=== PATIENT | male | born 1975 | race American Indian/Alaskan Native ===

== ENCOUNTER 2020-01-28 15:39 | Emergency (ER) | payer SELFPAY ==
[2020-01-28] MEDS ORDERED: ASPIRIN 325 MG TAB PO ONE (15:46)
--- NOTE | 2020-01-28 16:11 | XRay Report ---
CHEST 1 VIEW INDICATION / CLINICAL INFORMATION: MAIN: Chest Pain X1DAY. COMPARISON: None available. FINDINGS: SUPPORT DEVICES: None. HEART / MEDIASTINUM: No significant abnormality. LUNGS / PLEURA: No significant pulmonary or pleural abnormality. No pneumothorax. ADDITIONAL FINDINGS: No significant additional findings. IMPRESSION: 1No acute findings Signer Name: Zac Abrams MD Signed: 01/28/2020 4:06 PM Workstation Name: [id number]
[2020-01-28 16:14] LABS: Basophils % (Auto) 0.2 % (0.0-1.8); Eosinophils # (Auto) 0.1 K/mm3 (0.0-0.4); Eosinophils % (Auto) 2.2 % (0.0-4.3); Hematocrit 45.2 % (35.5-45.6); Hemoglobin 15.2 gm/dl (11.8-15.2); Lymphocytes # (Auto) 2.4 K/mm3 (1.2-5.4); Lymphocytes % (Auto) 37.1 % (13.4-35.0); Mean Corpuscular HGB Conc 34 % (32-34); Mean Corpuscular Volume 97 fl (84-94); Monocytes # (Auto) 0.6 K/mm3 (0.0-0.8); Monocytes % (Auto) 9.1 % (0.0-7.3); Platelet Count 200 K/mm3 (140-440); Red Blood Count 4.67 M/mm3 (3.65-5.03); Red Cell Distribution Width 13.4 % (13.2-15.2)
[2020-01-28 16:24] LABS: BUN/Creatinine Ratio 10; Blood Urea Nitrogen 11 mg/dL (9-20); Calcium 9.2 mg/dL (8.4-10.2); Hemolysis Index 13
--- NOTE | 2020-01-28 16:57 | Emergency Department Report ---
ED Chest Pain HPI - General Chief Complaint: Chest Pain Stated Complaint: CHEST PAIN , RIGHT EAR PAIN Time Seen by Provider: 01/28/20 16:52 Source: patient Mode of arrival: Ambulatory Limitations: No Limitations - History of Present Illness Initial Comments: 44-year-old male with a pericolonic at least 20 years older comes in for right ear pain and abrupt onset of midsternal chest pain today while he was running to the bus. Patient reported shortness of breath at that time. Patient complains of mild chest pain that is dull and throbbing now. Patient states that he has a history of chest pain and it feels like the same. Patient reports that he does drink alcohol last drink was 3 days ago and smokes cigarettes and cigars. Patient denies any past medical history currently takes no medications on a daily basis and reports a allergy to Cipro and sulfa drugs. MD Complaint: chest pain - Related Data Previous Rx's Medication Instructions Recorded Last Taken Type Amoxicillin [Amoxicillin TAB] 875 mg PO BID 7 Days #14 tablet 01/28/20 Unknown Rx Neomy/Polymyx B/Hc Otic Susp 4 drops AD TID 10 Days #1 bottle 01/28/20 Unknown Rx [Cortisporin (Otic) Susp] Allergies Allergy/AdvReac Type Severity Reaction Status Date / Time No Known Allergies Allergy Unverified 01/28/20 15:46 Heart Score - HEART Score History: Slightly suspicious Age: 45-65 Risk factors: No known risk factors Troponin: < normal limit ED Review of Systems ROS: Stated complaint: CHEST PAIN , RIGHT EAR PAIN Other details as noted in HPI Comment: All other systems reviewed and negative ED Past Medical Hx - Past Medical History Previous Medical History?: No - Surgical History Past Surgical History?: No - Social History Smoking Status: Current Every Day Smoker Substance Use Type: Alcohol, Marijuana - Medications Home Medications: Home Medications Medication Instructions Recorded Confirmed Last Taken Type Amoxicillin [Amoxicillin TAB] 875 mg PO BID 7 Days #14 tablet 01/28/20 Unknown Rx Neomy/Polymyx B/Hc Otic Susp 4 drops AD TID 10 Days #1 bottle 01/28/20 Unknown Rx [Cortisporin (Otic) Susp] ED Physical Exam - General Limitations: No Limitations General appearance: alert, in no apparent distress - Head Head exam: Present: atraumatic, normocephalic - ENT ENT exam: Present: mucous membranes moist - Expanded ENT Exam Expanded TM/Canal exam: Erythema: Right TM, Loss of Landmarks: Right TM - Respiratory Respiratory exam: Present: normal lung sounds bilaterally. Absent: respiratory distress - Cardiovascular Cardiovascular Exam: Present: regular rate, normal rhythm. Absent: systolic murmur, diastolic murmur, rubs, gallop - GI/Abdominal GI/Abdominal exam: Present: soft, normal bowel sounds - Neurological Exam Neurological exam: Present: alert, oriented X3 - Psychiatric Psychiatric exam: Present: normal affect, normal mood - Skin Skin exam: Present: warm, dry, intact, normal color. Absent: rash ED Course Vital Signs 01/28/20 15:41 Temperature 98.4 F Pulse Rate 117 H Respiratory 18 Rate Blood Pressure 189/97 O2 Sat by Pulse 97 Oximetry ABDIFATAH score - Abdifatah Score Age > 65: (0) No Aspirin use within the Past 7 Days: (0) No 3 or more CAD Risk Factors: (0) No 2 or more Angina events in past 24 hrs: (0) No Known CAD with more than 50% Stenosis: (0) No Elevated Cardiac Markers: (0) No ST Deviation Greater than 0.5mm: (0) No ABDIFATAH Score: 0 ED Medical Decision Making - Lab Data Result diagrams: 01/28/20 15:50 01/28/20 15:50 Laboratory Last Values WBC 6.6 K/mm3 (4.5-11.0) 01/28/20 15:50 RBC 4.67 M/mm3 (3.65-5.03) 01/28/20 15:50 Hgb 15.2 gm/dl (11.8-15.2) 01/28/20 15:50 Hct 45.2 % (35.5-45.6) 01/28/20 15:50 MCV 97 fl (84-94) H 01/28/20 15:50 MCH 33 pg (28-32) H 01/28/20 15:50 MCHC 34 % (32-34) 01/28/20 15:50 RDW 13.4 % (13.2-15.2) 01/28/20 15:50 Plt Count 200 K/mm3 (140-440) 01/28/20 15:50 Lymph % (Auto) 37.1 % (13.4-35.0) H 01/28/20 15:50 Bosque % (Auto) 9.1 % (0.0-7.3) H 01/28/20 15:50 Eos % (Auto) 2.2 % (0.0-4.3) 01/28/20 15:50 Baso % (Auto) 0.2 % (0.0-1.8) 01/28/20 15:50 Lymph # 2.4 K/mm3 (1.2-5.4) 01/28/20 15:50 Bosque # 0.6 K/mm3 (0.0-0.8) 01/28/20 15:50 Eos # 0.1 K/mm3 (0.0-0.4) 01/28/20 15:50 Baso # 0.0 K/mm3 (0.0-0.1) 01/28/20 15:50 Seg Neutrophils % 51.4 % (40.0-70.0) 01/28/20 15:50 Seg Neutrophils # 3.4 K/mm3 (1.8-7.7) 01/28/20 15:50 Sodium 139 mmol/L (137-145) 01/28/20 15:50 Potassium 4.2 mmol/L (3.6-5.0) 01/28/20 15:50 Chloride 101.6 mmol/L (98-107) 01/28/20 15:50 Carbon Dioxide 27 mmol/L (22-30) 01/28/20 15:50 Anion Gap 15 mmol/L 01/28/20 15:50 BUN 11 mg/dL (9-20) 01/28/20 15:50 Creatinine 1.1 mg/dL (0.8-1.5) 01/28/20 15:50 Estimated GFR > 60 ml/min 01/28/20 15:50 BUN/Creatinine Ratio 10 % 01/28/20 15:50 Glucose 237 mg/dL (75-100) H 01/28/20 15:50 Calcium 9.2 mg/dL (8.4-10.2) 01/28/20 15:50 Troponin T < 0.010 ng/mL (0.00-0.029) 01/28/20 15:50 - Radiology Data Radiology results: report reviewed Referring Physician:ED DOCPatient Name:JUNO CISNEROSatient ID:[id number] of :[id number]:MaleAccession:[id number] Date:[id number] Status:F inalized Findings [facility] [address] [place] [address] XRay Report Signed Patient: JUNO NICHOLSON MR#: [id number] : 1975 Acct:[id number] Age/Sex: 44 / M ADM Date: 01/28/20 Loc: ED Attending Dr: Ordering Physician: FREDA STRINGER MD Date of Service: 01/28/20 Procedure(s): XR chest 1V ap Accession Number(s): [id number] cc: ED MD MYKE Fluoro Time In Minutes: CHEST 1 VIEW INDICATION / CLINICAL INFORMATION: MAIN: Chest Pain X1DAY. COMPARISON: None available. FINDINGS: SUPPORT DEVICES: None. HEART / MEDIASTINUM: No significant abnormality. LUNGS / PLEURA: No significant pulmonary or pleural abnormality. No pn eumothorax. ADDITIONAL FINDINGS: No significant additional findings. IMPRESSION: 1No acute findings Signer Name: Zac Abrams MD Signed: 01/28/2020 4:06 PM Workstation Name: [id number] Transcribed By: JM Dictated By: Zac Abrams MD Electronically Authenticated By: Zac Abrams MD Signed Date/Time: 01/28/201605 DD/ 05 TD/TT: - Medical Decision Making 4-year-old male with a pericolonic at least 20 years older comes in for right ear pain and abrupt onset of midsternal chest pain today while he was running to the bus. Patient reported shortness of breath at that time. Patient complains of mild chest pain that is dull and throbbing now. Patient states that he has a history of chest pain and it feels like the same. Patient reports that he does drink alcohol last drink was 3 days ago and smokes cigarettes and cigars. Patient denies any past medical history currently takes no medications on a daily basis and reports a allergy to Cipro and sulfa drugs. Cardiac work-up shows no acute UT. Right ear shows infection will place patient on amoxicillin and Critical care attestation.: If time is entered above; I have spent that time in minutes in the direct care of this critically ill patient, excluding procedure time. ED Disposition Clinical Impression: Atypical chest pain, Otitis externa Disposition: DC- TO HOME OR SELFCARE Is pt being admited?: No Does the pt Need Aspirin: No Condition: Stable Instructions: Chest Pain (ED) Additional Instructions: Cardiac work-ups within normal limits. We will treat you for ear infection. Follow-up with her database dba I have listed 1 below for you. Prescriptions: Amoxicillin [Amoxicillin TAB] 875 mg PO BID 7 Days #14 tablet Neomy/Polymyx B/Hc Otic Susp [Cortisporin (Otic) Susp] 4 drops AD TID 10 Days #1 bottle Referrals: PRIMARY CARE, [Primary Care Provider] - 3-5 Days HORACE HYMAN MD [Staff Physician] - 3-5 Days
[2020-01-28 22:10] VITALS: BP 111/70
== END 2020-01-28 22:34 | disposition home or self-care (01) ==
LOC: ED 15:39
DX: R07.89 Other chest pain (principal); H60.91 Unspecified otitis externa, right ear; F17.200 Nicotine dependence, unspecified, uncomplicated; F12.10 Cannabis abuse, uncomplicated; Z79.899 Other long term (current) drug therapy
CPT/HCPCS: 36415; 71045; 80048; 84484; 85025; 93005; 93010

== ENCOUNTER 2020-09-12 07:44 | Emergency (ER) | payer SELFPAY ==
[2020-09-12 07:59] VITALS: BP 135/91
--- NOTE | 2020-09-12 08:17 | Emergency Department Report ---
ED ENT HPI - General Chief complaint: Earache Stated complaint: RT EAR PAIN Time Seen by Provider: 09/12/20 08:05 Source: patient Mode of arrival: Ambulatory Limitations: No Limitations - History of Present Illness Initial comments: Patient is a 45-year-old male presents emergency room with complaints of right ear pain that began 3 days ago. He states he has noticed some drainage from the ear. He denies any nausea, vomiting, diarrhea, chills, fever, hearing changes. He denies any sick contacts or recent travel. He had similar symptoms in January and was given antibiotics which he reports he completed. He states he has seen a ENT for hearing test but has not seen one due to ear infections. he denies other Medical history. He has an allergy to Cipro and Bactrim. - Related Data Previous Rx's Medication Instructions Recorded Last Taken Type Amoxicillin [Amoxicillin TAB] 875 mg PO BID 7 Days #14 tablet 01/28/20 Unknown Rx Neomy/Polymyx B/Hc Otic Susp 4 drops AD TID 10 Days #1 bottle 01/28/20 Unknown Rx [Cortisporin (Otic) Susp] Amoxicillin/Potassium Clav 1 each PO BID 10 Days #20 tablet 09/12/20 Unknown Rx [Augmentin 875-125 Tablet] Neomycin/Polymyxin B/Hydrocort 4 drops AD QID 10 Days #1 solution 09/12/20 Unknown Rx [Ttklnyoa-Hblqxvvhi-Js Ear Soln] Allergies Allergy/AdvReac Type Severity Reaction Status Date / Time ciprofloxacin Allergy Unknown Verified 09/12/20 07:56 Sulfa (Sulfonamide Allergy Unknown Verified 09/12/20 07:56 Antibiotics) ED Dental HPI - General Chief complaint: Earache Stated complaint: RT EAR PAIN Time Seen by Provider: 09/12/20 08:05 Source: patient Mode of arrival: Ambulatory Limitations: No Limitations - Related Data Previous Rx's Medication Instructions Recorded Last Taken Type Amoxicillin [Amoxicillin TAB] 875 mg PO BID 7 Days #14 tablet 01/28/20 Unknown Rx Neomy/Polymyx B/Hc Otic Susp 4 drops AD TID 10 Days #1 bottle 01/28/20 Unknown Rx [Cortisporin (Otic) Susp] Amoxicillin/Potassium Clav 1 each PO BID 10 Days #20 tablet 09/12/20 Unknown Rx [Augmentin 875-125 Tablet] Neomycin/Polymyxin B/Hydrocort 4 drops AD QID 10 Days #1 solution 09/12/20 Unknown Rx [Extxbsdz-Dpmtjldil-At Ear Soln] Allergies Allergy/AdvReac Type Severity Reaction Status Date / Time ciprofloxacin Allergy Unknown Verified 09/12/20 07:56 Sulfa (Sulfonamide Allergy Unknown Verified 09/12/20 07:56 Antibiotics) ED Review of Systems ROS: Stated complaint: RT EAR PAIN Other details as noted in HPI Comment: All other systems reviewed and negative ED Past Medical Hx - Past Medical History Previous Medical History?: No Additional medical history: "heart problems" - Surgical History Past Surgical History?: No Additional Surgical History: R ear sx, 1982 - Social History Smoking Status: Former Smoker Substance Use Type: None - Medications Home Medications: Home Medications Medication Instructions Recorded Confirmed Last Taken Type Amoxicillin [Amoxicillin TAB] 875 mg PO BID 7 Days #14 tablet 01/28/20 Unknown Rx Neomy/Polymyx B/Hc Otic Susp 4 drops AD TID 10 Days #1 bottle 01/28/20 Unknown Rx [Cortisporin (Otic) Susp] Amoxicillin/Potassium Clav 1 each PO BID 10 Days #20 tablet 09/12/20 Unknown Rx [Augmentin 875-125 Tablet] Neomycin/Polymyxin B/Hydrocort 4 drops AD QID 10 Days #1 solution 09/12/20 Unknown Rx [Dhxzteif-Jpfnaoaro-Zr Ear Soln] ED Physical Exam - General Limitations: No Limitations General appearance: alert, in no apparent distress - Head Head exam: Present: atraumatic, normocephalic - Eye Eye exam: Present: normal appearance - ENT ENT exam: Present: normal orophraynx, mucous membranes moist, other (+ tug test on the right, the right ear canal is erythematous with scaling, right TM is erythematous with purulence behind the TM, no obvious TM perforation, left TM and canal are normal) - Respiratory Respiratory exam: Absent: respiratory distress, accessory muscle use - Neurological Exam Neurological exam: Present: alert, oriented X3 - Psychiatric Psychiatric exam: Present: normal affect, normal mood - Skin Skin exam: Present: warm, dry, intact ED Course Vital Signs 09/12/20 09/12/20 07:57 08:26 Temperature 98.5 F Pulse Rate 109 H 99 H Respiratory 20 Rate Blood Pressure 135/91 O2 Sat by Pulse 96 97 Oximetry ED Medical Decision Making - Lab Data Vital Signs 09/12/20 09/12/20 07:57 08:26 Temperature 98.5 F Pulse Rate 109 H 99 H Respiratory 20 Rate Blood Pressure 135/91 O2 Sat by Pulse 96 97 Oximetry - Medical Decision Making Patient is a 45-year-old male presents emergency room with complaints of right ear pain that began 3 days ago. He states he has noticed some drainage from the ear. He denies any nausea, vomiting, diarrhea, chills, fever, hearing changes. He denies any sick contacts or recent travel. He had similar symptoms in January and was given antibiotics which he reports he completed. He states he has seen a ENT for hearing test but has not seen one due to ear infections. he denies other Medical history. He has an allergy to Cipro and Bactrim. initial vitals with mild tachycardia which improved to normal upon repeat without intervention. on exam: + tug test on the right, the right ear canal is erythematous with scaling, right TM is erythematous with purulence behind the TM, no obvious TM perforation, left TM and canal are normal. Examination appears consistent with otitis media and otitis externa. Patient given prescription for Augmentin and antibiotic eardrops. Patient will be referred to ENT doctor. Advised patient that he need to have the area reexamined within the next 3 to 5 days. advised pt Please use medication as prescribed. May take Tylenol or ibuprofen as needed for discomfort. Follow-up with the ear nose and throat doctor. Follow-up with your primary care doctor. Please have your ear rechecked in the next 3 to 5 days. Return to emergency room for any new or worsening symptoms. Critical care attestation.: If time is entered above; I have spent that time in minutes in the direct care of this critically ill patient, excluding procedure time. ED Disposition Clinical Impression: Otitis media Qualifiers: Otitis media type: suppurative Chronicity: acute Laterality: right Recurrence: recurrent Spontaneous tympanic membrane rupture: without spontaneous rupture Qualified Code(s): H66.004 - Acute suppurative otitis media without spontaneous rupture of ear drum, recurrent, right ear Otitis externa Qualifiers: Otitis externa type: unspecified type Chronicity: acute Laterality: right Qualified Code(s): H60.501 - Unspecified acute noninfective otitis externa, right ear Disposition: - TO HOME OR SELFCARE Is pt being admited?: No Does the pt Need Aspirin: No Condition: Stable Instructions: Otitis Externa, Nfrb-cm-Gfnz, Otitis Media, Adult, Rfns-lx-Peml Additional Instructions: Please use medication as prescribed. May take Tylenol or ibuprofen as needed for discomfort. Follow-up with the ear nose and throat doctor. Follow-up with your primary care doctor. Please have your ear rechecked in the next 3 to 5 days. Return to emergency room for any new or worsening symptoms. Prescriptions: Amoxicillin/Potassium Clav [Augmentin 875-125 Tablet] 1 each PO BID 10 Days #20 tablet Neomycin/Polymyxin B/Hydrocort [Jeulhqwx-Muxtazdak-Nv Ear Soln] 4 drops AD QID 10 Days #1 solution Referrals: PACHECO CRUZ MD [Staff Physician] - 3-5 Days [facility]NT [facility] [Provider Group] - 3-[address] [facility] [Provider Group] - 3-5 Days Time of Disposition: 08:19 Print Language: ROMANIAN
== END 2020-09-12 08:29 | disposition home or self-care (01) ==
LOC: ED 07:44
DX: H66.91 Otitis media, unspecified, right ear (principal); H60.91 Unspecified otitis externa, right ear; Z79.2 Long term (current) use of antibiotics; Z79.899 Other long term (current) drug therapy; Z88.2 Allergy status to sulfonamides; Z88.8 Allergy status to other drugs, medicaments and biological substances
CPT/HCPCS: 99282

== ENCOUNTER 2020-09-18 02:51 | Emergency (ER) | payer SELFPAY ==
[2020-09-18 03:12] VITALS: BP 150/85
[2020-09-18 04:01] LABS: Hematocrit 44.1 % (35.5-45.6); Hemoglobin 15.1 gm/dl (11.8-15.2); Mean Corpuscular HGB Conc 34 % (32-34); Mean Corpuscular Volume 98 fl (84-94); Platelet Count 173 K/mm3 (140-440); Red Blood Count 4.49 M/mm3 (3.65-5.03); Red Cell Distribution Width 13.1 % (13.2-15.2)
[2020-09-18 04:11] LABS: Basophils % (Auto) 0.2 % (0.0-1.8); Eosinophils # (Auto) 0.1 K/mm3 (0.0-0.4); Eosinophils % (Auto) 0.7 % (0.0-4.3); Lymphocytes # (Auto) 0.8 K/mm3 (1.2-5.4); Monocytes # (Auto) 0.4 K/mm3 (0.0-0.8); Monocytes % (Auto) 2.6 % (0.0-7.3)
--- NOTE | 2020-09-18 04:25 | XRay Report ---
CHEST 1 VIEW INDICATION: Chest Pain. COMPARISON: 05/24/2020 FINDINGS: SUPPORT DEVICES: None. HEART: Within normal limits. LUNGS/PLEURA: No acute air space or interstitial disease. ADDITIONAL FINDINGS: None. IMPRESSION: 1. No acute findings. Signer Name: Capo Manning MD Signed: 09/18/2020 4:20 AM Workstation Name: [id number]
[2020-09-18 04:54] LABS: BUN/Creatinine Ratio 16; Blood Urea Nitrogen 13 mg/dL (9-20); Calcium 9.3 mg/dL (8.4-10.2); Hemolysis Index 98
--- NOTE | 2020-09-18 05:31 | Emergency Department Report ---
ED Chest Pain HPI - General Chief Complaint: Chest Pain Stated Complaint: CHEST PAIN,COUGH Time Seen by Provider: 09/18/20 05:01 Source: patient, EMS Mode of arrival: Stretcher Limitations: No Limitations - History of Present Illness Initial Comments: 45-year-old Serbian male with history of reported "heart problems" department complaining 3-day history of waxing and waning chest discomfort that radiates across the chest to back area associated with nausea which appears to be worse with movement and deep breath. States [place] was on the train and began to feel as to his symptoms he reports normal size no hematemesis no hematochezia, no fevers, chills, sweats Complaint: chest pain -: Gradual Pain Location: left chest Pain Radiation: none Severity: mild Severity scale (0 -10): 10 Quality: aching Consistency: constant Improves With: nothing Worsens With: inspiration, palpation Treatments Prior to Arrival: none - Related Data Previous Rx's Medication Instructions Recorded Last Taken Type Amoxicillin [Amoxicillin TAB] 875 mg PO BID 7 Days #14 tablet 01/28/20 Unknown Rx Neomy/Polymyx B/Hc Otic Susp 4 drops AD TID 10 Days #1 bottle 01/28/20 Unknown Rx [Cortisporin (Otic) Susp] Amoxicillin/Potassium Clav 1 each PO BID 10 Days #20 tablet 09/12/20 Unknown Rx [Augmentin 875-125 Tablet] Neomycin/Polymyxin B/Hydrocort 4 drops AD QID 10 Days #1 solution 09/12/20 Unknown Rx [Jupvvmhq-Hgypawmfy-Js Ear Soln] Allergies Allergy/AdvReac Type Severity Reaction Status Date / Time ciprofloxacin Allergy Unknown Verified 09/12/20 07:56 Sulfa (Sulfonamide Allergy Unknown Verified 09/12/20 07:56 Antibiotics) Heart Score - HEART Score History: Slightly suspicious EKG: Non-specific Age: 45-65 Risk factors: No known risk factors Troponin: < normal limit HEART Score: 2 ED Review of Systems ROS: Stated complaint: CHEST PAIN,COUGH Other details as noted in HPI Comment: All other systems reviewed and negative ED Past Medical Hx - Past Medical History Previous Medical History?: Yes Additional medical history: "heart problems" - Surgical History Past Surgical History?: Yes Additional Surgical History: R ear sx, 1982 - Social History Smoking Status: Current Every Day Smoker Substance Use Type: None - Medications Home Medications: Home Medications Medication Instructions Recorded Confirmed Last Taken Type Amoxicillin [Amoxicillin TAB] 875 mg PO BID 7 Days #14 tablet 01/28/20 Unknown Rx Neomy/Polymyx B/Hc Otic Susp 4 drops AD TID 10 Days #1 bottle 01/28/20 Unknown Rx [Cortisporin (Otic) Susp] Amoxicillin/Potassium Clav 1 each PO BID 10 Days #20 tablet 09/12/20 Unknown Rx [Augmentin 875-125 Tablet] Neomycin/Polymyxin B/Hydrocort 4 drops AD QID 10 Days #1 solution 09/12/20 Unknown Rx [Fptbaliv-Gupauzjlb-Jm Ear Soln] ED Physical Exam - General Limitations: No Limitations General appearance: alert, in no apparent distress - Head Head exam: Present: atraumatic, normocephalic - Eye Eye exam: Present: normal appearance, PERRL, EOMI Pupils: Present: normal accommodation - ENT ENT exam: Present: normal exam, normal orophraynx, mucous membranes moist, TM's normal bilaterally - Neck Neck exam: Present: normal inspection, full ROM - Respiratory Respiratory exam: Present: normal lung sounds bilaterally, chest wall tenderness. Absent: respiratory distress, wheezes, rales - Cardiovascular Cardiovascular Exam: Present: regular rate, normal rhythm. Absent: systolic murmur, diastolic murmur, rubs, gallop - GI/Abdominal GI/Abdominal exam: Present: soft, normal bowel sounds. Absent: distended, tenderness - Rectal Rectal exam: Present: deferred - Extremities Exam Extremities exam: Present: normal inspection - Back Exam Back exam: Present: normal inspection - Neurological Exam Neurological exam: Present: alert, oriented X3 - Psychiatric Psychiatric exam: Present: normal affect, normal mood - Skin Skin exam: Present: warm, dry, intact, normal color. Absent: rash ED Course Vital Signs 09/18/20 09/18/20 03:04 03:11 Temperature 98.1 F Pulse Rate 95 H Respiratory 16 Rate Blood Pressure 150/85 [Right] O2 Sat by Pulse 99 Oximetry ABDIFATAH score - Abdifatah Score Age > 65: (0) No Aspirin use within the Past 7 Days: (0) No 3 or more CAD Risk Factors: (0) No 2 or more Angina events in past 24 hrs: (0) No Known CAD with more than 50% Stenosis: (0) No Elevated Cardiac Markers: (0) No ST Deviation Greater than 0.5mm: (0) No ABDIFATAH Score: 0 ED Medical Decision Making - Lab Data Result diagrams: 09/18/20 03:35 09/18/20 03:35 Lab Results 09/18/20 09/18/20 Range/Units 03:35 03:35 WBC 14.0 H (4.5-11.0) K/mm3 RBC 4.49 (3.65-5.03) M/mm3 Hgb 15.1 (11.8-15.2) gm/dl Hct 44.1 (35.5-45.6) % MCV 98 H (84-94) fl MCH 34 H (28-32) pg MCHC 34 (32-34) % RDW 13.1 L (13.2-15.2) % Plt Count 173 (140-440) K/mm3 Lymph % (Auto) 6.0 L (13.4-35.0) % [place] % (Auto) 2.6 (0.0-7.3) % Eos % (Auto) 0.7 (0.0-4.3) % Baso % (Auto) 0.2 (0.0-1.8) % Lymph # (Auto) 0.8 L (1.2-5.4) K/mm3 [place] # (Auto) 0.4 (0.0-0.8) K/mm3 Eos # (Auto) 0.1 (0.0-0.4) K/mm3 Baso # (Auto) 0.0 (0.0-0.1) K/mm3 Seg Neutrophils % Blower Installer Seg Neutrophils # 12.7 H (1.8-7.7) K/mm3 Sodium 140 (137-145) mmol/L Potassium 4.4 (3.6-5.0) mmol/L Chloride 102.6 (98-107) mmol/L Carbon Dioxide 24 (22-30) mmol/L Anion Gap 18 mmol/L BUN 13 (9-20) mg/dL Creatinine 0.8 (0.8-1.3) mg/dL Estimated GFR > 60 ml/min BUN/Creatinine Ratio 16 % Glucose 147 H (75-100) mg/dL Calcium 9.3 (8.4-10.2) mg/dL Troponin T < 0.010 (0.00-0.029) ng/mL - EKG Data EKG shows normal: sinus rhythm Rate: normal - EKG Data Interpretation: normal EKG - Radiology Data Radiology results: report reviewed [facility] [address] [place] [address] XRay Report Signed Patient: JUNO NICHOLSON MR#: [id number] : 1975 Acct:[id number] Age/Sex: 45 / M ADM Date: 09/18/20 Loc: ED Attending Dr: Ordering Physician: FREDA STRINGER MD Date of Service: 09/18/20 Procedure(s): XR chest 1V ap Accession Number(s): [id number] cc: FREDA STRINGER MD Fluoro Time In Minutes: CHEST 1 VIEW INDICATION: Chest Pain. COMPARISON: 05/24/2020 FINDINGS: SUPPORT DEVICES: None. HEART: Within normal limits. LUNGS/PLEURA: No acute air space or interstitial disease. ADDITIONAL FINDINGS: None. IMPRESSION: 1. No acute findings. Signer Name: Capo Manning MD Signed: 09/18/2020 4:20 AM Workstation Name: [id number] Transcribed By: MICHELINE Dictated By: Capo Manning MD Electronically Authenticated By: Capo Manning MD Signed Date/Time: 09/18/20419 DD/ 9 TD/TT: - Medical Decision Making This patient presents with chest pain that is very unlikely angina or acute coronary syndrome. The emergency department evaluation has not identified any cause for suspicion that this chest pain has a cardiac etiology. Based on their history, EKG (which showed no evidence of ischemia or infarction) and imaging, in addition to the patient's physical exam, I see no evidence at this time for a malignant etiology for the patient's chest pain. There is no acute evidence for pulmonary embolus, acute myocardial infarction, pneumothorax, Boerhaeve syndrome, cardiac tamponade, thoracic artery dissection, or any other emergent cardiac, pulmonary or aortic pathology. Given the low pre-test probability for cardiac etiology of chest pain and the absence of any sign of ischemia or infarction, discharge for outpatient follow-up and further evaluation is reasonable. I have explained to the patient that even though a cardiac problem is very unlikely, follow-up and further testing is required to reduce further the already small uncertainty that exists. Other life-threatening diagnoses have been considered. The patient understands the need to return immediately if their symptoms worsen or they develop any new symptoms, and not to engage in any significant exertional activity until follow-up is obtained. Critical care attestation.: If time is entered above; I have spent that time in minutes in the direct care of this critically ill patient, excluding procedure time. ED Disposition Clinical Impression: Chest pain Disposition: DC-01 TO HOME OR SELFCARE Is pt being admited?: No Does the pt Need Aspirin: No Condition: Stable Instructions: Chest Pain (ED), Nonspecific Chest Pain, Adult Additional Instructions: You will be of referred via chest pain with referral pathway with [facility] please be sure that your contacts were evaluated so that they can reach you to schedule your appointment Referrals: ADOLFO WILL MD [Primary Care Provider] - 3-5 Days [facility] [Provider Group] - 3-5 Days
== END 2020-09-18 07:50 | disposition home or self-care (01) ==
LOC: ED 02:51
DX: R07.89 Other chest pain (principal); R11.0 Nausea; F17.200 Nicotine dependence, unspecified, uncomplicated; Z79.2 Long term (current) use of antibiotics; Z79.899 Other long term (current) drug therapy; Z88.2 Allergy status to sulfonamides; Z88.8 Allergy status to other drugs, medicaments and biological substances
CPT/HCPCS: 36415; 71045; 80048; 84484; 85025; 93005

== ENCOUNTER 2020-11-23 07:33 | Emergency (ER) | payer SELFPAY ==
[2020-11-23 07:44] VITALS: BP 142/88
[2020-11-23] MEDS ORDERED: IBUPROFEN 800 MG TAB PO ONE (07:45)
--- NOTE | 2020-11-23 07:54 | Emergency Department Report ---
Chief Complaint: Medical Clearance Stated Complaint: RT EAR LT FOOT PAINS Time Seen by Provider: 11/23/20 07:48 - HPI History of Present Illness: 45-year-old -Afghan male presents to the emergency room for chronic right ear pain and left foot pain. Patient denies any injury to his left foot states that he walks a lot. Patient has been seen here 3 times for his right ear and was referred to monotype keyboard operator. Patient was seen 2 days ago at [place] for the same complaints. Patient has stable vital signs. - Exam Vital Signs: Vital Signs 11/23/20 07:41 Temperature 97.9 F Pulse Rate 96 H Respiratory 20 Rate Blood Pressure 142/88 O2 Sat by Pulse 98 Oximetry Physical Exam: Alert and oriented x3 no acute distress nontoxic in appearance Right ear mild erythematous no drainage appreciated no swelling appreciated tympanic membrane intact Mouth moist. Left foot full range of motion nonerythematous tenderness under the first metacarpal. Ambulating without difficulties. MSE screening note: Focused history and physical exam performed. Due to findings the following was ordered: 45-year-old -Afghan male presents to the emergency room for chronic right ear pain and left foot pain. Patient denies any injury to his left foot states that he walks a lot. Patient has been seen here 3 times for his right ear and was referred to monotype keyboard operator. Patient was seen 2 days ago at [place] for the same complaints. Patient has stable vital signs. Patient will be referred to ear nose and throat provider. As well as a primary care provider for follow-up on his chronic conditions. ED Disposition for [facility] [place] Clinical Impression: Chronic otitis externa of right ear, Left foot pain Disposition: MED SCREENING EXAM-LEFT Is pt being admited?: No Does the pt Need Aspirin: No Condition: Stable Additional Instructions: Follow-up with the service learning coordinator you can take Tylenol or ibuprofen for pain management. Recommended you also follow-up with a primary health care coach. I have listed their information below for your convenience. Referrals: PACHECO CRUZ MD [Staff Physician] - 3-5 Days [facility] [Provider Group] - 3-5 Days
== END 2020-11-23 08:18 | disposition left against medical advice (07) ==
LOC: ED 07:33
DX: H92.02 Otalgia, left ear (principal); Z53.21 Procedure and treatment not carried out due to patient leaving prior to being seen by health care provider

== ENCOUNTER 2021-07-02 19:29 | Emergency (ER) | payer SELFPAY ==
[2021-07-02] MEDS ORDERED: IPRATROPIUM/ALBUTEROL SULFATE 3 ML AMPUL.NEB IH ONE (20:27)
--- NOTE | 2021-07-02 20:28 | Emergency Department Report ---
ED General Adult HPI - General Chief complaint: Chest Pain Stated complaint: CHEST PAIN AND HEADACHE Time Seen by Provider: 07/02/21 19:45 Source: patient Mode of arrival: Ambulatory Limitations: No Limitations - History of Present Illness Initial comments: The patient presents to the emergency department the chief complaint of substernal chest pain has been present for the last 3 days. Patient describes the pain is sharp in nature and states that has been continuous. Patient denies any shortness of breath. Patient has a history of hypertension or diabetes. Patient states that he has noticed some wheezing over the last couple of days states he had a history asthma as a kid but otherwise has no active issues with his lungs. -: Sudden, days(s) (3) Location: chest Radiation: non-radiation Severity scale (0 -10): 3 Quality: aching Consistency: constant Improves with: none Worsens with: none Associated Symptoms: denies other symptoms Treatments Prior to Arrival: none - Related Data Previous Rx's Medication Instructions Recorded Last Taken Type Amoxicillin [Amoxicillin TAB] 875 mg PO BID 7 Days #14 tablet 01/28/20 Unknown Rx Neomy/Polymyx B/Hc Otic Susp 4 drops AD TID 10 Days #1 bottle 01/28/20 Unknown Rx [Cortisporin (Otic) Susp] Amoxicillin/Potassium Clav 1 each PO BID 10 Days #20 tablet 09/12/20 Unknown Rx [Augmentin 875-125 Tablet] Neomycin/Polymyxin B/Hydrocort 4 drops AD QID 10 Days #1 solution 09/12/20 Unknown Rx [Uaswwrsx-Svgmbjaxz-Io Ear Soln] Albuterol Mdi (or & Nicu Only) 2 puff IH Q4HR PRN #1 inhalation 07/03/21 Unknown Rx [ProAir HFA Inhaler] Amoxicillin [Amoxicillin TAB] 875 mg PO BID #14 tablet 07/03/21 Unknown Rx Ibuprofen [Motrin] 800 mg PO Q8HR PRN #30 tablet 07/03/21 Unknown Rx predniSONE [Deltasone] 20 mg PO DAILY #15 tablet 07/03/21 Unknown Rx Allergies Allergy/AdvReac Type Severity Reaction Status Date / Time ciprofloxacin Allergy Unknown Verified 11/23/20 07:44 Sulfa (Sulfonamide Allergy Unknown Verified 11/23/20 07:44 Antibiotics) ED Review of Systems ROS: Stated complaint: CHEST PAIN AND HEADACHE Other details as noted in HPI Constitutional: denies: chills, fever Eyes: denies: eye pain, eye discharge, vision change ENT: denies: ear pain, throat pain Respiratory: denies: cough, shortness of breath, wheezing Cardiovascular: chest pain. denies: palpitations Endocrine: no symptoms reported Gastrointestinal: denies: abdominal pain, nausea, diarrhea Genitourinary: denies: urgency, dysuria Musculoskeletal: denies: back pain, joint swelling, arthralgia Skin: denies: rash, lesions Neurological: denies: headache, weakness, paresthesias Psychiatric: denies: anxiety, depression Hematological/Lymphatic: denies: easy bleeding, easy bruising ED Past Medical Hx - Past Medical History Previous Medical History?: Yes Additional medical history: "heart problems" - Surgical History Past Surgical History?: Yes Additional Surgical History: R ear sx, 1982 - Social History Smoking Status: Current Some Day Smoker Substance Use Type: None - Medications Home Medications: Home Medications Medication Instructions Recorded Confirmed Last Taken Type Amoxicillin [Amoxicillin TAB] 875 mg PO BID 7 Days #14 tablet 01/28/20 Unknown Rx Neomy/Polymyx B/Hc Otic Susp 4 drops AD TID 10 Days #1 bottle 01/28/20 Unknown Rx [Cortisporin (Otic) Susp] Amoxicillin/Potassium Clav 1 each PO BID 10 Days #20 tablet 09/12/20 Unknown Rx [Augmentin 875-125 Tablet] Neomycin/Polymyxin B/Hydrocort 4 drops AD QID 10 Days #1 solution 09/12/20 Unknown Rx [Awrrfjvt-Jrorhzlec-Hx Ear Soln] Albuterol Mdi (or & Nicu Only) 2 puff IH Q4HR PRN #1 inhalation 07/03/21 Unknown Rx [ProAir HFA Inhaler] Amoxicillin [Amoxicillin TAB] 875 mg PO BID #14 tablet 07/03/21 Unknown Rx Ibuprofen [Motrin] 800 mg PO Q8HR PRN #30 tablet 07/03/21 Unknown Rx predniSONE [Deltasone] 20 mg PO DAILY #15 tablet 07/03/21 Unknown Rx ED Physical Exam - General Limitations: No Limitations General appearance: alert, in no apparent distress - Head Head exam: Present: atraumatic, normocephalic - Eye Eye exam: Present: normal appearance, PERRL, EOMI - ENT ENT exam: Present: mucous membranes moist - Neck Neck exam: Present: normal inspection - Respiratory Respiratory exam: Present: wheezes. Absent: respiratory distress - Cardiovascular Cardiovascular Exam: Present: regular rate, normal rhythm. Absent: systolic murmur, diastolic murmur, rubs, gallop - GI/Abdominal GI/Abdominal exam: Present: soft, normal bowel sounds. Absent: distended, tenderness - Rectal Rectal exam: Present: deferred - Extremities Exam Extremities exam: Present: normal inspection - Back Exam Back exam: Present: normal inspection - Neurological Exam Neurological exam: Present: alert, oriented X3, CN II-XII intact. Absent: motor sensory deficit - Psychiatric Psychiatric exam: Present: normal affect, normal mood - Skin Skin exam: Present: warm, dry, intact, normal color. Absent: rash ED Course Vital Signs 07/02/21 19:46 Temperature 98.8 F Pulse Rate 98 H Respiratory 18 Rate Blood Pressure 130/88 O2 Sat by Pulse 97 Oximetry ED Medical Decision Making - Lab Data Result diagrams: 07/02/21 21:25 07/02/21 21:25 Lab Results 07/02/21 07/02/21 07/02/21 Range/Units 21:25 21:25 21:25 WBC 7.8 (4.5-11.0) K/mm3 RBC 4.34 (3.65-5.03) M/mm3 Hgb 14.8 (11.8-15.2) gm/dl Hct 42.9 (35.5-45.6) % MCV 99 H (84-94) fl MCH 34 H (28-32) pg MCHC 34 (32-34) % RDW 13.0 L (13.2-15.2) % Plt Count 171 (140-440) K/mm3 Lymph % (Auto) 38.9 H (13.4-35.0) % [place] % (Auto) 9.5 H (0.0-7.3) % Eos % (Auto) 2.9 (0.0-4.3) % Baso % (Auto) 1.3 (0.0-1.8) % Lymph # (Auto) 3.0 (1.2-5.4) K/mm3 [place] # (Auto) 0.7 (0.0-0.8) K/mm3 Eos # (Auto) 0.2 (0.0-0.4) K/mm3 Baso # (Auto) 0.1 (0.0-0.1) K/mm3 Seg Neutrophils % 47.4 (40.0-70.0) % Seg Neutrophils # 3.7 (1.8-7.7) K/mm3 PT 13.4 (12.2-14.9) Sec. INR 0.97 (0.87-1.13) APTT 29.0 (24.2-36.6) Sec. Sodium 136 L (137-145) mmol/L Potassium 4.0 (3.6-5.0) mmol/L Chloride 97.3 L (98-107) mmol/L Carbon Dioxide 28 (22-30) mmol/L Anion Gap 15 mmol/L BUN 17 (9-20) mg/dL Creatinine 1.1 (0.8-1.3) mg/dL Estimated GFR > 60 ml/min BUN/Creatinine Ratio 15 % Glucose 360 H (75-100) mg/dL Calcium 9.1 (8.4-10.2) mg/dL Total Bilirubin 0.50 (0.1-1.2) mg/dL AST 18 (5-40) units/L ALT 26 (7-56) units/L Alkaline Phosphatase 79 (35-129) units/L Troponin T < 0.010 (0.00-0.029) ng/mL NT-Pro-B Natriuret Pep 114.3 (0-450) pg/mL Total Protein 7.2 (6.3-8.2) g/dL Albumin 3.9 (3.9-5) g/dL Albumin/Globulin Ratio 1.2 % Lipase 59 (13-60) units/L Urine Color (Yellow) Urine Turbidity (Clear) Urine pH (5.0-7.0) Ur Specific [place] (1.003-1.030) Urine Protein (Negative) mg/dL Urine Glucose (UA) (Negative) mg/dL Urine Ketones (Negative) mg/dL Urine Blood (Negative) Urine Nitrite (Negative) Urine Bilirubin (Negative) Urine Urobilinogen (<2.0) mg/dL Ur Leukocyte Esterase (Negative) Urine WBC (Auto) (0.0-6.0) /HPF Urine RBC (Auto) (0.0-6.0) /HPF U Epithel Cells (Auto) (0-13.0) /HPF Ur Amphetamines Screen Urine Cocaine Screen Drugs of Abuse Note 07/02/21 07/02/21 Range/Units 23:43 23:43 WBC (4.5-11.0) K/mm3 RBC (3.65-5.03) M/mm3 Hgb (11.8-15.2) gm/dl Hct (35.5-45.6) % MCV (84-94) fl MCH (28-32) pg MCHC (32-34) % RDW (13.2-15.2) % Plt Count (140-440) K/mm3 Lymph % (Auto) (13.4-35.0) % [place] % (Auto) (0.0-7.3) % Eos % (Auto) (0.0-4.3) % Baso % (Auto) (0.0-1.8) % Lymph # (Auto) (1.2-5.4) K/mm3 [place] # (Auto) (0.0-0.8) K/mm3 Eos # (Auto) (0.0-0.4) K/mm3 Baso # (Auto) (0.0-0.1) K/mm3 Seg Neutrophils % (40.0-70.0) % Seg Neutrophils # (1.8-7.7) K/mm3 PT (12.2-14.9) Sec. INR (0.87-1.13) APTT (24.2-36.6) Sec. Sodium (137-145) mmol/L Potassium (3.6-5.0) mmol/L Chloride (98-107) mmol/L Carbon Dioxide (22-30) mmol/L Anion Gap mmol/L BUN (9-20) mg/dL Creatinine (0.8-1.3) mg/dL Estimated GFR ml/min BUN/Creatinine Ratio % Glucose (75-100) mg/dL Calcium (8.4-10.2) mg/dL Total Bilirubin (0.1-1.2) mg/dL AST (5-40) units/L ALT (7-56) units/L Alkaline Phosphatase (35-129) units/L Troponin T (0.00-0.029) ng/mL NT-Pro-B Natriuret Pep (0-450) pg/mL Total Protein (6.3-8.2) g/dL Albumin (3.9-5) g/dL Albumin/Globulin Ratio % Lipase (13-60) units/L Urine Color Yellow (Yellow) Urine Turbidity Clear (Clear) Urine pH 6.0 (5.0-7.0) Ur Specific [place] 1.032 H (1.003-1.030) Urine Protein <15 mg/dl (Negative) mg/dL Urine Glucose (UA) >=500 (Negative) mg/dL Urine Ketones Neg (Negative) mg/dL Urine Blood Neg (Negative) Urine Nitrite Neg (Negative) Urine Bilirubin Neg (Negative) Urine Urobilinogen 4.0 (<2.0) mg/dL Ur Leukocyte Esterase Sm (Negative) Urine WBC (Auto) 21.0 H (0.0-6.0) /HPF Urine RBC (Auto) 2.0 (0.0-6.0) /HPF U Epithel Cells (Auto) 2.0 (0-13.0) /HPF Ur Amphetamines Screen Presumptive positive Urine Cocaine Screen Presumptive positive Drugs of Abuse Note Disclamer - EKG Data -: EKG Interpreted by Ct EKG shows normal: sinus rhythm Rate: normal - Radiology Data Radiology results: report reviewed - Medical Decision Making Discussed findings and laboratory values to patient Patient received breathing treatment in ED Critical care attestation.: If time is entered above; I have spent that time in minutes in the direct care of this critically ill patient, excluding procedure time. ED Disposition Clinical Impression: Nonspecific chest pain, Constriction of bronchial airway, UTI (urinary tract infection) Disposition: 01 HOME / SELF CARE / HOMELESS Is pt being admited?: No Does the pt Need Aspirin: No Condition: Stable Instructions: Nonspecific Chest Pain, Adult, Urinary Tract Infection, Adult, Acute Bronchitis, Adult, [id number] Additional Instructions: Return if worse Prescriptions: Amoxicillin [Amoxicillin TAB] 875 mg PO BID #14 tablet predniSONE [Deltasone] 20 mg PO DAILY #15 tablet Ibuprofen [Motrin] 800 mg PO Q8HR PRN #30 tablet PRN Reason: Pain Albuterol Mdi (or & Nicu Only) [ProAir HFA Inhaler] 2 puff IH Q4HR PRN #1 inhalation PRN Reason: Shortness Of Breath Referrals: PRIMARY MD FRANKIE [Primary Care Provider] - 3-5 Days HORACE HYMAN MD [Staff Physician] - 3-5 Days Time of Disposition: 00:36
--- NOTE | 2021-07-02 21:01 | XRay Report ---
CHEST 1 VIEW 07/02/2021 7:54 PM INDICATION / CLINICAL INFORMATION: Chest Pain. COMPARISON: 09/18/2020 FINDINGS: SUPPORT DEVICES: None. HEART / MEDIASTINUM: No significant abnormality. LUNGS / PLEURA: No significant pulmonary or pleural abnormality. No pneumothorax. ADDITIONAL FINDINGS: No significant additional findings. IMPRESSION: 1. No acute findings. Signer Name: Brice España MD Signed: 07/02/2021 8:56 PM Workstation Name: [id number]
[2021-07-02 21:02] VITALS: BP 130/88
[2021-07-02 21:50] LABS: Basophils # (Auto) 0.1 K/mm3 (0.0-0.1); Basophils % (Auto) 1.3 % (0.0-1.8); Eosinophils # (Auto) 0.2 K/mm3 (0.0-0.4); Eosinophils % (Auto) 2.9 % (0.0-4.3); Hematocrit 42.9 % (35.5-45.6); Hemoglobin 14.8 gm/dl (11.8-15.2); Lymphocytes % (Auto) 38.9 % (13.4-35.0); Mean Corpuscular HGB Conc 34 % (32-34); Mean Corpuscular Volume 99 fl (84-94); Monocytes # (Auto) 0.7 K/mm3 (0.0-0.8); Monocytes % (Auto) 9.5 % (0.0-7.3); Platelet Count 171 K/mm3 (140-440); Red Blood Count 4.34 M/mm3 (3.65-5.03)
[2021-07-02 22:06] LABS: INR 0.97 (0.87-1.13)
[2021-07-02 22:10] LABS: Alanine Aminotransferase 26 units/L (7-56); Albumin 3.9 g/dL (3.9-5); BUN/Creatinine Ratio 15; Blood Urea Nitrogen 17 mg/dL (9-20); Calcium 9.1 mg/dL (8.4-10.2); Hemolysis Index 17
[2021-07-03 00:04] LABS: Bilirubin,Urine NEG (Negative); Blood,Urine NEG (Negative); Color,Urine Yellow (Yellow); Protein,Urine <15 mg/dL mg/dL (Negative)
[2021-07-03 00:12] LABS: Benzodiazepines Screen,Urine PRESUMPTIVE NEGATIVE; Cannabinoid Screen,Urine PRESUMPTIVE NEGATIVE; Cocaine Screen,Urine PRESUMPTIVE POSITIVE; Methadone Screen,Urine PRESUMPTIVE NEGATIVE; Opiate Screen,Urine PRESUMPTIVE NEGATIVE
[2021-07-03 00:40] LABS: Amphetamine Screen,Urine PRESUMPTIVE NEGATIVE
--- NOTE | 2021-07-04 13:24 | Electrocardiograph Report ---
[facility] Test Date: 2021-07-02 Test Time: 19:41:02 Pat Name: JUNO NICHOLSON Department: Room: Gender: M Technology Assistant: [id number] : 1975 Requested By: JAMES MARSHALL Order Number: [id number] Reading MD: Eliezer Griffith Measurements Intervals [place] Rate: 103 P: 75 VT: 128 QRS: 20 QRSD: 73 T: 0 QT: 373 QTc: 490 Interpretive Statements Sinus tachycardia Probable left atrial enlargement Left ventricular hypertrophy Nonspecific T abnormalities, diffuse leads No previous ECG available for comparison Electronically Signed On 07-04-2021 13:24:41 EDT by Eliezer Griffith
--- NOTE | 2021-07-04 13:25 | Electrocardiograph Report ---
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
== END 2021-07-03 01:09 | disposition home or self-care (01) ==
LOC: ED 19:29
DX: R07.9 Chest pain, unspecified (principal); J98.09 Other diseases of bronchus, not elsewhere classified; N39.0 Urinary tract infection, site not specified; I10 Essential (primary) hypertension; E11.8 Type 2 diabetes mellitus with unspecified complications; J45.909 Unspecified asthma, uncomplicated; Z88.1 Allergy status to other antibiotic agents; Z88.2 Allergy status to sulfonamides; F17.200 Nicotine dependence, unspecified, uncomplicated
CPT/HCPCS: 36415; 71045; 80053; 80307; 81001; 83690; 83880; 84484; 85025; 85610; 85730; 87086; 93005; 94640; 99284

== ENCOUNTER 2021-07-15 11:19 | Emergency (ER) | payer SELFPAY ==
--- NOTE | 2021-07-15 11:33 | Event Note ---
ED Screening Note ED Screening Note: SUBSTERNAL CP AND SOB; NON WELL APPEARING; YAWNING OVER AND OVER DURING EXAM OCC CIG/ETOH DENIES DRUGS/THC PMH DENIES PSH EAR RX NONE NKDA NO COVID IMMUNIZATIONS DOES NOT WORK. MOM AND DAD DEC. HE DOES NOT KNOW CAUSE OF PCP NONE This initial assessment/diagnostic orders/clinical plan/treatment(s) is/are subject to change based on patients health status, clinical progression and re- assessment by fellow clinical providers in the ED. Further treatment and workup at subsequent clinical providers discretion. Patient/guardian urged not to elope from the ED as their condition may be serious if not clinically assessed and managed. Initial orders include: RO ACS
[2021-07-15] MEDS ORDERED: HYDROcodone/ACETAMINOPHEN 5-325 MG TAB PO ONE (12:05)
--- NOTE | 2021-07-15 12:07 | Emergency Department Report ---
ED Chest Pain HPI - General Chief Complaint: Chest Pain Stated Complaint: CHESS PAIN Time Seen by Provider: 07/15/21 11:30 - History of Present Illness Initial Comments: 46-year-old -Gu[place] male presents to the emergency department with complaint of midsternal chest pain and right-sided headache that been going on for the past 1.5 days. Currently he says that the chest pain is 9 out of 10 in intensity. He denies any shortness of breath, lower extremity swelling, back pain, nausea, vomiting or diaphoresis. The headache is the same level of intensity. He denies any vision change, slurred speech, numbness or pare sthesias, weakness, or any other acute process. Patient denies any past medical history. He is a tobacco smoker. He has not taken anything for symptoms prior to presentation today. No recent travel or sick contacts at home. - Related Data Previous Rx's Medication Instructions Recorded Last Taken Type Amoxicillin [Amoxicillin TAB] 875 mg PO BID 7 Days #14 tablet 01/28/20 Unknown Rx Neomy/Polymyx B/Hc Otic Susp 4 drops AD TID 10 Days #1 bottle 01/28/20 Unknown Rx [Cortisporin (Otic) Susp] Amoxicillin/Potassium Clav 1 each PO BID 10 Days #20 tablet 09/12/20 Unknown Rx [Augmentin 875-125 Tablet] Neomycin/Polymyxin B/Hydrocort 4 drops AD QID 10 Days #1 solution 09/12/20 Unknown Rx [Lelhqhpl-Ftpftxmbp-Oe Ear Soln] Albuterol Mdi (or & Nicu Only) 2 puff IH Q4HR PRN #1 inhalation 07/03/21 Unknown Rx [ProAir HFA Inhaler] Amoxicillin [Amoxicillin TAB] 875 mg PO BID #14 tablet 07/03/21 Unknown Rx predniSONE [Deltasone] 20 mg PO DAILY #15 tablet 07/03/21 Unknown Rx Ibuprofen [Motrin 800 MG tab] 800 mg PO Q8HR PRN #20 tablet 07/15/21 Unknown Rx Allergies Allergy/AdvReac Type Severity Reaction Status Date / Time ciprofloxacin Allergy Unknown Verified 11/23/20 07:44 Sulfa (Sulfonamide Allergy Unknown Verified 11/23/20 07:44 Antibiotics) Heart Score - HEART Score History: Slightly suspicious EKG: Normal Age: 45-65 Risk factors: 1-2 risk factors Troponin: < normal limit HEART Score: 2 - EKG Read Time Time EKG Completed: 11:32 EKG Read Time: 11:38 - Critical Actions Critical Actions: 0-3 pts:0.9-1.7%risk of adverse cardiac event.Candidate for discharge ED Review of Systems ROS: Stated complaint: CHESS PAIN Other details as noted in HPI Comment: All other systems reviewed and negative Constitutional: denies: chills, fever Eyes: denies: eye pain, vision change ENT: denies: ear pain, throat pain Respiratory: denies: cough, shortness of breath Cardiovascular: chest pain. denies: palpitations Gastrointestinal: denies: abdominal pain, vomiting Genitourinary: denies: dysuria, discharge Musculoskeletal: denies: back pain, arthralgia Skin: denies: rash, lesions Neurological: headache. denies: weakness, numbness ED Past Medical Hx - Past Medical History Additional medical history: "heart problems" - Surgical History Additional Surgical History: R ear s1982 - Social History Smoking Status: Current Some Day Smoker Substance Use Type: None - Medications Home Medications: Home Medications Medication Instructions Recorded Confirmed Last Taken Type Amoxicillin [Amoxicillin TAB] 875 mg PO BID 7 Days #14 tablet 01/28/20 Unknown Rx Neomy/Polymyx B/Hc Otic Susp 4 drops AD TID 10 Days #1 bottle 01/28/20 Unknown Rx [Cortisporin (Otic) Susp] Amoxicillin/Potassium Clav 1 each PO BID 10 Days #20 tablet 09/12/20 Unknown Rx [Augmentin 875-125 Tablet] Neomycin/Polymyxin B/Hydrocort 4 drops AD QID 10 Days #1 solution 09/12/20 Unknown Rx [Ncfknezf-Slayjuzza-Ct Ear Soln] Albuterol Mdi (or & Nicu Only) 2 puff IH Q4HR PRN #1 inhalation 07/03/21 Unknown Rx [ProAir HFA Inhaler] Amoxicillin [Amoxicillin TAB] 875 mg PO BID #14 tablet 07/03/21 Unknown Rx predniSONE [Deltasone] 20 mg PO DAILY #15 tablet 07/03/21 Unknown Rx Ibuprofen [Motrin 800 MG tab] 800 mg PO Q8HR PRN #20 tablet 07/15/21 Unknown Rx ED Physical Exam - Other Other exam information: GENERAL: The patient is well-developed well-nourished. HENT: Normocephalic. Atraumatic. Patient has moist mucous membranes. EYES: Extraocular motions are intact. NECK: Supple. Trachea is midline. CHEST/LUNGS: Clear to auscultation. There is no respiratory distress noted. There is some reproducible midsternal chest wall tenderness to palpation. No crepitus or deformity. HEART/CARDIOVASCULAR: Regular. There is no tachycardia. There is no murmur. ABDOMEN: Abdomen is soft, nontender. Patient has normal bowel sounds. There is no abdominal distention. SKIN: Skin is warm and dry. NEURO: The patient is awake, alert, and oriented. The patient is cooperative. The patient has no focal neurologic deficits. Normal speech. Cranial nerves II through XII grossly intact. No facial asymmetry. No pronator drift or dysmetria. MUSCULOSKELETAL: There is no tenderness or deformity. There is no limitation range of motion. ED Course Vital Signs 07/15/21 11:29 Temperature 98.2 F Pulse Rate 102 H Respiratory 16 Rate Blood Pressure 132/89 O2 Sat by Pulse 98 Oximetry MASOUD score - Masoud Score Age > 65: (0) No Aspirin use within the Past 7 Days: (0) No 3 or more CAD Risk Factors: (0) No 2 or more Angina events in past 24 hrs: (1) Yes Known CAD with more than 50% Stenosis: (0) No Elevated Cardiac Markers: (0) No ST Deviation Greater than 0.5mm: (0) No MASOUD Score: 1 ED Medical Decision Making - Lab Data Result diagrams: 07/15/21 11:40 07/15/21 11:40 - EKG Data -: EKG Interpreted by Id EKG shows normal: sinus rhythm, axis (Left axis deviation), intervals, QRS complexes (LVH), ST-T waves Rate: normal - EKG Data When compared to previous EKG there are: no significant change Interpretation: unchanged when compared t (07/02/21) - Medical Decision Making This patient presents to the emergency department with a complaint of midsternal chest pain and a headache. Heart and lung sounds are normal to auscultation. The patient does not appear in any respiratory or acute distress. There is no focal, motor or sensory deficits and the patient's cranial nerves are intact. CT scan of the head without contrast did not show any hemorrhage, large vessel occlusion, or any other acute process. Chest x-ray does not show any pneumonia, pneumothorax, pleural effusions, widened mediastinum, or any other acute process. Patient's labs have been unremarkable including CBC, metabolic panel, negative troponins x2, negative D-dimer. The only abnormality was a blood sugar of about 300. No elevated anion gap and the patient does not appear to be in diabetic ketoacidosis. He has never been diagnosed with diabetes. We discussed the serum blood sugar results and the fact that he will need to follow-up with a PCP for a hemoglobin A1c and further evaluation of this hyperglycemia. We discussed staying away from foods that are high in sugar, carbohydrates and starches, and keeping a blood sugar log if possible. The patient is low on the heart and MASOUD score. Patient's contact information has been sent over to the [facility], and someone from their office should be contacting him shortly for close outpatient follow-up as part of our [facility] low risk chest pain protocol. Critical Care Time: No Critical care attestation.: If time is entered above; I have spent that time in minutes in the direct care of this critically ill patient, excluding procedure time. ED Disposition Clinical Impression: Nonspecific chest pain, Hyperglycemia Headache Qualifiers: Headache type: unspecified Headache chronicity pattern: unspecified pattern Intractability: not intractable Qualified Code(s): R51.9 - Headache, unspecified Disposition: 01 HOME / SELF CARE / HOMELESS Is pt being admited?: No Condition: Stable Instructions: General Headache Without Cause, Nonspecific Chest Pain, Adult, Hyperglycemia Additional Instructions: Please follow-up with a primary care physician in the next few days. I have given you a referral for a local primary care physician, Dr. Camacho, and a primary care clinic, [facility]. Try to stay away from foods that are high in sugar, carbohydrates and starches. I have sent your contact information over to the [facility], and someone from their office should be contacting you shortly for close outpatient follow-up. Just in case, I am giving you a referral for one of their human resources office manager, Dr. Garrett. Return to the emergency department with any worsening of your symptoms, new or concerning symptoms not addressed during this current emergency department visit, or with any acute distress. Prescriptions: Ibuprofen [Motrin 800 MG tab] 800 mg PO Q8HR PRN #20 tablet PRN Reason: Pain Referrals: PRIMARY CAREMD [Primary Care Provider] - 2-3 Days HORACE CAMACHO MD [Staff Physician] - 2-3 Days MYRA GARRETT MD [Staff Physician] - 2-3 Days [facility] [Provider Group] - 2-3 Days Time of Disposition: 16:17
[2021-07-15 12:08] VITALS: BP 132/89
[2021-07-15 12:13] LABS: Alanine Aminotransferase 19 units/L (7-56); Albumin 3.9 g/dL (3.9-5); BUN/Creatinine Ratio 11; Blood Urea Nitrogen 11 mg/dL (9-20); Calcium 8.7 mg/dL (8.4-10.2); Hemolysis Index 17
[2021-07-15 12:19] LABS: Basophils % (Auto) 0.6 % (0.0-1.8); Eosinophils # (Auto) 0.2 K/mm3 (0.0-0.4); Eosinophils % (Auto) 2.3 % (0.0-4.3); Hemoglobin 14.3 gm/dl (11.8-15.2); Lymphocytes # (Auto) 2.6 K/mm3 (1.2-5.4); Lymphocytes % (Auto) 37.8 % (13.4-35.0); Mean Corpuscular HGB Conc 34 % (32-34); Mean Corpuscular Volume 99 fl (84-94); Monocytes # (Auto) 0.6 K/mm3 (0.0-0.8); Monocytes % (Auto) 8.8 % (0.0-7.3); Platelet Count 187 K/mm3 (140-440); Red Blood Count 4.24 M/mm3 (3.65-5.03); Red Cell Distribution Width 13.6 % (13.2-15.2)
--- NOTE | 2021-07-15 12:32 | XRay Report ---
CHEST 2 VIEWS INDICATION / CLINICAL INFORMATION: Chest pain, shortness of breath.. COMPARISON: 07/02/2021, 09/18/2020. FINDINGS: SUPPORT DEVICES: None. HEART / MEDIASTINUM: No significant abnormality. LUNGS / PLEURA: Suspected 6 mm right upper lobe pulmonary nodule. No acute focal pulmonary consolidat ion or edema. No pneumothorax. ADDITIONAL FINDINGS: No significant additional findings. IMPRESSION: No evidence of acute cardiopulmonary disease. There is a suspected 6 mm right upper lobe pulmonary nodule. Recommend nonemergent CT of the chest fo r further evaluation. Signer Name: Dickson Faulkner MD Signed: 07/15/2021 12:27 PM Workstation Name: [id number]
[2021-07-15] MEDS ORDERED: ASPIRIN 81 MG TAB CHEW PO ONE (13:12)
--- NOTE | 2021-07-15 15:11 | Cat Scan Report ---
CT BRAIN: 07/07/2021 INDICATION / CLINICAL INFORMATION: Headache. COMPARISON: None available. FINDINGS: BRAIN/INTRACRANIAL STRUCTURES: Unenhanced CT images of the brain demonstrate no evidence of acute int racranial abnormality. Ventricles and sulci are normal in size and shape. There is no evidence of hemorrhage or mass. There are no abnormal extra-axial fluid collections. EXTRACRANIAL STRUCTURES: Unremarkable. IMPRESSION: Negative unenhanced CT of the brain. All CT scans at this location are performed using dose reduction to ALARA by means of automated expos ure control. Signer Name: Stan Da Silva MD Signed: 07/15/2021 3:06 PM Workstation Name: [id number]
--- NOTE | 2021-07-21 14:12 | Electrocardiograph Report ---
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
== END 2021-07-15 16:23 | disposition home or self-care (01) ==
LOC: ED 11:19
DX: R07.81 Pleurodynia (principal); R51.9 Headache, unspecified; R73.9 Hyperglycemia, unspecified; F17.200 Nicotine dependence, unspecified, uncomplicated
CPT/HCPCS: 36415; 70450; 71046; 80053; 84484; 85025; 85379; 93005; 99284

== ENCOUNTER 2021-07-25 19:40 | Emergency (ER) | payer OTHER ==
[2021-07-25 20:09] VITALS: BP 131/88
--- NOTE | 2021-07-25 20:24 | Event Note ---
ED Screening Note ED Screening Note: pt presents with substernal CP that began again at 2PM today he describes it as occasional sharp pain he has an occasional cough he denies any radiation of the pain he denies any n/v/d, SOB, pleuritic pain, leg swelling PMHx none allergy ciprofloxacin, sulfa +smoker denies family cardiac hx This initial assessment/diagnostic orders/clinical plan/treatment(s) is/are subject to change based on patients health status, clinical progression and re- assessment by fellow clinical providers in the ED. Further treatment and workup at subsequent clinical providers discretion. Patient/guardian urged not to elope from the ED as their condition may be serious if not clinically assessed and managed. Initial orders include: labs, xr, ekg
[2021-07-25 20:51] LABS: Basophils # (Auto) 0.1 K/mm3 (0.0-0.1); Eosinophils # (Auto) 0.2 K/mm3 (0.0-0.4); Eosinophils % (Auto) 2.7 % (0.0-4.3); Hematocrit 44.7 % (35.5-45.6); Hemoglobin 15.1 gm/dl (11.8-15.2); Lymphocytes # (Auto) 2.7 K/mm3 (1.2-5.4); Mean Corpuscular HGB Conc 34 % (32-34); Mean Corpuscular Volume 101 fl (84-94); Monocytes # (Auto) 0.6 K/mm3 (0.0-0.8); Monocytes % (Auto) 8.9 % (0.0-7.3); Platelet Count 189 K/mm3 (140-440); Red Blood Count 4.43 M/mm3 (3.65-5.03)
[2021-07-25 21:07] LABS: Alanine Aminotransferase 21 units/L (7-56); Albumin 4.2 g/dL (3.9-5); BUN/Creatinine Ratio 11; Blood Urea Nitrogen 12 mg/dL (9-20); Calcium 9.3 mg/dL (8.4-10.2); Hemolysis Index 53
--- NOTE | 2021-07-25 21:35 | XRay Report ---
CHEST 2 VIEWS INDICATION / CLINICAL INFORMATION: CP. COMPARISON: 07/15/2021 FINDINGS: SUPPORT DEVICES: None. HEART / MEDIASTINUM: No significant abnormality. LUNGS / PLEURA: No significant pulmonary or pleural abnormality. No pneumothorax. ADDITIONAL FINDINGS: No significant additional findings. IMPRESSION: 1. No acute findings. No interval change. Signer Name: Shaneka Barnes MD Signed: 07/25/2021 9:31 PM Workstation Name: [id number]
--- NOTE | 2021-07-25 21:42 | Emergency Department Report ---
ED Chest Pain HPI - General Chief Complaint: Chest Pain Stated Complaint: CHEST PAIN HEADACHES PUI?: No Time Seen by Provider: 07/25/21 21:10 Source: patient Mode of arrival: Ambulatory Limitations: No Limitations - History of Present Illness Initial Comments: Patient is a 46-year-old male that presents emergency room with complaints of chest pain. Patient states his chest pain started at 2 PM today. Patient states the chest pain is unchanged. Patient states the chest pain is in the center of his chest. Patient states it is sternal chest pain. Patient states it is a sharp pain. Patient states the pain is better with rest. Patient dates the pain is worse with movement and palpation. Patient rates the pain is a 9 o ut of 10. Patient denies fever and chills. Patient denies shortness of breath. Patient denies trauma. Patient denies fall. Patient denies injury. Patient denies recent travel. Patient denies recent international travel. Patient denies exposure to the novel coronavirus. Patient denies sick contacts. Patient denies fever and chills. Patient denies cough. Patient denies diarrhea. Patient denies coming in contact with anybody with symptoms of the novel coronavirus. Patient states he had a headache. Patient states when he checked in here he had a headache but since he has been resting here in the emergency room his headache has resolved. Patient states it was a generalized headache. Patient states it was a 3 out of 10. Patient denies dizziness. Patient denies blurry vision. Patient denies headache at this time. Patient denies loss of conscious. Patient denies fever or chills. Patient denies neck stiffness. MD Complaint: chest pain -: Sudden Onset: during rest Pain Location: substernal Severity: severe Severity scale (0 -10): 9 Quality: sharp Consistency: constant Improves With: rest Worsens With: palpation, movement re: denies: nausea, vomting, diaphoresis, dyspnea, sense of impending doom Other Symptoms: denies: cough, fever, syncope, rash, acid taste in mouth, leg swelling, palpitations, burping Treatments Prior to Arrival: none Aspirin use within the Past 7 Days: (0) No - Related Data On Oral Contraceptives: No Previous Rx's Medication Instructions Recorded Last Taken Type Amoxicillin [Amoxicillin TAB] 875 mg PO BID 7 Days #14 tablet 01/28/20 Unknown Rx Neomy/Polymyx B/Hc Otic Susp 4 drops AD TID 10 Days #1 bottle 01/28/20 Unknown Rx [Cortisporin (Otic) Susp] Amoxicillin/Potassium Clav 1 each PO BID 10 Days #20 tablet 09/12/20 Unknown Rx [Augmentin 875-125 Tablet] Neomycin/Polymyxin B/Hydrocort 4 drops AD QID 10 Days #1 solution 09/12/20 Unknown Rx [Rjrdusdd-Jsdsqiuqo-Lk Ear Soln] Albuterol Mdi (or & Nicu Only) 2 puff IH Q4HR PRN #1 inhalation 07/03/21 Unknown Rx [ProAir HFA Inhaler] Amoxicillin [Amoxicillin TAB] 875 mg PO BID #14 tablet 07/03/21 Unknown Rx predniSONE [Deltasone] 20 mg PO DAILY #15 tablet 07/03/21 Unknown Rx Ibuprofen [Motrin 800 MG tab] 800 mg PO Q8HR PRN #20 tablet 07/15/21 Unknown Rx Allergies Allergy/AdvReac Type Severity Reaction Status Date / Time ciprofloxacin Allergy Unknown Verified 07/25/21 20:03 Sulfa (Sulfonamide Allergy Unknown Verified 07/25/21 20:03 Antibiotics) Heart Score - HEART Score History: Slightly suspicious EKG: Normal Age: 45-65 Risk factors: No known risk factors Troponin: < normal limit HEART Score: 1 - EKG Read Time Time EKG Completed: 19:53 EKG Read Time: 19:55 ED Review of Systems ROS: Stated complaint: CHEST PAIN HEADACHES Other details as noted in HPI Constitutional: denies: chills, fever Eyes: denies: eye pain, eye discharge, vision change ENT: denies: ear pain, throat pain Respiratory: denies: cough, shortness of breath, wheezing Cardiovascular: as per HPI, chest pain. denies: palpitations Endocrine: no symptoms reported Gastrointestinal: denies: abdominal pain, nausea, diarrhea Genitourinary: denies: urgency, dysuria Musculoskeletal: denies: back pain, joint swelling, arthralgia Skin: denies: rash, lesions Neurological: as per HPI, headache. denies: weakness, paresthesias Psychiatric: denies: anxiety, depression Hematological/Lymphatic: denies: easy bleeding, easy bruising ED Past Medical Hx - Past Medical History Previous Medical History?: Yes Additional medical history: "heart problems" - Surgical History Past Surgical History?: Yes Additional Surgical History: R ear sx, 1982 - Family History Family history: no significant - Social History Smoking Status: Current Some Day Smoker Substance Use Type: None - Medications Home Medications: Home Medications Medication Instructions Recorded Confirmed Last Taken Type Amoxicillin [Amoxicillin TAB] 875 mg PO BID 7 Days #14 tablet 01/28/20 Unknown Rx Neomy/Polymyx B/Hc Otic Susp 4 drops AD TID 10 Days #1 bottle 01/28/20 Unknown Rx [Cortisporin (Otic) Susp] Amoxicillin/Potassium Clav 1 each PO BID 10 Days #20 tablet 09/12/20 Unknown Rx [Augmentin 875-125 Tablet] Neomycin/Polymyxin B/Hydrocort 4 drops AD QID 10 Days #1 solution 09/12/20 Unknown Rx [Winscbza-Kqnspevgn-Na Ear Soln] Albuterol Mdi (or & Nicu Only) 2 puff IH Q4HR PRN #1 inhalation 07/03/21 Unknown Rx [ProAir HFA Inhaler] Amoxicillin [Amoxicillin TAB] 875 mg PO BID #14 tablet 07/03/21 Unknown Rx predniSONE [Deltasone] 20 mg PO DAILY #15 tablet 07/03/21 Unknown Rx Ibuprofen [Motrin 800 MG tab] 800 mg PO Q8HR PRN #20 tablet 07/15/21 Unknown Rx ED Physical Exam - General Limitations: No Limitations General appearance: alert, in no apparent distress - Head Head exam: Present: atraumatic, normocephalic - Eye Eye exam: Present: normal appearance - ENT ENT exam: Present: mucous membranes moist - Neck Neck exam: Present: normal inspection - Respiratory Respiratory exam: Present: normal lung sounds bilaterally, chest wall tenderness (Palpation to the sternal region of the chest reproduces symptoms. Patient has tenderness over the sternal costal border). Absent: respiratory distress, wheezes, rales - Cardiovascular Cardiovascular Exam: Present: regular rate, normal rhythm. Absent: systolic murmur, diastolic murmur, rubs, gallop - GI/Abdominal GI/Abdominal exam: Present: soft, normal bowel sounds - Rectal Rectal exam: Present: deferred - Extremities Exam Extremities exam: Present: normal inspection - Back Exam Back exam: Present: normal inspection - Neurological Exam Neurological exam: Present: alert, oriented X3 - Psychiatric Psychiatric exam: Present: normal affect, normal mood - Skin Skin exam: Present: warm, dry, intact, normal color. Absent: rash ED Course Vital Signs 07/25/21 20:04 Temperature 98.9 F Pulse Rate 106 H Respiratory 16 Rate Blood Pressure 131/88 O2 Sat by Pulse 99 Oximetry - Reevaluation(s) Reevaluation #1: I discussed all results and clinical findings with patient. I discussed plan of care with patient. Patient agrees with plan of care. Patient is stable for discharge. Patient will be discharged home. Patient given discharge instructions. Patient voiced understanding of discharge instructions. 07/25/21 21:43 MASOUD score - Masoud Score Age > 65: (0) No Aspirin use within the Past 7 Days: (0) No 3 or more CAD Risk Factors: (0) No 2 or more Angina events in past 24 hrs: (0) No Known CAD with more than 50% Stenosis: (0) No Elevated Cardiac Markers: (0) No ST Deviation Greater than 0.5mm: (0) No MASOUD Score: 0 ED Medical Decision Making - Lab Data Result diagrams: 07/25/21 20:26 07/25/21 20:26 - EKG Data -: EKG Interpreted by Me EKG shows normal: sinus rhythm, axis, intervals, QRS complexes, ST-T waves Rate: normal - Radiology Data Radiology results: report reviewed, image reviewed interpreted by me: Chest x-ray: No pneumonia, no pneumothorax, no foreign body, no osseous findings, no acute findings CHEST 2 VIEWS INDICATION / CLINICAL INFORMATION: CP. COMPARISON: 07/15/2021 FINDINGS: SUPPORT DEVICES: None. HEART / MEDIASTINUM: No significant abnormality. LUNGS / PLEURA: No significant pulmonary or pleural abnormality. No pneumothorax. ADDITIONAL FINDINGS: No significant additional findings. IMPRESSION: 1. No acute findings. No interval change. - Medical Decision Making Patient is a 46-year-old male who presents emergency room with complaints of chest pain. Patient also complained of a headache that resolved while waiting in the ER. Patient chest pain is reproducible on exam with palpation of the costosternal border. Patient clinical findings are similar costochondritis. Patient had a cardiac work-up. Patient had labs done. Patient's labs were ess entially unremarkable. Patient's troponin was negative. Patient had a chest x- ray was negative for acute findings. Patient had a EKG done which was negative for acute findings and showed normal ST segments. I personally reviewed the chest x-ray and EKG. Patient's chest pain is low risk. Patient's chest pain appears to be noncardiac. Patient chest pain can be followed up as an outpatient. Patient not require any further emergency medical service. Patient not require inpatient services. Patient will be referred to his primary care for further evaluation and treatment. Since the patient presented to the emergency room with complaints of chest pain, the patient's information was faxed over to her local cardiology group for further evaluation and treatment and risk stratification. Patient's heart score is low. Patient's MASOUD score is low. I discussed all results and clinical findings with patient. I discussed plan of care with patient. Patient agrees with plan of care. Patient is stable for discharge. Patient will be discharged home. Patient given discharge instructions. Patient voiced understanding of discharge instructions. - Differential Diagnosis Chest pain, chest wall pain, costochondritis, Critical care attestation.: If time is entered above; I have spent that time in minutes in the direct care of this critically ill patient, excluding procedure time. ED Disposition Clinical Impression: Costochondritis, acute Chest pain Qualifiers: Chest pain type: unspecified Qualified Code(s): R07.9 - Chest pain, unspecified Disposition: 01 HOME / SELF CARE / HOMELESS Is pt being admited?: No Does the pt Need Aspirin: No Condition: Stable Instructions: Chest Wall Pain, [id number], Nonspecific Chest Pain, Adult, [id number], Chest Wall Pain, Costochondritis Additional Instructions: Patient to follow-up with primary care in 2 to 3 days. 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 Patient to rest. Patient to increase water. Patient to avoid strenuous exercise or heavy lifting until cleared by cardiology. Patient instructed to stop smoking. Patient to take an 81 mg aspirin every day until the patient is cleared by cardiology. Patient to take Tylenol or ibuprofen as needed for pain. Patient to return to the ER if condition worsens, changes or new symptoms arise. Referrals: RHODA GUERRERO MD [Staff Physician] - 2-3 Days MYRA SEAMAN MD [Staff Physician] - 2-3 Days Time of Disposition: 21:48
--- NOTE | 2021-07-28 10:51 | Electrocardiograph Report ---
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
== END 2021-07-25 23:08 | disposition home or self-care (01) ==
LOC: ED 19:40
DX: M94.0 Chondrocostal junction syndrome [Tietze] (principal); R51.9 Headache, unspecified; F17.200 Nicotine dependence, unspecified, uncomplicated; Z88.1 Allergy status to other antibiotic agents; Z88.2 Allergy status to sulfonamides; Z79.899 Other long term (current) drug therapy
CPT/HCPCS: 36415; 71046; 80053; 84484; 85025; 93005; 99284

== ENCOUNTER 2021-10-26 01:48 | Emergency (ER) | payer SELFPAY ==
[2021-10-26 02:24] VITALS: BP 108/72
[2021-10-26] MEDS ORDERED: AMOXICILLIN/K CLAV 875/125MG TAB PO ONE (02:27)
[2021-10-26] MEDS ORDERED: IBUPROFEN 600 MG TAB PO ONE (02:27)
[2021-10-26] MEDS ORDERED: ACETAMINOPHEN 500 MG TAB PO ONE (02:27)
--- NOTE | 2021-10-26 02:32 | Emergency Department Report ---
ED General Adult HPI - General Chief complaint: Earache Stated complaint: RIGHT EAR PAIN, LEFT FOOT PAIN Source: patient Mode of arrival: Ambulatory Limitations: No Limitations - History of Present Illness Initial comments: Patient is a 46-year-old -O[place]i male with no past medical history presents to the ED with complaint of acute onset persistent bilateral ear pain w ith a headache for the last 3 days. Patient states that in the last 12 has not been able to sleep because of worsening bilateral ear pain and headache. Patient denies dizziness, syncope, chest pain, shortness of breath, nausea, vomiting, hearing loss, sore throat, nasal and sinus congestion, cough, fever, chills, change in vision or traumatic injury. MD Complaint: Bilateral ear pain; headache -: Sudden, days(s) (3) Location: head, face (bilateral ear) Radiation: non-radiation Severity scale (0 -10): 7 Quality: aching, sharp Consistency: constant Improves with: none Worsens with: none Associated Symptoms: denies other symptoms, headaches, loss of appetite, malaise. denies: confusion, chest pain, cough, diaphoresis, fever/chills, nausea/vomiting, rash, seizure, shortness of breath, syncope, weakness, other Treatments Prior to Arrival: none - Related Data Previous Rx's Medication Instructions Recorded Last Taken Type Amoxicillin [Amoxicillin TAB] 875 mg PO BID 7 Days #14 tablet 01/28/20 Unknown Rx Neomycin/Polymyxin B/Hydrocort 4 drops AD QID 10 Days #1 solution 09/12/20 Unknown Rx [Diwlwtjp-Igootiply-We Ear Soln] Albuterol Mdi (or & Nicu Only) 2 puff IH Q4HR PRN #1 inhalation 07/03/21 Unknown Rx [ProAir HFA Inhaler] Amoxicillin [Amoxicillin TAB] 875 mg PO BID #14 tablet 07/03/21 Unknown Rx predniSONE [Deltasone] 20 mg PO DAILY #15 tablet 07/03/21 Unknown Rx Amoxicillin/Potassium Clav 1 each PO BID 10 Days #20 tablet 10/26/21 Unknown Rx [Augmentin 875-125 Tablet] Ibuprofen [Motrin 800 MG tab] 800 mg PO Q8HR PRN #30 tablet 10/26/21 Unknown Rx Neomy/Polymyx B/Hc Otic Susp 4 drops AD TID 10 Days #1 bottle 10/26/21 Unknown R x [Cortisporin (Otic) Susp] Allergies Allergy/AdvReac Type Severity Reaction Status Date / Time ciprofloxacin Allergy Unknown Verified 07/25/21 20:03 Sulfa (Sulfonamide Allergy Unknown Verified 07/25/21 20:03 Antibiotics) ED Review of Systems ROS: Stated complaint: RIGHT EAR PAIN, LEFT FOOT PAIN Other details as noted in HPI Constitutional: denies: chills, fever Eyes: denies: eye pain, eye discharge, vision change ENT: ear pain (bilateral ear pain), congestion. denies: throat pain, dental pain, epistaxis Respiratory: denies: cough, shortness of breath, wheezing Cardiovascular: denies: chest pain, palpitations Endocrine: no symptoms reported Gastrointestinal: denies: abdominal pain, nausea, vomiting, diarrhea Genitourinary: denies: urgency, dysuria Musculoskeletal: denies: back pain, joint swelling, arthralgia Skin: denies: rash, lesions Neurological: denies: headache, weakness, paresthesias Psychiatric: denies: anxiety, depression Hematological/Lymphatic: denies: easy bleeding, easy bruising ED Past Medical Hx - Past Medical History Additional medical history: "heart problems" - Surgical History Additional Surgical History: R ear sx, 1982 - Social History Smoking Status: Current Some Day Smoker Substance Use Type: None - Medications Home Medications: Home Medications Medication Instructions Recorded Confirmed Last Taken Type Amoxicillin [Amoxicillin TAB] 875 mg PO BID 7 Days #14 tablet 01/28/20 Unknown Rx Neomycin/Polymyxin B/Hydrocort 4 drops AD QID 10 Days #1 solution 09/12/20 Unknown Rx [Uhcsvndg-Zqonrhrnm-Gk Ear Soln] Albuterol Mdi (or & Nicu Only) 2 puff IH Q4HR PRN #1 inhalation 07/03/21 Unknown Rx [ProAir HFA Inhaler] Amoxicillin [Amoxicillin TAB] 875 mg PO BID #14 tablet 07/03/21 Unknown Rx predniSONE [Deltasone] 20 mg PO DAILY #15 tablet 07/03/21 Unknown Rx Amoxicillin/Potassium Clav 1 each PO BID 10 Days #20 tablet 10/26/21 Unknown Rx [Augmentin 875-125 Tablet] Ibuprofen [Motrin 800 MG tab] 800 mg PO Q8HR PRN #30 tablet 10/26/21 Unknown Rx Neomy/Polymyx B/Hc Otic Susp 4 drops AD TID 10 Days #1 bottle 10/26/21 Unknown Rx [Cortisporin (Otic) Susp] ED Physical Exam - General Limitations: No Limitations General appearance: alert, in no apparent distress - Head Head exam: Present: atraumatic, normocephalic, normal inspection - Eye Eye exam: Present: normal appearance, PERRL, EOMI Pupils: Present: normal accommodation - ENT ENT exam: Present: normal orophraynx, mucous membranes moist, normal external ear exam, other (Erythematous suppurative bilateral tympanic membranes with tenderness) - Neck Neck exam: Present: normal inspection, full ROM. Absent: tenderness, lymphadenopathy - Respiratory Respiratory exam: Present: normal lung sounds bilaterally. Absent: respiratory distress, wheezes, rales, rhonchi, chest wall tenderness, accessory muscle use, decreased breath sounds - Cardiovascular Cardiovascular Exam: Present: normal rhythm, tachycardia, normal heart sounds. Absent: systolic murmur, diastolic murmur, rubs, gallop - GI/Abdominal GI/Abdominal exam: Present: soft, normal bowel sounds. Absent: tenderness, guarding, rebound, hyperactive bowel sounds, hypoactive bowel sounds, organomegaly - Extremities Exam Extremities exam: Present: normal inspection, full ROM, normal capillary refill - Back Exam Back exam: Present: normal inspection, full ROM. Absent: tenderness, CVA tenderness (R), CVA tenderness (L), muscle spasm, paraspinal tenderness, vertebral tenderness - Neurological Exam Neurological exam: Present: alert, oriented X3, CN II-XII intact, normal gait, reflexes normal - Psychiatric Psychiatric exam: Present: normal affect, normal mood - Skin Skin exam: Present: warm, dry, intact, normal color. Absent: rash ED Course Vital Signs 10/26/21 02:19 Temperature 98.5 F Pulse Rate 103 H Respiratory 18 Rate Blood Pressure 108/72 [Right] O2 Sat by Pulse 97 Oximetry ED Medical Decision Making - Medical Decision Making This is a 46-year-old -O[place]i male with no past medical history presents to the ED with complaint of acute onset persistent bilateral ear pain with a headache for the last 3 days. Patient states that in the last 12 has not been able to sleep because of worsening bilateral ear pain and headache. In the ED, patient is alert and oriented x3 and is not in any distress but appears to be in pain. Patient is otherwise tachycardic but afebrile in triage. Patient was treated for pain in the ED and was given initial oral antibiotics in the ED. Patient was discharged home on pain medication antibiotics and advised to follow-up with his primary care physician in 7 to 10 days for reevaluation. Patient was advised return to the ED immediately if symptoms get worse. - Differential Diagnosis Otitis media; URI; tension headache; Critical care attestation.: If time is entered above; I have spent that time in minutes in the direct care of this critically ill patient, excluding procedure time. ED Disposition Clinical Impression: Acute upper respiratory infection Acute suppurative otitis media of both ears without spontaneous rupture of tympanic membranes Qualifiers: Recurrence: non-recurrent Qualified Code(s): H66.003 - Acute suppurative otitis media without spontaneous rupture of ear drum, bilateral Disposition: HOME / SELF CARE / HOMELESS Is pt being admited?: No Does the pt Need Aspirin: No Condition: Stable Instructions: Otitis Media (ED), Ear Drops, Adult, [id number], Otitis Media, Adult, [id number], Upper Respiratory Infection, Adult, [id number] Additional Instructions: Take medication with food, drink plenty of fluids and follow-up with your primary care physician in 7 to 10 days for reevaluation. Return to the ED immediately if symptoms get worse. Prescriptions: Amoxicillin/Potassium Clav [Augmentin 875-125 Tablet] 1 each PO BID 10 Days #20 tablet Neomy/Polymyx B/Hc Otic Susp [Cortisporin (Otic) Susp] 4 drops AD TID 10 Days #1 bottle Ibuprofen [Motrin 800 MG tab] 800 mg PO Q8HR PRN #30 tablet PRN Reason: Pain Referrals: [facility] [Provider Group] - 7-10 days Time of Disposition: 02:43 Print Language: VIETNAMESE
== END 2021-10-26 04:00 | disposition home or self-care (01) ==
LOC: ED 01:48
DX: H66.003 Acute suppurative otitis media without spontaneous rupture of ear drum, bilateral (principal); J06.9 Acute upper respiratory infection, unspecified; F17.200 Nicotine dependence, unspecified, uncomplicated
CPT/HCPCS: 99281

== ENCOUNTER 2021-11-26 20:42 | Emergency (ER) | payer SELFPAY | END 2021-11-27 01:40 | disposition left against medical advice (07) | LOC: ED 20:42 | DX: R42 Dizziness and giddiness (principal); Z53.21 Procedure and treatment not carried out due to patient leaving prior to being seen by health care provider ==

== ENCOUNTER 2021-11-27 07:01 | Emergency (ER) | payer SELFPAY ==
[2021-11-27 07:18] VITALS: BP 143/80
[2021-11-27 07:59] LABS: Basophils % (Auto) 0.7 % (0.0-1.8); Eosinophils # (Auto) 0.2 K/mm3 (0.0-0.4); Eosinophils % (Auto) 3.4 % (0.0-4.3); Hematocrit 39.4 % (35.5-45.6); Hemoglobin 12.8 gm/dl (11.8-15.2); Lymphocytes # (Auto) 1.7 K/mm3 (1.2-5.4); Lymphocytes % (Auto) 37.7 % (13.4-35.0); Mean Corpuscular HGB Conc 33 % (32-34); Mean Corpuscular Volume 99 fl (84-94); Monocytes # (Auto) 0.6 K/mm3 (0.0-0.8); Monocytes % (Auto) 13.9 % (0.0-7.3); Platelet Count 146 K/mm3 (140-440); Red Blood Count 3.97 M/mm3 (3.65-5.03); Red Cell Distribution Width 12.6 % (13.2-15.2)
[2021-11-27 08:20] LABS: Alanine Aminotransferase 23 units/L (7-56); Albumin 3.7 g/dL (3.9-5); BUN/Creatinine Ratio 10; Blood Urea Nitrogen 12 mg/dL (9-20); Calcium 7.7 mg/dL (8.4-10.2); Hemolysis Index 7
--- NOTE | 2021-11-27 08:42 | Emergency Department Report ---
ED General Adult HPI - General Chief complaint: Pain General Stated complaint: GENERAL ILLNESS Time Seen by Provider: 11/27/21 07:23 Source: patient Mode of arrival: Ambulatory Limitations: No Limitations - History of Present Illness Initial comments: 46-year-old -[place] male patient presents with complaints of generalized body aches and fatigue x4 days. Patient states he recently was let out of care home and has not had any of his diabetic medications. Patient states he was on insulin and is unsure of what type of insulin or how much of insulin he was taking. He denies any other past medical history. No shortness of breath or chest pain today. He also denies any urinary symptoms, fever, sweats, cough, or loss of taste or smell. - Related Data Previous Rx's Medication Instructions Recorded Last Taken Type Amoxicillin [Amoxicillin TAB] 875 mg PO BID 7 Days #14 tablet 01/28/20 Unknown Rx Neomycin/Polymyxin B/Hydrocort 4 drops AD QID 10 Days #1 solution 09/12/20 Unknown Rx [Ixipslan-Qoprbodnq-Bv Ear Soln] Albuterol Mdi (or & Nicu Only) 2 puff IH Q4HR PRN #1 inhalation 07/03/21 Unknown Rx [ProAir HFA Inhaler] Amoxicillin [Amoxicillin TAB] 875 mg PO BID #14 tablet 07/03/21 Unknown Rx predniSONE [Deltasone] 20 mg PO DAILY #15 tablet 07/03/21 Unknown Rx Amoxicillin/Potassium Clav 1 each PO BID 10 Days #20 tablet 10/26/21 Unknown Rx [Augmentin 875-125 Tablet] Ibuprofen [Motrin 800 MG tab] 800 mg PO Q8HR PRN #30 tablet 10/26/21 Unknown Rx Neomy/Polymyx B/Hc Otic Susp 4 drops AD TID 10 Days #1 bottle 10/26/21 Unknown Rx [Cortisporin (Otic) Susp] Nitrofurantoin [place]/M-Cryst 100 mg PO Q12HR 7 Days #14 capsule 11/27/21 Unknown Rx [Macrobid CAP] metFORMIN [Glucophage] 500 mg PO BID 30 Days #60 tab 11/27/21 Unknown Rx Allergies Allergy/AdvReac Type Severity Reaction Status Date / Time ciprofloxacin Allergy Unknown Verified 11/27/21 07:13 Sulfa (Sulfonamide Allergy Unknown Verified 11/27/21 07:13 Antibiotics) ED Review of Systems ROS: Stated complaint: GENERAL ILLNESS Other details as noted in HPI Constitutional: malaise. denies: chills, diaphoresis, fever Respiratory: denies: cough, shortness of breath Cardiovascular: denies: chest pain Gastrointestinal: denies: abdominal pain, nausea, vomiting, diarrhea Genitourinary: denies: urgency, dysuria, frequency, hematuria, discharge, testicular pain Musculoskeletal: denies: back pain, joint swelling, arthralgia Neurological: denies: headache, numbness, paresthesias Hematological/Lymphatic: denies: swollen glands ED Past Medical Hx - Past Medical History Additional medical history: "heart problems" - Surgical History Additional Surgical History: R ear sx, 1982 - Social History Smoking Status: Current Some Day Smoker Substance Use Type: None - Medications Home Medications: Home Medications Medication Instructions Recorded Confirmed Last Taken Type Amoxicillin [Amoxicillin TAB] 875 mg PO BID 7 Days #14 tablet 01/28/20 Unknown Rx Neomycin/Polymyxin B/Hydrocort 4 drops AD QID 10 Days #1 solution 09/12/20 Unknown Rx [Oewtlafa-Wgcgkjpoq-Rh Ear Soln] Albuterol Mdi (or & Nicu Only) 2 puff IH Q4HR PRN #1 inhalation 07/03/21 Unknown Rx [ProAir HFA Inhaler] Amoxicillin [Amoxicillin TAB] 875 mg PO BID #14 tablet 07/03/21 Unknown Rx predniSONE [Deltasone] 20 mg PO DAILY #15 tablet 07/03/21 Unknown Rx Amoxicillin/Potassium Clav 1 each PO BID 10 Days #20 tablet 10/26/21 Unknown Rx [Augmentin 875-125 Tablet] Ibuprofen [Motrin 800 MG tab] 800 mg PO Q8HR PRN #30 tablet 10/26/21 Unknown Rx Neomy/Polymyx B/Hc Otic Susp 4 drops AD TID 10 Days #1 bottle 10/26/21 Unknown Rx [Cortisporin (Otic) Susp] Nitrofurantoin [place]/M-Cryst 100 mg PO Q12HR 7 Days #14 capsule 11/27/21 Unknown Rx [Macrobid CAP] metFORMIN [Glucophage] 500 mg PO BID 30 Days #60 tab 11/27/21 Unknown Rx ED Physical Exam - General Limitations: No Limitations General appearance: alert, in no apparent distress - Head Head exam: Present: atraumatic, normocephalic - Eye Eye exam: Present: normal appearance. Absent: scleral icterus - Neck Neck exam: Present: normal inspection. Absent: tenderness - Respiratory Respiratory exam: Present: normal lung sounds bilaterally. Absent: respiratory distress - Cardiovascular Cardiovascular Exam: Present: regular rate, normal rhythm. Absent: systolic murmur, diastolic murmur, rubs, gallop - GI/Abdominal GI/Abdominal exam: Present: soft. Absent: distended, tenderness, guarding - Back Exam Back exam: Present: full ROM. Absent: CVA tenderness (R), CVA tenderness (L) - Neurological Exam Neurological exam: Present: alert, oriented X3, normal gait - Psychiatric Psychiatric exam: Present: normal affect, normal mood - Skin Skin exam: Present: warm, dry, intact, normal color. Absent: rash ED Course Vital Signs 11/27/21 07:17 Temperature 98.5 F Pulse Rate 89 Respiratory 20 Rate Blood Pressure 143/80 O2 Sat by Pulse 99 Oximetry ED Medical Decision Making - Medical Decision Making 46-year-old -[place] male patient presents with complaints of generalized body aches and fatigue x4 days. Patient states he recently was let out of care home and has not had any of his diabetic medications. Patient states he was on insulin and is unsure of what type of insulin or how much of insulin he was taking. He denies any other past medical history. No shortness of breath or chest pain today. He also denies any urinary symptoms, fever, sweats, cough, or loss of taste or smell. Glucose noted to be 276 on labs. Venous pH is decreased, however anion gap and bicarb are normal. Do not suspect DKA. Urine shows elevated WBCs. Patient has allergy to Cipro and Bactrim so he will be covered with Macrobid. He denies rectal pain and no CVA tenderness is noted on exam. Recommend follow-up with primary care within 3 to [address] patient with Dr. Coffman who agrees with change of insulin to Metformin for now given we do not know patient's type of insulin or dosage. Discussed in detail with patient signs symptoms that should prompt immediate return to the ED, he verbalizes understanding Critical care attestation.: If time is entered above; I have spent that time in minutes in the direct care of this critically ill patient, excluding procedure time. ED Disposition Clinical Impression: Fatigue, Noncompliance with diabetes treatment, UTI (urinary tract infection) Disposition: HOME / SELF CARE / HOMELESS Is pt being admited?: No Condition: Stable Instructions: Fatigue, Diabetes Mellitus and Nutrition, Adult, Metformin tablets, Urinary Tract Infection, Adult, Klaz-dg-Dvtc Prescriptions: metFORMIN [Glucophage] 500 mg PO BID 30 Days #60 tab Nitrofurantoin Carver/M-Cryst [Macrobid CAP] 100 mg PO Q12HR 7 Days #14 capsule Referrals: [facility] [Provider Group] - 3-5 Days [facility] [Outside] - 3-5 Days
[2021-11-27 09:17] LABS: Bilirubin,Urine NEG (Negative); Blood,Urine NEG (Negative); Color,Urine Yellow (Yellow); Mucus,Urine FEW /HPF; Protein,Urine <15 mg/dL mg/dL (Negative); Sperm,Urine 2+ /HPF (NP); Urobilinogen,Urine < 2.0 mg/dL (<2.0)
[2021-11-27] MEDS ORDERED: LIDOCAINE-MPF (1%) 10 MG/1 ML VIAL 5 ML INFILTRATI ONE (09:34)
== END 2021-11-27 09:51 | disposition home or self-care (01) ==
LOC: ED 07:01
DX: N39.0 Urinary tract infection, site not specified (principal); R53.83 Other fatigue; Z91.19 Patient's noncompliance with other medical treatment and regimen; F17.200 Nicotine dependence, unspecified, uncomplicated; Z88.2 Allergy status to sulfonamides; Z88.1 Allergy status to other antibiotic agents
CPT/HCPCS: 36415; 80053; 81001; 82805; 82962; 84484; 85025; 87086; 99283; J0696; J3490

== ENCOUNTER 2021-12-01 19:36 | Emergency (ER) | payer SELFPAY ==
[2021-12-02 08:32] VITALS: BP 138/86
== END 2021-12-02 08:30 | disposition home or self-care (01) ==
LOC: ED 19:36
DX: E11.8 Type 2 diabetes mellitus with unspecified complications (principal); F17.200 Nicotine dependence, unspecified, uncomplicated
CPT/HCPCS: 82962; 99282

== ENCOUNTER 2021-12-04 22:06 | Emergency (ER) | payer SELFPAY ==
[2021-12-05 00:47] VITALS: BP 131/74
[2021-12-05] MEDS ORDERED: ACETAMINOPHEN 500 MG TAB PO ONE (01:00)
--- NOTE | 2021-12-05 01:05 | Emergency Department Report ---
ED General Adult HPI - General Chief complaint: Extremity Problem,Nontraumatic Stated complaint: SWOLLEN HAND/FEET Time Seen by Provider: 12/05/21 00:54 Source: patient Mode of arrival: Ambulatory Limitations: No Limitations - History of Present Illness Initial comments: This is a 46-year-old male with history of diabetes mellitus II, states diet controlled, who presents with generalized malaise with mild cough. PT was diagnosed with UTI on 09/26/2022 in this ed. not sure if he took all of his medications, pt denies fevers or chills no nausea no vomiting states bilateral lower extremity swelling and bilateral hand swelling however patient appears nontoxic no obvious swelling noted on presentation to ED. Patient denies exacerbating or relieving factors. Is tolerating p.o. hydration. Denies dysuria frequency hematuria or discharge at this time. Severity scale (0 -10): 0 - Related Data Previous Rx's Medication Instructions Recorded Last Taken Type Amoxicillin [Amoxicillin TAB] 875 mg PO BID 7 Days #14 tablet 01/28/20 Unknown Rx Neomycin/Polymyxin B/Hydrocort 4 drops AD QID 10 Days #1 solution 09/12/20 Unknown Rx [Mrdcqiyv-Vtijrlqzu-Ft Ear Soln] Albuterol Mdi (or & Nicu Only) 2 puff IH Q4HR PRN #1 inhalation 07/03/21 Unknown Rx [ProAir HFA Inhaler] Amoxicillin [Amoxicillin TAB] 875 mg PO BID #14 tablet 07/03/21 Unknown Rx predniSONE [Deltasone] 20 mg PO DAILY #15 tablet 07/03/21 Unknown Rx Amoxicillin/Potassium Clav 1 each PO BID 10 Days #20 tablet 10/26/21 Unknown Rx [Augmentin 875-125 Tablet] Ibuprofen [Motrin 800 MG tab] 800 mg PO Q8HR PRN #30 tablet 10/26/21 Unknown Rx Neomy/Polymyx B/Hc Otic Susp 4 drops AD TID 10 Days #1 bottle 10/26/21 Unknown Rx [Cortisporin (Otic) Susp] Nitrofurantoin [place]/M-Cryst 100 mg PO Q12HR 7 Days #14 capsule 11/27/21 Unknown Rx [Macrobid CAP] metFORMIN [Glucophage] 500 mg PO BID 30 Days #60 tab 11/27/21 Unknown Rx Allergies Allergy/AdvReac Type Severity Reaction Status Date / Time ciprofloxacin Allergy Unknown Verified 11/27/21 07:13 Sulfa (Sulfonamide Allergy Unknown Verified 11/27/21 07:13 Antibiotics) ED Review of Systems ROS: Stated complaint: SWOLLEN HAND/FEET Other details as noted in HPI Constitutional: malaise. denies: chills, fever Eyes: denies: eye pain, eye discharge, vision change ENT: denies: ear pain, throat pain Respiratory: denies: cough, shortness of breath, wheezing Cardiovascular: denies: chest pain, palpitations Endocrine: no symptoms reported Gastrointestinal: as per HPI. denies: abdominal pain, nausea, vomiting Genitourinary: denies: urgency, dysuria, frequency, hematuria, discharge Musculoskeletal: other (Bilateral leg and hand pain.). denies: back pain, joint swelling, arthralgia Skin: denies: rash, lesions Neurological: headache. denies: weakness, numbness, paresthesias, confusion, vertigo Psychiatric: denies: anxiety, depression Hematological/Lymphatic: denies: easy bleeding, easy bruising ED Past Medical Hx - Past Medical History Previous Medical History?: Yes Hx Diabetes: Yes Additional medical history: "heart problems" - Surgical History Past Surgical History?: Yes Additional Surgical History: R ear sx, 1982 - Social History Smoking Status: Current Some Day Smoker Substance Use Type: None - Medications Home Medications: Home Medications Medication Instructions Recorded Confirmed Last Taken Type Amoxicillin [Amoxicillin TAB] 875 mg PO BID 7 Days #14 tablet 01/28/20 Unknown Rx Neomycin/Polymyxin B/Hydrocort 4 drops AD QID 10 Days #1 solution 09/12/20 Unknown Rx [Nfycfxib-Isfwypchr-Kb Ear Soln] Albuterol Mdi (or & Nicu Only) 2 puff IH Q4HR PRN #1 inhalation 07/03/21 Unknown Rx [ProAir HFA Inhaler] Amoxicillin [Amoxicillin TAB] 875 mg PO BID #14 tablet 07/03/21 Unknown Rx predniSONE [Deltasone] 20 mg PO DAILY #15 tablet 07/03/21 Unknown Rx Amoxicillin/Potassium Clav 1 each PO BID 10 Days #20 tablet 10/26/21 Unknown Rx [Augmentin 875-125 Tablet] Ibuprofen [Motrin 800 MG tab] 800 mg PO Q8HR PRN #30 tablet 10/26/21 Unknown Rx Neomy/Polymyx B/Hc Otic Susp 4 drops AD TID 10 Days #1 bottle 10/26/21 Unknown Rx [Cortisporin (Otic) Susp] Nitrofurantoin [place]/M-Cryst 100 mg PO Q12HR 7 Days #14 capsule 11/27/21 Unknown Rx [Macrobid CAP] metFORMIN [Glucophage] 500 mg PO BID 30 Days #60 tab 11/27/21 Unknown Rx ED Physical Exam - General Limitations: No Limitations General appearance: alert, in no apparent distress - Head Head exam: Present: atraumatic, normocephalic - Eye Eye exam: Present: normal appearance, EOMI Pupils: Present: normal accommodation - ENT ENT exam: Present: mucous membranes moist - Neck Neck exam: Present: normal inspection, full ROM. Absent: tenderness, lymphadenopathy, thyromegaly - Respiratory Respiratory exam: Present: normal lung sounds bilaterally. Absent: respiratory distress, wheezes, stridor - Cardiovascular Cardiovascular Exam: Present: regular rate, normal rhythm, normal heart sounds. Absent: systolic murmur, diastolic murmur, rubs, gallop - GI/Abdominal GI/Abdominal exam: Present: soft, normal bowel sounds. Absent: distended, tenderness - Rectal Rectal exam: Present: deferred - Extremities Exam Extremities exam: Present: normal inspection, full ROM, normal capillary refill. Absent: tenderness, pedal edema, joint swelling - Back Exam Back exam: Present: normal inspection, full ROM. Absent: tenderness, CVA tenderness (R), CVA tenderness (L) - Neurological Exam Neurological exam: Present: alert, oriented X3, CN II-XII intact, normal gait - Psychiatric Psychiatric exam: Present: normal affect, normal mood - Skin Skin exam: Present: warm, dry, intact, normal color. Absent: rash ED Course Vital Signs 12/05/21 00:46 Temperature 98.8 F Pulse Rate 101 H Respiratory 20 Rate Blood Pressure 131/74 [Right] O2 Sat by Pulse 97 Oximetry Critical care attestation.: If time is entered above; I have spent that time in minutes in the direct care of this critically ill patient, excluding procedure time. ED Disposition Condition: Stable
[2021-12-05 01:19] LABS: Basophils % (Auto) 0.8 % (0.0-1.8); Eosinophils # (Auto) 0.1 K/mm3 (0.0-0.4); Eosinophils % (Auto) 2.1 % (0.0-4.3); Hematocrit 39.1 % (35.5-45.6); Lymphocytes # (Auto) 2.6 K/mm3 (1.2-5.4); Lymphocytes % (Auto) 44.9 % (13.4-35.0); Mean Corpuscular HGB Conc 33 % (32-34); Mean Corpuscular Volume 100 fl (84-94); Monocytes # (Auto) 0.5 K/mm3 (0.0-0.8); Monocytes % (Auto) 7.9 % (0.0-7.3); Platelet Count 148 K/mm3 (140-440); Red Blood Count 3.93 M/mm3 (3.65-5.03)
[2021-12-05 01:39] LABS: Alanine Aminotransferase 23 units/L (7-56); Albumin 3.7 g/dL (3.9-5); BUN/Creatinine Ratio 14; Blood Urea Nitrogen 18 mg/dL (9-20); Calcium 8.8 mg/dL (8.4-10.2); Hemolysis Index 10
--- NOTE | 2021-12-05 01:39 | XRay Report ---
CHEST 2 VIEWS INDICATION / CLINICAL INFORMATION: cough malaise. COMPARISON: Chest x-ray 07/25/2021 FINDINGS: SUPPORT DEVICES: None. HEART / MEDIASTINUM: No significant abnormality. LUNGS / PLEURA: Small pulmonary nodule right upper lung measuring 4 to 5 mm not excluded underlying t he posterior margin right fifth rib. Lungs otherwise clear. No pneumothorax. ADDITIONAL FINDINGS: No significant additional findings. IMPRESSION: 1. No active cardiopulmonary disease. Small pulmonary nodule right upper lung not excluded. CT chest may be useful for further characterization. Signer Name: Sarwat Snider II, MD Signed: 12/05/2021 1:35 AM Workstation Name: [id number]
== END 2021-12-05 02:00 | disposition left against medical advice (07) ==
LOC: ED 22:06
DX: R53.81 Other malaise (principal); R05.9 Cough, unspecified; Z88.2 Allergy status to sulfonamides; Z88.1 Allergy status to other antibiotic agents; E11.8 Type 2 diabetes mellitus with unspecified complications; F17.200 Nicotine dependence, unspecified, uncomplicated
CPT/HCPCS: 36415; 71046; 80053; 85025; 99283

== ENCOUNTER 2021-12-10 18:01 | Emergency (ER) | payer SELFPAY ==
[2021-12-10 19:36] VITALS: BP 133/76
[2021-12-10] MEDS ORDERED: ASPIRIN 325 MG TAB PO ONE (23:16)
--- NOTE | 2021-12-10 23:49 | XRay Report ---
XR chest 1V ap INDICATION / CLINICAL INFORMATION: chest pain. COMPARISON: 12/05/2021 FINDINGS: SUPPORT DEVICES: None. HEART /PULMONARY VASCULATURE: No significant abnormality. LUNGS / PLEURA: No acute pulmonary or pleural abnormality. Nodular opacity again noted with the right upper lung. No pneumothorax. IMPRESSION: 1. No acute findings. 2. Right upper lung nodular opacity. Recommendations are unchanged Signer Name: Zac Anders MD Signed: 12/10/2021 11:45 PM Workstation Name: [id number]
[2021-12-10 23:51] LABS: Basophils # (Auto) 0.1 K/mm3 (0.0-0.1); Basophils % (Auto) 1.4 % (0.0-1.8); Eosinophils # (Auto) 0.2 K/mm3 (0.0-0.4); Eosinophils % (Auto) 2.9 % (0.0-4.3); Hematocrit 37.3 % (35.5-45.6); Hemoglobin 12.9 gm/dl (11.8-15.2); Lymphocytes # (Auto) 2.5 K/mm3 (1.2-5.4); Lymphocytes % (Auto) 46.9 % (13.4-35.0); Mean Corpuscular HGB Conc 35 % (32-34); Mean Corpuscular Volume 101 fl (84-94); Monocytes # (Auto) 0.5 K/mm3 (0.0-0.8); Monocytes % (Auto) 9.5 % (0.0-7.3); Platelet Count 221 K/mm3 (140-440); Red Cell Distribution Width 13.7 % (13.2-15.2)
--- NOTE | 2021-12-10 23:51 | XRay Report ---
. XR foot 3+V RT INDICATION / CLINICAL INFORMATION: Pain COMPARISON: None available. FINDINGS: BONES / JOINT(S): No acute fracture or subluxation. Lisfranc interval is maintained. No significant a rthritis. SOFT TISSUES: No acute soft tissue abnormality. Scattered vascular calcifications are present. ADDITIONAL FINDINGS: None. IMPRESSION: No acute osseous findings of the right foot. Signer Name: Zac Anders MD Signed: 12/10/2021 11:46 PM Workstation Name: [id number]
[2021-12-11 00:03] LABS: Alanine Aminotransferase 19 units/L (7-56); Albumin 3.4 g/dL (3.9-5); BUN/Creatinine Ratio 11; Blood Urea Nitrogen 12 mg/dL (9-20); Hemolysis Index 36
[2021-12-11] MEDS ORDERED: SODIUM CHLORIDE 0.9% 1000 ML 1,000 ML IV ONE (04:09)
--- NOTE | 2021-12-11 06:13 | Emergency Department Report ---
ED General Adult HPI - General Chief complaint: Extremity Injury, Lower Stated complaint: HEAD PAIN Source: patient Mode of arrival: Ambulatory Limitations: No Limitations - History of Present Illness Initial comments: Patient is a 46-year-old -[place] male with a history of tet-osisofp-ksvdafxcz diabetes with noncompliance with medications who presents to the ED with complaint of acute onset persistent severe right foot pain after he accidentally bumped onto a piece of furniture and hit his right foot and right second toe about 12 hours ago. Patient is a complaints of persistent tachycardia and pleuritic pain with cough for the last 1 month. Patient denies dizziness, syncope, fever, chills, loss of consciousness, fall, numbness and tingling or weakness of lower extremities bilaterally, head or neck injuries, palpitations, change in vision, diaphoresis, chest pain and shortness of breath. MD Complaint: right foot pain; persistent dry cough with pleuritic chest pain -: Sudden Location: chest, lower extremity (Right foot pain) Radiation: non-radiation Severity scale (0 -10): 5 Quality: aching, sharp Consistency: constant Improves with: none Worsens with: none Associated Symptoms: denies other symptoms, chest pain, cough. denies: confusion, diaphoresis, fever/chills, headaches, loss of appetite, malaise, nausea/vomiting, seizure, shortness of breath, syncope, weakness, other Treatments Prior to Arrival: none - Related Data Previous Rx's Medication Instructions Recorded Last Taken Type Amoxicillin [Amoxicillin TAB] 875 mg PO BID 7 Days #14 tablet 01/28/20 Unknown Rx Neomycin/Polymyxin B/Hydrocort 4 drops AD QID 10 Days #1 solution 09/12/20 Unknown Rx [Cqsyaqfs-Rbjceiwal-Yv Ear Soln] Albuterol Mdi (or & Nicu Only) 2 puff IH Q4HR PRN #1 inhalation 07/03/21 Unknown Rx [ProAir HFA Inhaler] Amoxicillin [Amoxicillin TAB] 875 mg PO BID #14 tablet 07/03/21 Unknown Rx predniSONE [Deltasone] 20 mg PO DAILY #15 tablet 07/03/21 Unknown Rx Amoxicillin/Potassium Clav 1 each PO BID 10 Days #20 tablet 10/26/21 Unknown Rx [Augmentin 875-125 Tablet] Neomy/Polymyx B/Hc Otic Susp 4 drops AD TID 10 Days #1 bottle 10/26/21 Unknown Rx [Cortisporin (Otic) Susp] Nitrofurantoin [place]/M-Cryst 100 mg PO Q12HR 7 Days #14 capsule 11/27/21 Unknown Rx [Macrobid CAP] Ibuprofen [Motrin 800 MG tab] 800 mg PO Q8HR PRN #30 tablet 12/11/21 Unknown Rx metFORMIN [Glucophage] 500 mg PO BID 30 Days #60 tab 12/11/21 Unknown Rx Allergies Allergy/AdvReac Type Severity Reaction Status Date / Time ciprofloxacin Allergy Unknown Verified 11/27/21 07:13 Sulfa (Sulfonamide Allergy Unknown Verified 11/27/21 07:13 Antibiotics) ED Review of Systems ROS: Stated complaint: HEAD PAIN Other details as noted in HPI Constitutional: denies: chills, fever Eyes: denies: eye pain, eye discharge, vision change ENT: denies: ear pain, throat pain Respiratory: cough. denies: shortness of breath, wheezing Cardiovascular: chest pain (Pleuritic chest pain with cough). denies: palpitations Endocrine: no symptoms reported Gastrointestinal: denies: abdominal pain, nausea, diarrhea Genitourinary: denies: urgency, dysuria Musculoskeletal: arthralgia (Right foot pain). denies: back pain, joint swelling Skin: denies: rash, lesions Neurological: denies: headache, weakness, paresthesias Psychiatric: denies: anxiety, depression Hematological/Lymphatic: denies: easy bleeding, easy bruising ED Past Medical Hx - Past Medical History Previous Medical History?: Yes Hx Diabetes: Yes - Surgical History Past Surgical History?: Yes Additional Surgical History: R ear sx, 1982 - Social History Smoking Status: Current Some Day Smoker Substance Use Type: None - Medications Home Medications: Home Medications Medication Instructions Recorded Confirmed Last Taken Type Amoxicillin [Amoxicillin TAB] 875 mg PO BID 7 Days #14 tablet 01/28/20 Unknown Rx Neomycin/Polymyxin B/Hydrocort 4 drops AD QID 10 Days #1 solution 09/12/20 Unknown Rx [Zmiqsecv-Ipmetivim-Ut Ear Soln] Albuterol Mdi (or & Nicu Only) 2 puff IH Q4HR PRN #1 inhalation 07/03/21 Unknown Rx [ProAir HFA Inhaler] Amoxicillin [Amoxicillin TAB] 875 mg PO BID #14 tablet 07/03/21 Unknown Rx predniSONE [Deltasone] 20 mg PO DAILY #15 tablet 07/03/21 Unknown Rx Amoxicillin/Potassium Clav 1 each PO BID 10 Days #20 tablet 10/26/21 Unknown Rx [Augmentin 875-125 Tablet] Neomy/Polymyx B/Hc Otic Susp 4 drops AD TID 10 Days #1 bottle 10/26/21 Unknown Rx [Cortisporin (Otic) Susp] Nitrofurantoin [place]/M-Cryst 100 mg PO Q12HR 7 Days #14 capsule 11/27/21 Unknown Rx [Macrobid CAP] Ibuprofen [Motrin 800 MG tab] 800 mg PO Q8HR PRN #30 tablet 12/11/21 Unknown Rx metFORMIN [Glucophage] 500 mg PO BID 30 Days #60 tab 12/11/21 Unknown Rx ED Physical Exam - General Limitations: No Limitations General appearance: alert, in no apparent distress - Head Head exam: Present: atraumatic, normocephalic, normal inspection - Eye Eye exam: Present: normal appearance, PERRL, EOMI Pupils: Present: normal accommodation - ENT ENT exam: Present: normal exam, normal orophraynx, mucous membranes moist, TM's normal bilaterally, normal external ear exam - Neck Neck exam: Present: normal inspection, full ROM - Respiratory Respiratory exam: Present: normal lung sounds bilaterally. Absent: respiratory distress, wheezes, rales, rhonchi, chest wall tenderness, accessory muscle use, decreased breath sounds, prolonged expiratory - Cardiovascular Cardiovascular Exam: Present: regular rate, normal rhythm, tachycardia, normal heart sounds. Absent: systolic murmur, diastolic murmur, rubs, gallop - GI/Abdominal GI/Abdominal exam: Present: soft, normal bowel sounds. Absent: tenderness, guarding, rebound, rigid, hyperactive bowel sounds, hypoactive bowel sounds, organomegaly, mass - Extremities Exam Extremities exam: Present: normal inspection, full ROM, tenderness (Palpable distal right second toe and right foot tenderness), normal capillary refill. Absent: pedal edema, joint swelling, calf tenderness - Back Exam Back exam: Present: normal inspection, full ROM. Absent: tenderness, CVA tenderness (L), muscle spasm, vertebral tenderness - Neurological Exam Neurological exam: Present: alert, oriented X3, CN II-XII intact, normal gait, reflexes normal - Psychiatric Psychiatric exam: Present: normal affect, normal mood - Skin Skin exam: Present: warm, dry, intact, normal color. Absent: rash ED Course Vital Signs 12/10/21 19:34 Temperature 98.5 F Pulse Rate 115 H Respiratory 18 Rate Blood Pressure 133/76 O2 Sat by Pulse 98 Oximetry ED Medical Decision Making - Lab Data Result diagrams: 12/10/21 23:25 12/10/21 23:25 - EKG Data EKG shows normal: sinus rhythm Rate: normal - EKG Data Interpretation: normal EKG 12/11/21 06:11 EKG shows normal sinus rhythm with a ventricular rate of 89 bpm and LVH pattern, and nonspecific T wave abnormalities in lateral leads - Radiology Data Radiology results: report reviewed, image reviewed [facility] [address] [place] [address] XRay Report Signed Patient: JUNO NICHOLSON MR#: [id number] : 1975 Acct:[id number] Age/Sex: 46 / M ADM Date: 12/10/21 Loc: ED Attending Dr: Ordering Physician: CORKY BAILEY Date of Service: 12/10/21 Procedure(s): XR chest 1V ap Accession Number(s): [id number] cc: CORKY BAILEY Fluoro Time In Minutes: XR chest 1V ap INDICATION / CLINICAL INFORMATION: chest pain. COMPARISON: 12/05/2021 FINDINGS: SUPPORT DEVICES: None. HEART /PULMONARY VASCULATURE: No significant abnormality. LUNGS / PLEURA: No acute pulmonary or pleural abnormality. Nodular opacity again noted with the right upper lung. No pneumothorax. IMPRESSION: 1. No acute findings. 2. Right upper lung nodular opacity. Recommendations are unchanged Signer Name: Pacheco Anders MD Signed: 12/10/2021 11:45 PM Workstation Name: [id number] Transcribed By: PATRICIA Dictated By: PACHECO ANDERS MD Electronically Authenticated By: PACHECO ANDERS MD Signed Date/Time: 12/10/212344 DD/ 43 TD/TT: [facility] [address] [place] [address] XRay Report Signed Patient: JUNO NICHOLSON MR#: [id number] : 1975 Acct:[id number] Age/Sex: 46 / M ADM Date: 12/10/21 Loc: ED Attending Dr: Ordering Physician: CORKY BAILEY Date of Service: 12/10/21 Procedure(s): XR foot 3+V RT Accession Number(s): [id number] cc: CORKY BAILEY Fluoro Time In Minutes: . XR foot 3+V RT INDICATION / CLINICAL INFORMATION: Pain COMPARISON: None available. FINDINGS: BONES / JOINT(S): No acute fracture or subluxation. Lisfranc interval is maintained. No significant arthritis. SOFT TISSUES: No acute soft tissue abnormality. Scattered vascular calcifications are present. ADDITIONAL FINDINGS: None. IMPRESSION: No acute osseous findings of the right foot. Signer Name: Pacheco Anders MD Signed: 12/10/2021 11:46 PM Workstation Name: [id number] Transcribed By: JS Dictated By: PACHECO ANDERS MD Electronically Authenticated By: PACHECO ANDERS MD Signed Date/Time: 12/10/212345 DD/ 44 TD/TT: Print Cancel - Medical Decision Making This is a 46-year-old -[place]ic male with a history of gvo-jhmraad-rcrpjuwfy diabetes with noncompliance with medications who presents to the ED with complaint of acute onset persistent severe right foot pain after he accidentally bumped onto a piece of furniture and hit his right foot and right second toe about 12 hours ago. Patient is a complaints of persistent tachycardia and pleuritic pain with cough for the last 1 month. In the ED, patient is alert and oriented x3 and is not in distress but tachycardic in triage. Right foot x-ray showed no acute fractures or subluxations. Chest x- ray showed no acute cardiopulmonary abnormalities or pneumonitis. Lab test results were reviewed and are all nonactionable except for hyperglycemia of 335 mg/dL. EKG shows normal sinus rhythm with a LVH pattern and nonspecific T wave abnormalities in lateral leads. Patient received normal saline 1 L IV bolus x1, as well as aspirin 325 mg p.o. x1. Patient will discharge home on Metformin 500 mg twice a day and advised follow-up with his primary care physician in 5 to 7 days for reevaluation or return to the ED immediately if symptoms get worse. - Differential Diagnosis Pneumonia; right foot fracture; foot contusion; bronchitis; ACS Critical care attestation.: If time is entered above; I have spent that time in minutes in the direct care of this critically ill patient, excluding procedure time. ED Disposition Clinical Impression: Contusion of right foot including toes Qualifiers: Encounter type: initial encounter Qualified Code(s): S90.31XA - Contusion of right foot, initial encounter; S90.121A - Contusion of right lesser toe(s) without damage to nail, initial encounter Right foot sprain Qualifiers: Encounter type: initial encounter Qualified Code(s): S93.601A - Unspecified sprain of right foot, initial encounter Hyperglycemia due to type 2 diabetes mellitus Qualifiers: Diabetes mellitus intermodal customer service insulin use: without intermodal customer service use Qualified Code(s): E11.65 - Type 2 diabetes mellitus with hyperglycemia Disposition: 01 HOME / SELF CARE / HOMELESS Is pt being admited?: No Does the pt Need Aspirin: No Condition: Stable Instructions: Diabetes Mellitus Type 2 in Adults (ED), Type 2 Diabetes Mellitus, Self Care, Adult, Mwqg-zv-Hcax, Contusion, Qoca-il-Numq, Crush Injury of the Foot, Lkap-xx-Cifs Additional Instructions: Take medication with food, drink plenty of fluids and follow-up with your primary care physician in 7 to 10 days for reevaluation. Return to the ED immediately if symptoms get worse. Prescriptions: metFORMIN [Glucophage] 500 mg PO BID 30 Days #60 tab Ibuprofen [Motrin 800 MG tab] 800 mg PO Q8HR PRN #30 tablet PRN Reason: Pain Referrals: [facility] [Provider Group] - 3-5 Days Time of Disposition: 06:19 Print Language: BRITISH
--- NOTE | 2021-12-11 10:33 | Electrocardiograph Report ---
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
== END 2021-12-11 06:35 | disposition home or self-care (01) ==
LOC: ED 18:01
DX: S93.601A Unspecified sprain of right foot, initial encounter (principal); S90.121A Contusion of right lesser toe(s) without damage to nail, initial encounter; E11.65 Type 2 diabetes mellitus with hyperglycemia; Z88.2 Allergy status to sulfonamides; X58.XXXA Exposure to other specified factors, initial encounter; Y93.89 Activity, other specified; Y92.89 Other specified places as the place of occurrence of the external cause; Y99.8 Other external cause status
CPT/HCPCS: 36415; 71045; 73630; 80053; 82962; 83880; 84484; 85025; 93005; 93010; 96360; 99284; J7030; Q0162

== ENCOUNTER 2021-12-18 11:12 | Observation (INO) | payer SELFPAY ==
--- NOTE | 2021-12-18 12:32 | Emergency Department Report ---
ED Chest Pain HPI - General Chief Complaint: Chest Pain Stated Complaint: chest pain Time Seen by Provider: 12/18/21 11:26 Source: EMS Mode of arrival: Ambulatory Limitations: No Limitations - History of Present Illness Initial Comments: 46-year-old male with a past medical history of diabetes and hypertension not currently on medications presents to the hospital complaining of chest pain x2 days. Pain is intermittent described as throbbing and sharp alleviating factors. Patient did notice some coughing and wheezing yesterday and some chest congestion. Patient smokes cigars and denies previous history of cardiac work- up. Denies fever, calf tenderness, leg edema, recent travel, or history of PE/DVT. Patient is unsure of family history of CAD ED since both his parents are . Severity scale (0 -10): 5 - Related Data Previous Rx's Medication Instructions Recorded Last Taken Type Amoxicillin [Amoxicillin TAB] 875 mg PO BID 7 Days #14 tablet 01/28/20 Unknown Rx Neomycin/Polymyxin B/Hydrocort 4 drops AD QID 10 Days #1 solution 09/12/20 Unknown Rx [Gxeeyolb-Nvzfhdktc-Vi Ear Soln] Albuterol Mdi (or & Nicu Only) 2 puff IH Q4HR PRN #1 inhalation 07/03/21 Unknown Rx [ProAir HFA Inhaler] Amoxicillin [Amoxicillin TAB] 875 mg PO BID #14 tablet 07/03/21 Unknown Rx predniSONE [Deltasone] 20 mg PO DAILY #15 tablet 07/03/21 Unknown Rx Amoxicillin/Potassium Clav 1 each PO BID 10 Days #20 tablet 10/26/21 Unknown Rx [Augmentin 875-125 Tablet] Neomy/Polymyx B/Hc Otic Susp 4 drops AD TID 10 Days #1 bottle 10/26/21 Unknown Rx [Cortisporin (Otic) Susp] Nitrofurantoin [place]/M-Cryst 100 mg PO Q12HR 7 Days #14 capsule 11/27/21 Unknown Rx [Macrobid CAP] Ibuprofen [Motrin 800 MG tab] 800 mg PO Q8HR PRN #30 tablet 12/11/21 Unknown Rx metFORMIN [Glucophage] 500 mg PO BID 30 Days #60 tab 12/11/21 Unknown Rx Allergies Allergy/AdvReac Type Severity Reaction Status Date / Time ciprofloxacin Allergy Unknown Verified 11/27/21 07:13 Sulfa (Sulfonamide Allergy Unknown Verified 11/27/21 07:13 Antibiotics) Heart Score - HEART Score History: Slightly suspicious EKG: Non-specific Age: 45-65 Risk factors: > 3 risk factors or hx of atherosclerotic disease Troponin: < normal limit HEART Score: 4 - EKG Read Time Time EKG Completed: 12:55 EKG Read Time: 13:01 ED Review of Systems ROS: Stated complaint: chest pain Other details as noted in HPI Comment: All other systems reviewed and negative ED Past Medical Hx - Past Medical History Previous Medical History?: Yes Hx Hypertension: Yes Hx Diabetes: Yes Additional medical history: "heart problems" - Surgical History Additional Surgical History: R ear sx, 1982 - Social History Smoking Status: Current Some Day Smoker Substance Use Type: None - Medications Home Medications: Home Medications Medication Instructions Recorded Confirmed Last Taken Type Amoxicillin [Amoxicillin TAB] 875 mg PO BID 7 Days #14 tablet 01/28/20 Unknown Rx Neomycin/Polymyxin B/Hydrocort 4 drops AD QID 10 Days #1 solution 09/12/20 Unknown Rx [Nuaxjpkk-Foatjtvrq-Xg Ear Soln] Albuterol Mdi (or & Nicu Only) 2 puff IH Q4HR PRN #1 inhalation 07/03/21 Unknown Rx [ProAir HFA Inhaler] Amoxicillin [Amoxicillin TAB] 875 mg PO BID #14 tablet 07/03/21 Unknown Rx predniSONE [Deltasone] 20 mg PO DAILY #15 tablet 07/03/21 Unknown Rx Amoxicillin/Potassium Clav 1 each PO BID 10 Days #20 tablet 10/26/21 Unknown Rx [Augmentin 875-125 Tablet] Neomy/Polymyx B/Hc Otic Susp 4 drops AD TID 10 Days #1 bottle 10/26/21 Unknown Rx [Cortisporin (Otic) Susp] Nitrofurantoin [place]/M-Cryst 100 mg PO Q12HR 7 Days #14 capsule 11/27/21 Unknown Rx [Macrobid CAP] Ibuprofen [Motrin 800 MG tab] 800 mg PO Q8HR PRN #30 tablet 12/11/21 Unknown Rx metFORMIN [Glucophage] 500 mg PO BID 30 Days #60 tab 12/11/21 Unknown Rx ED Physical Exam - General Limitations: No Limitations - Other Other exam information: General: No acute distress Head: Atraumatic Eyes: normal appearance ENT: Moist mucous membranes Neck: Normal appearance, no midline tenderness Chest: Mild wheeze right chest that cleared with repeated inspiration CV: Regular rate and rhythm Abdomen: Soft, normal bowel sounds, nontender, nondistended, no rebound or guarding Back: Normal inspection Extremity: Normal inspection, full range of motion, no calf tenderness or leg edema Neuro: Alert O x 3, no facial asymmetry, speech clear, no gross motor sensory deficit Psych: Appropriate behavior Skin: No rash ED Course Vital Signs 12/18/21 12/18/21 12/18/21 11:16 11:27 11:31 Temperature 98.2 F Pulse Rate 89 86 100 H Respiratory 16 9 L 15 Rate Blood Pressure 128/81 Blood Pressure 142/90 [Left] O2 Sat by Pulse 100 99 Oximetry 12/18/21 12/18/21 12/18/21 11:45 12:01 12:15 Temperature Pulse Rate 92 H 74 90 Respiratory 19 17 17 Rate Blood Pressure 128/81 123/85 123/85 Blood Pressure [Left] O2 Sat by Pulse 99 100 99 Oximetry 12/18/21 12/18/21 12/18/21 12:31 12:45 13:01 Temperature Pulse Rate 109 H 89 87 Respiratory 17 24 16 Rate Blood Pressure 127/91 127/91 132/82 Blood Pressure [Left] O2 Sat by Pulse 99 99 99 Oximetry 12/18/21 12/18/21 12/18/21 13:15 13:31 13:45 Temperature Pulse Rate 92 H 80 98 H Respiratory 16 14 38 H Rate Blood Pressure 132/82 122/75 122/75 Blood Pressure [Left] O2 Sat by Pulse 100 99 100 Oximetry 12/18/21 12/18/21 12/18/21 14:01 14:15 14:34 Temperature Pulse Rate 94 H 109 H Respiratory 23 24 Rate Blood Pressure 124/79 124/79 124/79 Blood Pressure [Left] O2 Sat by Pulse 98 98 Oximetry 12/18/21 12/18/21 14:54 15:00 Temperature Pulse Rate Respiratory Rate Blood Pressure 124/79 124/79 Blood Pressure [Left] O2 Sat by Pulse 67 L Oximetry - Reevaluation(s) Reevaluation #1: 12/18/21 18:22 Patient continues to complain of chest pain during ED evaluation patient. Troponin negative x2. Case discussed with cardiology - Consultations Consultation #1: 12/18/21 18:[address] Das. Given patient's persistent chest pain, abnormal EKG risk factors, and lack of previous cardiac stress test/cardiac work-up he advises admission for stress test MASOUD score - Masoud Score Age > 65: (0) No Aspirin use within the Past 7 Days: (0) No 3 or more CAD Risk Factors: (1) Yes 2 or more Angina events in past 24 hrs: (1) Yes Known CAD with more than 50% Stenosis: (0) No Elevated Cardiac Markers: (0) No ST Deviation Greater than 0.5mm: (0) No MASOUD Score: 2 ED Medical Decision Making - Lab Data Result diagrams: 12/18/21 12:39 12/18/21 12:39 Lab Results 12/18/21 12/18/21 12/18/21 Range/Units 12:39 12:39 12:39 WBC 5.6 (4.5-11.0) K/mm3 RBC 4.17 (3.65-5.03) M/mm3 Hgb 14.3 (11.8-15.2) gm/dl Hct 41.8 (35.5-45.6) % MCV 100 H (84-94) fl MCH 34 H (28-32) pg MCHC 34 (32-34) % RDW 14.1 (13.2-15.2) % Plt Count 192 (140-440) K/mm3 Lymph % (Auto) 28.8 (13.4-35.0) % [place] % (Auto) 10.4 H (0.0-7.3) % Eos % (Auto) 1.9 (0.0-4.3) % Baso % (Auto) 1.1 (0.0-1.8) % Lymph # (Auto) 1.6 (1.2-5.4) K/mm3 [place] # (Auto) 0.6 (0.0-0.8) K/mm3 Eos # (Auto) 0.1 (0.0-0.4) K/mm3 Baso # (Auto) 0.1 (0.0-0.1) K/mm3 Seg Neutrophils % 57.8 (40.0-70.0) % Seg Neutrophils # 3.2 (1.8-7.7) K/mm3 PT 13.4 (12.2-14.9) Sec. INR 0.92 (0.87-1.13) APTT 29.2 (24.2-36.6) Sec. Sodium 138 (137-145) mmol/L Potassium 4.9 (3.6-5.0) mmol/L Chloride 102.6 (98-107) mmol/L Carbon Dioxide 24 (22-30) mmol/L Anion Gap 16 mmol/L BUN 8 L (9-20) mg/dL Creatinine 0.8 (0.8-1.3) mg/dL Estimated GFR > 60 ml/min BUN/Creatinine Ratio 10 % Glucose 156 H (75-100) mg/dL Calcium 8.8 (8.4-10.2) mg/dL Total Bilirubin 0.70 (0.1-1.2) mg/dL AST 19 (5-40) units/L ALT 19 (7-56) units/L Alkaline Phosphatase 78 (35-129) units/L Troponin T < 0.010 (0.00-0.029) ng/mL Total Protein 7.1 (6.3-8.2) g/dL Albumin 3.7 L (3.9-5) g/dL Albumin/Globulin Ratio 1.1 % // Range/Units 14:53 WBC (4.5-11.0) K/mm3 RBC (3.65-5.03) M/mm3 Hgb (11.8-15.2) gm/dl Hct (35.5-45.6) % MCV (84-94) fl MCH (28-32) pg MCHC (32-34) % RDW (13.2-15.2) % Plt Count (140-440) K/mm3 Lymph % (Auto) (13.4-35.0) % [place] % (Auto) (0.0-7.3) % Eos % (Auto) (0.0-4.3) % Baso % (Auto) (0.0-1.8) % Lymph # (Auto) (1.2-5.4) K/mm3 [place] # (Auto) (0.0-0.8) K/mm3 Eos # (Auto) (0.0-0.4) K/mm3 Baso # (Auto) (0.0-0.1) K/mm3 Seg Neutrophils % (40.0-70.0) % Seg Neutrophils # (1.8-7.7) K/mm3 PT (12.2-14.9) Sec. INR (0.87-1.13) APTT (24.2-36.6) Sec. Sodium (137-145) mmol/L Potassium (3.6-5.0) mmol/L Chloride (98-107) mmol/L Carbon Dioxide (22-30) mmol/L Anion Gap mmol/L BUN (9-20) mg/dL Creatinine (0.8-1.3) mg/dL Estimated GFR ml/min BUN/Creatinine Ratio % Glucose (75-100) mg/dL Calcium (8.4-10.2) mg/dL Total Bilirubin (0.1-1.2) mg/dL AST (5-40) units/L ALT (7-56) units/L Alkaline Phosphatase (35-129) units/L Troponin T < 0.010 (0.00-0.029) ng/mL Total Protein (6.3-8.2) g/dL Albumin (3.9-5) g/dL Albumin/Globulin Ratio % - EKG Data -: EKG Interpreted by Sd EKG shows normal: sinus rhythm, ST-T waves (Lateral T wave inversion) Rate: normal (95) - EKG Data When compared to previous EKG there are: no significant change - Radiology Data Radiology results: report reviewed CHEST 1 VIEW INDICATION: Chest Pain. COMPARISON: 12/10/2021 FINDINGS: Support devices: None. Heart: Heart size appears borderline. Lungs/Pleura: The lungs are clear with no evidence for pneumonia, pleural effusion or pneumothorax. Additional findings: None. IMPRESSION: Borderline heart size. Lungs clear. No change since 12/10/2021. - Medical Decision Making 46-year-old male with a past medical history of diabetes and hypertension as per medical record not currently on medications presents to the hospital complaining of chest pain x2 days. Patient has been to the ED in the past for chest pain however, denies receiving previous cardiac work-up. Case discussed with hand finisher who agrees to perform stress testing during hospitalization Critical Care Time: No Critical care attestation.: If time is entered above; I have spent that time in minutes in the direct care of this critically ill patient, excluding procedure time. ED Disposition Clinical Impression: Chest pain Disposition: ADMITTED INPATIENT Is pt being admited?: Yes Condition: Stable Time of Disposition: 18:24 (Dr Tavarez/hospitalist)
[2021-12-18 13:04] LABS: Basophils # (Auto) 0.1 K/mm3 (0.0-0.1); Basophils % (Auto) 1.1 % (0.0-1.8); Eosinophils # (Auto) 0.1 K/mm3 (0.0-0.4); Eosinophils % (Auto) 1.9 % (0.0-4.3); Hematocrit 41.8 % (35.5-45.6); Hemoglobin 14.3 gm/dl (11.8-15.2); Lymphocytes # (Auto) 1.6 K/mm3 (1.2-5.4); Lymphocytes % (Auto) 28.8 % (13.4-35.0); Mean Corpuscular HGB Conc 34 % (32-34); Mean Corpuscular Volume 100 fl (84-94); Monocytes # (Auto) 0.6 K/mm3 (0.0-0.8); Monocytes % (Auto) 10.4 % (0.0-7.3); Platelet Count 192 K/mm3 (140-440); Red Blood Count 4.17 M/mm3 (3.65-5.03); Red Cell Distribution Width 14.1 % (13.2-15.2)
--- NOTE | 2021-12-18 13:11 | XRay Report ---
CHEST 1 VIEW INDICATION: Chest Pain. COMPARISON: 12/10/2021 FINDINGS: Support devices: None. Heart: Heart size appears borderline. Lungs/Pleura: The lungs are clear with no evidence for pneumonia, pleural effusion or pneumothorax. Additional findings: None. IMPRESSION: Borderline heart size. Lungs clear. No change since 12/10/2021. Signer Name: Horace Blandon Jr, MD Signed: 12/18/2021 1:06 PM Workstation Name: [id number]
[2021-12-18 13:14] LABS: INR 0.92 (0.87-1.13)
[2021-12-18 13:15] LABS: Partial Thromboplastin Time 29.2 Sec. (24.2-36.6)
[2021-12-18 13:17] LABS: Alanine Aminotransferase 19 units/L (7-56); Albumin 3.7 g/dL (3.9-5); BUN/Creatinine Ratio 10; Blood Urea Nitrogen 8 mg/dL (9-20); Calcium 8.8 mg/dL (8.4-10.2); Hemolysis Index 88
[2021-12-18] MEDS ORDERED: ASPIRIN 325 MG TAB PO ONE (18:22)
--- NOTE | 2021-12-18 18:44 | History and Physical Report ---
History of Present Illness Chief complaint: My chest hurts History of present illness: 46 YO Male with DM, HTN, Nicotine Dependence, Medication Noncompliance who is lost to outpatient medical follow up presents ED for evaluation. Patient reports "my chest has been hurting". Patient states that he has experienced chest pain over the past 2 days. Patient states the pain was initially intermittent but has become more frequent over the past 2 days. Patient states the pain is 5/10, constant, worsened with exertion, relieved with rest. EMS was notified and upon arrival the patient was found to be in distress and subsequently transported to [facility] for further care and evaluation of the aforementioned symptoms. The patient was seen and evaluated in the emergency department. All lab and imaging studies reviewed. Patient found to have angina. Patient admitted to telemetry due to increased risk of worsening symptoms. Patient initiated on ACS protocol. Cardiology team consulted in ED. Patient denies fever, chills, chest palpitation, productive cough, skin rash, recent ill contacts, unilateral leg swelling, calf pain, individual/family history of DVT/PE/bleeding/blood clotting disorders, or known exposure to COVID-19. Prior admission on 12/04/2021 reviewed. All medication listed at time of admission has been reconciled. Advanced care planning conducted in ED. Past History Past Medical History: diabetes, hypertension Past Surgical History: Other (Right ear surgery) Social history: single, smoking. denies: alcohol abuse, prescription drug abuse Family history: diabetes, hypertension Medications and Allergies Allergies Allergy/AdvReac Type Severity Reaction Status Date / Time ciprofloxacin Allergy Unknown Verified 11/27/21 07:13 Sulfa (Sulfonamide Allergy Unknown Verified 11/27/21 07:13 Antibiotics) Home Medications Medication Instructions Recorded Confirmed Last Taken Type Amoxicillin [Amoxicillin TAB] 875 mg PO BID 7 Days #14 tablet 01/28/20 Unknown Rx Neomycin/Polymyxin B/Hydrocort 4 drops AD QID 10 Days #1 solution 09/12/20 Unknown Rx [Qmhjdswf-Scqfcdkdw-Do Ear Soln] Albuterol Mdi (or & Nicu Only) 2 puff IH Q4HR PRN #1 inhalation 07/03/21 Unknown Rx [ProAir HFA Inhaler] Amoxicillin [Amoxicillin TAB] 875 mg PO BID #14 tablet 07/03/21 Unknown Rx predniSONE [Deltasone] 20 mg PO DAILY #15 tablet 07/03/21 Unknown Rx Amoxicillin/Potassium Clav 1 each PO BID 10 Days #20 tablet 10/26/21 Unknown Rx [Augmentin 875-125 Tablet] Neomy/Polymyx B/Hc Otic Susp 4 drops AD TID 10 Days #1 bottle 10/26/21 Unknown Rx [Cortisporin (Otic) Susp] Nitrofurantoin Stark/M-Cryst 100 mg PO Q12HR 7 Days #14 capsule 11/27/21 Unknown Rx [Macrobid CAP] Ibuprofen [Motrin 800 MG tab] 800 mg PO Q8HR PRN #30 tablet 12/11/21 Unknown Rx metFORMIN [Glucophage] 500 mg PO BID 30 Days #60 tab 12/11/21 Unknown Rx Review of Systems Constitutional: no weight loss, no weight gain, no chills, no sweats Ears, nose, mouth and throat: no ear pain, no tinnitis, no decreased hearing Cardiovascular: chest pain, decreased exercise tolerance Respiratory: no cough, no cough with sputum, no hemoptysis, no shortness of breath Gastrointestinal: no abdominal pain, no nausea, no vomiting, no constipation, no change in bowel habits Genitourinary Male: no hematuria, no flank pain, no discharge, no urinary frequency, no urinary hesitancy Rectal: no pain, no incontinence, no bleeding Musculoskeletal: no neck stiffness, no neck pain, no shooting arm pain, no arm numbness/tingling, no low back pain Integumentary: no rash, no redness, no sores, no wounds, no jaundice, no boils Neurological: no head injury, no transient paralysis, no weakness, no parathesias, no numbness, no seizures, no tremors Psychiatric: no anxiety, no memory loss, no insomnia, no hypersomnia, no change in libido, no suicidal ideation, no disorientation Endocrine: no cold intolerance, no heat intolerance, no polyphagia, no polydipsia, no polyuria, no excessive sweating, no flushing Hematologic/Lymphatic: no easy bruising, no easy bleeding, no lymphedema Allergic/Immunologic: no urticaria, no allergic rhinitis, no persistent infections Exam - Constitutional Vitals: Temp Pulse Resp BP Pulse Ox 98.2 F 109 H 24 124/79 67 L 12/18/21 11:16 12/18/21 14:15 12/18/21 14:15 12/18/21 15:00 12/18/21 15:00 General appearance: Present: mild distress - EENT Eyes: Present: PERRL ENT: hearing intact, clear oral mucosa - Neck Neck: Present: supple, normal ROM - Respiratory Respiratory effort: normal Respiratory: bilateral: CTA - Cardiovascular Heart Sounds: Present: S1 & S2. Absent: rub, click - Extremities Extremities: pulses symmetrical, No edema Peripheral Pulses: within normal limits - Abdominal General gastrointestinal: Present: soft, non-tender, non-distended, normal bowel sounds Male genitourinary: Present: normal - Integumentary Integumentary: Present: clear, warm, dry - Musculoskeletal Musculoskeletal: gait normal, strength equal bilaterally - Psychiatric Psychiatric: appropriate mood/affect, intact judgment & insight - Neurologic Neurologic: CNII-XII intact, moves all extremities HEART Score - HEART Score EKG: Non-specific Age: 45-65 Risk factors: > 3 risk factors or hx of atherosclerotic disease Troponin: Troponin T < 0.010 ng/mL (0.00-0.029) 12/18/21 14:53 Troponin: < normal limit Results - Labs CBC & Chem 7: 12/18/21 12:39 12/18/21 12:39 Labs: Abnormal lab results 12/18/21 12/18/21 Range/Units 12:39 12:39 MCV 100 H (84-94) fl MCH 34 H (28-32) pg Stark % (Auto) 10.4 H (0.0-7.3) % BUN 8 L (9-20) mg/dL Glucose 156 H (75-100) mg/dL Albumin 3.7 L (3.9-5) g/dL Assessment and Plan - Patient Problems (1) Angina at rest Current Visit: Yes Status: Acute Plan to address problem: ACS protocol: Serial cardiac enzymes, EKG, telemetry monitoring, morphine, supplemental oxygen, nitro, aspirin, cardiology team consulted in ED. Further care and evaluation as per cardiology team recommendations. (2) Hypertension Current Visit: Yes Status: Acute Qualifiers: Hypertension type: primary hypertension Qualified Code(s): I10 - Essential (primary) hypertension Plan to address problem: Monitor blood pressure every shift, continue medical management (3) Diabetes Current Visit: Yes Status: Acute Plan to address problem: Consistent carbohydrate diet, hypoglycemia protocol, insulin protocol, Accu-Chek (4) Nicotine dependence Current Visit: Yes Status: Acute Qualifiers: Nicotine product type: cigarettes Substance use status: in withdrawal Qualified Code(s): F17.213 - Nicotine dependence, cigarettes, with withdrawal Plan to address problem: Smoking cessation counseling, supportive care, behavior change counseling, +15 minutes. (5) DVT prophylaxis Current Visit: Yes Status: Acute Plan to address problem: SCD to bilateral lower extremities while in bed (6) Advance care planning Current Visit: Yes Status: Acute Plan to address problem: Disease education conducted, care plan discussed, diagnoses discussed, prognosis discussed, patient is full code. Patient knowledges understanding and agreement with care plan, +30 minutes.
[2021-12-18] MEDS ORDERED: ONDANSETRON 4 MG/2 ML INJ IV PRN (20:01)
[2021-12-18] MEDS ORDERED: MORPHINE 2 MG/1 ML INJ IV PRN (20:01)
[2021-12-18] MEDS ORDERED: HYDROmorphone 1 MG/1 ML INJ IV PRN (20:01)
[2021-12-18] MEDS ORDERED: ACETAMINOPHEN 325 MG TAB PO PRN (20:01)
[2021-12-18] MEDS ORDERED: NITROGLYCERIN 0.4 MG TAB SUBL SL PRN (20:01)
[2021-12-18] MEDS ORDERED: ASPIRIN 81 MG TAB CHEW PO ONE (21:31)
[2021-12-19 05:30] LABS: BUN/Creatinine Ratio 11; Blood Urea Nitrogen 11 mg/dL (9-20); Hemolysis Index 11
[2021-12-19] MEDS ORDERED: REGADENOSON 0.4 MG/5 ML INJ IV ONE (08:34)
--- NOTE | 2021-12-19 08:38 | Discharge Summary ---
Providers - Providers Date of Admission: 12/18/21 20:02 Date of discharge: 12/19/21 Attending physician: ACE CONTRERAS 12/18/21 Consult to Cardiac Rehabilitation [CONS] Routine Reason For Exam: Phase 1 12/18/21 18:20 Consult to Physician [CONS] Urgent Comment: Consulting Provider: AMIRA MOROCHO Physician Instructions: Reason For Exam: chest pain Primary care physician: HORACE HYMAN Hospitalization Reason for admission: cp Condition: Stable Hospital course: 46 YO Male with DM, HTN, Nicotine Dependence, Medication Noncompliance who is lost to outpatient medical follow up presents ED for evaluation of chest pain over the past 2 days. Patient states the pain was initially intermittent but has become more frequent over the past 2 days. Patient states the pain is 5/10, constant, worsened with exertion, relieved with rest. EMS was notified and upon arrival the patient was found to be in distress and subsequently transported to [facility] for further care and evaluation of the aforementioned symptoms. The patient was seen and evaluated in the emergency department. All lab and imaging studies reviewed. Patient found to have angina. Patient admitted to telemetry due to increased risk of worsening symptoms. Patient initiated on ACS protocol. Cardiology team consulted in ED. The patient was kept n.p.o. overnight and will undergo Lexiscan stress test this morning and if found to be negative will discharge home with etiology of chest pain likely secondary to GERD. Cardiology also will evaluate the patient in consultation. Dedicated discharge time 35 minutes Disposition: 01 HOME / SELF CARE / HOMELESS Final Discharge Diagnosis (Prints w/discharge instructions): DM, HTN, Nicotine Dependence, Medication Noncompliance, chest pain, gerd Core Measure Documentation - Palliative Care Palliative Care/ Comfort Measures: Not Applicable - Core Measures Any of the following diagnoses?: none Exam - Constitutional Vitals: Temp Pulse Resp BP Pulse Ox 98.1 F 72 20 114/71 99 12/19/21 08:22 12/19/21 08:22 12/19/21 08:22 12/19/21 08:22 12/19/21 08:22 General appearance: Present: no acute distress, well-nourished - EENT Eyes: Present: PERRL ENT: hearing intact, clear oral mucosa - Neck Neck: Present: supple, normal ROM - Respiratory Respiratory effort: normal Respiratory: bilateral: CTA - Cardiovascular Heart Sounds: Present: S1 & S2. Absent: rub, click - Extremities Extremities: pulses symmetrical, No edema Peripheral Pulses: within normal limits - Abdominal General gastrointestinal: Present: soft, non-tender, non-distended, normal bowel sounds Male genitourinary: Present: normal - Integumentary Integumentary: Present: clear, warm, dry - Musculoskeletal Musculoskeletal: gait normal, strength equal bilaterally - Psychiatric Psychiatric: appropriate mood/affect, intact judgment & insight - Neurologic Neurologic: CNII-XII intact, moves all extremities Plan Activity: advance as tolerated Weight Bearing Status: Weight Bear as Tolerated Diet: diabetic Follow up with: HORACE HYMAN MD [Primary Care Provider] - 7 Days ANGELA BELTRÁN MD [Staff Physician] - 7 Days
--- NOTE | 2021-12-19 14:11 | Consultation ---
History of Present Illness Consult date: 12/19/21 Requesting physician: RADHA PADRON History of present illness: Patient 46-year-old male with a past medical history of hypertension and diabetes who came to the hospital due to complaint of chest pain that has been going on for about a week. Patient reports that during this timeframe he has had a dull sharp intermittent chest pain that is worse with deep breathing and palpation. He says he rates the pain at around 9 out of 10 and states the pain has subsided to around a 6 out of 10 at time of interview. He denies any exace rbating or relieving factors. Patient reports that he has been in the past instructed to follow-up with a PCP however he has chosen not to do so. Patient denies any complaints of nausea, vomiting, shortness of breath, palpitations, diaphoresis, or lightheadedness. Patient is previously unknown to our practice. Cardiology is consulted for chest pain Past History Past Medical History: diabetes, hypertension Past Surgical History: Other (Right ear surgery) Social history: single, smoking. denies: alcohol abuse, prescription drug abuse Family history: diabetes, hypertension Medications and Allergies Allergies Allergy/AdvReac Type Severity Reaction Status Date / Time ciprofloxacin Allergy Hives Verified 12/19/21 08:52 Sulfa (Sulfonamide Allergy Hives Verified 12/19/21 08:52 Antibiotics) Home Medications Medication Instructions Recorded Confirmed Last Taken Type Ibuprofen [Motrin 800 MG tab] 800 mg PO Q8HR PRN #30 tablet 12/11/21 12/19/21 2 Months Ago Rx ~10/21/21 metFORMIN [Glucophage] 500 mg PO BID 30 Days #60 tab 12/11/21 12/19/21 2 Months Ago Rx ~10/21/21 Active Meds: Active Medications Acetaminophen (Acetaminophen 325 Mg Tab) 650 mg PO Q4H PRN PRN Reason: Pain MILD(1-3)/Fever >100.5/SCHAEFER Carvedilol (Carvedilol 3.125 Mg Tab) 3.125 mg PO BID ADRIAN Hydromorphone HCl (Hydromorphone 1 Mg/1 Ml Inj) 0.5 mg IV Q23H PRN PRN Reason: Pain , Severe (7-10) Lisinopril (Lisinopril 5 Mg Tab) 5 mg PO QDAY ADRIAN Morphine Sulfate (Morphine 2 Mg/1 Ml Inj) 2 mg IV Q6H PRN PRN Reason: Pain, Moderate (4-6) Nitroglycerin (Nitroglycerin 0.4 Mg Tab Subl) 0.4 mg SL .Q5MIN PRN PRN Reason: Chest Pain Ondansetron HCl (Ondansetron 4 Mg/2 Ml Inj) 4 mg IV Q8H PRN PRN Reason: Nausea And Vomiting Last Admin: 12/18/21 20:50 Dose: 4 mg Sodium Chloride (Sodium Chloride 0.9% 10 Ml Flush Syringe) 10 ml IV BID ADRIAN Last Admin: 12/18/21 22:31 Dose: 10 ml Sodium Chloride (Sodium Chloride 0.9% 10 Ml Flush Syringe) 10 ml IV PRN PRN PRN Reason: LINE FLUSH Review of Systems Constitutional: no weight loss, no weight gain, no fever, no chills Ears, nose, mouth and throat: no sinus pressure, no sinus pain Cardiovascular: chest pain, no orthopnea, no palpitations, no rapid/irregular heart beat, no shortness of breath, no dyspnea on exertion Respiratory: no shortness of breath, no dyspnea on exertion Gastrointestinal: no abdominal pain, no nausea, no vomiting Musculoskeletal: no neck pain, no shooting arm pain, no arm numbness/tingling Integumentary: no rash, no pruritis, no redness Neurological: no head injury, no transient paralysis Psychiatric: no anxiety, no memory loss Endocrine: no cold intolerance, no heat intolerance Hematologic/Lymphatic: no easy bruising, no easy bleeding Physical Examination Vital Signs Temp Pulse Resp BP Pulse Ox 98.2 F 89 16 142/90 100 12/18/21 11:16 12/18/21 11:16 12/18/21 11:16 12/18/21 11:16 12/18/21 11:16 General appearance: no acute distress HEENT: Positive: PERRL Neck: Positive: trachea midline Cardiac: Positive: Reg Rate and Rhythm Lungs: Positive: Decreased Breath Sounds Neuro: Positive: Grossly Intact Abdomen: Positive: Soft, Active Bowel Sounds Skin: Negative: Rash, Suspicious Lesions, Ulceration Extremities: Present: upper extr. pulses. Absent: edema Results 12/18/21 12:39 12/19/21 04:51 Comprehensive Metabolic Panel 12/19/21 Range/Units 04:51 Sodium 138 (137-145) mmol/L Potassium 4.5 (3.6-5.0) mmol/L Chloride 104.2 (98-107) mmol/L Carbon Dioxide 23 (22-30) mmol/L BUN 11 (9-20) mg/dL Creatinine 1.0 (0.8-1.3) mg/dL Glucose 179 H (75-100) mg/dL Calcium 8.0 L (8.4-10.2) mg/dL - Imaging and Cardiology Echo: pending EKG interpretations - Telemetry EKG Rhythm: Sinus Rhythm - EKG Sinus rhythms and dysrhythmias: sinus rhythm Chamber hypertrophy or enlargement: left ventricular hypertro Assessment and Plan Patient 46-year-old male with a past medical history of hypertension and diabetes who came to the hospital due to complaint of chest pain that has been going on for about a week Atypical chest pain Hypertension Diabetes Medical noncompliance Tobacco use Lexiscan MPI stress test 12/19/2021-patient found to have negative Ingrid scan stress test with a EF of around 18% Plan: EKG shows sinus rhythm 95 with LVH and repolarization abnormality. No acute ischemic changes. Troponins negative x5. AMI ruled out Patient had negative stress test however found to have severely reduced EF Echo pending Initiate Coreg 3.125 mg p.o. twice daily and lisinopril 5 mg p.o. daily due to newly diagnosed cardiomyopathy Lipid panel pending Observe overnight on telemetry possible DC in a.m. Patient seen in conjunction with Dr. Harley who agrees with this plan of care - Patient Problems (1) Medical non-compliance Current Visit: Yes Status: Acute (2) Chest pain Current Visit: Yes Status: Acute (3) Diabetes Current Visit: Yes Status: Acute (4) Hypertension Current Visit: Yes Status: Acute Qualifiers: Hypertension type: primary hypertension Qualified Code(s): I10 - Essential (primary) hypertension (5) Nicotine dependence Current Visit: Yes Status: Acute Qualifiers: Nicotine product type: cigarettes Substance use status: in withdrawal Qualified Code(s): F17.213 - Nicotine dependence, cigarettes, with withdrawal
[2021-12-19] MEDS: carvediloL 3.125 MG TAB PO SCH ×2 (14:44→21:58)
[2021-12-19] MEDS: LISINOPRIL 5 MG TAB PO SCH (14:47)
[2021-12-19 15:12] LABS: Chol/HDL Ratio 2.45 %
--- NOTE | 2021-12-19 17:32 | Electrocardiograph Report ---
[facility] Test Date: 2021-12-18 Test Time: 12:55:08 Pat Name: JUNO NICHOLSON Department: Room: A451 Gender: M Flower Cheniller: SHARIF : 1975 Requested By: RADHA PADRON Order Number: [id number] Reading MD: Eliezer Griffith Measurements Intervals [place] Rate: 95 P: 66 NV: 137 QRS: -42 QRSD: 85 T: 83 QT: 391 QTc: 493 Interpretive Statements Sinus rhythm Probable left atrial enlargement Left ventricular hypertrophy Left axis deviation Compared to ECG 12/11/2021 05:15:12 No significant change Electronically Signed On 12-19-2021 17:31:48 EST by Eliezer Griffith
--- NOTE | 2021-12-19 17:40 | Electrocardiograph Report ---
[facility] Test Date: 2021-12-19 Test Time: 07:48:29 Pat Name: JUNO NICHOLSON Department: Room: A451 1 Gender: M Assessment Director: DONALD : 1975 Requested By: RADHA PADRON Order Number: [id number] Reading MD: Eliezer Griffith Measurements Intervals [place] Rate: 75 P: 57 NC: 136 QRS: -34 QRSD: 91 T: 46 QT: 393 QTc: 439 Interpretive Statements Sinus rhythm Probable left atrial enlargement LVH WITH SECONDARY REPOLARIZATION ABNORMALITY Compared to ECG 12/18/2021 12:55:08 Sinus rate has decreased by 20 bpm Electronically Signed On 12-19-2021 17:40:10 EST by Eliezer Griffith
--- NOTE | 2021-12-19 17:44 | Electrocardiograph Report ---
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
[2021-12-20] MEDS: LISINOPRIL 5 MG TAB PO SCH (09:49)
[2021-12-20] MEDS: carvediloL 3.125 MG TAB PO SCH (09:49)
--- NOTE | 2021-12-20 09:53 | Progress Note ---
Assessment and Plan Assessment and plan: 46-year-old male with past medical history of diabetes mellitus type 2 and hypertension presented through the emergency department with complaint of intermittent chest pain for approximately 1 week. Acute systolic heart failure chest pain Hypertension Diabetes mellitus type 2 Medical noncompliance Tobacco abuse 12/19/2021. Patient now underwent Lexiscan stress test which was found to be negative for ischemia but revealed an EF of 18%. Cardiology initiated Coreg 3.125 mg p.o. twice daily and lisinopril 5 mg p.o. daily. 12/20/2021. Continue Coreg and lisinopril per cardiology recommendations. Await echocardiogram results given the severely reduced EF seen on stress test. History Interval history: No new issues overnight Hospitalist Physical - Constitutional Vitals: Temp Pulse Resp BP Pulse Ox 98.6 F 82 18 108/63 98 12/20/21 07:11 12/20/21 04:03 12/20/21 07:11 12/20/21 07:11 12/20/21 04:03 General appearance: Present: no acute distress - EENT Eyes: Present: PERRL, EOM intact ENT: hearing intact, clear oral mucosa, dentition normal - Neck Neck: Present: supple, normal ROM - Respiratory Respiratory effort: normal Respiratory: bilateral: CTA - Cardiovascular Rhythm: regular Heart Sounds: Present: S1 & S2. Absent: gallop, rub - Extremities Extremities: no ischemia, No edema, Full ROM - Abdominal General gastrointestinal: soft, non-tender, non-distended, normal bowel sounds - Integumentary Integumentary: Present: clear, warm, dry - Neurologic Neurologic: CNII-XII intact, moves all extremities HEART Score - HEART Score EKG: Non-specific Age: 45-65 Risk factors: > 3 risk factors or hx of atherosclerotic disease Troponin: Troponin T < 0.010 ng/mL (0.00-0.029) 12/19/21 04:51 Troponin: < normal limit Results - Labs CBC & Chem 7: 12/18/21 12:39 12/19/21 04:51 Labs: Laboratory Last Values WBC 5.6 K/mm3 (4.5-11.0) 12/18/21 12:39 RBC 4.17 M/mm3 (3.65-5.03) 12/18/21 12:39 Hgb 14.3 gm/dl (11.8-15.2) 12/18/21 12:39 Hct 41.8 % (35.5-45.6) 12/18/21 12:39 MCV 100 fl (84-94) H 12/18/21 12:39 MCH 34 pg (28-32) H 12/18/21 12:39 MCHC 34 % (32-34) 12/18/21 12:39 RDW 14.1 % (13.2-15.2) 12/18/21 12:39 Plt Count 192 K/mm3 (140-440) 12/18/21 12:39 Lymph % (Auto) 28.8 % (13.4-35.0) 12/18/21 12:39 Mckinley % (Auto) 10.4 % (0.0-7.3) H 12/18/21 12:39 Eos % (Auto) 1.9 % (0.0-4.3) 12/18/21 12:39 Baso % (Auto) 1.1 % (0.0-1.8) 12/18/21 12:39 Lymph # (Auto) 1.6 K/mm3 (1.2-5.4) 12/18/21 12:39 Mckinley # (Auto) 0.6 K/mm3 (0.0-0.8) 12/18/21 12:39 Eos # (Auto) 0.1 K/mm3 (0.0-0.4) 12/18/21 12:39 Baso # (Auto) 0.1 K/mm3 (0.0-0.1) 12/18/21 12:39 Seg Neutrophils % 57.8 % (40.0-70.0) 12/18/21 12:39 Seg Neutrophils # 3.2 K/mm3 (1.8-7.7) 12/18/21 12:39 PT 13.4 Sec. (12.2-14.9) 12/18/21 12:39 INR 0.92 (0.87-1.13) 12/18/21 12:39 APTT 29.2 Sec. (24.2-36.6) 12/18/21 12:39 Sodium 138 mmol/L (137-145) 12/19/21 04:51 Potassium 4.5 mmol/L (3.6-5.0) 12/19/21 04:51 Chloride 104.2 mmol/L (98-107) 12/19/21 04:51 Carbon Dioxide 23 mmol/L (22-30) 12/19/21 04:51 Anion Gap 15 mmol/L 12/19/21 04:51 BUN 11 mg/dL (9-20) 12/19/21 04:51 Creatinine 1.0 mg/dL (0.8-1.3) 12/19/21 04:51 Estimated GFR > 60 ml/min 12/19/21 04:51 BUN/Creatinine Ratio 11 % 12/19/21 04:51 Glucose 179 mg/dL (75-100) H 12/19/21 04:51 Calcium 8.0 mg/dL (8.4-10.2) L 12/19/21 04:51 Total Bilirubin 0.70 mg/dL (0.1-1.2) 12/18/21 12:39 AST 19 units/L (5-40) 12/18/21 12:39 ALT 19 units/L (7-56) 12/18/21 12:39 Alkaline Phosphatase 78 units/L (35-129) 12/18/21 12:39 Troponin T < 0.010 ng/mL (0.00-0.029) 12/19/21 04:51 Total Protein 7.1 g/dL (6.3-8.2) 12/18/21 12:39 Albumin 3.7 g/dL (3.9-5) L 12/18/21 12:39 Albumin/Globulin Ratio 1.1 % 12/18/21 12:39 Triglycerides 67 mg/dL (2-149) 12/19/21 04:51 Cholesterol 147 mg/dL (50-199) 12/19/21 04:51 LDL Cholesterol Direct 79 mg/dL (50-130) 12/19/21 04:51 HDL Cholesterol 60 mg/dL (40-59) H 12/19/21 04:51 Cholesterol/HDL Ratio 2.45 % 12/19/21 04:51 Redman/IV: Voiding Method Toilet Active Medications - Current Medications Current Medications: Generic Name Dose Route Start Last Admin Trade Name Freq PRN Reason Stop Dose Admin Acetaminophen 650 mg 12/18/21 20:01 Acetaminophen 325 Mg Tab PO Q4H PRN Pain MILD(1-3)/Fever >100.5/SCHAEFER Carvedilol 3.125 mg 12/19/21 14:00 12/20/21 09:49 Carvedilol 3.125 Mg Tab PO 3.125 mg BID ADRIAN Administration Hydromorphone HCl 0.5 mg 12/18/21 20:01 Hydromorphone 1 Mg/1 Ml Inj IV Q23H PRN Pain , Severe (7-10) Lisinopril 5 mg 12/19/21 14:00 12/20/21 09:49 Lisinopril 5 Mg Tab PO 5 mg QDAY ADRIAN Administration Morphine Sulfate 2 mg 12/18/21 20:01 Morphine 2 Mg/1 Ml Inj IV Q6H PRN Pain, Moderate (4-6) Nitroglycerin 0.4 mg 12/18/21 20:01 Nitroglycerin 0.4 Mg Tab Subl SL .Q5MIN PRN Chest Pain Ondansetron HCl 4 mg 12/18/21 20:01 12/18/21 20:50 Ondansetron 4 Mg/2 Ml Inj IV 4 mg Q8H PRN Administration Nausea And Vomiting Sodium Chloride 10 ml 12/18/21 22:00 12/20/21 09:49 Sodium Chloride 0.9% 10 Ml Flush Syringe IV 10 ml BID ADRIAN Administration Sodium Chloride 10 ml 12/18/21 20:01 Sodium Chloride 0.9% 10 Ml Flush Syringe IV PRN PRN LINE FLUSH
[2021-12-20 16:08] VITALS: BP 129/75
--- NOTE | 2021-12-20 18:14 | Progress Note ---
Assessment and Plan Atypical Chest Pain Newly Diagnosed Cardiomyopathy Hypertension Diabetes Medical Non-Compliance Tobacco Abuse Echo reviewed: EF 15-20%, mild diastolic dysfxn, mild MR Lexiscan stress MPI 12/19/2021: no evidence of ischemia Plan: No clinical evidence of HF. Euvolemic on assessment. Continue current GDMT for NICMP (Coreg 3.125mg BID and Lisinopril 5mg daily). Addition of Aldactone may be considered as an outpatient if BP permits. ICD implantation will be revisited as an outpatient pending compliance with GDMT. No events on telemetry. Currently stable cardiac status. No objection to discharge from a Cardiology standpoint. Recommend follow-up with Dr. Tomeka Harley in 1-2 weeks ([phone]). Pt seen in conjunction with Dr. Vail, who agrees with the assessment and plan of care. - Patient Problems (1) NICM (nonischemic cardiomyopathy) Current Visit: Yes Status: Acute Subjective Date of service: 12/20/21 Principal diagnosis: NICMP Interval history: Resting comfortably in bed with no complaints. Lying flat. Tele reviewed - SR 80s, no events. Objective Vital Signs Temp Pulse Pulse Resp BP Pulse Ox 12/20/21 14:59 97.8 F 18 129/75 12/20/21 14:00 75 12/20/21 11:00 80 18 98 12/20/21 10:39 98.6 F 18 126/73 12/20/21 07:11 98.6 F 18 108/63 12/20/21 04:03 98.2 F 82 16 130/81 98 12/19/21 23:25 98.2 F 79 18 107/70 100 12/19/21 22:41 98 12/19/21 22:00 91 H 12/19/21 21:58 94 H 133/87 12/19/21 20:19 98.4 F 94 H 16 133/87 100 - Physical Examination General: No Apparent Distress HEENT: Positive: EOMI, Normocephaly Neck: Positive: neck supple, trachea midline. Negative: JVD/HJR Cardiac: Positive: Reg Rate and Rhythm, S1/S2 Lungs: Positive: clear to auscultation Neuro: Positive: Grossly Intact Abdomen: Positive: Soft. Negative: Tender Skin: Negative: Rash Musculoskeletal: No Pain Extremities: Absent: edema - Imaging and Cardiology EKG: report reviewed, image reviewed Pharmacologic stress test: report reviewed Echo: report reviewed - Telemetry EKG Rhythm: Sinus Rhythm - EKG Sinus rhythms and dysrhythmias: sinus rhythm Chamber hypertrophy or enlargement: left ventricular hypertro
--- NOTE | 2021-12-21 11:49 | Electrocardiograph Report ---
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
--- NOTE | 2021-12-21 11:50 | Electrocardiograph Report ---
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
--- NOTE | 2021-12-24 10:29 | Treadmill Report ---
DATE OF SERVICE: 12/19/2021 NUCLEAR PERFUSION SCAN REFERRING PHYSICIAN: Hospitalist service. PROTOCOL: The patient was assessed in postabsorptive state, given 10 mCi of technetium at rest. The patient underwent Lexiscan stress test. At peak stress, the patient was given 26 mCi technetium ____, shortly thereafter, the patient had stress imaging. Raw imaging reveals mild GI artifact, no significant motion effect. SPECT imaging examined carefully in horizontal long axis, vertical long axis, short axis views. There was normal homogeneous uptake of radioisotope in all port segments. The LV is mildly dilated with severe global left ventricular hypokinesis with a calculated ejection fraction of 18%. No TID. CONCLUSIONS: 1. Normal myocardial perfusion scan without evidence of active ischemia or prior infarction. 2. Severe left ventricular dysfunction with calculated ejection fraction of 18%. TID: [id number] RECEIPT: [id number] KENNY/REGLA/MARCIA
== END 2021-12-20 20:30 | disposition home or self-care (01) ==
LOC: ED 11:12 → 4A 20:02 → INTOOBSV 20:02
PROVIDERS: ADMIT Internal Medicine; ATTEND Hospitalist
DX: I20.8 Other forms of angina pectoris (principal); I11.0 Hypertensive heart disease with heart failure; I50.21 Acute systolic (congestive) heart failure; E11.9 Type 2 diabetes mellitus without complications; I42.8 Other cardiomyopathies; R07.89 Other chest pain; F17.213 Nicotine dependence, cigarettes, with withdrawal; Z79.899 Other long term (current) drug therapy; Z98.890 Other specified postprocedural states; Z79.84 Long term (current) use of oral hypoglycemic drugs; Z91.19 Patient's noncompliance with other medical treatment and regimen
CPT/HCPCS: 36415; 71045; 78452; 80048; 80053; 80061; 82962; 84484; 85025; 85610; 85730; 93005; 93010; 93017; 96374; 99285; 99406; A9502; C8929; G0378; J2405; J2785; 93306

== ENCOUNTER 2021-12-21 16:52 | Emergency (ER) | payer SELFPAY ==
[2021-12-21] MEDS ORDERED: ASPIRIN 81 MG TAB CHEW PO ONE (19:50)
--- NOTE | 2021-12-21 19:58 | Emergency Department Report ---
ED Chest Pain HPI - General Chief Complaint: Chest Pain Stated Complaint: SHORTNESS OF BREATH Time Seen by Provider: 12/21/21 19:42 Source: patient Mode of arrival: Ambulatory Limitations: No Limitations - History of Present Illness Initial Comments: Patient is 46 years old male with history of hypertension, diabetes and a recent diagnosis of congestive heart failure with ejection fraction of 20%. Patient presented to the ER complaining of left-sided chest pain described as tightness with no radiation. Patient also stated that his chest pain sometimes sharp. He also complaining of shortness of breath. Patient stated that his chest pain is similar to the pain that he had a few days ago for which patient was admitted here and had a stress test that came back negative for ischemia however came back with a low ejection fraction. Patient had a echocardiogram and showed ejection fraction of 20%. Patient denied any fever or chills. MD Complaint: chest pain -: days(s) Onset: during rest, during exertion Pain Location: left chest Pain Radiation: none Severity scale (0 -10): 9 Quality: tightness, heaviness - Related Data Previous Rx's Medication Instructions Recorded Last Taken Type Ibuprofen [Motrin 800 MG tab] 800 mg PO Q8HR PRN #30 tablet 12/11/21 2 Months Ago Rx ~10/21/21 metFORMIN [Glucophage] 500 mg PO BID 30 Days #60 tab 12/11/21 2 Months Ago Rx ~10/21/21 carvediloL [Coreg] 3.125 mg PO BID #60 tablet 12/20/21 Unknown Rx lisinopriL [Zestril TAB] 5 mg PO QDAY #30 tablet 12/20/21 Unknown Rx Allergies Allergy/AdvReac Type Severity Reaction Status Date / Time ciprofloxacin Allergy Hives Verified 12/19/21 08:52 Sulfa (Sulfonamide Allergy Hives Verified 12/19/21 08:52 Antibiotics) Heart Score - HEART Score History: Moderately suspicious EKG: Non-specific Age: 45-65 Risk factors: > 3 risk factors or hx of atherosclerotic disease Troponin: < normal limit HEART Score: 5 - EKG Read Time Time EKG Completed: 19:45 EKG Read Time: 19:45 - Critical Actions Critical Actions: 4-6 pts:12-16.6% risk of adverse cardiac event. Should be admitted ED Review of Systems ROS: Stated complaint: SHORTNESS OF BREATH Other details as noted in HPI Comment: All other systems reviewed and negative Constitutional: denies: chills, fever Respiratory: shortness of breath. denies: cough, SOB with exertion, SOB at rest Cardiovascular: chest pain. denies: palpitations, dyspnea on exertion Gastrointestinal: denies: abdominal pain, nausea, vomiting, diarrhea, constipation, hematemesis, melena, hematochezia Musculoskeletal: denies: back pain Neurological: denies: headache, weakness, numbness, paresthesias, confusion ED Past Medical Hx - Past Medical History Hx Hypertension: Yes (not taking meds) Hx Diabetes: Yes (not taking meds) Additional medical history: "heart problems" - Surgical History Additional Surgical History: R ear sx, 1982 - Social History Smoking Status: Current Some Day Smoker - Medications Home Medications: Home Medications Medication Instructions Recorded Confirmed Last Taken Type Ibuprofen [Motrin 800 MG tab] 800 mg PO Q8HR PRN #30 tablet 12/11/21 12/19/21 2 Months Ago Rx ~10/21/21 metFORMIN [Glucophage] 500 mg PO BID 30 Days #60 tab 12/11/21 12/19/21 2 Months Ago Rx ~10/21/21 carvediloL [Coreg] 3.125 mg PO BID #60 tablet 12/20/21 Unknown Rx lisinopriL [Zestril TAB] 5 mg PO QDAY #30 tablet 12/20/21 Unknown Rx ED Physical Exam - General Limitations: No Limitations General appearance: alert, in no apparent distress - Head Head exam: Present: atraumatic, normocephalic, normal inspection - Eye Eye exam: Present: normal appearance - ENT ENT exam: Present: normal exam, normal orophraynx, mucous membranes moist - Neck Neck exam: Present: normal inspection, full ROM. Absent: tenderness, meningismus - Respiratory Respiratory exam: Present: normal lung sounds bilaterally - Cardiovascular Cardiovascular Exam: Present: regular rate, normal rhythm, normal heart sounds - GI/Abdominal GI/Abdominal exam: Present: soft, normal bowel sounds. Absent: distended, tenderness, guarding, rebound, rigid, organomegaly, mass, bruit, pulsatile mass, hernia - Extremities Exam Extremities exam: Present: normal inspection, full ROM, normal capillary refill. Absent: tenderness - Back Exam Back exam: Present: normal inspection, full ROM. Absent: CVA tenderness (R), CVA tenderness (L) - Neurological Exam Neurological exam: Present: alert, oriented X3, CN II-XII intact, reflexes normal. Absent: motor sensory deficit - Psychiatric Psychiatric exam: Present: normal mood - Skin Skin exam: Present: warm, intact, normal color ED Course Vital Signs 12/21/21 12/21/21 17:28 23:17 Temperature 98.3 F Pulse Rate 97 H 85 Respiratory 18 Rate Blood Pressure 96/58 Blood Pressure 135/81 [Right] O2 Sat by Pulse 98 95 Oximetry MASOUD score - Masoud Score Age > 65: (0) No Aspirin use within the Past 7 Days: (0) No 3 or more CAD Risk Factors: (1) Yes 2 or more Angina events in past 24 hrs: (1) Yes Known CAD with more than 50% Stenosis: (0) No Elevated Cardiac Markers: (0) No ST Deviation Greater than 0.5mm: (0) No MASOUD Score: 2 ED Medical Decision Making - Lab Data Result diagrams: 12/21/21 19:55 12/21/21 19:55 - EKG Data -: EKG Interpreted by Ok EKG shows normal: sinus rhythm Rate: normal - EKG Data Interpretation: no acute changes - Radiology Data Radiology results: report reviewed - Medical Decision Making Patient is 46 years old male with history of hypertension, diabetes and a recent diagnosis of congestive heart failure with ejection fraction of 20%. Patient presented to the ER complaining of left-sided chest pain described as tightness with no radiation. Patient also stated that his chest pain sometimes sharp. He also complaining of shortness of breath. Patient stated that his chest pain is similar to the pain that he had a few days ago for which patient was admitted here and had a stress test that came back negative for ischemia however came back with a low ejection fraction. Patient had a echocardiogram and showed ejection fraction of 20%. Patient denied any fever or chills. EKG is unremarkable. Labs reviewed and is unremarkable including negative troponin x2. Patient had a recent stress test which is negative. Patient stated that his chest pain resolved. Patient strongly advised to follow-up with his administrative asst in the next 2 to 3 days and to return to the ER if his symptoms not improved. Critical care attestation.: If time is entered above; I have spent that time in minutes in the direct care of this critically ill patient, excluding procedure time. ED Disposition Clinical Impression: Chest pain Disposition: HOME / SELF CARE / HOMELESS Is pt being admited?: No Condition: Stable Instructions: Nonspecific Chest Pain, Adult Referrals: ANGELA BELTRÁN MD [Staff Physician] - 3-5 Days
--- NOTE | 2021-12-21 20:25 | XRay Report ---
CHEST 2 VIEWS INDICATION / CLINICAL INFORMATION: Chest Pain. COMPARISON: 12/18/2021 FINDINGS: SUPPORT DEVICES: None. HEART / MEDIASTINUM: No significant abnormality. LUNGS / PLEURA: No significant pulmonary or pleural abnormality. No pneumothorax. ADDITIONAL FINDINGS: No significant additional findings. IMPRESSION: 1. No acute findings. Signer Name: Kashif Ugalde MD Signed: 12/21/2021 8:21 PM Workstation Name: [id number]
[2021-12-21 20:27] LABS: INR 0.91 (0.87-1.13)
[2021-12-21 20:28] LABS: Partial Thromboplastin Time 26.2 Sec. (24.2-36.6)
[2021-12-21 20:38] LABS: Basophils # (Auto) 0.1 K/mm3 (0.0-0.1); Basophils % (Auto) 1.1 % (0.0-1.8); Eosinophils # (Auto) 0.2 K/mm3 (0.0-0.4); Eosinophils % (Auto) 2.2 % (0.0-4.3); Hematocrit 43.6 % (35.5-45.6); Hemoglobin 14.3 gm/dl (11.8-15.2); Lymphocytes # (Auto) 2.7 K/mm3 (1.2-5.4); Mean Corpuscular HGB Conc 33 % (32-34); Mean Corpuscular Volume 101 fl (84-94); Monocytes # (Auto) 0.6 K/mm3 (0.0-0.8); Platelet Count 187 K/mm3 (140-440); Red Blood Count 4.31 M/mm3 (3.65-5.03); Red Cell Distribution Width 13.7 % (13.2-15.2)
[2021-12-21 20:43] LABS: Alanine Aminotransferase 17 units/L (7-56); BUN/Creatinine Ratio 19; Blood Urea Nitrogen 21 mg/dL (9-20); Calcium 8.5 mg/dL (8.4-10.2); Hemolysis Index 25
[2021-12-21 20:44] LABS: Bilirubin,Direct < 0.2 mg/dL (0-0.2)
[2021-12-21 23:18] VITALS: BP 96/58
--- NOTE | 2021-12-22 13:42 | Electrocardiograph Report ---
[facility] Test Date: 2021-12-21 Test Time: 17:33:12 Pat Name: JUNO NICHOLSON Department: Room: Gender: M Setter Machine: CRYSTAL : 1975 Requested By: NEIL CARPENTER Order Number: [id number] Reading MD: Eliezer Griffith Measurements Intervals [place] Rate: 97 P: 68 HI: 138 QRS: -12 QRSD: 82 T: 87 QT: 358 QTc: 455 Interpretive Statements Sinus rhythm Left ventricular hypertrophy Nonspecific T abnrm, anterolateral leads Compared to ECG 12/20/2021 10:25:32 No significant change Electronically Signed On 12-22-2021 13:42:18 EST by Eliezer Griffith
--- NOTE | 2021-12-22 13:44 | Electrocardiograph Report ---
[facility] Test Date: 2021-12-21 Test Time: 22:36:01 Pat Name: JUNO NICHOLSON Department: Room: Gender: M Adjuster Leader: YUE : 1975 Requested By: NEIL CARPENTER Order Number: [id number] Reading MD: Eliezer Griffith Measurements Intervals [place] Rate: 91 P: 70 HI: 133 QRS: 34 QRSD: 81 T: -20 QT: 402 QTc: 493 Interpretive Statements Sinus rhythm Biatrial enlargement Probable left ventricular hypertrophy Nonspecific T wave abnormality Compared to ECG 12/21/2021 17:33:12 No significant change Electronically Signed On 12-22-2021 13:43:48 EST by Eliezer Griffith
== END 2021-12-22 03:58 | disposition home or self-care (01) ==
LOC: ED 16:52
DX: R07.89 Other chest pain (principal); I10 Essential (primary) hypertension; E11.9 Type 2 diabetes mellitus without complications; F17.200 Nicotine dependence, unspecified, uncomplicated; Z88.2 Allergy status to sulfonamides; Z91.09 Other allergy status, other than to drugs and biological substances
CPT/HCPCS: 36415; 71046; 80048; 80076; 83690; 83880; 84484; 85025; 85610; 85730; 93005; 99284

== ENCOUNTER 2021-12-29 16:08 | Emergency (ER) | payer SELFPAY ==
[2021-12-29 17:09] VITALS: BP 123/78
--- NOTE | 2021-12-29 20:17 | XRay Report ---
CHEST PA AND LATERAL VIEWS INDICATION: sob, congestion. COMPARISON: 12/21/2021 FINDINGS: Support devices: None. Heart: Within normal limits. Lungs/Pleura: No consolidation or effusion. There appears to be mild peribronchial cuffing greatest i n the right lower lung. No pleural abnormality. IMPRESSION: 1. There appears to be mild peribronchial cuffing related to the right lower lung which could be seen in the setting of lower airways disease. Signer Name: Caleb Borden MD Signed: 12/29/2021 8:13 PM Workstation Name: [id number]
[2021-12-29] MEDS ORDERED: predniSONE 20 MG TAB PO ONE (20:23)
--- NOTE | 2021-12-29 20:27 | Emergency Department Report ---
- General Chief Complaint: Dyspnea/Respdistress Stated Complaint: SOB Time Seen by Provider: 12/29/21 19:24 Source: patient Mode of arrival: Ambulatory Limitations: No Limitations - History of Present Illness Initial Comments: 46 yo black male with a pmh of HTN and CHF presents to ed for evaluaiton of cough, congestion, and sob for the past few days. He denies fever, cp, n/v, diz ziness, headache, chills, and diaphoresis. Patient is noted to be dozing between questions but is easily arousouable and answers appropriately. MD Complaint: cough, rhinorrhea, nasal congestion -: Gradual, days(s) (2-3) Severity: moderate Associated Symptoms: rhinorrhea, nasal congestion, cough, shortness of breath. denies: fever, chills, myalgias, diaphoresis, headache, sore throat, stiff neck, chest pain, abdominal pain, nausea, vomiting, diarrhea, dysuria, rash, confusion, hoarseness Treatments Prior to Arrival: none - Related Data Previous Rx's Medication Instructions Recorded Last Taken Type Ibuprofen [Motrin 800 MG tab] 800 mg PO Q8HR PRN #30 tablet 12/11/21 2 Months Ago Rx ~10/21/21 metFORMIN [Glucophage] 500 mg PO BID 30 Days #60 tab 12/11/21 2 Months Ago Rx ~10/21/21 carvediloL [Coreg] 3.125 mg PO BID #60 tablet 12/20/21 Unknown Rx lisinopriL [Zestril TAB] 5 mg PO QDAY #30 tablet 12/20/21 Unknown Rx Ondansetron [Zofran Odt] 4 mg PO Q8HR PRN #14 tab.rapdis 12/21/21 Unknown Rx traMADoL [Ultram 50 MG tab] 50 mg PO Q4HR PRN #14 tablet 12/21/21 Unknown Rx Prednisone [predniSONE 5 mg (6-Day 5 mg PO .TAPER #1 pack 12/29/21 Unknown Rx Pack, 21 Tabs)] guaiFENesin/CODEINE [Robitussin AC] 5 ml PO TID PRN #120 ml 12/29/21 Unknown Rx Allergies Allergy/AdvReac Type Severity Reaction Status Date / Time ciprofloxacin Allergy Hives Verified 12/19/21 08:52 Sulfa (Sulfonamide Allergy Hives Verified 12/19/21 08:52 Antibiotics) ED Review of Systems ROS: Stated complaint: SOB Other details as noted in HPI Comment: All other systems reviewed and negative Constitutional: denies: chills, diaphoresis, fever, malaise, weakness Eyes: denies: eye pain, eye discharge ENT: congestion. denies: ear pain, throat pain, dental pain, hearing loss Respiratory: cough, shortness of breath. denies: orthopnea, SOB with exertion, SOB at rest, stridor, wheezing Cardiovascular: denies: chest pain, palpitations, dyspnea on exertion, orthopnea, edema, syncope Endocrine: no symptoms reported Gastrointestinal: denies: abdominal pain, nausea, vomiting, diarrhea, hematemesis, melena, hematochezia Genitourinary: denies: urgency, dysuria, frequency, hematuria, discharge, testicular pain Musculoskeletal: denies: back pain, joint swelling Skin: denies: rash, lesions Neurological: denies: headache, weakness, numbness, paresthesias, confusion, abnormal gait, vertigo Psychiatric: denies: anxiety, depression Hematological/Lymphatic: denies: easy bleeding, easy bruising ED Past Medical Hx - Past Medical History Hx Hypertension: Yes (not taking meds) Hx Diabetes: Yes (not taking meds) Additional medical history: "heart problems" - Surgical History Additional Surgical History: R ear sx, 1982 - Social History Smoking Status: Current Some Day Smoker - Medications Home Medications: Home Medications Medication Instructions Recorded Confirmed Last Taken Type Ibuprofen [Motrin 800 MG tab] 800 mg PO Q8HR PRN #30 tablet 12/11/21 12/19/21 2 Months Ago Rx ~10/21/21 metFORMIN [Glucophage] 500 mg PO BID 30 Days #60 tab 12/11/21 12/19/21 2 Months Ago Rx ~10/21/21 carvediloL [Coreg] 3.125 mg PO BID #60 tablet 12/20/21 Unknown Rx lisinopriL [Zestril TAB] 5 mg PO QDAY #30 tablet 12/20/21 Unknown Rx Ondansetron [Zofran Odt] 4 mg PO Q8HR PRN #14 tab.rapdis 12/21/21 Unknown Rx traMADoL [Ultram 50 MG tab] 50 mg PO Q4HR PRN #14 tablet 12/21/21 Unknown Rx Prednisone [predniSONE 5 mg (6-Day 5 mg PO .TAPER #1 pack 12/29/21 Unknown Rx Pack, 21 Tabs)] guaiFENesin/CODEINE [Robitussin AC] 5 ml PO TID PRN #120 ml 12/29/21 Unknown Rx ED Physical Exam - General Limitations: No Limitations General appearance: alert, in no apparent distress - Head Head exam: Present: atraumatic, normocephalic - Eye Eye exam: Present: normal appearance. Absent: conjunctival injection - Neck Neck exam: Present: normal inspection. Absent: tenderness, lymphadenopathy - Respiratory Respiratory exam: Present: normal lung sounds bilaterally. Absent: respiratory distress, wheezes, rales, rhonchi, stridor, chest wall tenderness, accessory muscle use - Cardiovascular Cardiovascular Exam: Present: regular rate, normal heart sounds - GI/Abdominal GI/Abdominal exam: Present: soft, normal bowel sounds. Absent: distended, tenderness, guarding, rebound, rigid - Extremities Exam Extremities exam: Present: normal inspection - Back Exam Back exam: Present: normal inspection. Absent: CVA tenderness (R), CVA tenderness (L) - Neurological Exam Neurological exam: Present: alert, oriented X3 - Psychiatric Psychiatric exam: Present: normal affect, normal mood - Skin Skin exam: Present: warm, dry, intact, normal color ED Course Vital Signs 12/29/21 17:09 Temperature 98.2 F Pulse Rate 95 H Respiratory 14 Rate Blood Pressure 123/78 [Right] O2 Sat by Pulse 98 Oximetry ED Medical Decision Making - Radiology Data Radiology results: report reviewed, image reviewed Chest xry Impression: 1. There appears to be mild peribronchial cuffing related to the right lower lung which could be seen in the setting of lower airways disease. - Medical Decision Making 46 yo black male with a pmh of HTN and CHF presents to ed for evaluaiton of cough, congestion, and sob for the past few days. He denies fever, cp, n/v, dizziness, headache, chills, and diaphoresis. Patient is noted to be dozing between questions but is easily arousouable and answers appropriately. Unable to locate patient after initial assessment and CXR. He was not in waiting room or reassessment area and did not answer after being called several times. Critical care attestation.: If time is entered above; I have spent that time in minutes in the direct care of this critically ill patient, excluding procedure time. ED Disposition Clinical Impression: URI with cough and congestion Disposition: 01 HOME / SELF CARE / HOMELESS Is pt being admited?: No Does the pt Need Aspirin: No Condition: Stable Instructions: Cough, Adult, [id number], Upper Respiratory Infection, Adult, [id number] Additional Instructions: Take medications as prescribed. Follow-up with primary care provider for further evaluation and management. Return to the emergency department for any concerning symptoms. Prescriptions: Prednisone [predniSONE 5 mg (6-Day Pack, 21 Tabs)] 5 mg PO .TAPER #1 pack guaiFENesin/CODEINE [Robitussin AC] 5 ml PO TID PRN #120 ml PRN Reason: Cough Referrals: BENOIT KRUEGER MD [Referring] - 3-5 Days Time of Disposition: 20:26
== END 2021-12-29 21:59 | disposition home or self-care (01) ==
LOC: ED 16:08
DX: J06.9 Acute upper respiratory infection, unspecified (principal); I10 Essential (primary) hypertension; E11.9 Type 2 diabetes mellitus without complications; F17.200 Nicotine dependence, unspecified, uncomplicated; Z88.2 Allergy status to sulfonamides; Z91.09 Other allergy status, other than to drugs and biological substances
CPT/HCPCS: 71046; 99283

== ENCOUNTER 2021-12-31 20:38 | Emergency (ER) | payer SELFPAY ==
--- NOTE | 2021-12-31 21:25 | XRay Report ---
CHEST 2 VIEWS INDICATION / CLINICAL INFORMATION: CHEST PAIN. COMPARISON: 12/29/2021 FINDINGS: SUPPORT DEVICES: None. HEART / MEDIASTINUM: No significant abnormality. LUNGS / PLEURA: No significant pulmonary or pleural abnormality. No pneumothorax. ADDITIONAL FINDINGS: No significant additional findings. IMPRESSION: 1. No acute findings. Signer Name: Luke Marques DO Signed: 12/31/2021 9:21 PM Workstation Name: [id number]
[2021-12-31 23:55] LABS: Basophils # (Auto) 0.1 K/mm3 (0.0-0.1); Basophils % (Auto) 1.1 % (0.0-1.8); Eosinophils # (Auto) 0.1 K/mm3 (0.0-0.4); Eosinophils % (Auto) 2.1 % (0.0-4.3); Hemoglobin 14.3 gm/dl (11.8-15.2); Lymphocytes % (Auto) 36.8 % (13.4-35.0); Mean Corpuscular HGB Conc 33 % (32-34); Mean Corpuscular Volume 101 fl (84-94); Monocytes # (Auto) 0.4 K/mm3 (0.0-0.8); Monocytes % (Auto) 6.7 % (0.0-7.3); Platelet Count 215 K/mm3 (140-440); Red Blood Count 4.35 M/mm3 (3.65-5.03); Red Cell Distribution Width 13.8 % (13.2-15.2)
[2022-01-01 00:18] LABS: Alanine Aminotransferase 21 units/L (7-56); Albumin 3.9 g/dL (3.9-5); BUN/Creatinine Ratio 11; Blood Urea Nitrogen 11 mg/dL (9-20); Calcium 8.7 mg/dL (8.4-10.2); Hemolysis Index 30
--- NOTE | 2022-01-01 05:47 | Emergency Department Report ---
ED General Adult HPI - General Chief complaint: Chest Pain Stated complaint: CANNOT BREATHE Time Seen by Provider: 12/31/21 23:25 Source: patient Mode of arrival: Ambulatory Limitations: No Limitations - History of Present Illness Initial comments: 46-year-old male with a known history of tobacco abuse and hypertension presents emergency department complaining of reemergence of chest pain with some shortness of breath for the last 2 days. Week ago he was evaluated by cardiology with a cardiac catheterization and stress test but has not yet gotten the results. States this this occurred while he was in the emergency department but he decided to leave AGAINST MEDICAL ADVICE but now has returned to continue regular treatment cardiology saw fit to move forward. He reports coughing with some white phlegm but no fevers, chills, sweats. -: Gradual Location: chest Radiation: non-radiation Severity scale (0 -10): 9 Quality: aching Consistency: constant Improves with: none Worsens with: none Associated Symptoms: denies other symptoms Treatments Prior to Arrival: none - Related Data Previous Rx's Medication Instructions Recorded Last Taken Type Ibuprofen [Motrin 800 MG tab] 800 mg PO Q8HR PRN #30 tablet 12/11/21 2 Months Ago Rx ~10/21/21 metFORMIN [Glucophage] 500 mg PO BID 30 Days #60 tab 12/11/21 2 Months Ago Rx ~10/21/21 carvediloL [Coreg] 3.125 mg PO BID #60 tablet 12/20/21 Unknown Rx lisinopriL [Zestril TAB] 5 mg PO QDAY #30 tablet 12/20/21 Unknown Rx Ondansetron [Zofran Odt] 4 mg PO Q8HR PRN #14 tab.rapdis 12/21/21 Unknown Rx traMADoL [Ultram 50 MG tab] 50 mg PO Q4HR PRN #14 tablet 12/21/21 Unknown Rx Prednisone [predniSONE 5 mg (6-Day 5 mg PO .TAPER #1 pack 12/29/21 Unknown Rx Pack, 21 Tabs)] guaiFENesin/CODEINE [Robitussin AC] 5 ml PO TID PRN #120 ml 12/29/21 Unknown Rx Allergies Allergy/AdvReac Type Severity Reaction Status Date / Time ciprofloxacin Allergy Hives Verified 12/19/21 08:52 Sulfa (Sulfonamide Allergy Hives Verified 12/19/21 08:52 Antibiotics) ED Review of Systems ROS: Stated complaint: CANNOT BREATHE Other details as noted in HPI Comment: All other systems reviewed and negative ED Past Medical Hx - Past Medical History Hx Hypertension: Yes (not taking meds) Hx Diabetes: Yes (not taking meds) Additional medical history: "heart problems" - Surgical History Additional Surgical History: R ear sx, 1982 - Social History Smoking Status: Current Some Day Smoker - Medications Home Medications: Home Medications Medication Instructions Recorded Confirmed Last Taken Type Ibuprofen [Motrin 800 MG tab] 800 mg PO Q8HR PRN #30 tablet 12/11/21 12/19/21 2 Months Ago Rx ~10/21/21 metFORMIN [Glucophage] 500 mg PO BID 30 Days #60 tab 12/11/21 12/19/21 2 Months Ago Rx ~10/21/21 carvediloL [Coreg] 3.125 mg PO BID #60 tablet 12/20/21 Unknown Rx lisinopriL [Zestril TAB] 5 mg PO QDAY #30 tablet 12/20/21 Unknown Rx Ondansetron [Zofran Odt] 4 mg PO Q8HR PRN #14 tab.rapdis 12/21/21 Unknown Rx traMADoL [Ultram 50 MG tab] 50 mg PO Q4HR PRN #14 tablet 12/21/21 Unknown Rx Prednisone [predniSONE 5 mg (6-Day 5 mg PO .TAPER #1 pack 12/29/21 Unknown Rx Pack, 21 Tabs)] guaiFENesin/CODEINE [Robitussin AC] 5 ml PO TID PRN #120 ml 12/29/21 Unknown Rx ED Physical Exam - General Limitations: No Limitations General appearance: alert, in no apparent distress - Head Head exam: Present: atraumatic, normocephalic - Eye Eye exam: Present: normal appearance, PERRL, EOMI Pupils: Present: normal accommodation - ENT ENT exam: Present: normal exam, mucous membranes moist, TM's normal bilaterally - Neck Neck exam: Present: normal inspection, full ROM - Respiratory Respiratory exam: Present: normal lung sounds bilaterally, chest wall tenderness. Absent: respiratory distress, wheezes, rales, rhonchi - Cardiovascular Cardiovascular Exam: Present: regular rate, normal rhythm. Absent: systolic murmur, diastolic murmur, rubs, gallop - GI/Abdominal GI/Abdominal exam: Present: soft, normal bowel sounds - Rectal Rectal exam: Present: deferred - Extremities Exam Extremities exam: Present: normal inspection - Back Exam Back exam: Present: normal inspection - Neurological Exam Neurological exam: Present: alert, oriented X3 - Psychiatric Psychiatric exam: Present: normal affect, normal mood - Skin Skin exam: Present: warm, dry, intact, normal color. Absent: rash ED Course Vital Signs 12/31/21 12/31/21 20:43 20:54 Respiratory 18 Rate Blood Pressure 142/85 O2 Sat by Pulse 97 Oximetry ED Medical Decision Making - Lab Data Result diagrams: 12/31/21 23:27 12/31/21 23:27 Lab Results 12/31/21 12/31/21 01/01/22 Range/Units 23:27 23:27 03:54 WBC 5.5 (4.5-11.0) K/mm3 RBC 4.35 (3.65-5.03) M/mm3 Hgb 14.3 (11.8-15.2) gm/dl Hct 44.0 (35.5-45.6) % MCV 101 H (84-94) fl MCH 33 H (28-32) pg MCHC 33 (32-34) % RDW 13.8 (13.2-15.2) % Plt Count 215 (140-440) K/mm3 Lymph % (Auto) 36.8 H (13.4-35.0) % Drew % (Auto) 6.7 (0.0-7.3) % Eos % (Auto) 2.1 (0.0-4.3) % Baso % (Auto) 1.1 (0.0-1.8) % Lymph # (Auto) 2.0 (1.2-5.4) K/mm3 Drew # (Auto) 0.4 (0.0-0.8) K/mm3 Eos # (Auto) 0.1 (0.0-0.4) K/mm3 Baso # (Auto) 0.1 (0.0-0.1) K/mm3 Seg Neutrophils % 53.3 (40.0-70.0) % Seg Neutrophils # 3.0 (1.8-7.7) K/mm3 Sodium 139 (137-145) mmol/L Potassium 4.2 (3.6-5.0) mmol/L Chloride 101.7 (98-107) mmol/L Carbon Dioxide 25 (22-30) mmol/L Anion Gap 17 mmol/L BUN 11 (9-20) mg/dL Creatinine 1.0 (0.8-1.3) mg/dL Estimated GFR > 60 ml/min BUN/Creatinine Ratio 11 % Glucose 331 H (75-100) mg/dL Calcium 8.7 (8.4-10.2) mg/dL Total Bilirubin 0.30 (0.1-1.2) mg/dL AST 16 (5-40) units/L ALT 21 (7-56) units/L Alkaline Phosphatase 78 (35-129) units/L Troponin T < 0.010 < 0.010 (0.00-0.029) ng/mL Total Protein 7.0 (6.3-8.2) g/dL Albumin 3.9 (3.9-5) g/dL Albumin/Globulin Ratio 1.3 % - EKG Data EKG shows normal: sinus rhythm - EKG Data When compared to previous EKG there are: no significant change Interpretation: no acute changes - Radiology Data Radiology results: report reviewed [facility] [address] [place] [address] XRay Report Signed Patient: JUNO NICHOLSON MR#: [id number] : 1975 Acct:[id number] Age/Sex: 46 / M ADM Date: 12/31/21 Loc: ED Attending Dr: Ordering Physician: FREDA STRINGER MD Date of Service: 12/31/21 Procedure(s): XR chest routine 2V Accession Number(s): [id number] cc: ED MD MYKE Fluoro Time In Minutes: CHEST 2 VIEWS INDICATION / CLINICAL INFORMATION: CHEST PAIN. COMPARISON: 12/29/2021 FINDINGS: SUPPORT DEVICES: None. HEART / MEDIASTINUM: No significant abnormality. LUNGS / PLEURA: No significant pulmonary or pleural abnormality. No pneumothorax. ADDITIONAL FINDINGS: No significant additional findings. IMPRESSION: 1. No acute findings. Signer Name: Luke Wallis DO Signed: 12/31/2021 9:21 PM Workstation Name: [id number] Transcribed By: NS Dictated By: LUKE WALLIS DO Electronically Authenticated By: LUKE WALLIS DO Signed Date/Time: 12/31/212120 DD/ 20 TD/TT: Print Cancel - Medical Decision Making This patient presents with chest pain that is very unlikely angina or acute coronary syndrome. The emergency department evaluation has not identified any cause for suspicion that this chest pain has a cardiac etiology. Based on their history, EKG (which showed no evidence of ischemia or infarction) and imaging, in addition to the patient's physical exam, I see no evidence at this time for a malignant etiology for the patient's chest pain. There is no acute evidence for pulmonary embolus, acute myocardial infarction, pneumothorax, Boerhaeve syndrom e, cardiac tamponade, thoracic artery dissection, or any other emergent cardiac, pulmonary or aortic pathology. Given the low pre-test probability for cardiac etiology of chest pain and the absence of any sign of ischemia or infarction, discharge for outpatient follow-up and further evaluation is reasonable. I have explained to the patient that even though a cardiac problem is very unlikely, follow-up and further testing is required to reduce further the already small uncertainty that exists. Other life-threatening diagnoses have been considered. The patient understands the need to return immediately if their symptoms worsen or they develop any new symptoms, and not to engage in any significant exertional activity until follow-up is obtained. Critical care attestation.: If time is entered above; I have spent that time in minutes in the direct care of this critically ill patient, excluding procedure time. ED Disposition Clinical Impression: Chest pain Disposition: 01 HOME / SELF CARE / HOMELESS Is pt being admited?: No Does the pt Need Aspirin: No Condition: Stable Instructions: Nonspecific Chest Pain, Adult Additional Instructions: You were evaluated emergency department today for chest pain. Your evaluation has shown no medicals conditions requiring emergent intervention at this time, however recommend that you follow-up with your primary care physician or your marketing operations analyst soon as possible for further testing as an outpatient. Please schedule an appointment for follow-up with your primary care physician as soon as possible. Return to emergency department if you expands worsening uncontrolled chest pain, shortness of breath, lightheadedness, feeling faint, nausea, vomiting or any other concerning symptoms. Faculty Research Physician was listed discharge please be sure to 15 follow-up as instructed call the office today to receive further guidance on your next appointment Referrals: LEYDA ENG MD [Staff Physician] - 2-3 Days
[2022-01-01 07:08] VITALS: BP 135/75
--- NOTE | 2022-01-02 19:10 | Electrocardiograph Report ---
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
== END 2022-01-01 07:09 | disposition home or self-care (01) ==
LOC: ED 20:38
DX: R07.9 Chest pain, unspecified (principal)
CPT/HCPCS: 36415; 71046; 80053; 84484; 85025; 93005; 99283

== ENCOUNTER 2022-01-05 14:50 | Emergency (ER) | payer SELFPAY ==
[2022-01-05 15:07] VITALS: BP 139/73
== END 2022-01-05 17:02 | disposition left against medical advice (07) ==
LOC: ED 14:50
DX: R06.02 Shortness of breath (principal); Z53.21 Procedure and treatment not carried out due to patient leaving prior to being seen by health care provider

== ENCOUNTER 2022-01-05 17:43 | Inpatient (IN) | payer SELFPAY ==
[2022-01-05 18:20] LABS: Basophils % (Auto) 0.2 % (0.0-1.8); Eosinophils # (Auto) 0.2 K/mm3 (0.0-0.4); Hematocrit 40.3 % (35.5-45.6); Hemoglobin 13.8 gm/dl (11.8-15.2); Lymphocytes # (Auto) 2.8 K/mm3 (1.2-5.4); Lymphocytes % (Auto) 38.7 % (13.4-35.0); Mean Corpuscular HGB Conc 34 % (32-34); Mean Corpuscular Volume 101 fl (84-94); Monocytes # (Auto) 0.7 K/mm3 (0.0-0.8); Monocytes % (Auto) 9.5 % (0.0-7.3); Platelet Count 178 K/mm3 (140-440); Red Cell Distribution Width 14.4 % (13.2-15.2)
--- NOTE | 2022-01-05 18:29 | Cat Scan Report ---
CT head/brain wo con INDICATION / CLINICAL INFORMATION: 46 years Male; Stroke symptoms. TECHNIQUE: Routine CT head without contrast. All CT scans at this location are performed using CT dos e reduction for ALARA by means of automated exposure control. COMPARISON: None. FINDINGS: BRAIN / INTRACRANIAL CONTENTS: No acute hemorrhage, mass effect, midline shift, hydrocephalus, or acu te, large territorial infarct. No signs of significant atrophy or chronic infarct. No significant whi te matter abnormality seen. CRANIOCERVICAL JUNCTION: No significant abnormality. ORBITS: No significant abnormality of visualized orbits. SINUSES / MASTOIDS: Mucous retention cyst/polyps seen in the maxillary antra-left greater than right. Prior mastoidectomy noted on the right. ADDITIONAL FINDINGS: Prominent soft tissue is seen in the roof the nasopharynx, presumably related to reactive adenoidal tissue. Please clinically correlate. IMPRESSION: 1. No focal mass, hemorrhage, hydrocephalus, or acute, large territorial infarct. Signer Name: Elmer Cruz MD, III Signed: 01/05/2022 6:24 PM Workstation Name: [email or web address] [id number]
[2022-01-05] MEDS ORDERED: ALTEPLASE 100 MG INJ KIT ONE (18:30)
[2022-01-05] MEDS ORDERED: ALTEPLASE 100 MG INJ KIT IV ONE ×2 (18:31)
[2022-01-05] MEDS ORDERED: SODIUM CHLORIDE 0.9% 50 ML IVPB IV ONE (18:31)
--- NOTE | 2022-01-05 18:33 | Emergency Department Report ---
ED Neuro Deficit HPI - General Chief Complaint: Neuro Symptoms/Deficit Stated Complaint: POSS STROKE Time Seen by Provider: 01/05/22 17:44 Source: EMS Mode of arrival: Stretcher Limitations: No Limitations - History of Present Illness Initial Comments: [place] Consult Note # Demographics Consult Type: Acute Stroke Level 1 (0-4.5 hrs) Patient Location: Emergency Room First Name: Desmond Last Name: John Date of : 1975 Age: 46 Gender: Male Facility: [facility] Time of Initial Page ( Time): 01/05/2022, 17:43 Time of Return Call ( Time): 01/05/2022, 17:43 # HPI Chief Complaint: confusion weakness (focal) History: Per EMS, dysarthria, drool, falling. Left sided deficits & facial droop. Left AMA from waiting room earlier in afternoon. Reported to be intoxicated. Last Known Normal: I have collected independent history specific to time last normal or last known well. We have collaborated with the provider and at this time, we have the most current timeline with the information that is available. 3:04pm Duration: constant minutes hours Possible Thrombolytic candidate: no intracranial hemorrhage history no recent major surgery Associated Symptoms: confusion # Scores Time of exam and NIHSS (): 01/05/2022, 17:48 Level of Consciousness 1a: [0] = Alert; keenly responsive LOC Questions 1b: [0] = Answers both questions correctly LOC Commands 1c: [0] = Performs both tasks correctly Best Gaze 2: [0] = Normal Visual 3: [0] = No visual loss Facial Palsy 4: [1] = Minor paralysis Motor Arm Left 5a: [2] = Some effort against gravity Motor Arm Right 5b: [0] = No drift Motor Leg Left 6a: [2] = Some effort against gravity Motor Leg Right 6b: [2] = Some effort against gravity Limb Ataxia 7: [0] = Absent Sensory 8: [1] = Bxqs-fn-koipyygj sensory loss Best Language 9: [1] = Datx-rj-tuplgiss aphasia Dysarthria 10: [1] = Phij-tr-myaybrml dysarthria Extinction and Inattention 11: [0] = No abnormality NIHSS Total: 10 VAN Screening: Positive # Exam SBP: 168 DBP: 86 Mental Status: awake alert and oriented x 3 follows commands Perseverates on raising right arm Language: dysarthria Cranial Nerves: left facial droop Motor: left facial droop Nasolabial fold asymmetry; ER Physician pinched patient's left arm & leg with patient bending elbow & knee. Sensory: decreased sensation left face # ROS Unable to obtain ROS: altered mentation poor comprehension # PMH-FH-SH Past Medical History: Diabetes hypertension Per EMR review Social History: smoker Medications: diabetic medication Allergies: sulfa Ciprofloxacin # Data Glucose: [address] personally read by me (Eastern Time): 01/05/2022, 18:[address]: no bleed preliminarily reviewed by me, please refer to radiology read for official reading # Assessment Impression: Altered Mental Status Ischemic Stroke (Acute) # Plan Thrombolytic/Intervention: IV thrombolytic and possible IA candidate Thrombolytic Dosing: IV alteplase 0.9 mg/kg, max dose 90 mg; 10% of dose given over 1 minute IVP, remaining 90% given as infusion over 1 hour Possible IA Candidate: signs and symptoms of LVO CTA pending Also discussed potential for thrombolysis with ER Physician during clinical exam (in the absence of intracranial hemorrhage, prior to & while waiting to go back to Radiology room for CT head). Time IV Thrombolytic Recommended ( Time): 01/05/2022, 18:09 Labs: ABG Ammonia CBC comprehensive metabolic panel ESR hemoglobin A1c lipid panel troponin TSH urine drug screen ua Imaging: (urgency: STAT): CT Angiogram Head and CT Angiogram Neck AND call back with results if abnormal Imaging: (urgency: routine): MRI Brain without contrast Diagnostic Test: echo without bubble study EEG Therapy/Evaluation: NPO until swallow evaluation PT/OT evaluation speech/swallow consultation Medication: start statin with goal of LDL < 70 DVT Prophylaxis: SCD chemical DVT prophylaxis Thrombolytic Administration Recommendations: Unable to obtain informed consent due to medical condition. No family available. In my opinion, benefits of IV thrombolytic therapy outweigh risks. I have collected independent history specific to time last normal or last known well. We have collaborated with the ED provider and at this time, we have the most current timeline with the information that is available. BP goal< 180/105 for 24hrs post Thrombolytic administration Use Labetolol 10-20mg IV prn or Nicardipine gtt to maintain BP parameters No antiplatelets or anticoagulants for next 24 hrs unless indicated for emergent IA procedure or other life threatening situation Given the current persistent symptoms & reported lack of exclusion conditions, the risks & benefits of thrombolysis were discussed with the patient. However, the patient's decision-making status was questionable. Alteplase is FDA-approved for treating acute ischemic strokes & patients generally do better with tr eatment than without. Other: telemetry monitoring I have discussed my recommendations with the referring provider Disposition: admit - Related Data Home Medications: Previous Rx's Medication Instructions Recorded Last Taken Type Ibuprofen [Motrin 800 MG tab] 800 mg PO Q8HR PRN #30 tablet 12/11/21 2 Months Ago Rx ~10/21/21 metFORMIN [Glucophage] 500 mg PO BID 30 Days #60 tab 12/11/21 2 Months Ago Rx ~10/21/21 carvediloL [Coreg] 3.125 mg PO BID #60 tablet 12/20/21 Unknown Rx lisinopriL [Zestril TAB] 5 mg PO QDAY #30 tablet 12/20/21 Unknown Rx Ondansetron [Zofran Odt] 4 mg PO Q8HR PRN #14 tab.rapdis 12/21/21 Unknown Rx traMADoL [Ultram 50 MG tab] 50 mg PO Q4HR PRN #14 tablet 12/21/21 Unknown Rx Prednisone [predniSONE 5 mg (6-Day 5 mg PO .TAPER #1 pack 12/29/21 Unknown Rx Pack, 21 Tabs)] guaiFENesin/CODEINE [Robitussin AC] 5 ml PO TID PRN #120 ml 12/29/21 Unknown Rx Allergies/Adverse Reactions: Allergies Allergy/AdvReac Type Severity Reaction Status Date / Time ciprofloxacin Allergy Hives Verified 12/19/21 08:52 Sulfa (Sulfonamide Allergy Hives Verified 12/19/21 08:52 Antibiotics) ED Review of Systems ROS: Stated complaint: POSS STROKE Other details as noted in HPI ED Past Medical Hx - Past Medical History Hx Hypertension: Yes (not taking meds) Hx Diabetes: Yes (not taking meds) Additional medical history: "heart problems" - Surgical History Additional Surgical History: R ear sx, 1982 - Social History Smoking Status: Current Some Day Smoker - Medications Home Medications: Home Medications Medication Instructions Recorded Confirmed Last Taken Type Ibuprofen [Motrin 800 MG tab] 800 mg PO Q8HR PRN #30 tablet 12/11/21 12/19/21 2 Months Ago Rx ~10/21/21 metFORMIN [Glucophage] 500 mg PO BID 30 Days #60 tab 12/11/21 12/19/21 2 Months Ago Rx ~10/21/21 carvediloL [Coreg] 3.125 mg PO BID #60 tablet 12/20/21 Unknown Rx lisinopriL [Zestril TAB] 5 mg PO QDAY #30 tablet 12/20/21 Unknown Rx Ondansetron [Zofran Odt] 4 mg PO Q8HR PRN #14 tab.rapdis 12/21/21 Unknown Rx traMADoL [Ultram 50 MG tab] 50 mg PO Q4HR PRN #14 tablet 12/21/21 Unknown Rx Prednisone [predniSONE 5 mg (6-Day 5 mg PO .TAPER #1 pack 12/29/21 Unknown Rx Pack, 21 Tabs)] guaiFENesin/CODEINE [Robitussin AC] 5 ml PO TID PRN #120 ml 12/29/21 Unknown Rx ED Neuro Physical Exam - General Limitations: No Limitations Suspected Stroke: Yes - NIHSS Assessment Interval: Baseline 1a. Level of Consciousness: alert/keenly responsive 1b. LOC Questions: answers both correctly 1c. LOC Commands: performs tasks correctly 2. Best Gaze: normal 3. Visual: no visual loss 4. Facial Palsy: minor paralysis 5b. Motor Arm Right: no drift 5a. Motor Arm Left: some gravity effort 6a. Motor Leg Left: some gravity effort 6b. Motor Leg Right: some gravity effort 7. Limb Ataxia: absent 8. Sensory: mild/moderate sensory loss 9. Best Language: mild/moderate aphasia 10. Dysarthria: mild/moderate dysarthria 11. Extinction/Inattention: no abnormality Total Score: 10 Stroke Severity: Moderate Stroke - Lab Data Result diagrams: 01/05/22 17:56 Lab Results 01/05/22 Range/Units 17:56 WBC 7.3 (4.5-11.0) K/mm3 RBC 4.00 (3.65-5.03) M/mm3 Hgb 13.8 (11.8-15.2) gm/dl Hct 40.3 (35.5-45.6) % MCV 101 H (84-94) fl MCH 34 H (28-32) pg MCHC 34 (32-34) % RDW 14.4 (13.2-15.2) % Plt Count 178 (140-440) K/mm3 Lymph % (Auto) 38.7 H (13.4-35.0) % [place] % (Auto) 9.5 H (0.0-7.3) % Eos % (Auto) 2.0 (0.0-4.3) % Baso % (Auto) 0.2 (0.0-1.8) % Lymph # (Auto) 2.8 (1.2-5.4) K/mm3 [place] # (Auto) 0.7 (0.0-0.8) K/mm3 Eos # (Auto) 0.2 (0.0-0.4) K/mm3 Baso # (Auto) 0.0 (0.0-0.1) K/mm3 Seg Neutrophils % 49.6 (40.0-70.0) % Seg Neutrophils # 3.6 (1.8-7.7) K/mm3 Critical care attestation.: If time is entered above; I have spent that time in minutes in the direct care of this critically ill patient, excluding procedure time. ED Disposition Clinical Impression: Stroke Disposition: 09 ADMITTED INPATIENT Is pt being admited?: Yes Condition: Stable
[2022-01-05 18:36] LABS: INR 0.93 (0.87-1.13)
[2022-01-05 18:37] LABS: Partial Thromboplastin Time 26.8 Sec. (24.2-36.6); Thrombin Time 15.7 Sec. (15.1-19.6)
--- NOTE | 2022-01-05 18:44 | Cat Scan Report ---
CT angio head INDICATION / CLINICAL INFORMATION: 46 years Male; stroke sx. TECHNIQUE: Thin cut axial images obtained through the head during IV bolus contrast administration. S agittal, coronal, and 3 plane MIP reconstructions performed by the technologist. NASCET type criteria used evaluate stenoses. Automated exposure control utilized for radiation reduction purposes. . COMPARISON: None available. FINDINGS: INTERNAL CAROTID ARTERIES: No significant narrowing appreciated. VERTEBROBASILAR SYSTEM: No significant narrowing appreciated. Note, the basilar artery is diminutive in size- origin of both hospital technician suggested. DISTAL BRANCHES: Distal branches of the anterior, middle, and posterior cerebral arteries are fairly symmetric in appearance and number. ANEURYSM: None identified. ADDITIONAL FINDINGS: Prominent soft tissue is seen in the roof the nasopharynx, presumably related to reactive adenoidal tissue. Please clinically correlate. Mucous retention cyst/polyp seen in the left maxillary antrum. Prior mastoidectomy noted on the right. IMPRESSION: No significant abnormality on this CTA of the head. Follow-up with diffusion imaging by MRI, as clini john warranted. CODE STROKE: Exam Completed (SUPPLY CHAIN BUSINESS ANALYST/CDT): 01/05/2022 523 PM Exam Reviewed (SUPPLY CHAIN BUSINESS ANALYST/CDT): 5: 34 PM Time of Communication (SUPPLY CHAIN BUSINESS ANALYST/CDT): 5:39 PM Licensed Practitioner Receiving Report: Dr. Castillo Signer Name: Elmer Cruz MD, III Signed: 01/05/2022 6:40 PM Workstation Name: [email or web address]
--- NOTE | 2022-01-05 18:51 | Cat Scan Report ---
CT angio neck INDICATION / CLINICAL INFORMATION: 46 years Male; stroke sx. TECHNIQUE: Thin cut axial images obtained through the head during IV bolus contrast administration. S agittal, coronal, and 3 plane MIP reconstructions performed by the technologist. NASCET type criteria used evaluate stenoses. All CT scans at this location are performed using CT dose reduction for ALAR A by means of automated exposure control. . COMPARISON: None available. FINDINGS: ARCH: Normal aortic arch branching suggested. CAROTID ARTERIES: The visualized common and internal carotid arteries are patent. Note, the vertebral arteries (and basilar artery) are diminutive in size, as there appears to be origin of both PC As. VERTEBRAL ARTERIES: Codominant vertebral system seen. No significant stenosis appreciated. ADDITIONAL FINDINGS: Prominent soft tissue is seen in the roof the nasopharynx, presumably related to reactive adenoidal tissue. Please clinically correlate. Moderate foraminal narrowing is seen on the right from uncinate hypertrophy at C4-5, C5-6, and C6-7. Similar findings seen on the left at C6-7. Mild to moderate disc disease seen at various levels. Ther e is signs of canal narrowing, with most marked findings at C3-4 and C4-5. No definitive signs of cor d impingement. Poor dentition noted. Mucous retention cyst/polyp seen in the left maxillary antrum. IMPRESSION: No significant stenosis appreciated on this CTA of the neck. Signer Name: Elmer Cruz MD, III Signed: 01/05/2022 6:47 PM Workstation Name: [email or web address]ENTER[facility]umn
[2022-01-05 18:52] LABS: Creatine Kinase MB 2.3 ng/mL (0.0-4.0)
[2022-01-05 18:53] LABS: Alanine Aminotransferase 18 units/L (7-56); Albumin 3.8 g/dL (3.9-5); BUN/Creatinine Ratio 15; Blood Urea Nitrogen 17 mg/dL (9-20); Hemolysis Index 8
--- NOTE | 2022-01-05 19:05 | Emergency Department Report ---
ED General Adult HPI - General Chief complaint: Neuro Symptoms/Deficit Stated complaint: POSS STROKE Time Seen by Provider: 01/05/22 17:44 Source: patient, EMS (Verbal report received from emergency medical services. EMS documentation not available at time of chart dictation ), RN notes reviewed, old records reviewed Mode of arrival: Stretcher Limitations: Altered Mental Status, Physical Limitation - History of Present Illness Initial comments: The patient is a 46-year-old gentleman who was brought to the hospital by emergency medical services as an EMS articulated code stroke. EMS reports normal Accu-Chek in the field. EMS also reports that patient was at an outside store. The patient is not able to articulate his exact last known well time, but he presented to this emergency room earlier on today at 15: 04, and is documented as having a normal and unremarkable exam, and was discharged AGAINST MEDICAL ADVICE for unclear reasons, at 17: 02. Stroke symptoms include slurred speech, drooling, left-sided weakness/deficits. The patient is awake and follows commands. He is altered however and not able to describe the qualitative nature of his symptoms, exacerbating factors relieving factors or aggravating factors. The patient was seen and interviewed by myself, and two stroke neurologists, Dr. Izquierdo and Dr Zavaleta, both of whom recommended TPA. No contraindications were immediately evident, and the patient was found to have left-sided deficits and neglect. He was therefore emergently and administratively consented by myself and the aforementioned neurologist for TPA administration, given that we feel that benefits outweigh risk. Given the time sensitive nature of stroke, emergent CT scan of the brain, and CT angiogram of the brain were obtained, which showed no acute findings. -: unknown (Patient not able to state last known well time, but old medical charts are reviewed and appreciated) Location: left, upper extremity - Related Data Previous Rx's Medication Instructions Recorded Last Taken Type Ibuprofen [Motrin 800 MG tab] 800 mg PO Q8HR PRN #30 tablet 12/11/21 2 Months Ago Rx ~10/21/21 metFORMIN [Glucophage] 500 mg PO BID 30 Days #60 tab 12/11/21 2 Months Ago Rx ~10/21/21 carvediloL [Coreg] 3.125 mg PO BID #60 tablet 12/20/21 Unknown Rx lisinopriL [Zestril TAB] 5 mg PO QDAY #30 tablet 12/20/21 Unknown Rx Ondansetron [Zofran Odt] 4 mg PO Q8HR PRN #14 tab.rapdis 12/21/21 Unknown Rx traMADoL [Ultram 50 MG tab] 50 mg PO Q4HR PRN #14 tablet 12/21/21 Unknown Rx Prednisone [predniSONE 5 mg (6-Day 5 mg PO .TAPER #1 pack 12/29/21 Unknown Rx Pack, 21 Tabs)] guaiFENesin/CODEINE [Robitussin AC] 5 ml PO TID PRN #120 ml 12/29/21 Unknown Rx Allergies Allergy/AdvReac Type Severity Reaction Status Date / Time ciprofloxacin Allergy Hives Verified 12/19/21 08:52 Sulfa (Sulfonamide Allergy Hives Verified 12/19/21 08:52 Antibiotics) ED Review of Systems ROS: Stated complaint: POSS STROKE Other details as noted in HPI Comment: Unobtainable due to pts medical conditions ED Past Medical Hx - Past Medical History Hx Hypertension: Yes (not taking meds) Hx Diabetes: Yes (not taking meds) Additional medical history: "heart problems" - Surgical History Additional Surgical History: R ear sx, 1982 - Social History Smoking Status: Current Some Day Smoker - Medications Home Medications: Home Medications Medication Instructions Recorded Confirmed Last Taken Type Ibuprofen [Motrin 800 MG tab] 800 mg PO Q8HR PRN #30 tablet 12/11/21 12/19/21 2 Months Ago Rx ~10/21/21 metFORMIN [Glucophage] 500 mg PO BID 30 Days #60 tab 12/11/21 12/19/21 2 Months Ago Rx ~10/21/21 carvediloL [Coreg] 3.125 mg PO BID #60 tablet 12/20/21 Unknown Rx lisinopriL [Zestril TAB] 5 mg PO QDAY #30 tablet 12/20/21 Unknown Rx Ondansetron [Zofran Odt] 4 mg PO Q8HR PRN #14 tab.rapdis 12/21/21 Unknown Rx traMADoL [Ultram 50 MG tab] 50 mg PO Q4HR PRN #14 tablet 12/21/21 Unknown Rx Prednisone [predniSONE 5 mg (6-Day 5 mg PO .TAPER #1 pack 12/29/21 Unknown Rx Pack, 21 Tabs)] guaiFENesin/CODEINE [Robitussin AC] 5 ml PO TID PRN #120 ml 12/29/21 Unknown Rx ED Physical Exam - General Limitations: Altered Mental Status, Physical Limitation General appearance: alert, in no apparent distress, anxious - Head Head exam: Present: atraumatic, normocephalic - Eye Eye exam: Present: normal appearance, EOMI, other (There is left-sided hemineglect. Patient does not blink to threat on the left visual field. He blinks on the right). Absent: nystagmus - ENT ENT exam: Present: normal exam, normal orophraynx, mucous membranes moist, normal external ear exam, other (Drooling is noted) - Neck Neck exam: Present: normal inspection, full ROM. Absent: tenderness, meningismus - Respiratory Respiratory exam: Present: normal lung sounds bilaterally. Absent: respiratory distress, wheezes, rales, rhonchi, stridor, decreased breath sounds - Cardiovascular Cardiovascular Exam: Present: normal rhythm, tachycardia, normal heart sounds. Absent: bradycardia, irregular rhythm, systolic murmur, diastolic murmur, rubs, gallop - GI/Abdominal GI/Abdominal exam: Present: soft. Absent: distended, tenderness, guarding, rebound, rigid, pulsatile mass - Rectal Rectal exam: Present: deferred - Extremities Exam Extremities exam: Present: normal inspection, other (2+ pulses noted in the bilateral upper and lower extremities. There is no palpable cord. negative Homans sign. Muscular compartments are soft. The pelvis is stable.). Absent: pedal edema, calf tenderness - Back Exam Back exam: Present: normal inspection. Absent: tenderness, CVA tenderness (R), CVA tenderness (L), paraspinal tenderness, vertebral tenderness - Neurological Exam Neurological exam: Present: altered, other (Patient is drooling. There is no obvious facial droop. There is left-sided neglect. 5/5 strength right arm and right leg. 4 out of 5 strength left arm and left leg. Sensation intact to pinch in 4 extremities) - Psychiatric Psychiatric exam: Present: anxious - Skin Skin exam: Present: warm, dry, intact, normal color. Absent: rash ED Course Vital Signs 01/05/22 01/05/22 01/05/22 18:44 18:56 19:11 Pulse Rate [ 102 H 104 H 105 H Left Arm] Respiratory 18 18 16 Rate [Left Arm] Blood Pressure 135/82 143/82 135/80 [Left Arm] O2 Sat by Pulse Oximetry [ Digit-Finger] O2 Sat by Pulse 97 98 100 Oximetry [Left Arm] 01/05/22 19:12 Pulse Rate [ Left Arm] Respiratory Rate [Left Arm] Blood Pressure [Left Arm] O2 Sat by Pulse 98 Oximetry [ Digit-Finger] O2 Sat by Pulse Oximetry [Left Arm] - Reevaluation(s) Reevaluation #1: 01/05/22 19:09 Differential diagnosis, including but not limited to: Stroke, pneumonia, urinary tract infection, malingering, conversion disorder Assessment and plan: 46-year-old gentleman, presenting with dysarthria, aphasia, left-sided neglect and left arm weakness, documented last known well time sometime between 15: 04, and 17: 02. Patient evaluated by myself, and two different stroke neurologist, both of whom recommended TPA Accu-Chek within normal limits, and we do not have a competing alternative diagnosis at this time. The neurology consultants and myself feel that benefits of TPA will outweigh risks, and have emergently and administratively consented this patient for TPA administration. I am present in the room when TPA bolus is administered, as well as TPA drip. Hospital physician, Dr. Tavarez to admit patient to the ICU for stroke care. Awaiting callback from critical care. Reevaluation #2: 01/05/22 20:09 Discussed the patient's history, physical, CT scan findings and overall clinical impression with critical care on-call, Dr. Cha. His group will follow in consultation and agrees with placement into the intensive care unit for post TPA care - Pulse Oximetry Interpretation Digit-Finger Initial Pulse Oximetry Readin O2 Sat by Pulse Oximetry: 98 Actions Taken: none ED Medical Decision Making - Lab Data Result diagrams: 01/05/22 17:56 01/05/22 17:56 Vital Signs 01/05/22 01/05/22 18:44 18:56 Pulse Rate [ 102 H 104 H Left Arm] Respiratory 18 18 Rate [Left Arm] Blood Pressure 135/82 143/82 [Left Arm] O2 Sat by Pulse 97 98 Oximetry [Left Arm] Lab Results 01/05/22 01/05/22 01/05/22 Range/Units 17:56 17:56 17:56 WBC 7.3 (4.5-11.0) K/mm3 RBC 4.00 (3.65-5.03) M/mm3 Hgb 13.8 (11.8-15.2) gm/dl Hct 40.3 (35.5-45.6) % MCV 101 H (84-94) fl MCH 34 H (28-32) pg MCHC 34 (32-34) % RDW 14.4 (13.2-15.2) % Plt Count 178 (140-440) K/mm3 Lymph % (Auto) 38.7 H (13.4-35.0) % [place] % (Auto) 9.5 H (0.0-7.3) % Eos % (Auto) 2.0 (0.0-4.3) % Baso % (Auto) 0.2 (0.0-1.8) % Lymph # (Auto) 2.8 (1.2-5.4) K/mm3 [place] # (Auto) 0.7 (0.0-0.8) K/mm3 Eos # (Auto) 0.2 (0.0-0.4) K/mm3 Baso # (Auto) 0.0 (0.0-0.1) K/mm3 Seg Neutrophils % 49.6 (40.0-70.0) % Seg Neutrophils # 3.6 (1.8-7.7) K/mm3 PT 13.5 (12.2-14.9) Sec. INR 0.93 (0.87-1.13) APTT 26.8 (24.2-36.6) Sec. Thrombin Time 15.7 (15.1-19.6) Sec. Sodium 138 (137-145) mmol/L Potassium 4.2 (3.6-5.0) mmol/L Chloride 104.6 (98-107) mmol/L Carbon Dioxide 22 (22-30) mmol/L Anion Gap 16 mmol/L BUN 17 (9-20) mg/dL Creatinine 1.1 (0.8-1.3) mg/dL Estimated GFR > 60 ml/min BUN/Creatinine Ratio 15 % Glucose 280 H (75-100) mg/dL Calcium 9.0 (8.4-10.2) mg/dL Total Bilirubin 0.30 (0.1-1.2) mg/dL AST 16 (5-40) units/L ALT 18 (7-56) units/L Alkaline Phosphatase 87 (35-129) units/L Total Creatine Kinase 175 H (55-170) units/L CK-MB (CK-2) 2.3 (0.0-4.0) ng/mL CK-MB (CK-2) Rel Index 1.3 (0-4) Troponin T < 0.010 (0.00-0.029) ng/mL Total Protein 6.8 (6.3-8.2) g/dL Albumin 3.8 L (3.9-5) g/dL Albumin/Globulin Ratio 1.3 % - Radiology Data Radiology results: pending, report reviewed, image reviewed CT angio head INDICATION / CLINICAL INFORMATION: 46 years Male; stroke sx. TECHNIQUE: Thin cut axial images obtained through the head during IV bolus contrast administration. Sagittal, coronal, and 3 plane MIP reconstructions pe rformed by the technologist. NASCET type criteria used evaluate stenoses. Automated exposure control utilized for radiation reduction purposes. . COMPARISON: None available. FINDINGS: INTERNAL CAROTID ARTERIES: No significant narrowing appreciated. VERTEBROBASILAR SYSTEM: No significant narrowing appreciated. Note, the basilar artery is diminutive in size- origin of both hot end operator suggested. DISTAL BRANCHES: Distal branches of the anterior, middle, and posterior cerebral arteries are fairly symmetric in appearance and number. ANEURYSM: None identified. ADDITIONAL FINDINGS: Prominent soft tissue is seen in the roof the nasopharynx, presumably related to reactive adenoidal tissue. Please clinically correlate. Mucous retention cyst/polyp seen in the left maxillary antrum. Prior mastoidectomy noted on the right. IMPRESSION: No significant abnormality on this CTA of the head. Follow- up with diffusion imaging by MRI, as clinically warranted. CODE STROKE: Exam Completed (SERVICE TECH/CDT): 01/05/2022 523 PM Exam Reviewed (SERVICE TECH/CDT): 5: 34 PM Time of Communication (SERVICE TECH/CDT): 5:39 PM Licensed Practitioner Receiving Report: Dr. Castillo Signer Name: Elmer Cruz MD, III Signed: 01/05/2022 5:40 PM Workstation Name: iCurrent CT angio neck INDICATION / CLINICAL INFORMATION: 46 years Male; stroke sx. TECHNIQUE: Thin cut axial images obtained through the head during IV bolus contrast administration. Sagittal, coronal, and 3 plane MIP reconstructions performed by the technologist. NASCET type criteria used evaluate stenoses. All CT scans at this location are performed using CT dose reduction for ALARA by means of automated exposure control. . COMPARISON: None available. FINDINGS: ARCH: Normal aortic arch branching suggested. CAROTID ARTERIES: The visualized common and internal carotid arteries are patent. Note, the vertebral arteries (and basilar artery) are diminutive in size, as there appears to be origin of both hot end operator. VERTEBRAL ARTERIES: Codominant vertebral system seen. No significant stenosis appreciated. ADDITIONAL FINDINGS: Prominent soft tissue is seen in the roof the nasopharynx, presumably related to reactive adenoidal tissue. Please clinically correlate. Moderate foraminal narrowing is seen on the right from uncinate hypertrophy at C4-5, C5-6, and C6-7. Similar findings seen on the left at C6-7. Mild to moderate disc disease seen at various levels. There is signs of canal narrowing, with most marked findings at C3-4 and C4-5. No definitive signs of cord impingement. Poor dentition noted. Mucous retention cyst/polyp seen in the left maxillary antrum. IMPRESSION: No significant stenosis appreciated on this CTA of the neck. Signer Name: Elmer Cruz MD, III Signed: 01/05/2022 5:47 PM Workstation Name: iCurrent CT head/brain wo con INDICATION / CLINICAL INFORMATION: 46 years Male; Stroke symptoms. TECHNIQUE: Routine CT head without contrast. All CT scans at this location are performed using CT dose reduction for ALARA by means of automated exposure control. COMPARISON: None. FINDINGS: BRAIN / INTRACRANIAL CONTENTS: No acute hemorrhage, mass effect, midline shift, hydrocephalus, or acute, large territorial infarct. No signs of significant atrophy or chronic infarct. No significant white matter abnormality seen. CRANIOCERVICAL JUNCTION: No significant abnormality. ORBITS: No significant abnormality of visualized orbits. SINUSES / MASTOIDS: Mucous retention cyst/polyps seen in the maxillary antra-left greater than right. Prior mastoidectomy noted on the right. ADDITIONAL FINDINGS: Prominent soft tissue is seen in the roof the nasopharynx, presumably related to reactive adenoidal tissue. Please clinically correlate. IMPRESSION: 1. No focal mass, hemorrhage, hydrocephalus, or acute, large territorial infarct. Signer Name: Elmer Cruz MD, III Signed: 01/05/2022 5:24 PM Workstation Name: Code [email or web address] Critical Care Time: Yes Critical care time in (mins) excluding proc time.: 45 Critical care attestation.: If time is entered above; I have spent that time in minutes in the direct care of this critically ill patient, excluding procedure time. ED Disposition Clinical Impression: Stroke Disposition: 09 ADMITTED INPATIENT Is pt being admited?: Yes Condition: Critical Referrals: PRIMARY CARE, [Primary Care Provider] - 3-5 Days
--- NOTE | 2022-01-05 19:26 | XRay Report ---
CHEST 1 VIEW INDICATION / CLINICAL INFORMATION: cva drooling. COMPARISON: 12/31/2021 FINDINGS: SUPPORT DEVICES: None. HEART / MEDIASTINUM: Mild cardiomegaly is stable. LUNGS / PLEURA: No significant pulmonary or pleural abnormality. No pneumothorax. No interstitial pul monary edema. No pleural effusion. ADDITIONAL FINDINGS: No significant additional findings. IMPRESSION: 1. No acute pulmonary disease. No significant interval change from recent prior exam. 2. Mild stable cardiomegaly. Signer Name: Shaneka Barnes MD Signed: 01/05/2022 7:22 PM Workstation Name: [id number]
--- NOTE | 2022-01-05 19:33 | History and Physical Report ---
History of Present Illness Chief complaint: I think he had a stroke History of present illness: 46 YO Male with HTN, DM, Nicotine Dependence, ETOH Dependence, PSA, Medication Noncompliance, Suspected Malingering, Homelessness presents to ED for evaluation. Patient has diminished cognition is unable to provide detailed history. Patient is provided by EMS staff, ED staff. As per staff the patient was seen and evaluated in the emergency department earlier today and was discharged. Patient walked across the street and notified EMS. Upon arrival the patient was found to have a suspected neurologic deficit. A code stroke was called and the patient was transported to [facility] for further care and evaluation of the aforementioned symptoms. The patient was seen and evaluated in the emergency department. All lab and imaging studies reviewed. Patient was administered TPA in the emergency department. No reports of fever, chills, chest pain, palpitation or productive cough, skin rash, recent contact, known exposure to COVID-19. Patient admitted to ICU and initiated on CVA protocol. Critical care team consulted in ED. Patient has diminished cognition but has a positive gag reflex and is able to protect his airway without difficulty. Advanced care planning conducted in ED. prior admission on 12/18/2021 reviewed. All medication listed at time of admission has been reconciled. Past History Past Medical History: diabetes, hypertension Past Surgical History: Other (Ear surgery) Social history: single, smoking Family history: diabetes, hypertension Medications and Allergies Allergies Allergy/AdvReac Type Severity Reaction Status Date / Time ciprofloxacin Allergy Hives Verified 12/19/21 08:52 Sulfa (Sulfonamide Allergy Hives Verified 12/19/21 08:52 Antibiotics) Home Medications Medication Instructions Recorded Confirmed Last Taken Type Ibuprofen [Motrin 800 MG tab] 800 mg PO Q8HR PRN #30 tablet 12/11/21 12/19/21 2 Months Ago Rx ~10/21/21 metFORMIN [Glucophage] 500 mg PO BID 30 Days #60 tab 12/11/21 12/19/21 2 Months Ago Rx ~10/21/21 carvediloL [Coreg] 3.125 mg PO BID #60 tablet 12/20/21 Unknown Rx lisinopriL [Zestril TAB] 5 mg PO QDAY #30 tablet 12/20/21 Unknown Rx Ondansetron [Zofran Odt] 4 mg PO Q8HR PRN #14 tab.rapdis 12/21/21 Unknown Rx traMADoL [Ultram 50 MG tab] 50 mg PO Q4HR PRN #14 tablet 12/21/21 Unknown Rx Prednisone [predniSONE 5 mg (6-Day 5 mg PO .TAPER #1 pack 12/29/21 Unknown Rx Pack, 21 Tabs)] guaiFENesin/CODEINE [Robitussin AC] 5 ml PO TID PRN #120 ml 12/29/21 Unknown Rx Review of Systems ROS unobtainable: due to mental status Exam - Constitutional Vitals: Temp Pulse Resp BP Pulse Ox 105 H 16 135/80 98 01/05/22 19:11 01/05/22 19:11 01/05/22 19:11 01/05/22 19:12 General appearance: Present: no acute distress - EENT Eyes: Present: PERRL ENT: hearing intact, clear oral mucosa - Neck Neck: Present: supple, normal ROM - Respiratory Respiratory effort: normal Respiratory: bilateral: CTA - Cardiovascular Heart Sounds: Present: S1 & S2. Absent: rub, click - Extremities Extremities: pulses symmetrical, No edema Peripheral Pulses: within normal limits - Abdominal General gastrointestinal: Present: soft, non-tender, non-distended, normal bowel sounds Male genitourinary: Present: normal - Integumentary Integumentary: Present: clear, warm, dry - Musculoskeletal Musculoskeletal: gait normal, strength equal bilaterally - Psychiatric Psychiatric: appropriate mood/affect, intact judgment & insight - Neurologic Neurologic: CNII-XII intact, moves all extremities HEART Score - HEART Score Troponin: Troponin T < 0.010 ng/mL (0.00-0.029) 01/05/22 17:56 Results - Labs CBC & Chem 7: 01/05/22 17:56 01/05/22 17:56 Labs: Abnormal lab results 01/05/22 01/05/22 01/05/22 Range/Units 17:56 17:56 17:56 MCV 101 H (84-94) fl MCH 34 H (28-32) pg Lymph % (Auto) 38.7 H (13.4-35.0) % [place] % (Auto) 9.5 H (0.0-7.3) % Glucose 280 H (75-100) mg/dL Total Creatine Kinase 175 H (55-170) units/L Albumin 3.8 L (3.9-5) g/dL Acetaminophen 5.0 L (10.0-30.0) ug/mL Assessment and Plan - Patient Problems (1) CVA (cerebral vascular accident) Current Visit: Yes Status: Acute Plan to address problem: TPA administered in ED. Admit to ICU, CT possible aspiration cautions, neuro check, carotid Doppler, echocardiogram, antiplatelet therapy lipid panel, statin therapy The high probability of a clinically significant, sudden or life threatening deterioration of the [neuro] system(s) required my full and direct attention, intervention and personal management. The aggregate critical care time was [65] minutes. This time is in addition to time spent performing reported procedures but includes the following: [x] Data Review and interpretation [x] Patient assessment and monitoring of vital signs [x] Documentation [x] Medication orders and management (2) Diabetes Current Visit: No Status: Acute Plan to address problem: Consistent carbohydrate diet, Accu-Chek, insulin protocol, hypoglycemia protocol (3) Hypertension Current Visit: No Status: Acute Qualifiers: Hypertension type: primary hypertension Qualified Code(s): I10 - Essential (primary) hypertension Plan to address problem: Monitor blood pressure every shift, permissive hypertension overnight. (4) Medical non-compliance Current Visit: No Status: Acute Plan to address problem: Patient counseled. (5) Nicotine dependence Current Visit: No Status: Acute Qualifiers: Nicotine product type: cigarettes Substance use status: in withdrawal Qualified Code(s): F17.213 - Nicotine dependence, cigarettes, with withdrawal Plan to address problem: Smoking cessation counseling, supportive care, (6) DVT prophylaxis Current Visit: No Status: Acute Plan to address problem: SCDs bilateral lower extremities while in bed (7) Advance care planning Current Visit: No Status: Acute Plan to address problem: Disease education conducted, care plan discussed, diagnoses discussed, prognosis discussed, patient is full code, +30 minutes.
[2022-01-05] MEDS ORDERED: HYDROmorphone 1 MG/1 ML INJ IV PRN (19:37)
[2022-01-05] MEDS ORDERED: METOCLOPRAMIDE 10 MG TAB PO PRN (19:37)
[2022-01-05] MEDS ORDERED: ACETAMINOPHEN 325 MG TAB PO PRN (19:37)
[2022-01-05] MEDS ORDERED: MAGNESIUM HYDROXIDE (MOM) ORAL LIQD UDC PO PRN (19:37)
[2022-01-05] MEDS ORDERED: PROMETHAZINE 25 MG RECT SUPP PR PRN (19:37)
[2022-01-05] MEDS ORDERED: ONDANSETRON 4 MG/2 ML INJ IV PRN (19:37)
[2022-01-05] MEDS ORDERED: oxyCODONE /ACETAMINOPHEN 5-325MG TAB PO PRN (19:37)
[2022-01-05] MEDS ORDERED: METOCLOPRAMIDE 10 MG/2 ML INJ IV ONE (19:40)
[2022-01-06] MEDS ORDERED: ASPIRIN 325 MG TAB PO SCH ×2 (10:00→22:00)
--- NOTE | 2022-01-06 11:16 | Event Note ---
Date: 01/06/22 46 y/o with stroke like symptoms s/p TPA at 1830, admitted to ICU for 24 hour evaluation with q1 hour neuro checks. Hold anticoagulation until 24 hours post TPA. Neurology follow up. Can transfer to floor at 1830 if no new issues.
--- NOTE | 2022-01-06 13:21 | Vascular Lab Report ---
DUPLEX DOPPLER ULTRASOUND CAROTID, BILATERAL INDICATION / CLINICAL INFORMATION: stroke. COMPARISON: None available. FINDINGS: RIGHT CAROTID: No significant atherosclerotic disease - PLAQUE ESTIMATE (%): None. - CCA velocity: 65 cm/sec. - ICA peak systolic velocity: 83 cm/sec. - ICA/CCA PSV Ratio: 1.3 Right Vertebral Artery: Antegrade flow. LEFT CAROTID: No significant atherosclerotic disease - PLAQUE ESTIMATE (%): None. - CCA velocity: 54 cm/sec. - ICA peak systolic velocity: 89 cm/sec. - ICA/CCA PSV Ratio: 1.6 Left Vertebral Artery: Antegrade flow. IMPRESSION: 1. Right Internal Carotid Artery: Less than 50% diameter stenosis. 2. Left Internal Carotid Artery: Less than 50% diameter stenosis. Velocity criteria are extrapolated from diameter data as defined by the Society of Radiologists in Ul trasound Consensus Conference, Radiology 2003; 229;340-346. NO STENOSIS (NORMAL) - Plaque = none; ICA PSV < 125 cm/sec; ICA/CCA PSV Ratio < 2.0 <50% STENOSIS - Plaque < 50%; ICA PSV < 125 cm/sec; ICA/CCA PSV Ratio < 2.0 50-69% STENOSIS - Plaque > 50%; ICA PSV = 125-230 cm/sec; ICA/CCA PSV Ratio = 2.0-4.0 >70% BUT <100% STENOSIS - Plaque > 50%; ICA PSV > 230 cm/sec; ICA/CCA PSV Ratio > 4.0 NEAR OCCLUSION - Plaque = visible lumen; ICA PSV = high/low/none; ICA/CCA PSV Ratio = variable TOTAL OCCLUSION - Plaque = no lumen; ICA PSV = none; ICA/CCA PSV Ratio = N/A Signer Name: Horace Blandon Jr, MD Signed: 01/06/2022 1:17 PM Workstation Name: [id number]
--- NOTE | 2022-01-06 13:40 | Progress Note ---
Assessment and Plan Assessment and plan: History of present illness: 46 YO Male with HTN, DM, Nicotine Dependence, ETOH Dependence, PSA, Medication Noncompliance, Suspected Malingering, Homelessness presents to ED for e valuation. Patient has diminished cognition is unable to provide detailed history. Patient is provided by EMS staff, ED staff. As per staff the patient was seen and evaluated in the emergency department earlier today and was discharged. Patient walked across the street and notified EMS. Upon arrival the patient was found to have a suspected neurologic deficit. A code stroke was called and the patient was transported to [facility] for further care and evaluation of the aforementioned symptoms. The patient was seen and evaluated in the emergency department. All lab and imaging studies reviewed. Patient was administered TPA in the emergency department. No reports of fever, chills, chest pain, palpitation or productive cough, skin rash, recent contact, known exposure to COVID-19. Patient admitted to ICU and initiated on CVA protocol. Critical care team consulted in ED. Patient has diminished cognition but has a positive gag reflex and is able to protect his airway without difficulty. Advanced care planning conducted in ED. prior admission on 12/18/2021 reviewed. All medication listed at time of admission has been reconciled. Hospital Course: 01/06: 24 hr s/p tpa ct brain pending. Will start ASA if negative for hemorrhagic conversion and transfer to floor. [facility] neuro recs. Will follow therapy recommendations. anticipate d/c in next 24-48 hrs. Assessment and plan: (1) CVA (cerebral vascular accident) Current Visit: Yes Status: Acute Plan to address problem: TPA administered in ED. Admit to ICU, CT possible aspiration cautions, neuro check, carotid Doppler, echocardiogram, antiplatelet therapy lipid panel, statin therapy (2) Diabetes Current Visit: No Status: Acute Plan to address problem: Consistent carbohydrate diet, Accu-Chek, insulin protocol, hypoglycemia protocol (3) Hypertension Current Visit: No Status: Acute Qualifiers: Hypertension type: primary hypertension Qualified Code(s): I10 - Essential (primary) hypertension Plan to address problem: Monitor blood pressure every shift, permissive hypertension overnight. (4) Medical non-compliance Current Visit: No Status: Acute Plan to address problem: Patient counseled. (5) Nicotine dependence Current Visit: No Status: Acute Qualifiers: Nicotine product type: cigarettes Substance use status: in withdrawal Qualified Code(s): F17.213 - Nicotine dependence, cigarettes, with withdrawal Plan to address problem: Smoking cessation counseling, supportive care, (6) DVT prophylaxis Current Visit: No Status: Acute Plan to address problem: SCDs bilateral lower extremities while in bed (7) Advance care planning Current Visit: No Status: Acute Plan to address problem: Disease education conducted, care plan discussed, diagnoses discussed, prognosis discussed, patient is full code, +30 minutes. The high probability of a clinically significant, sudden or life threatening deterioration of the [neuro] system(s) required my full and direct attention, intervention and personal management. The aggregate critical care time was [60] minutes. This time is in addition to time spent performing reported procedures but includes the following: [x] Data Review and interpretation [x] Patient assessment and monitoring of vital signs [x] Documentation [x] Medication orders and management History Interval history: No acute complaints resting comfortably on encounter. Hospitalist Physical - Physical exam Narrative exam: General appearance: Present: no acute distress - EENT Eyes: Present: PERRL ENT: hearing intact, clear oral mucosa - Neck Neck: Present: supple, normal ROM - Respiratory Respiratory effort: normal Respiratory: bilateral: CTA - Cardiovascular Heart Sounds: Present: S1 & S2. Absent: rub, click - Extremities Extremities: pulses symmetrical, No edema Peripheral Pulses: within normal limits - Abdominal General gastrointestinal: Present: soft, non-tender, non-distended, normal bowel sounds Male genitourinary: Present: normal - Integumentary Integumentary: Present: clear, warm, dry - Musculoskeletal Musculoskeletal: gait normal, strength equal bilaterally - Psychiatric Psychiatric: appropriate mood/affect, intact judgment & insight - Neurologic Neurologic: CNII-XII intact, moves all extremities - Constitutional Vitals: Temp Pulse Resp BP Pulse Ox 72 14 144/78 91 01/06/22 12:56 01/06/22 13:30 01/06/22 13:30 01/06/22 13:08 General appearance: Present: no acute distress HEART Score - HEART Score Troponin: Troponin T < 0.010 ng/mL (0.00-0.029) 01/05/22 17:56 Results - Labs CBC & Chem 7: 01/05/22 17:56 01/05/22 17:56 Labs: Laboratory Last Values WBC 7.3 K/mm3 (4.5-11.0) 01/05/22 17:56 RBC 4.00 M/mm3 (3.65-5.03) 01/05/22 17:56 Hgb 13.8 gm/dl (11.8-15.2) 01/05/22 17:56 Hct 40.3 % (35.5-45.6) 01/05/22 17:56 MCV 101 fl (84-94) H 01/05/22 17:56 MCH 34 pg (28-32) H 01/05/22 17:56 MCHC 34 % (32-34) 01/05/22 17:56 RDW 14.4 % (13.2-15.2) 01/05/22 17:56 Plt Count 178 K/mm3 (140-440) 01/05/22 17:56 Lymph % (Auto) 38.7 % (13.4-35.0) H 01/05/22 17:56 [place] % (Auto) 9.5 % (0.0-7.3) H 01/05/22 17:56 Eos % (Auto) 2.0 % (0.0-4.3) 01/05/22 17:56 Baso % (Auto) 0.2 % (0.0-1.8) 01/05/22 17:56 Lymph # (Auto) 2.8 K/mm3 (1.2-5.4) 01/05/22 17:56 [place] # (Auto) 0.7 K/mm3 (0.0-0.8) 01/05/22 17:56 Eos # (Auto) 0.2 K/mm3 (0.0-0.4) 01/05/22 17:56 Baso # (Auto) 0.0 K/mm3 (0.0-0.1) 01/05/22 17:56 Seg Neutrophils % 49.6 % (40.0-70.0) 01/05/22 17:56 Seg Neutrophils # 3.6 K/mm3 (1.8-7.7) 01/05/22 17:56 PT 13.5 Sec. (12.2-14.9) 01/05/22 17:56 INR 0.93 (0.87-1.13) 01/05/22 17:56 APTT 26.8 Sec. (24.2-36.6) 01/05/22 17:56 Thrombin Time 15.7 Sec. (15.1-19.6) 01/05/22 17:56 Sodium 138 mmol/L (137-145) 01/05/22 17:56 Potassium 4.2 mmol/L (3.6-5.0) 01/05/22 17:56 Chloride 104.6 mmol/L (98-107) 01/05/22 17:56 Carbon Dioxide 22 mmol/L (22-30) 01/05/22 17:56 Anion Gap 16 mmol/L 01/05/22 17:56 BUN 17 mg/dL (9-20) 01/05/22 17:56 Creatinine 1.1 mg/dL (0.8-1.3) 01/05/22 17:56 Estimated GFR > 60 ml/min 01/05/22 17:56 BUN/Creatinine Ratio 15 % 01/05/22 17:56 Glucose 280 mg/dL (75-100) H 01/05/22 17:56 Calcium 9.0 mg/dL (8.4-10.2) 01/05/22 17:56 Total Bilirubin 0.30 mg/dL (0.1-1.2) 01/05/22 17:56 AST 16 units/L (5-40) 01/05/22 17:56 ALT 18 units/L (7-56) 01/05/22 17:56 Alkaline Phosphatase 87 units/L (35-129) 01/05/22 17:56 Total Creatine Kinase 175 units/L (55-170) H 01/05/22 17:56 CK-MB (CK-2) 2.3 ng/mL (0.0-4.0) 01/05/22 17:56 CK-MB (CK-2) Rel Index 1.3 (0-4) 01/05/22 17:56 Troponin T < 0.010 ng/mL (0.00-0.029) 01/05/22 17:56 Total Protein 6.8 g/dL (6.3-8.2) 01/05/22 17:56 Albumin 3.8 g/dL (3.9-5) L 01/05/22 17:56 Albumin/Globulin Ratio 1.3 % 01/05/22 17:56 TSH 1.840 mlU/mL (0.270-4.200) 01/05/22 17:56 Salicylates < 0.3 mg/dL (2.8-20.0) L 01/05/22 17:56 Acetaminophen 5.0 ug/mL (10.0-30.0) L 01/05/22 17:56 Plasma/Serum Alcohol < 0.01 % (0-0.07) 01/05/22 17:56 Active Medications - Current Medications Current Medications: Generic Name Dose Route Start Last Admin Trade Name Freq PRN Reason Stop Dose Admin Acetaminophen 650 mg 01/05/22 19:37 Acetaminophen 325 Mg Tab PO Q4H PRN Pain, Mild (1-3) Atorvastatin Calcium 40 mg 01/05/22 22:00 Atorvastatin 40 Mg Tab PO QHS ADRIAN Bisacodyl 10 mg 01/05/22 19:37 Bisacodyl 10 Mg Rect Supp ID QDAY PRN Constipation Hydromorphone HCl 0.5 mg 01/05/22 19:37 Hydromorphone 1 Mg/1 Ml Inj IV Q23H PRN Pain , Severe (7-10) Magnesium Hydroxide 30 ml 01/05/22 19:37 Magnesium Hydroxide (Mom) Oral Liqd Udc PO Q4H PRN Constipation Metoclopramide HCl 10 mg 01/05/22 19:37 Metoclopramide 10 Mg Tab PO Q6H PRN Nausea And Vomiting Ondansetron HCl 4 mg 01/05/22 19:37 Ondansetron 4 Mg/2 Ml Inj IV Q8H PRN Nausea And Vomiting Oxycodone/Acetaminophen 1 tab 01/05/22 19:37 Oxycodone /Acetaminophen 5-325mg Tab PO Q16H PRN Pain, Moderate (4-6) Promethazine HCl 25 mg 01/05/22 19:37 Promethazine 25 Mg Rect Supp ID Q6H PRN Nausea And Vomiting Sodium Chloride 10 ml 01/05/22 19:37 Sodium Chloride 0.9% 10 Ml Flush Syringe IV PRN PRN LINE FLUSH
--- NOTE | 2022-01-06 21:23 | Cat Scan Report ---
CT HEAD WITHOUT CONTRAST INDICATION / CLINICAL INFORMATION: 24 hr s/p tpa. TECHNIQUE: CT head was performed without administration of intravenous contrast. All CT scans at this location are performed using CT dose reduction for ALARA by means of automated exposure control. COMPARISON: CT head 01/05/2022 FINDINGS: CEREBRAL PARENCHYMA: Evolution of right frontoparietal infarction demonstrated with interval increase in hypoattenuation as well as sulcal effacement compatible with developing cerebral edema. No hemorr hagic transformation. HEMORRHAGE: None. EXTRA-AXIAL SPACES: Normal in size and morphology for the patient's age. VENTRICULAR SYSTEM: Normal in size and morphology for the patient's age. MIDLINE SHIFT / HERNIATION: None. CEREBELLUM / BRAINSTEM: No significant abnormality. ORBITS: Normal as visualized. SOFT TISSUES: No significant abnormality. SKULL: No significant abnormality. PARANASAL SINUSES / MASTOID AIR CELLS: Moderate mucous retention cyst left maxillary sinus. Prior rig ht mastoidectomy. ADDITIONAL FINDINGS: None. IMPRESSION: 1. Evolution of right MCA distribution infarction involving the frontoparietal perisylvian region. Fi ndings compatible with developing cerebral edema. No hemorrhagic transformation. Signer Name: Sarwat Snider II, MD Signed: 01/06/2022 9:18 PM Workstation Name: [id number]
--- NOTE | 2022-01-07 08:39 | Progress Note ---
Assessment and Plan Assessment and plan: History of present illness: 46 YO Male with HTN, DM, Nicotine Dependence, ETOH Dependence, PSA, Medication Noncompliance, Suspected Malingering, Homelessness presents to ED for e valuation. Patient has diminished cognition is unable to provide detailed history. Patient is provided by EMS staff, ED staff. As per staff the patient was seen and evaluated in the emergency department earlier today and was discharged. Patient walked across the street and notified EMS. Upon arrival the patient was found to have a suspected neurologic deficit. A code stroke was called and the patient was transported to [facility] for further care and evaluation of the aforementioned symptoms. The patient was seen and evaluated in the emergency department. All lab and imaging studies reviewed. Patient was administered TPA in the emergency department. No reports of fever, chills, chest pain, palpitation or productive cough, skin rash, recent contact, known exposure to COVID-19. Patient admitted to ICU and initiated on CVA protocol. Critical care team consulted in ED. Patient has diminished cognition but has a positive gag reflex and is able to protect his airway without difficulty. Advanced care planning conducted in ED. prior admission on 12/18/2021 reviewed. All medication listed at time of admission has been reconciled. Hospital Course: 01/06: 24 hr s/p tpa ct brain pending. Will start ASA if negative for hemorrhagic conversion and transfer to floor. Follow neuro recs. Will follow therapy recommendations. anticipate d/c in next 24-48 hrs. 01/07: CT completed but image not read until later in evening. Initiated on aspirin as no signs of hemorrhagic transformation. CT brain does show evolving rt MCA distribution infarct and early signs of cerebral edema. Currently on floor bed. Pending MRI brain. Awaiting neuro input. Awaiting PT/ST eval. Assessment and plan: (1) CVA (cerebral vascular accident) Current Visit: Yes Status: Acute Plan to address problem: TPA administered in ED. CT brain on admission: no focal mass, hemorrhage, hydrocephalus, or acute large territorial infarct visualized 24 hr s/p CT brain: evolution of rt mca distribution infarct involving frontoparietal perisylvian region. Findings compatible with dev cerebral edema. no hemorrhagic transformation. CTA head: no acute stenosis abnl CTA neck: no acute stenosis or abnl ECHO pending US Carotid : less than 50% occlusion bl lipid panel, a1c, tsh MR Brain confirm above ct brain findings, also notes mild edema neurology consulted PCCM consulted (2) Diabetes Current Visit: No Status: Acute Plan to address problem: Consistent carbohydrate diet, Accu-Chek, insulin protocol, hypoglycemia protocol (3) Hypertension Current Visit: No Status: Acute Qualifiers: Hypertension type: primary hypertension Qualified Code(s): I10 - Essential (primary) hypertension Plan to address problem: Monitor blood pressure every shift, permissive hypertension overnight. (4) Medical non-compliance Current Visit: No Status: Acute Plan to address problem: Patient counseled. (5) Nicotine dependence Current Visit: No Status: Acute Qualifiers: Nicotine product type: cigarettes Substance use status: in withdrawal Qualified Code(s): F17.213 - Nicotine dependence, cigarettes, with withdrawal Plan to address problem: Smoking cessation counseling, supportive care, (6) DVT prophylaxis Current Visit: No Status: Acute Plan to address problem: SCDs bilateral lower extremities while in bed (7) Advance care planning Current Visit: No Status: Acute Plan to address problem: Disease education conducted, care plan discussed, diagnoses discussed, prognosis discussed, patient is full code, +30 minutes. History Interval history: Patient was seen and evaluated. Only complaint today was persistent dysarthria and left upper extremity weakness. Patient does follow simple commands, is alert and oriented x3. He did not appear somnolent or drowsy. He denied any headaches or visual changes on my encounter. Hospitalist Physical - Physical exam Narrative exam: General appearance: Present: no acute distress - EENT Eyes: Present: PERRL ENT: hearing intact, clear oral mucosa - Neck Neck: Present: supple, normal ROM - Respiratory Respiratory effort: normal Respiratory: bilateral: CTA - Cardiovascular Heart Sounds: Present: S1 & S2. Absent: rub, click - Extremities Extremities: pulses symmetrical, No edema Peripheral Pulses: within normal limits - Abdominal General gastrointestinal: Present: soft, non-tender, non-distended, normal bowel sounds Male genitourinary: Present: normal - Integumentary Integumentary: Present: clear, warm, dry - Musculoskeletal Musculoskeletal: gait normal, strength equal bilaterally - Psychiatric Psychiatric: appropriate mood/affect, intact judgment & insight - Neurologic Neurologic: CNII-XII intact, left upper extremity weakness, dysarthria. - Constitutional Vitals: Temp Pulse Resp BP Pulse Ox 98.0 F 70 18 136/74 99 01/07/22 03:19 01/07/22 03:19 01/07/22 03:19 01/07/22 03:19 01/07/22 03:19 General appearance: Present: no acute distress HEART Score - HEART Score Troponin: Troponin T < 0.010 ng/mL (0.00-0.029) 01/05/22 17:56 Results - Labs CBC & Chem 7: 01/05/22 17:56 01/05/22 17:56 Labs: Laboratory Last Values WBC 7.3 K/mm3 (4.5-11.0) 01/05/22 17:56 RBC 4.00 M/mm3 (3.65-5.03) 01/05/22 17:56 Hgb 13.8 gm/dl (11.8-15.2) 01/05/22 17:56 Hct 40.3 % (35.5-45.6) 01/05/22 17:56 MCV 101 fl (84-94) H 01/05/22 17:56 MCH 34 pg (28-32) H 01/05/22 17:56 MCHC 34 % (32-34) 01/05/22 17:56 RDW 14.4 % (13.2-15.2) 01/05/22 17:56 Plt Count 178 K/mm3 (140-440) 01/05/22 17:56 Lymph % (Auto) 38.7 % (13.4-35.0) H 01/05/22 17:56 [place] % (Auto) 9.5 % (0.0-7.3) H 01/05/22 17:56 Eos % (Auto) 2.0 % (0.0-4.3) 01/05/22 17:56 Baso % (Auto) 0.2 % (0.0-1.8) 01/05/22 17:56 Lymph # (Auto) 2.8 K/mm3 (1.2-5.4) 01/05/22 17:56 [place] # (Auto) 0.7 K/mm3 (0.0-0.8) 01/05/22 17:56 Eos # (Auto) 0.2 K/mm3 (0.0-0.4) 01/05/22 17:56 Baso # (Auto) 0.0 K/mm3 (0.0-0.1) 01/05/22 17:56 Seg Neutrophils % 49.6 % (40.0-70.0) 01/05/22 17:56 Seg Neutrophils # 3.6 K/mm3 (1.8-7.7) 01/05/22 17:56 PT 13.5 Sec. (12.2-14.9) 01/05/22 17:56 INR 0.93 (0.87-1.13) 01/05/22 17:56 APTT 26.8 Sec. (24.2-36.6) 01/05/22 17:56 Thrombin Time 15.7 Sec. (15.1-19.6) 01/05/22 17:56 Sodium 138 mmol/L (137-145) 01/05/22 17:56 Potassium 4.2 mmol/L (3.6-5.0) 01/05/22 17:56 Chloride 104.6 mmol/L (98-107) 01/05/22 17:56 Carbon Dioxide 22 mmol/L (22-30) 01/05/22 17:56 Anion Gap 16 mmol/L 01/05/22 17:56 BUN 17 mg/dL (9-20) 01/05/22 17:56 Creatinine 1.1 mg/dL (0.8-1.3) 01/05/22 17:56 Estimated GFR > 60 ml/min 01/05/22 17:56 BUN/Creatinine Ratio 15 % 01/05/22 17:56 Glucose 280 mg/dL (75-100) H 01/05/22 17:56 Calcium 9.0 mg/dL (8.4-10.2) 01/05/22 17:56 Total Bilirubin 0.30 mg/dL (0.1-1.2) 01/05/22 17:56 AST 16 units/L (5-40) 01/05/22 17:56 ALT 18 units/L (7-56) 01/05/22 17:56 Alkaline Phosphatase 87 units/L (35-129) 01/05/22 17:56 Total Creatine Kinase 175 units/L (55-170) H 01/05/22 17:56 CK-MB (CK-2) 2.3 ng/mL (0.0-4.0) 01/05/22 17:56 CK-MB (CK-2) Rel Index 1.3 (0-4) 01/05/22 17:56 Troponin T < 0.010 ng/mL (0.00-0.029) 01/05/22 17:56 Total Protein 6.8 g/dL (6.3-8.2) 01/05/22 17:56 Albumin 3.8 g/dL (3.9-5) L 01/05/22 17:56 Albumin/Globulin Ratio 1.3 % 01/05/22 17:56 TSH 1.840 mlU/mL (0.270-4.200) 01/05/22 17:56 Salicylates < 0.3 mg/dL (2.8-20.0) L 01/05/22 17:56 Acetaminophen 5.0 ug/mL (10.0-30.0) L 01/05/22 17:56 Plasma/Serum Alcohol < 0.01 % (0-0.07) 01/05/22 17:56 [place]/IV: Voiding Method Toilet Active Medications - Current Medications Current Medications: Generic Name Dose Route Start Last Admin Trade Name Freq PRN Reason Stop Dose Admin Acetaminophen 650 mg 01/05/22 19:37 Acetaminophen 325 Mg Tab PO Q4H PRN Pain, Mild (1-3) Atorvastatin Calcium 40 mg 01/05/22 22:00 01/07/22 00:19 Atorvastatin 40 Mg Tab PO 40 mg QHS ADRIAN Administration Bisacodyl 10 mg 01/05/22 19:37 Bisacodyl 10 Mg Rect Supp MN QDAY PRN Constipation Hydromorphone HCl 0.5 mg 01/05/22 19:37 Hydromorphone 1 Mg/1 Ml Inj IV Q23H PRN Pain , Severe (7-10) Magnesium Hydroxide 30 ml 01/05/22 19:37 Magnesium Hydroxide (Mom) Oral Liqd Udc PO Q4H PRN Constipation Metoclopramide HCl 10 mg 01/05/22 19:37 Metoclopramide 10 Mg Tab PO Q6H PRN Nausea And Vomiting Ondansetron HCl 4 mg 01/05/22 19:37 Ondansetron 4 Mg/2 Ml Inj IV Q8H PRN Nausea And Vomiting Oxycodone/Acetaminophen 1 tab 01/05/22 19:37 Oxycodone /Acetaminophen 5-325mg Tab PO Q16H PRN Pain, Moderate (4-6) Promethazine HCl 25 mg 01/05/22 19:37 Promethazine 25 Mg Rect Supp MN Q6H PRN Nausea And Vomiting Sodium Chloride 10 ml 01/05/22 19:37 Sodium Chloride 0.9% 10 Ml Flush Syringe IV PRN PRN LINE FLUSH
--- NOTE | 2022-01-07 09:22 | Consultation ---
History of Present Illness Consult date: 01/07/22 Reason for Consult: possible CVA post TPA,abnormal CT brain post TPA History of present illness: I think he had a stroke History of present illness: 46 YO Male with HTN, DM, Nicotine Dependence, ETOH Dependence, PSA, Medication Noncompliance, Homeless presents to ED for evaluation. Patient has diminished cognition is unable to provide detailed history. Patient is provided by EMS staff, ED staff. As per staff the patient was seen and evaluated in the emergency department earlier today and was discharged. Patient walked across the street and notified EMS. Upon arrival the patient was found to have a suspected neurologic deficit. A code stroke was called and the patient was transported to [facility] for further care and evaluation of the aforementioned symptoms. The patient was seen and evaluated in the emergency department. All lab and imaging studies reviewed. Patient was administered TPA in the emergency department. No reports of fever, chills, chest pain, palpitation or productive cough, skin rash, recent contact, known exposure to COVID-19. Patient admitted to ICU and initiated on CVA protocol. Critical care team consulted in ED. Patient has diminished cognition but has a positive gag reflex and is able to protect his airway without difficulty. Advanced care planning conducted in ED. prior admission on 12/18/2021 reviewed. All medication listed at time of admission has been reconciled. In Er Ct brain was unremarkable CTA brain and neck are unremarkable Repeat CT brain yesterday is suggestive of new onset of right fronto-parietal infarct MRI confirm above with findings of mild edema Neurology is consulted due to MRI/CT brain findings he is started on ASA and Lipitor echo is pending US carotid is <50% stenosis bilateral. Past History Past Medical History: diabetes, hypertension Past Surgical History: Other (Ear surgery) Social history: single, smoking Family history: diabetes, hypertension Medications and Allergies Allergies Allergy/AdvReac Type Severity Reaction Status Date / Time ciprofloxacin Allergy Hives Verified 12/19/21 08:52 Sulfa (Sulfonamide Allergy Hives Verified 12/19/21 08:52 Antibiotics) Home Medications Medication Instructions Recorded Confirmed Last Taken Type Ibuprofen [Motrin 800 MG tab] 800 mg PO Q8HR PRN #30 tablet 12/11/21 12/19/21 2 Months Ago Rx ~10/21/21 metFORMIN [Glucophage] 500 mg PO BID 30 Days #60 tab 12/11/21 12/19/21 2 Months Ago Rx ~10/21/21 carvediloL [Coreg] 3.125 mg PO BID #60 tablet 12/20/21 Unknown Rx lisinopriL [Zestril TAB] 5 mg PO QDAY #30 tablet 12/20/21 Unknown Rx Ondansetron [Zofran Odt] 4 mg PO Q8HR PRN #14 tab.rapdis 12/21/21 Unknown Rx traMADoL [Ultram 50 MG tab] 50 mg PO Q4HR PRN #14 tablet 12/21/21 Unknown Rx Prednisone [predniSONE 5 mg (6-Day 5 mg PO .TAPER #1 pack 12/29/21 Unknown Rx Pack, 21 Tabs)] guaiFENesin/CODEINE [Robitussin AC] 5 ml PO TID PRN #120 ml 12/29/21 Unknown Rx Review of Systems ROS unobtainable: due to mental status Past History Past Medical History: diabetes, hypertension Past Surgical History: Other (Ear surgery) Social history: single, smoking Family history: diabetes, hypertension Medications and Allergies Allergies Allergy/AdvReac Type Severity Reaction Status Date / Time ciprofloxacin Allergy Hives Verified 12/19/21 08:52 Sulfa (Sulfonamide Allergy Hives Verified 12/19/21 08:52 Antibiotics) Home Medications Medication Instructions Recorded Confirmed Last Taken Type Ibuprofen [Motrin 800 MG tab] 800 mg PO Q8HR PRN #30 tablet 12/11/21 12/19/21 2 Months Ago Rx ~10/21/21 metFORMIN [Glucophage] 500 mg PO BID 30 Days #60 tab 12/11/21 12/19/21 2 Months Ago Rx ~10/21/21 carvediloL [Coreg] 3.125 mg PO BID #60 tablet 12/20/21 Unknown Rx lisinopriL [Zestril TAB] 5 mg PO QDAY #30 tablet 12/20/21 Unknown Rx Ondansetron [Zofran Odt] 4 mg PO Q8HR PRN #14 tab.rapdis 12/21/21 Unknown Rx traMADoL [Ultram 50 MG tab] 50 mg PO Q4HR PRN #14 tablet 12/21/21 Unknown Rx Prednisone [predniSONE 5 mg (6-Day 5 mg PO .TAPER #1 pack 12/29/21 Unknown Rx Pack, 21 Tabs)] guaiFENesin/CODEINE [Robitussin AC] 5 ml PO TID PRN #120 ml 12/29/21 Unknown Rx Active Meds: Active Medications Acetaminophen (Acetaminophen 325 Mg Tab) 650 mg PO Q4H PRN PRN Reason: Pain, Mild (1-3) Aspirin (Aspirin Ec 81 Mg Tab) 81 mg PO QDAY [facility] Atorvastatin Calcium (Atorvastatin 40 Mg Tab) 40 mg PO QHS [facility] Last Admin: 01/07/22 00:19 Dose: 40 mg Bisacodyl (Bisacodyl 10 Mg Rect Supp) 10 mg [place] QDAY PRN PRN Reason: Constipation Hydromorphone HCl (Hydromorphone 1 Mg/1 Ml Inj) 0.5 mg IV Q23H PRN PRN Reason: Pain , Severe (7-10) Magnesium Hydroxide (Magnesium Hydroxide (Mom) Oral Liqd Udc) 30 ml PO Q4H PRN PRN Reason: Constipation Metoclopramide HCl (Metoclopramide 10 Mg Tab) 10 mg PO Q6H PRN PRN Reason: Nausea And Vomiting Ondansetron HCl (Ondansetron 4 Mg/2 Ml Inj) 4 mg IV Q8H PRN PRN Reason: Nausea And Vomiting Oxycodone/Acetaminophen (Oxycodone /Acetaminophen 5-325mg Tab) 1 tab PO Q16H PRN PRN Reason: Pain, Moderate (4-6) Promethazine HCl (Promethazine 25 Mg Rect Supp) 25 mg [place] Q6H PRN PRN Reason: Nausea And Vomiting Sodium Chloride (Sodium Chloride 0.9% 10 Ml Flush Syringe) 10 ml IV PRN PRN PRN Reason: LINE FLUSH Physical Examination - Vital Signs Vital Signs: Vital Signs Pulse Resp BP Pulse Ox 102 H 18 135/82 97 01/05/22 18:44 01/05/22 18:44 01/05/22 18:44 01/05/22 18:44 - Constitutional General appearance: comfortable - EENT EENT: Present: PERRL, mucous membranes moist - Respiratory Respiratory: Present: lungs clear, rhonchi - Cardiovascular Cardiovascular: Present: regular rate, normal S1, normal S2 Extremities: Present: no peripheral edema bilatateraly, no clubbing, cyanosis - Gastrointestinal Gastrointestinal: Present: normoactive bowel sounds - Integumentary Integumentary: Present: normal - Neurologic Cranial nerve examination: PERRL, EOMI, facial droop Speech examination: other (slurred speech he is alert and oriented , no aphasia is noted) Detailed motor examination: other (left upper is 3/5 left lower is 4/5 , reflexes are supressed , gait not done) - Level of Consciousness 1a. Level of Consciousness: alert/keenly responsive - LOC Questions 1b. LOC Questions: answers both correctly - LOC Command 1c. LOC Commands: performs tasks correctly - Best Gaze 2. Best Gaze: normal - Visual 3. Visual: no visual loss - Facial Palsy 4. Facial Palsy: partial paralysis - Motor Arm 5a. Motor Arm Left: some gravity effort 5b. Motor Arm Right: no drift - Motor Leg 6a. Motor Leg Left: drift 6b. Motor Leg Right: no drift - Limb Ataxia 7. Limb Ataxia: absent - Sensory 8. Sensory: normal - Best Language 9. Best Language: no aphasia - Dysarthria 10. Dysarthria: normal - Extinction and Inattention 11. Extinction/Inattention: no abnormality - Scoring Total Score: 5 Stroke Severity: Moderate Stroke Results - Laboratory Findings CBC and BMP: 01/05/22 17:56 01/05/22 17:56 Abnormal Lab Findings: Abnormal Labs 01/05/22 01/05/22 01/05/22 17:56 17:56 17:56 MCV 101 H MCH 34 H Lymph % (Auto) 38.7 H [place] % (Auto) 9.5 H Glucose 280 H Total Creatine Kinase 175 H Albumin 3.8 L Salicylates < 0.3 L Acetaminophen 01/05/22 17:56 MCV MCH Lymph % (Auto) [place] % (Auto) Glucose Total Creatine Kinase Albumin Salicylates Acetaminophen 5.0 L Assessment and Plan Assessment and Plan 46 YO Male with HTN, DM, Nicotine Dependence, ETOH Dependence, PSA, Medication Noncompliance, Suspected Malingering, Homelessness presents to ED for evaluation. Patient has diminished cognition is unable to provide detailed history. Patient is provided by EMS staff, ED staff. As per staff the patient was seen and evaluated in the emergency department earlier today and was discharged. Patient walked across the street and notified EMS. Upon arrival the patient was found to have a suspected neurologic deficit. A code stroke was called and the patient was transported to [facility] for further care and evaluation of the aforementioned symptoms. The patient was seen and evaluated in the emergency department. - Patient Problems # New onset left side weakness -R/O CVA (cerebral vascular accident) -Initial CT brain and CTA brain and neck are unremarkable -pt. was given TPA in ER -Initial NIH#10-- today is #5 -Initial BP#168/86 -Repeat CT brain is suggestive of right Fronto-parietal CVA with slight brain edema no shift ,no hemorrhage -MRI brain today confirm same -Neurocheck q 8 hours. -US carotid is <50% bilateral -LDL is pending -A1C is pending -Echo is pending -Pt/ST evaluate - will repeat CT brain am or earlier if change in mentation -On ASA 325 mg and Lipitor 40 mg -Cardiac monitoring # Diabetes -Consistent carbohydrate diet, Accu-Chek, insulin protocol, hypoglycemia protocol -A1C is pending # Hypertension -Monitor blood pressure every shift, permissive hypertension overnight. # Medical non-compliance -Patient counseled. # Nicotine dependence -Smoking cessation counseling, supportive care, # DVT prophylaxis -SCDs bilateral lower extremities while in bed will follow
[2022-01-07] MEDS: ASPIRIN EC 81 MG TAB PO SCH (09:53)
--- NOTE | 2022-01-07 11:55 | Magnetic Resonance Report ---
MRI BRAIN 01/07/2022 INDICATION / CLINICAL INFORMATION: cva, LT SIDED WEAKNESS, . TECHNIQUE: Multiplanar, multisequence MR images of the brain were obtained. COMPARISON: CT brain 01/06/2022 FINDINGS: BRAIN / INTRACRANIAL CONTENTS: Unenhanced MR images of the brain were obtained and compared to the pr ior brain CT 01/06/2022. There is acute ischemic injury in the right frontoparietal cortex and frontal operculum, correspondin g to the area of hypodensity seen on the earlier head CT. Restricted diffusion and increased T2-weigh tank signal is present associated with cortical edema and swelling. There is no evidence of hemorrhage. No separate territories of acute ischemic change are present. Underlying brain parenchyma demonstrates no other evidence of abnormality. Ventricles and sulci are o therwise normal in size and shape. There are no abnormal extra-axial fluid collections. EXTRACRANIAL: Unremarkable CRANIOCERVICAL JUNCTION: No significant abnormality. VASCULAR FLOW-VOIDS: No significant abnormality. IMPRESSION: Acute/recent partial right MCA territory infarct. Signer Name: Stan Da Silva MD Signed: 01/07/2022 11:51 AM Workstation Name: [id number]
[2022-01-07] MEDS ORDERED: DEXTROSE 50% IN WATER (25GM) 50 ML SYRINGE IV PRN (15:52)
[2022-01-07] MEDS: INSULIN LISPRO 100 UNIT/ML SUB-Q SCH ×2 (17:12→21:45)
[2022-01-07] MEDS: INSULIN GLARGINE 100 UNITS/ML SUB-Q SCH (21:45)
[2022-01-08 04:41] LABS: Chol/HDL Ratio 3.41 %
--- NOTE | 2022-01-08 09:30 | Cat Scan Report ---
CT HEAD WITHOUT CONTRAST INDICATION / CLINICAL INFORMATION: cerebral edema status. TECHNIQUE: Axial imaging performed from the skull apex through the skull base without the use of cont rast. Sagittal and coronal reformatted images. All CT scans at this location are performed using CT dose reduction for ALARA by means of automated exposure control. COMPARISON: CT head 01/06/2022. MR brain 01/07/2022. FINDINGS: CEREBRAL PARENCHYMA: Ischemic infarct in the right MCA distribution appears unchanged in size and con tour since previous exams. Mild mass effect on the right ventricle is stable. No new areas of abnorma l brain density of developed. HEMORRHAGE: None. EXTRA-AXIAL SPACES: Normal in size and morphology for the patient's age. VENTRICULAR SYSTEM: Normal in size and morphology for the patient's age. MIDLINE SHIFT OR HERNIATION: None. CEREBELLUM / BRAINSTEM: No significant abnormality. CALVARIUM: No significant abnormality. ORBITS: Normal as visualized. PARANASAL SINUSES / MASTOID AIR CELLS: Normal as visualized. SOFT TISSUES of HEAD: No significant abnormality. ADDITIONAL FINDINGS: None. IMPRESSION: Stable findings since 01/06/2022. Evolving ischemic infarct in the right MCA distribution. Signer Name: Horace Blandon Jr, MD Signed: 01/08/2022 9:25 AM Workstation Name: [id number]
[2022-01-08] MEDS: INSULIN LISPRO 100 UNIT/ML SUB-Q SCH ×4 (09:33→22:00)
[2022-01-08] MEDS: ASPIRIN EC 81 MG TAB PO SCH (09:33)
--- NOTE | 2022-01-08 11:24 | Electrocardiograph Report ---
[facility] Test Date: 2022-01-07 Test Time: 08:09:21 Pat Name: JUNO NICHOLSON Department: Room: A479 1 Gender: M Entry Level Management: JERRELL : 1975 Requested By: DAYDAY TAYLOR Order Number: [id number] Reading MD: Jacob Harley Measurements Intervals [place] Rate: 64 P: 51 AR: 141 QRS: -56 QRSD: 85 T: QT: 495 QTc: 511 Interpretive Statements Sinus rhythm LAD, consider left anterior fascicular block Left ventricular hypertrophy Abnormal T, probable ischemia, widespread ST elevation, consider inferior injury Prolonged QT interval Electronically Signed On 01-08-2022 11:23:40 EDT by Jacob Harley
--- NOTE | 2022-01-08 13:15 | Progress Note ---
Assessment and Plan Assessment and Plan 46 YO Male with HTN, DM, Nicotine Dependence, ETOH Dependence, PSA, Medication Noncompliance, Suspected Malingering, Homelessness presents to ED for evaluation. Patient has diminished cognition is unable to provide detailed history. Patient is provided by EMS staff, ED staff. As per staff the patient was seen and evaluated in the emergency department earlier today and was discharged. Patient walked across the street and notified EMS. Upon arrival the patient was found to have a suspected neurologic deficit. A code stroke was called and the patient was transported to [facility] for further care and evaluation of the aforementioned symptoms. [facility] - Patient Problems # New onset left side weakness -R/O CVA (cerebral vascular accident) -Initial CT brain and CTA brain and neck are unremarkable -pt. was given TPA in ER -Initial NIH#10-- today is #5 -Initial BP#168/86 -Repeat CT brain is suggestive of right Fronto-parietal CVA with slight brain edema no shift ,no hemorrhage -MRI brain today confirm same -Neurocheck q shift -US carotid is <50% bilateral -LDL is #85 -A1C is# 8.6 -Echo islimited study due to motion with bubble study is negative -Pt/ST evaluate-- rehabilitation - will repeat CT brain am or earlier if change in mentation-- no change in status -On ASA 325 mg and Lipitor 40 mg -Cardiac monitoring # Diabetes -Consistent carbohydrate diet, Accu-Chek, insulin protocol, hypoglycemia protocol -A1C is #8.6 # Hypertension -Monitor blood pressure every shift, permissive hypertension overnight. # Medical non-compliance -Patient counseled. # Nicotine dependence -Smoking cessation counseling, supportive care, # DVT prophylaxis -SCDs bilateral lower extremities while in bed will follow Subjective Date of service: 01/08/22 Interval history: status is unchanged he is responsive interactive wants to eat - had his breakfast left side weakness is unchanged repeat CT brain is noted no change in brain swelling , no hemorrhage , no shift Objective - Vital Sign Vital Signs - 12hr 01/08/22 01/08/22 01/08/22 03:04 04:00 07:10 Temperature 99.0 F Pulse Rate 90 79 Pulse Rate [ From Monitor] Respiratory 20 Rate Blood Pressure 125/79 O2 Sat by Pulse 95 96 Oximetry 01/08/22 01/08/22 01/08/22 07:28 11:27 12:00 Temperature 98.2 F Pulse Rate 82 Pulse Rate [ 79 From Monitor] Respiratory 18 18 Rate Blood Pressure 132/78 131/80 O2 Sat by Pulse 97 96 Oximetry - General Apperance Constitutional: comfortable - EENT EENT: PERRL, mucous membranes moist - Respiratory Respiratory: lungs clear, rhonchi - Cardiovascular Cardiovascular: regular rate, normal S1, normal S2 Extremities: no peripheral edema bilat, no clubbing, cyanosis - Gastrointestinal Gastrointestinal: normoactive bowel sounds - Integumentary Integumentary: normal - Neurologic Cranial nerve examination: PERRL, EOMI, facial droop Speech examination: intact Detailed motor examination: other (left side weakness left upper 2/5 lower4-/5 , gait not done ) - Laboratory Findings CBC and BMP: 01/05/22 17:56 01/05/22 17:56 Abnormal Lab Findings: Abnormal Labs 01/05/22 01/05/22 01/05/22 17:56 17:56 17:56 MCV 101 H MCH 34 H Lymph % (Auto) 38.7 H [place] % (Auto) 9.5 H Glucose 280 H POC Glucose Hemoglobin A1c Total Creatine Kinase 175 H Albumin 3.8 L Salicylates < 0.3 L Acetaminophen 01/05/22 01/07/22 01/07/22 17:56 08:09 12:29 MCV MCH Lymph % (Auto) [place] % (Auto) Glucose POC Glucose 182 H 178 H Hemoglobin A1c Total Creatine Kinase Albumin Salicylates Acetaminophen 5.0 L 01/07/22 01/07/22 01/07/22 13:12 16:38 21:01 MCV MCH Lymph % (Auto) [place] % (Auto) Glucose POC Glucose 201 H 226 H Hemoglobin A1c 8.6 H Total Creatine Kinase Albumin Salicylates Acetaminophen
--- NOTE | 2022-01-08 15:09 | Progress Note ---
Assessment and Plan Assessment and plan: History of present illness: 46 YO Male with HTN, DM, Nicotine Dependence, ETOH Dependence, PSA, Medication Noncompliance, Suspected Malingering, Homelessness presents to ED for e valuation. Patient has diminished cognition is unable to provide detailed history. Patient is provided by EMS staff, ED staff. As per staff the patient was seen and evaluated in the emergency department earlier today and was discharged. Patient walked across the street and notified EMS. Upon arrival the patient was found to have a suspected neurologic deficit. A code stroke was called and the patient was transported to [facility] for further care and evaluation of the aforementioned symptoms. The patient was seen and evaluated in the emergency department. All lab and imaging studies reviewed. Patient was administered TPA in the emergency department. No reports of fever, chills, chest pain, palpitation or productive cough, skin rash, recent contact, known exposure to COVID-19. Patient admitted to ICU and initiated on CVA protocol. Critical care team consulted in ED. Patient has diminished cognition but has a positive gag reflex and is able to protect his airway without difficulty. Advanced care planning conducted in ED. prior admission on 12/18/2021 reviewed. All medication listed at time of admission has been reconciled. Hospital Course: 01/06: 24 hr s/p tpa ct brain pending. Will start ASA if negative for hemorrhagic conversion and transfer to floor. Follow neuro recs. Will follow therapy recommendations. anticipate d/c in next 24-48 hrs. 01/07: CT completed but image not read until later in evening. Initiated on aspirin as no signs of hemorrhagic transformation. CT brain does show evolving rt MCA distribution infarct and early signs of cerebral edema. Currently on floor bed. Pending MRI brain. Awaiting neuro input. Awaiting PT/ST eval. 01/08: continue eval by ST who will determine needs. Will need re-assessment of overall strength as patient is very week. RN advised to reach out to PT to reassess. Repeat CT head ordered was unchanged from 01/06 study. Will follow neuro recs. Assessment and plan: (1) CVA (cerebral vascular accident) Current Visit: Yes Status: Acute Plan to address problem: TPA administered in ED. CT brain on admission: no focal mass, hemorrhage, hydrocephalus, or acute large territorial infarct visualized 24 hr s/p CT brain: evolution of rt mca distribution infarct involving frontoparietal perisylvian region. Findings compatible with dev cerebral edema. no hemorrhagic transformation. CTA head: no acute stenosis abnl CTA neck: no acute stenosis or abnl ECHO pending US Carotid : less than 50% occlusion bl lipid panel, a1c, tsh MR Brain confirm above ct brain findings, also notes mild edema neurology consulted PCCM consulted (2) Diabetes Current Visit: No Status: Acute Plan to address problem: Consistent carbohydrate diet, Accu-Chek, insulin protocol, hypoglycemia protocol (3) Hypertension Current Visit: No Status: Acute Qualifiers: Hypertension type: primary hypertension Qualified Code(s): I10 - Essential (primary) hypertension Plan to address problem: Monitor blood pressure every shift, permissive hypertension overnight. (4) Medical non-compliance Current Visit: No Status: Acute Plan to address problem: Patient counseled. (5) Nicotine dependence Current Visit: No Status: Acute Qualifiers: Nicotine product type: cigarettes Substance use status: in withdrawal Qualified Code(s): F17.213 - Nicotine dependence, cigarettes, with withdrawal Plan to address problem: Smoking cessation counseling, supportive care, (6) DVT prophylaxis Current Visit: No Status: Acute Plan to address problem: SCDs bilateral lower extremities while in bed (7) Advance care planning Current Visit: No Status: Acute Plan to address problem: Disease education conducted, care plan discussed, diagnoses discussed, prognosis discussed, patient is full code, +30 minutes. History Interval history: Patient was seen and evaluated. Only complaint today was persistent weakness. Per RN, patient was able to swallow properly and had drank juice. However, on enocunter patient did not want to eat food tray and not able to get out of bed. D/w RN Lola, who will reach out to PT so repeat assessment can be completed. Hospitalist Physical - Physical exam Narrative exam: General appearance: Present: no acute distress - EENT Eyes: Present: PERRL ENT: hearing intact, clear oral mucosa - Neck Neck: Present: supple, normal ROM - Respiratory Respiratory effort: normal Respiratory: bilateral: CTA - Cardiovascular Heart Sounds: Present: S1 & S2. Absent: rub, click - Extremities Extremities: pulses symmetrical, No edema Peripheral Pulses: within normal limits - Abdominal General gastrointestinal: Present: soft, non-tender, non-distended, normal bowel sounds Male genitourinary: Present: normal - Integumentary Integumentary: Present: clear, warm, dry - Musculoskeletal Musculoskeletal: gait normal, strength equal bilaterally - Psychiatric Psychiatric: appropriate mood/affect, intact judgment & insight - Neurologic Neurologic: CNII-XII intact, left upper extremity weakness, dysarthria. - Constitutional Vitals: Temp Pulse Resp BP Pulse Ox 98.2 F 79 18 131/80 96 01/08/22 07:28 01/08/22 12:00 01/08/22 12:00 01/08/22 11:27 01/08/22 12:00 General appearance: Present: no acute distress HEART Score - HEART Score Troponin: Troponin T < 0.010 ng/mL (0.00-0.029) 01/05/22 17:56 Results - Labs CBC & Chem 7: 01/05/22 17:56 01/05/22 17:56 Labs: Laboratory Last Values WBC 7.3 K/mm3 (4.5-11.0) 01/05/22 17:56 RBC 4.00 M/mm3 (3.65-5.03) 01/05/22 17:56 Hgb 13.8 gm/dl (11.8-15.2) 01/05/22 17:56 Hct 40.3 % (35.5-45.6) 01/05/22 17:56 MCV 101 fl (84-94) H 01/05/22 17:56 MCH 34 pg (28-32) H 01/05/22 17:56 MCHC 34 % (32-34) 01/05/22 17:56 RDW 14.4 % (13.2-15.2) 01/05/22 17:56 Plt Count 178 K/mm3 (140-440) 01/05/22 17:56 Lymph % (Auto) 38.7 % (13.4-35.0) H 01/05/22 17:56 Valencia % (Auto) 9.5 % (0.0-7.3) H 01/05/22 17:56 Eos % (Auto) 2.0 % (0.0-4.3) 01/05/22 17:56 Baso % (Auto) 0.2 % (0.0-1.8) 01/05/22 17:56 Lymph # (Auto) 2.8 K/mm3 (1.2-5.4) 01/05/22 17:56 Valencia # (Auto) 0.7 K/mm3 (0.0-0.8) 01/05/22 17:56 Eos # (Auto) 0.2 K/mm3 (0.0-0.4) 01/05/22 17:56 Baso # (Auto) 0.0 K/mm3 (0.0-0.1) 01/05/22 17:56 Seg Neutrophils % 49.6 % (40.0-70.0) 01/05/22 17:56 Seg Neutrophils # 3.6 K/mm3 (1.8-7.7) 01/05/22 17:56 PT 13.5 Sec. (12.2-14.9) 01/05/22 17:56 INR 0.93 (0.87-1.13) 01/05/22 17:56 APTT 26.8 Sec. (24.2-36.6) 01/05/22 17:56 Thrombin Time 15.7 Sec. (15.1-19.6) 01/05/22 17:56 Sodium 138 mmol/L (137-145) 01/05/22 17:56 Potassium 4.2 mmol/L (3.6-5.0) 01/05/22 17:56 Chloride 104.6 mmol/L (98-107) 01/05/22 17:56 Carbon Dioxide 22 mmol/L (22-30) 01/05/22 17:56 Anion Gap 16 mmol/L 01/05/22 17:56 BUN 17 mg/dL (9-20) 01/05/22 17:56 Creatinine 1.1 mg/dL (0.8-1.3) 01/05/22 17:56 Estimated GFR > 60 ml/min 01/05/22 17:56 BUN/Creatinine Ratio 15 % 01/05/22 17:56 Glucose 280 mg/dL (75-100) H 01/05/22 17:56 POC Glucose 226 mg/dL (70-105) H 01/07/22 21:01 Hemoglobin A1c 8.6 % (4-6) H 01/07/22 13:12 Calcium 9.0 mg/dL (8.4-10.2) 01/05/22 17:56 Total Bilirubin 0.30 mg/dL (0.1-1.2) 01/05/22 17:56 AST 16 units/L (5-40) 01/05/22 17:56 ALT 18 units/L (7-56) 01/05/22 17:56 Alkaline Phosphatase 87 units/L (35-129) 01/05/22 17:56 Total Creatine Kinase 175 units/L (55-170) H 01/05/22 17:56 CK-MB (CK-2) 2.3 ng/mL (0.0-4.0) 01/05/22 17:56 CK-MB (CK-2) Rel Index 1.3 (0-4) 01/05/22 17:56 Troponin T < 0.010 ng/mL (0.00-0.029) 01/05/22 17:56 Total Protein 6.8 g/dL (6.3-8.2) 01/05/22 17:56 Albumin 3.8 g/dL (3.9-5) L 01/05/22 17:56 Albumin/Globulin Ratio 1.3 % 01/05/22 17:56 Triglycerides 100 mg/dL (2-149) 01/08/22 03:55 Cholesterol 147 mg/dL (50-199) 01/08/22 03:55 LDL Cholesterol Direct 85 mg/dL (50-130) 01/08/22 03:55 HDL Cholesterol 43 mg/dL (40-59) 01/08/22 03:55 Cholesterol/HDL Ratio 3.41 % 01/08/22 03:55 TSH 0.279 mlU/mL (0.270-4.200) 01/07/22 13:12 Salicylates < 0.3 mg/dL (2.8-20.0) L 01/05/22 17:56 Acetaminophen 5.0 ug/mL (10.0-30.0) L 01/05/22 17:56 Plasma/Serum Alcohol < 0.01 % (0-0.07) 01/05/22 17:56 Redman/IV: Voiding Method Urinal Active Medications - Current Medications Current Medications: Generic Name Dose Route Start Last Admin Trade Name Freq PRN Reason Stop Dose Admin Acetaminophen 650 mg 01/05/22 19:37 01/07/22 18:44 Acetaminophen 325 Mg Tab PO 650 mg Q4H PRN Administration Pain, Mild (1-3) Aspirin 81 mg 01/07/22 10:00 01/08/22 09:33 Aspirin Ec 81 Mg Tab PO 81 mg QDAY ADRIAN Administration Atorvastatin Calcium 40 mg 01/05/22 22:00 01/07/22 21:39 Atorvastatin 40 Mg Tab PO 40 mg QHS [facility] Administration Bisacodyl 10 mg 01/05/22 19:37 Bisacodyl 10 Mg Rect Supp [place] QDAY PRN Constipation Dextrose 50 ml 01/07/22 15:52 Dextrose 50% In Water (25gm) 50 Ml Syringe IV Q30MIN PRN Hypoglycemia Protocol Hydromorphone HCl 0.5 mg 01/05/22 19:37 01/07/22 23:42 Hydromorphone 1 Mg/1 Ml Inj IV 0.5 mg Q23H PRN Administration Pain , Severe (7-10) Insulin Glargine 10 units 01/07/22 22:00 01/07/22 21:45 Insulin Glargine 100 Units/Ml SUB-Q 10 units QHS [facility] Administration Insulin Human Lispro 0 unit 01/07/22 16:30 01/08/22 12:48 Insulin Lispro 100 Unit/Ml SUB-Q Not Given ACHS [facility] Protocol Magnesium Hydroxide 30 ml 01/05/22 19:37 Magnesium Hydroxide (Mom) Oral Liqd Udc PO Q4H PRN Constipation Metoclopramide HCl 10 mg 01/05/22 19:37 Metoclopramide 10 Mg Tab PO Q6H PRN Nausea And Vomiting Ondansetron HCl 4 mg 01/05/22 19:37 Ondansetron 4 Mg/2 Ml Inj IV Q8H PRN Nausea And Vomiting Oxycodone/Acetaminophen 1 tab 01/05/22 19:37 Oxycodone /Acetaminophen 5-325mg Tab PO Q16H PRN Pain, Moderate (4-6) Promethazine HCl 25 mg 01/05/22 19:37 Promethazine 25 Mg Rect Supp WV Q6H PRN Nausea And Vomiting Sodium Chloride 10 ml 01/05/22 19:37 Sodium Chloride 0.9% 10 Ml Flush Syringe IV PRN PRN LINE FLUSH
[2022-01-08] MEDS: INSULIN GLARGINE 100 UNITS/ML SUB-Q SCH (23:13)
[2022-01-09] MEDS: INSULIN LISPRO 100 UNIT/ML SUB-Q SCH ×3 (08:57→18:10)
[2022-01-09] MEDS: ASPIRIN EC 81 MG TAB PO SCH (08:59)
--- NOTE | 2022-01-09 14:26 | Discharge Summary ---
Providers - Providers Date of Admission: 01/05/22 19:39 Date of discharge: 01/09/22 Attending physician: VALENTINO AGUILA MD 01/05/22 19:39 Occupational Therapy Evaluate and Treat [CONS] Routine Comment: Reason For Exam: Neuro deficits Physical Therapy Evaluation and Treat [CONS] Routine Comment: Reason For Exam: Neuro deficits 01/07/22 08:25 Consult to Physician [CONS] Routine Comment: Consulting Provider: DAVID QUESADA Physician Instructions: Reason For Exam: cva 01/07/22 13:36 Speech Therapy Evaluation and Treat [CONS] Routine Reason For Exam: dysarthria/dysphagia eval 01/07/22 18:49 Speech Therapy Evaluation and Treat [CONS] Routine Reason For Exam: coughing while eating Primary care physician: FIRE ENGINEER Hospitalization Condition: Critical Hospital course: History of present illness: 46 YO Male with HTN, DM, Nicotine Dependence, ETOH Dependence, PSA, Medication Noncompliance, Suspected Malingering, Homelessness presents to ED for evaluation. Patient has diminished cognition is unable to provide detailed history. Patient is provided by EMS staff, ED staff. As per staff the patient was seen and evaluated in the emergency department earlier today and was discharged. Patient walked across the street and notified EMS. Upon arrival the patient was found to have a suspected neurologic deficit. A code stroke was called and the patient was transported to [facility] for further care and evaluation of the aforementioned symptoms. The patient was seen and evaluated in the em ergency department. All lab and imaging studies reviewed. Patient was administered TPA in the emergency department. No reports of fever, chills, chest pain, palpitation or productive cough, skin rash, recent contact, known exposure to COVID-19. Patient admitted to ICU and initiated on CVA protocol. Critical care team consulted in ED. Patient has diminished cognition but has a positive gag reflex and is able to protect his airway without difficulty. Advanced care planning conducted in ED. prior admission on 12/18/2021 reviewed. All medication listed at time of admission has been reconciled. Hospital Course: 01/06: 24 hr s/p tpa ct brain pending. Will start ASA if negative for hemorrhagic conversion and transfer to floor. Follow neuro recs. Will follow therapy recommendations. anticipate d/c in next 24-48 hrs. 01/07: CT completed but image not read until later in evening. Initiated on aspirin as no signs of hemorrhagic transformation. CT brain does show evolving rt MCA distribution infarct and early signs of cerebral edema. Currently on floor bed. Pending MRI brain. Awaiting neuro input. Awaiting PT/ST eval. 01/08: continue eval by ST who will determine needs. Will need re-assessment of overall strength as patient is very week. RN advised to reach out to PT to reassess. Repeat CT head ordered was unchanged from 01/06 study. Will follow neuro recs. 01/09: Symptomology improved. Able to swallow pureed diet. Patient able to ambulate and showered self yesterday night. Unfortunately, the patient is homeless, thus our has already given patient community resources for homeless shelters. He will be given RX for aspirin and atorvastatin. Assessment and plan: (1) CVA (cerebral vascular accident) Current Visit: Yes Status: Acute Plan to address problem: TPA administered in ED. CT brain on admission: no focal mass, hemorrhage, hydrocephalus, or acute large territorial infarct visualized 24 hr s/p CT brain: evolution of rt mca distribution infarct involving frontoparietal perisylvian region. Findings compatible with dev cerebral edema. no hemorrhagic transformation. CTA head: no acute stenosis abnl CTA neck: no acute stenosis or abnl ECHO pending US Carotid : less than 50% occlusion bl lipid panel, a1c, tsh MR Brain confirm above ct brain findings, also notes mild edema neurology consulted PCCM consulted (2) Diabetes Current Visit: No Status: Acute Plan to address problem: Consistent carbohydrate diet, Accu-Chek, insulin protocol, hypoglycemia protocol (3) Hypertension Current Visit: No Status: Acute Qualifiers: Hypertension type: primary hypertension Qualified Code(s): I10 - Essential (primary) hypertension Plan to address problem: Monitor blood pressure every shift, permissive hypertension overnight. (4) Medical non-compliance Current Visit: No Status: Acute Plan to address problem: Patient counseled. (5) Nicotine dependence Current Visit: No Status: Acute Qualifiers: Nicotine product type: cigarettes Substance use status: in withdrawal Qualified Code(s): F17.213 - Nicotine dependence, cigarettes, with withdrawal Plan to address problem: Smoking cessation counseling, supportive care, (6) DVT prophylaxis Current Visit: No Status: Acute Plan to address problem: SCDs bilateral lower extremities while in bed (7) Advance care planning Current Visit: No Status: Acute Plan to address problem: Disease education conducted, care plan discussed, diagnoses discussed, prognosis discussed, patient is full code, +30 minutes. Disposition: 01 HOME / SELF CARE / HOMELESS Final Discharge Diagnosis (Prints w/discharge instructions): acute cerebrovascular accident. Time spent for discharge: 35 Core Measure Documentation - Palliative Care Palliative Care/ Comfort Measures: Not Applicable - Core Measures Any of the following diagnoses?: stroke - Stroke Discharge Requirements Statin for LDL = or >70 mg/dl on DC: Yes Anticoag for atrial fib/atrial flutter: No Reason for no anticoag for AF/F on DC: Not Indicated Antithrombotic for ischemic stroke: Yes Exam - Physical Exam Narrative exam: General appearance: Present: no acute distress - EENT Eyes: Present: PERRL ENT: hearing intact, clear oral mucosa - Neck Neck: Present: supple, normal ROM - Respiratory Respiratory effort: normal Respiratory: bilateral: CTA - Cardiovascular Heart Sounds: Present: S1 & S2. Absent: rub, click - Extremities Extremities: pulses symmetrical, No edema Peripheral Pulses: within normal limits - Abdominal General gastrointestinal: Present: soft, non-tender, non-distended, normal bowel sounds Male genitourinary: Present: normal - Integumentary Integumentary: Present: clear, warm, dry - Musculoskeletal Musculoskeletal: gait normal, strength equal bilaterally - Psychiatric Psychiatric: appropriate mood/affect, intact judgment & insight - Neurologic Neurologic: CNII-XII intact, left upper extremity weakness, dysarthria. - Constitutional Vitals: Temp Pulse Resp BP Pulse Ox 98.5 F 80 18 131/76 96 01/09/22 08:19 01/09/22 10:00 01/09/22 10:00 01/09/22 08:19 01/09/22 10:00 Plan Activity: no restrictions Weight Bearing Status: Weight Bear as Tolerated Diet: low fat, low cholesterol Follow up with: PRIMARY CARE,MD [Primary Care Provider] - 3-5 Days Prescriptions: AtorvaSTATin [Lipitor] 40 mg PO QHS 30 Days #30 tablet Aspirin EC [Halfprin EC] 81 mg PO QDAY 30 Days #30 tablet
[2022-01-09 15:59] VITALS: BP 118/75
== END 2022-01-09 19:21 | disposition home or self-care (01) | DRG 62 ==
LOC: ED 17:43 → CC1 19:39 → 4A 01-06 22:29
PROVIDERS: ADMIT Internal Medicine; ATTEND Internal Medicine
DX: I63.9 Cerebral infarction, unspecified (principal); F17.213 Nicotine dependence, cigarettes, with withdrawal; E11.9 Type 2 diabetes mellitus without complications; I10 Essential (primary) hypertension; Z59.00 Homelessness unspecified; Z88.2 Allergy status to sulfonamides; Z88.8 Allergy status to other drugs, medicaments and biological substances; Z79.84 Long term (current) use of oral hypoglycemic drugs; Z83.3 Family history of diabetes mellitus; Z82.49 Family history of ischemic heart disease and other diseases of the circulatory system; Z91.19 Patient's noncompliance with other medical treatment and regimen; Z79.899 Other long term (current) drug therapy
CPT/HCPCS: 36415; 70450; 70496; 70498; 70551; 71045; 80053; 80061; 80320; 82550; 82553; 82962; 83036; 84443; 84484; 85025; 85610; 85670; 85730; 93005; 93308; 93321; 93325; 93880; G0378; Q9967; G0480; J1170; J1815; J2765; J2997

== ENCOUNTER 2022-04-11 14:37 | Emergency (ER) | payer SELFPAY ==
[2022-04-11 14:51] VITALS: BP 126/81
== END 2022-04-12 13:48 | disposition home or self-care (01) ==
LOC: ED 14:37
DX: R69 Illness, unspecified (principal); Z53.21 Procedure and treatment not carried out due to patient leaving prior to being seen by health care provider

== ENCOUNTER 2022-04-25 07:55 | Emergency (ER) | payer SELFPAY ==
[2022-04-25] MEDS ORDERED: SODIUM CHLORIDE 0.9% 1000 ML 1,000 ML IV ONE (08:33)
--- NOTE | 2022-04-25 08:46 | Emergency Department Report ---
ED Neuro Deficit HPI - General Chief Complaint: Weakness Stated Complaint: SICK Time Seen by Provider: 04/25/22 08:34 Source: patient Mode of arrival: Ambulatory Limitations: No Limitations - History of Present Illness Initial Comments: 46-year-old male with multiple medical comorbidities presents for evaluation of acute on chronic worsening left lower extremity. Patient reports symptoms began 1 day ago. He denies any falls or trauma. He denies any headaches. No tingling numbness in his arm or leg. He states "my leg just feels weaker than he did before." Patient reports symptoms began yesterday afternoon but cannot specify the timeframe. No vision loss or other vision changes. No difficulty talking walking or word finding. Pain 0-10. - Related Data Home Medications: Previous Rx's Medication Instructions Recorded Last Taken Type Ibuprofen [Motrin 800 MG tab] 800 mg PO Q8HR PRN #30 tablet 12/11/21 12/28/21 Rx metFORMIN [Glucophage] 500 mg PO BID 30 Days #60 tab 12/11/21 01/04/22 Rx carvediloL [Coreg] 3.125 mg PO BID #60 tablet 12/20/21 12/29/21 Rx lisinopriL [Zestril TAB] 5 mg PO QDAY #30 tablet 12/20/21 12/30/21 Rx Ondansetron [Zofran Odt] 4 mg PO Q8HR PRN #14 tab.rapdis 12/21/21 01/06/22 Rx traMADoL [Ultram 50 MG tab] 50 mg PO Q4HR PRN #14 tablet 12/21/21 01/04/22 Rx Prednisone [predniSONE 5 mg (6-Day 5 mg PO .TAPER #1 pack 12/29/21 12/31/21 Rx Pack, 21 Tabs)] guaiFENesin/CODEINE [Robitussin AC] 5 ml PO TID PRN #120 ml 12/29/21 12/29/21 Rx Aspirin EC [Halfprin EC] 81 mg PO QDAY 30 Days #30 tablet 01/09/22 Unknown Rx AtorvaSTATin [Lipitor] 40 mg PO QHS 30 Days #30 tablet 01/09/22 Unknown Rx Allergies/Adverse Reactions: Allergies Allergy/AdvReac Type Severity Reaction Status Date / Time ciprofloxacin Allergy Hives Verified 04/11/22 14:51 Sulfa (Sulfonamide Allergy Hives Verified 04/11/22 14:51 Antibiotics) ED Review of Systems ROS: Stated complaint: SICK Other details as noted in HPI ED Past Medical Hx - Past Medical History Hx Hypertension: Yes (not taking meds) Hx Diabetes: Yes (not taking meds) Additional medical history: "heart problems" - Surgical History Additional Surgical History: R ear sx, 1982 - Social History Smoking Status: Smoker, Current Status Unknown - Medications Home Medications: Home Medications Medication Instructions Recorded Confirmed Last Taken Type Ibuprofen [Motrin 800 MG tab] 800 mg PO Q8HR PRN #30 tablet 12/11/21 01/08/22 12/28/21 Rx metFORMIN [Glucophage] 500 mg PO BID 30 Days #60 tab 12/11/21 01/08/22 01/04/22 Rx carvediloL [Coreg] 3.125 mg PO BID #60 tablet 12/20/21 01/08/22 12/29/21 Rx lisinopriL [Zestril TAB] 5 mg PO QDAY #30 tablet 12/20/21 01/08/22 12/30/21 Rx Ondansetron [Zofran Odt] 4 mg PO Q8HR PRN #14 tab.rapdis 12/21/21 01/08/2212/17 Rx traMADoL [Ultram 50 MG tab] 50 mg PO Q4HR PRN #14 tablet 12/21/21 01/08/22 01/04/22 Rx Prednisone [predniSONE 5 mg (6-Day 5 mg PO .TAPER #1 pack 12/29/21 01/08/22 12/31/21 Rx Pack, 21 Tabs)] guaiFENesin/CODEINE [Robitussin AC] 5 ml PO TID PRN #120 ml 12/29/21 01/08/22 12/29/21 Rx Aspirin EC [Halfprin EC] 81 mg PO QDAY 30 Days #30 tablet 01/09/22 Unknown Rx AtorvaSTATin [Lipitor] 40 mg PO QHS 30 Days #30 tablet 01/09/22 Unknown Rx ED Neuro Physical Exam - General Limitations: No Limitations General appearance: alert, in no apparent distress Suspected Stroke: Yes - Head Head exam: Present: atraumatic, normocephalic - Eye Eye exam: Present: normal appearance, PERRL, EOMI Pupils: Present: normal accommodation - ENT ENT exam: Present: normal exam, mucous membranes moist, normal external ear exam - Neck Neck exam: Present: normal inspection, full ROM - Respiratory Respiratory exam: Present: normal lung sounds bilaterally - Cardiovascular Cardiovascular Exam: Present: regular rate, normal rhythm, normal heart sounds - GI/Abdominal GI/Abdominal exam: Present: soft - Extremities Exam Extremities exam: Present: normal inspection, full ROM, normal capillary refill - Back Exam Back exam: Present: normal inspection, full ROM. Absent: tenderness, CVA tenderness (R), CVA tenderness (L), muscle spasm, paraspinal tenderness, vertebral tenderness, rash noted - Neurological Exam Neurological exam: Present: alert, oriented X3, CN II-XII intact, other (3/5 motor LUE; 4/5 motor LUE; 5/5 motor RUE/RLE) - NIHSS Assessment Interval: Baseline 1a. Level of Consciousness: alert/keenly responsive 1b. LOC Questions: answers both correctly 1c. LOC Commands: performs tasks correctly 2. Best Gaze: normal 3. Visual: no visual loss 4. Facial Palsy: normal symmetrical movement 5b. Motor Arm Right: no drift 5a. Motor Arm Left: drift 6a. Motor Leg Left: drift 6b. Motor Leg Right: no drift 7. Limb Ataxia: absent 8. Sensory: mild/moderate sensory loss 9. Best Language: no aphasia 10. Dysarthria: normal 11. Extinction/Inattention: no abnormality Total Score: 3 Stroke Severity: Minor Stroke - Psychiatric Psychiatric exam: Present: normal affect, normal mood, depressed - Skin Skin exam: Present: warm, dry, intact, normal color ED Course Vital Signs 04/25/22 04/25/22 04/25/22 08:05 10:05 10:51 Temperature 98.6 F Pulse Rate 105 H 66 Respiratory 16 18 Rate Blood Pressure 136/87 123/61 [Left] O2 Sat by Pulse 97 99 99 Oximetry - Reevaluation(s) Reevaluation #1: 04/25/22 11:16 Patient is comfortable and well-appearing, denies any pain Reevaluation #2: 04/25/22 11:16 Case reviewed via telephone with Dr. Pierce, on-call stroke neurologist. Per his verbal report patient is not a candidate for tPA or thrombectomy. He advises to give the patient full dose aspirin and admit the patient to the hospital service for MRI being done under the hospital service - Lab Data Result diagrams: 04/25/22 09:21 Lab Results 04/25/22 Range/Units 09:21 Sodium 140 (137-145) mmol/L Potassium 4.2 (3.6-5.0) mmol/L Chloride 104.0 (98-107) mmol/L Carbon Dioxide 26 (22-30) mmol/L Anion Gap 14 mmol/L BUN 15 (9-20) mg/dL Creatinine 1.2 (0.8-1.3) mg/dL Estimated GFR > 60 ml/min BUN/Creatinine Ratio 13 % Glucose 209 H (75-100) mg/dL Calcium 9.1 (8.4-10.2) mg/dL Total Bilirubin 0.50 (0.1-1.2) mg/dL AST 13 (5-40) units/L ALT 16 (7-56) units/L Alkaline Phosphatase 66 (35-129) units/L Troponin T < 0.010 (0.00-0.029) ng/mL Total Protein 6.9 (6.3-8.2) g/dL Albumin 3.9 (3.9-5) g/dL Albumin/Globulin Ratio 1.3 % - EKG Data -: EKG Interpreted by Me EKG shows normal: sinus rhythm (Left ventricular hypertrophy, T wave inversions in 3 and aVF, rate 81 bpm) Rate: normal When compared to previous EKG there are: no significant change Interpretation: no acute changes 04/25/22 11:14 Time interpreted 9 AM: Ventricular rate 81 bpm, P waves are present and proceed every QRS complex, patient has left ventricular hypertrophy, T wave inversions in 2, aVF - Radiology Data Radiology results: report reviewed - Medical Decision Making 46-year-old male with multiple medical comorbidities, including recent CVA in early 2021, presents for evaluation of left lower extremity worsening numbness and left upper extremity worsening numbness starting at 6 PM yesterday. Stroke alert initiated. Vital signs stable. NIH score per my assessment is 2. Patient's prior documented baseline is unknown. Patient was seen and evaluated by on-call stroke neurologist, Dr. Pierce. See patient's electronic health record for his documented impression and plan. Per my discussion with him, patient is not a tPA or candidate and neither is here, candidate for thrombectomy. He advises admission to the hospitalist service with MRI of the brain being performed by the hospitalist tomorrow. He also advises patient be given full dose aspirin. Patient's care has been transferred to Dr. Tavarez, admitting hospitalist, for f urther management. Critical care attestation.: If time is entered above; I have spent that time in minutes in the direct care of this critically ill patient, excluding procedure time. ED Disposition Clinical Impression: TIA (transient ischemic attack) Disposition: ADMITTED INPATIENT Is pt being admited?: Yes Does the pt Need Aspirin: Yes Condition: Stable
--- NOTE | 2022-04-25 09:23 | XRay Report ---
CHEST 1 VIEW 04/25/2022 8:58 AM INDICATION / CLINICAL INFORMATION: weakness. COMPARISON: One view of the chest from 01/05/2022. FINDINGS: SUPPORT DEVICES: None. HEART / MEDIASTINUM: Mild cardiomegaly is unchanged. No new significant abnormality. LUNGS / PLEURA: No significant pulmonary abnormality. No significant pleural effusion. No pneumothora x. ADDITIONAL FINDINGS: No significant additional findings. IMPRESSION: 1. No acute abnormality of the chest. 2. Stable mild cardiomegaly. Signer Name: Tristen Chong MD Signed: 04/25/2022 9:19 AM Workstation Name: [id number]
--- NOTE | 2022-04-25 09:30 | Cat Scan Report ---
NONENHANCED CT SCAN OF THE HEAD: INDICATION / CLINICAL INFORMATION: 46 years Male; hx of cva; p/w acute on chronic worsening LLE weak. TECHNIQUE: Routine CT head without contrast. All CT scans at this location are performed using CT dos e reduction for ALARA by means of automated exposure control. COMPARISON: CT scan of the head from December 20202021 and 01/06/2022 and MR scan of the brain from 01/07/2022 FINDINGS: BRAIN / INTRACRANIAL CONTENTS: Normally expected temporal changes seen in the right frontal lobe infa rction seen in December 2021. This infarction has not progressed. Adjacent cortical sulci are normal. No intracerebral hemorrhage or stroke mimics. Brainstem, cerebellar hemispheres in the left cerebral hemisphere are normal. No new acute/subacute i schemia or acute parenchymal lesion seen in the right cerebral hemisphere. CRANIOCERVICAL JUNCTION: No significant abnormality. ORBITS: No significant abnormality of visualized orbits. SINUSES / MASTOIDS: Large retention cyst in the left maxillary sinus ADDITIONAL FINDINGS: None. IMPRESSION: Chronic ischemic changes in the posterior right frontal lobe; no intracerebral hemorrhage or stroke m imics; no new area of acute/subacute ischemia CTA NECK WITH CONTRAST TECHNIQUE: Routine CTA of the neck was performed. 3-D/MIP reformats were postprocessed. Percentage s tenosis is determined by direct quantitative measurements of diseased internal carotid artery diamete r compared with normal distal internal carotid artery reference segments or by criteria similar to NA SCET where applicable.All CT scans at this location are performed using CT dose reduction for ALARA b y means of automated exposure control CONTRAST: 100 ml of Omnipaque 350 COMPARISON: CTA of the neck from 01/05/2022 FINDINGS: Aortic arch: Not included in the [id number]; proximal innominate, left common and left subclavian artery is normal Cervical vertebral arteries: Left vertebral origin normal; right vertebral origin is not seen; forami nal, extraspinal and intradural segments of both vertebral arteries normal. Common carotid arteries: No significant abnormality. Carotid bifurcations: Normal Cervical internal carotid arteries: No significant abnormality. Additional findings: 1 cm sized lesion in the right thyroid lobe near the inferior pole IMPRESSION: 1. No significant abnormality. CTA HEAD WITH CONTRAST COMPARISON: CTA of the head from 01/05/2022 TECHNIQUE: Routine non-contrast CT Head, CTA of the head and post-contrast CT Head are performed. 3-D /MIP reformats postprocessed. All CT scans at this location are performed using CT dose reduction for ALARA by means of automated exposure control CONTRAST: 100 ml of Omnipaque 350 FINDINGS: CTA Head: Intracranial vertebral arteries: Patent but diminutive Basilar artery: Patent but diminutive Posterior cerebral arteries: Both posterior communicating arteries are continuing as posterior cerebr al arteries; both posterior cerebral arteries are normal Intracranial internal carotid arteries: No significant abnormality. Anterior cerebral arteries: No significant abnormality. Middle cerebral arteries: No significant abnormality. One of the branches of the right middle cerebral artery in the sylvian fissure, presumably central br anch which was occluded has not recanalized. Dural venous sinuses:Not optimally opacified. No significant abnormality. Additional findings: None. IMPRESSION: 1. No significant abnormality. Signer Name: Trinh Spain MD Signed: 04/25/2022 9:25 AM Workstation Name: [email or web address]
[2022-04-25 10:09] LABS: Alanine Aminotransferase 16 units/L (7-56); Albumin 3.9 g/dL (3.9-5); BUN/Creatinine Ratio 13; Blood Urea Nitrogen 15 mg/dL (9-20); Calcium 9.1 mg/dL (8.4-10.2); Hemolysis Index 11
[2022-04-25] MEDS ORDERED: ASPIRIN 325 MG TAB PO ONE (11:07)
--- NOTE | 2022-04-25 11:13 | Consultation ---
History of Present Illness History of present illness: [facility] Consult Note # Demographics Consult Type: Acute Stroke Level 2 (4.5-24 hrs) Patient Location: Emergency Room First Name: Desmond Last Name: John Gender: Male Facility: [facility] Time of Initial Page (): 04/25/2022, 08:28 Time of Return Call ( Time): 04/25/2022, 08:28 # HPI History: 46M with HTN, stroke with residual left arm/leg weakness presents with worsened left leg weakness. Symptoms started yesterday afternoon. # Scores Time of exam and NIHSS (): 04/25/2022, 08:30 Level of Consciousness 1a: [0] = Alert; keenly responsive LOC Questions 1b: [0] = Answers both questions correctly LOC Commands 1c: [0] = Performs both tasks correctly Best Gaze 2: [0] = Normal Visual 3: [0] = No visual loss Facial Palsy 4: [0] = Normal symmetrical movements Motor Arm Left 5a: [1] = Drift Motor Arm Right 5b: [0] = No drift Motor Leg Left 6a: [1] = Drift Motor Leg Right 6b: [0] = No drift Limb Ataxia 7: [0] = Absent Sensory 8: [1] = [id number] sensory loss Best Language 9: [0] = No aphasia Dysarthria 10: [0] = Normal Extinction and Inattention 11: [0] = No abnormality NIHSS Total: 3 # Data Time Head CT personally read by me (): 04/25/2022, 08:[address]: no bleed per radiologist read chronic ischemic changes in the right frontal lobe CTA Head: no large vessel occlusion per radiologist read CTA Neck: patent vessels per radiologist read # Assessment Impression: Ischemic Stroke (Acute) vs recrudescence of prior stroke symptoms from systemic illness # Plan Thrombolytic/Intervention: NOT IV Thrombolysis or IA Intervention candidate Thrombolytic Exclusion: > 4.5 hours Intraarterial Exclusion: non-disabling Target Blood Pressure: SBP < 220 DBP < 105 Labs: ABG lipid panel Diagnostic Test: echo without bubble study Therapy/Evaluation: PT/OT evaluation Medication: ASA 325 DVT Prophylaxis: SCD chemical DVT prophylaxis Other: consult on-site neurology service for full work-up and evaluation recommendations telemetry monitoring I have discussed my recommendations with the referring provider Disposition: admit # Logistics Telemedicine: Interactive 2 way audio and visual telecommunication technology was utilized during this visit Electronically signed at 04/25/2022 11:13 (Eastern Time) by Raoul Pierce MD Medications and Allergies Allergies Allergy/AdvReac Type Severity Reaction Status Date / Time ciprofloxacin Allergy Hives Verified 04/11/22 14:51 Sulfa (Sulfonamide Allergy Hives Verified 04/11/22 14:51 Antibiotics) Home Medications Medication Instructions Recorded Confirmed Last Taken Type Ibuprofen [Motrin 800 MG tab] 800 mg PO Q8HR PRN #30 tablet 12/11/21 01/08/22 12/28/21 Rx metFORMIN [Glucophage] 500 mg PO BID 30 Days #60 tab 12/11/21 01/08/22 01/04/22 Rx carvediloL [Coreg] 3.125 mg PO BID #60 tablet 12/20/21 01/08/22 12/29/21 Rx lisinopriL [Zestril TAB] 5 mg PO QDAY #30 tablet 12/20/21 01/08/22 12/30/21 Rx Ondansetron [Zofran Odt] 4 mg PO Q8HR PRN #14 tab.rapdis 12/21/21 01/08/22 01/06/22 Rx traMADoL [Ultram 50 MG tab] 50 mg PO Q4HR PRN #14 tablet 12/21/21 01/08/22 01/04/22 Rx Prednisone [predniSONE 5 mg (6-Day 5 mg PO .TAPER #1 pack 12/29/21 01/08/22 12/31/21 Rx Pack, 21 Tabs)] guaiFENesin/CODEINE [Robitussin AC] 5 ml PO TID PRN #120 ml 12/29/21 01/08/22 12/29/21 Rx Aspirin EC [Halfprin EC] 81 mg PO QDAY 30 Days #30 tablet 01/09/22 Unknown Rx AtorvaSTATin [Lipitor] 40 mg PO QHS 30 Days #30 tablet 01/09/22 Unknown Rx Physical Examination - Vital Signs Vital Signs: Vital Signs Temp Pulse Resp BP Pulse Ox 98.6 F 105 H 16 136/87 97 04/25/22 08:05 04/25/22 08:05 04/25/22 08:05 04/25/22 08:05 04/25/22 08:05 Results - Laboratory Findings CBC and BMP: 04/25/22 09:21 Abnormal Lab Findings: Abnormal Labs 04/25/22 09:21 Glucose 209 H
[2022-04-25 11:29] LABS: INR 0.97 (0.87-1.13)
[2022-04-25 11:30] LABS: Partial Thromboplastin Time 29.8 Sec. (24.2-36.6)
[2022-04-25 12:28] LABS: Basophils % (Auto) 0.3 % (0.0-1.8); Eosinophils # (Auto) 0.1 K/mm3 (0.0-0.4); Eosinophils % (Auto) 1.3 % (0.0-4.3); Hematocrit 37.9 % (35.5-45.6); Hemoglobin 12.8 gm/dl (11.8-15.2); Lymphocytes # (Auto) 2.3 K/mm3 (1.2-5.4); Lymphocytes % (Auto) 42.7 % (13.4-35.0); Mean Corpuscular HGB Conc 34 % (32-34); Mean Corpuscular Volume 96 fl (84-94); Monocytes # (Auto) 0.6 K/mm3 (0.0-0.8); Monocytes % (Auto) 11.8 % (0.0-7.3); Platelet Count 230 K/mm3 (140-440); Red Blood Count 3.95 M/mm3 (3.65-5.03); Red Cell Distribution Width 13.6 % (13.2-15.2)
--- NOTE | 2022-04-25 12:43 | Consultation ---
History of Present Illness - Reason for Consult Consult date: 04/25/22 weak Requesting physician: MAR ROMERO - History of Present Illness 46 YO Male with HTN, DM, Nicotine Dependence, ETOH Dependence, PSA, Medication Noncompliance, Suspected Malingering, Homelessness, CVA presents to ED for evaluation. Patient initially reported worsening left-sided weakness. Upon further exam and interview patient complains of symptoms out of proportion to exam and interview. Patient subsequently acknowledges that he wanted to come to a safe place out of the rain. Patient requests to remain in the ER for 2 hours in order for the brain subside. Patient knowledges homelessness. Patient treated in accordance with CVA protocol. CT scan head reveals no changes since previous exam. Patient physical exam unchanged with no new neurologic deficit. No reports of fever, chills, chest pain, palpitation or productive cough, skin rash, recent contact, known exposure to COVID-19. Prior admission on 04/11/2022 reviewed. Patient medically optimized and back to usual state of health. Patient does not meet admission criteria at this time. Patient discharged home and instructed to follow-up with primary care physician within 1 week. Past History Past Medical History: diabetes, hypertension, stroke, other (See HPI) Past Surgical History: Other (Right ear surgery) Social history: single, smoking Family history: diabetes, hypertension Medications and Allergies Allergies Allergy/AdvReac Type Severity Reaction Status Date / Time ciprofloxacin Allergy Hives Verified 04/11/22 14:51 Sulfa (Sulfonamide Allergy Hives Verified 04/11/22 14:51 Antibiotics) Home Medications Medication Instructions Recorded Confirmed Last Taken Type Ibuprofen [Motrin 800 MG tab] 800 mg PO Q8HR PRN #30 tablet 12/11/21 01/08/22 12/28/21 Rx metFORMIN [Glucophage] 500 mg PO BID 30 Days #60 tab 12/11/21 01/08/22 01/04/22 Rx carvediloL [Coreg] 3.125 mg PO BID #60 tablet 12/20/21 01/08/22 12/29/21 Rx lisinopriL [Zestril TAB] 5 mg PO QDAY #30 tablet 12/20/21 01/08/22 12/30/21 Rx Ondansetron [Zofran Odt] 4 mg PO Q8HR PRN #14 tab.rapdis 12/21/21 01/08/22 01/06/22 Rx traMADoL [Ultram 50 MG tab] 50 mg PO Q4HR PRN #14 tablet 12/21/21 01/08/22 01/04/22 Rx Prednisone [predniSONE 5 mg (6-Day 5 mg PO .TAPER #1 pack 12/29/21 01/08/22 12/31/21 Rx Pack, 21 Tabs)] guaiFENesin/CODEINE [Robitussin AC] 5 ml PO TID PRN #120 ml 12/29/21 01/08/22 12/29/21 Rx Aspirin EC [Halfprin EC] 81 mg PO QDAY 30 Days #30 tablet 01/09/22 Unknown Rx AtorvaSTATin [Lipitor] 40 mg PO QHS 30 Days #30 tablet 01/09/22 Unknown Rx Clopidogrel [Plavix] 75 mg PO QDAY #30 tablet 04/25/22 Unknown Rx Review of Systems Constitutional: no weight loss Ears, nose, mouth and throat: no ear pain, no ear discharge, no decreased hearing, no nose pain, no sinus pressure Cardiovascular: no chest pain, no rapid/irregular heart beat, no syncope, no lightheadedness Respiratory: no cough, no excessive sputum, no hemoptysis, no shortness of breath Gastrointestinal: no abdominal pain, no vomiting, no hematemesis Genitourinary Male: no hematuria, no flank pain, no discharge, no urinary frequency, no urinary hesitancy, no incontinence, no erectile dysfunction Rectal: no pain, no incontinence, no bleeding Musculoskeletal: no neck stiffness, no neck pain, no arm numbness/tingling, no shooting leg pain Integumentary: no rash, no pruritis, no redness, no wounds Neurological: no head injury, no weakness, no numbness, no syncope Psychiatric: no anxiety, no sleep disturbances, no hypersomnia, no change in appetite Endocrine: no cold intolerance, no polyphagia Hematologic/Lymphatic: no easy bruising, no easy bleeding Allergic/Immunologic: no urticaria, no allergic rhinitis, no wheezing Exam - Constitutional Vitals: Temp Pulse Resp BP Pulse Ox 98.6 F 66 18 123/61 99 04/25/22 08:05 04/25/22 10:51 04/25/22 10:51 04/25/22 10:51 04/25/22 10:51 General appearance: Present: no acute distress, well-nourished - EENT Eyes: Present: PERRL ENT: hearing intact, clear oral mucosa - Neck Neck: Present: supple, normal ROM - Respiratory Respiratory effort: normal Respiratory: bilateral: CTA - Cardiovascular Heart Sounds: Present: S1 & S2. Absent: rub, click - Extremities Extremities: pulses symmetrical, No edema Peripheral Pulses: within normal limits - Abdominal General gastrointestinal: Present: soft, non-tender, non-distended, normal bowel sounds Male genitourinary: Present: normal - Integumentary Integumentary: Present: clear, warm, dry - Musculoskeletal Musculoskeletal: gait normal, strength equal bilaterally - Psychiatric Psychiatric: appropriate mood/affect, intact judgment & insight - Neurologic Neurologic: CNII-XII intact, moves all extremities Results - Labs CBC & Chem 7: 04/25/22 09:21 04/25/22 09:21 Labs: Abnormal lab results 04/25/22 04/25/22 Range/Units 09:21 09:21 MCV 96 H (84-94) fl Lymph % (Auto) 42.7 H (13.4-35.0) % [place] % (Auto) 11.8 H (0.0-7.3) % Glucose 209 H (75-100) mg/dL Assessment and Plan - Patient Problems (1) Malingering Current Visit: Yes Status: Acute Plan to address problem: Patient discharged home. (2) Advance care planning Current Visit: No Status: Acute Plan to address problem: Disease education conducted, care plan discussed, diagnoses discussed, patient acknowledges understanding care plan. +30 minutes. (3) Preventative health care Current Visit: Yes Status: Acute Plan to address problem: Patient counseled regarding medication compliance, risk factor reduction, medication compliance, outpatient follow-up with primary care physician for all age and risk factor appropriate screening test. +30 minutes.
[2022-04-25 19:45] VITALS: BP 137/74
--- NOTE | 2022-04-26 19:43 | Electrocardiograph Report ---
[facility] Test Date: 2022-04-25 Test Time: 09:00:44 Pat Name: JUNO NICHOLSON Department: Room: Gender: M Addiction Specialist: KRISH : 1975 Requested By: MAR ROMERO Order Number: [id number] Reading MD: Eliezer Griffith Measurements Intervals [place] Rate: 81 P: 71 NM: 143 QRS: -27 QRSD: 86 T: 2 QT: 397 QTc: 463 Interpretive Statements Sinus rhythm Probable left atrial enlargement Left ventricular hypertrophy Compared to ECG 01/07/2022 08:09:21 Deep inferolateral T wave abnormality no longer evident Electronically Signed On 04-26-2022 19:43:08 EDT by Eliezer Griffith
--- NOTE | 2022-04-27 09:29 | Cat Scan Report ---
See the report of the CTA of the neck Signer Name: Trinh Spain MD Signed: 04/25/2022 9:26 AM Workstation Name: [email or web address]
== END 2022-04-25 19:45 | disposition admitted as inpatient to this hospital (09) ==
LOC: ED 07:55
DX: G45.9 Transient cerebral ischemic attack, unspecified (principal); I10 Essential (primary) hypertension; E11.9 Type 2 diabetes mellitus without complications; Z98.890 Other specified postprocedural states; F17.290 Nicotine dependence, other tobacco product, uncomplicated; Z88.1 Allergy status to other antibiotic agents; Z88.2 Allergy status to sulfonamides
CPT/HCPCS: 36415; 70450; 70496; 70498; 71045; 80053; 84484; 85025; 85610; 85730; 93005; 96360; 99284; Q9967

== ENCOUNTER 2022-04-27 02:40 | Emergency (ER) | payer SELFPAY ==
[2022-04-27] MEDS ORDERED: ASPIRIN 325 MG TAB PO ONE (03:26)
--- NOTE | 2022-04-27 05:06 | XRay Report ---
CHEST 2 VIEWS INDICATION: chestpain. COMPARISON: 04/25/2022. FINDINGS: Support devices: None. Heart: Within normal limits. Lungs/Pleura: No acute air space or interstitial disease. No significant pleural effusion. IMPRESSION: No acute findings. Signer Name: Vijay Dueñas MD Signed: 04/27/2022 5:01 AM Workstation Name: [id number]
[2022-04-27 05:23] LABS: Basophils % (Auto) 0.5 % (0.0-1.8); Eosinophils # (Auto) 0.1 K/mm3 (0.0-0.4); Eosinophils % (Auto) 1.6 % (0.0-4.3); Hematocrit 41.3 % (35.5-45.6); Lymphocytes # (Auto) 3.1 K/mm3 (1.2-5.4); Lymphocytes % (Auto) 48.4 % (13.4-35.0); Mean Corpuscular HGB Conc 34 % (32-34); Mean Corpuscular Volume 96 fl (84-94); Monocytes # (Auto) 0.5 K/mm3 (0.0-0.8); Monocytes % (Auto) 8.3 % (0.0-7.3); Platelet Count 228 K/mm3 (140-440); Red Blood Count 4.31 M/mm3 (3.65-5.03); Red Cell Distribution Width 13.6 % (13.2-15.2)
[2022-04-27 05:40] LABS: Alanine Aminotransferase 16 units/L (7-56); Albumin 4.8 g/dL (3.9-5); BUN/Creatinine Ratio 15; Blood Urea Nitrogen 16 mg/dL (9-20); Calcium 10.2 mg/dL (8.4-10.2); Hemolysis Index 6
--- NOTE | 2022-04-28 08:28 | Electrocardiograph Report ---
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
[2022-04-28] MEDS ORDERED: oxyCODONE /ACETAMINOPHEN 5-325MG TAB PO ONE (11:12)
--- NOTE | 2022-04-28 11:13 | Emergency Department Report ---
ED Chest Pain HPI - General Chief Complaint: Chest Pain Stated Complaint: CHEST PAIN Time Seen by Provider: 04/28/22 10:17 Source: patient, EMS Mode of arrival: Stretcher Limitations: No Limitations - History of Present Illness Initial Comments: Patient is a 46-year-old male who presents with chest pain that has been going on for the last 3 days. Patient states chest pain is moderate it is an 8 out of 10 he has not tried anything for the chest pain. Nothing makes it better nothing makes it worse. He states he has had this chest pain before he is also a smoker Severity scale (0 -10): 9 - Related Data Previous Rx's Medication Instructions Recorded Last Taken Type RX: Ibuprofen [Motrin 800 MG tab] 800 mg PO Q8HR PRN #30 tablet 12/11/21 12/28/21 Rx RX: metFORMIN [Glucophage] 500 mg PO BID 30 Days #60 tab 12/11/21 01/04/22 Rx RX: carvediloL [Coreg] 3.125 mg PO BID #60 tablet 12/20/21 12/29/21 Rx RX: lisinopriL [Zestril TAB] 5 mg PO QDAY #30 tablet 12/20/21 12/30/21 Rx Ondansetron [Zofran Odt] 4 mg PO Q8HR PRN #14 tab.rapdis 12/21/21 01/06/22 Rx RX: traMADoL [Ultram 50 MG tab] 50 mg PO Q4HR PRN #14 tablet 12/21/21 01/04/22 Rx Prednisone [predniSONE 5 mg (6-Day 5 mg PO .TAPER #1 pack 12/29/21 12/31/21 Rx Pack, 21 Tabs)] guaiFENesin/CODEINE [Robitussin AC] 5 ml PO TID PRN #120 ml 12/29/21 12/29/21 Rx RX: Aspirin EC [Halfprin EC] 81 mg PO QDAY 30 Days #30 tablet 01/09/22 Unknown Rx RX: AtorvaSTATin [Lipitor] 40 mg PO QHS 30 Days #30 tablet 01/09/22 Unknown Rx Clopidogrel [Plavix] 75 mg PO QDAY #30 tablet 04/25/22 Unknown Rx Allergies Allergy/AdvReac Type Severity Reaction Status Date / Time ciprofloxacin Allergy Hives Verified 04/11/22 14:51 Sulfa (Sulfonamide Allergy Hives Verified 04/11/22 14:51 Antibiotics) Heart Score - HEART Score History: Slightly suspicious EKG: Non-specific Age: 45-65 Risk factors: 1-2 risk factors Troponin: < normal limit HEART Score: 3 - EKG Read Time Time EKG Completed: 10:45 EKG Read Time: 10:55 - Critical Actions Critical Actions: 0-3 pts:0.9-1.7%risk of adverse cardiac event.Candidate for discharge ED Review of Systems ROS: Stated complaint: CHEST PAIN Other details as noted in HPI Constitutional: denies: chills, fever Eyes: denies: eye pain, eye discharge, vision change ENT: denies: ear pain, throat pain Respiratory: denies: cough, shortness of breath, wheezing Cardiovascular: chest pain. denies: palpitations Endocrine: no symptoms reported Gastrointestinal: denies: abdominal pain, nausea, diarrhea Genitourinary: denies: urgency, dysuria Musculoskeletal: denies: back pain, joint swelling, arthralgia Skin: denies: rash, lesions Neurological: denies: headache, weakness, paresthesias Psychiatric: denies: anxiety, depression Hematological/Lymphatic: denies: easy bleeding, easy bruising ED Past Medical Hx - Past Medical History Previous Medical History?: Yes Hx Hypertension: Yes (not taking meds) Hx CVA: Yes Hx Diabetes: Yes (not taking meds) Additional medical history: "heart problems" - Surgical History Past Surgical History?: Yes Additional Surgical History: R ear sx, 1982 - Social History Smoking Status: Unknown if ever smoked - Medications Home Medications: Home Medications Medication Instructions Recorded Confirmed Last Taken Type RX: Ibuprofen [Motrin 800 MG tab] 800 mg PO Q8HR PRN #30 tablet 12/11/21 01/08/22 12/28/21 Rx RX: metFORMIN [Glucophage] 500 mg PO BID 30 Days #60 tab 12/11/21 01/08/22 01/04/22 Rx RX: carvediloL [Coreg] 3.125 mg PO BID #60 tablet 12/20/21 01/08/22 12/29/21 Rx RX: lisinopriL [Zestril TAB] 5 mg PO QDAY #30 tablet 12/20/21 01/08/22 12/30/21 Rx Ondansetron [Zofran Odt] 4 mg PO Q8HR PRN #14 tab.rapdis 12/21/21 01/08/22 01/06/22 Rx RX: traMADoL [Ultram 50 MG tab] 50 mg PO Q4HR PRN #14 tablet 12/21/21 01/08/22 01/04/22 Rx Prednisone [predniSONE 5 mg (6-Day 5 mg PO .TAPER #1 pack 12/29/21 01/08/22 0 12/31/21 Rx Pack, 21 Tabs)] guaiFENesin/CODEINE [Robitussin AC] 5 ml PO TID PRN #120 ml 12/29/21 01/08/22 12/29/21 Rx RX: Aspirin EC [Halfprin EC] 81 mg PO QDAY 30 Days #30 tablet 01/09/22 Unknown Rx RX: AtorvaSTATin [Lipitor] 40 mg PO QHS 30 Days #30 tablet 01/09/22 Unknown Rx Clopidogrel [Plavix] 75 mg PO QDAY #30 tablet 04/25/22 Unknown Rx ED Physical Exam - General Limitations: No Limitations General appearance: alert, in no apparent distress - Head Head exam: Present: atraumatic, normocephalic - Eye Eye exam: Present: normal appearance - ENT ENT exam: Present: mucous membranes moist - Neck Neck exam: Present: normal inspection - Respiratory Respiratory exam: Present: normal lung sounds bilaterally. Absent: respiratory distress - Cardiovascular Cardiovascular Exam: Present: regular rate, normal rhythm. Absent: systolic murmur, diastolic murmur, rubs, gallop - GI/Abdominal GI/Abdominal exam: Present: soft, normal bowel sounds - Rectal Rectal exam: Present: deferred - Extremities Exam Extremities exam: Present: normal inspection - Back Exam Back exam: Present: normal inspection - Neurological Exam Neurological exam: Present: alert, oriented X3 - Psychiatric Psychiatric exam: Present: normal affect, normal mood - Skin Skin exam: Present: warm, dry, intact, normal color. Absent: rash ED Course Vital Signs 04/27/22 04/27/22 04/28/22 02:41 09:26 10:33 Temperature 98.1 F 98.9 F Pulse Rate 81 Respiratory 18 Rate Blood Pressure 146/91 O2 Sat by Pulse 98 100 100 Oximetry 04/28/22 04/28/22 04/28/22 10:34 10:35 10:37 Temperature Pulse Rate 75 78 Respiratory 16 21 Rate Blood Pressure 166/112 166/112 166/112 O2 Sat by Pulse 100 100 100 Oximetry 04/28/22 04/28/22 04/28/22 10:39 10:41 10:43 Temperature Pulse Rate 102 H 72 76 Respiratory 22 21 21 Rate Blood Pressure 166/112 166/112 166/112 O2 Sat by Pulse 99 100 100 Oximetry MASOUD score - Masoud Score Age > 65: (0) No Aspirin use within the Past 7 Days: (0) No 3 or more CAD Risk Factors: (1) Yes 2 or more Angina events in past 24 hrs: (1) Yes Known CAD with more than 50% Stenosis: (0) No Elevated Cardiac Markers: (0) No ST Deviation Greater than 0.5mm: (0) No MASOUD Score: 2 ED Medical Decision Making - Lab Data Result diagrams: 04/27/22 03:30 04/27/22 03:30 Lab Results 04/27/22 04/27/22 04/27/22 Range/Units 03:30 03:30 06:58 WBC 6.4 (4.5-11.0) K/mm3 RBC 4.31 (3.65-5.03) M/mm3 Hgb 14.0 (11.8-15.2) gm/dl Hct 41.3 (35.5-45.6) % MCV 96 H (84-94) fl MCH 32 (28-32) pg MCHC 34 (32-34) % RDW 13.6 (13.2-15.2) % Plt Count 228 (140-440) K/mm3 Lymph % (Auto) 48.4 H (13.4-35.0) % [place] % (Auto) 8.3 H (0.0-7.3) % Eos % (Auto) 1.6 (0.0-4.3) % Baso % (Auto) 0.5 (0.0-1.8) % Lymph # (Auto) 3.1 (1.2-5.4) K/mm3 [place] # (Auto) 0.5 (0.0-0.8) K/mm3 Eos # (Auto) 0.1 (0.0-0.4) K/mm3 Baso # (Auto) 0.0 (0.0-0.1) K/mm3 Seg Neutrophils % 41.2 (40.0-70.0) % Seg Neutrophils # 2.6 (1.8-7.7) K/mm3 Sodium 156 H D (137-145) mmol/L Potassium 5.2 H D (3.6-5.0) mmol/L Chloride 116.5 H (98-107) mmol/L Carbon Dioxide 20 L (22-30) mmol/L Anion Gap 25 mmol/L BUN 16 (9-20) mg/dL Creatinine 1.1 (0.8-1.3) mg/dL Estimated GFR > 60 ml/min BUN/Creatinine Ratio 15 % Glucose 296 H (75-100) mg/dL POC Glucose (70-105) mg/dL Calcium 10.2 (8.4-10.2) mg/dL Total Bilirubin 0.50 (0.1-1.2) mg/dL AST 15 (5-40) units/L ALT 16 (7-56) units/L Alkaline Phosphatase 100 (35-129) units/L Troponin T < 0.010 < 0.010 (0.00-0.029) ng/mL Total Protein 8.4 H D (6.3-8.2) g/dL Albumin 4.8 (3.9-5) g/dL Albumin/Globulin Ratio 1.3 % 04/27/22 04/28/22 Range/Units 09:31 10:42 WBC (4.5-11.0) K/mm3 RBC (3.65-5.03) M/mm3 Hgb (11.8-15.2) gm/dl Hct (35.5-45.6) % MCV (84-94) fl MCH (28-32) pg MCHC (32-34) % RDW (13.2-15.2) % Plt Count (140-440) K/mm3 Lymph % (Auto) (13.4-35.0) % [place] % (Auto) (0.0-7.3) % Eos % (Auto) (0.0-4.3) % Baso % (Auto) (0.0-1.8) % Lymph # (Auto) (1.2-5.4) K/mm3 [place] # (Auto) (0.0-0.8) K/mm3 Eos # (Auto) (0.0-0.4) K/mm3 Baso # (Auto) (0.0-0.1) K/mm3 Seg Neutrophils % (40.0-70.0) % Seg Neutrophils # (1.8-7.7) K/mm3 Sodium (137-145) mmol/L Potassium (3.6-5.0) mmol/L Chloride (98-107) mmol/L Carbon Dioxide (22-30) mmol/L Anion Gap mmol/L BUN (9-20) mg/dL Creatinine (0.8-1.3) mg/dL Estimated GFR ml/min BUN/Creatinine Ratio % Glucose (75-100) mg/dL POC Glucose 250 H (70-105) mg/dL Calcium (8.4-10.2) mg/dL Total Bilirubin (0.1-1.2) mg/dL AST (5-40) units/L ALT (7-56) units/L Alkaline Phosphatase (35-129) units/L Troponin T < 0.010 (0.00-0.029) ng/mL Total Protein (6.3-8.2) g/dL Albumin (3.9-5) g/dL Albumin/Globulin Ratio % - EKG Data -: EKG Interpreted by Me - EKG Data 04/28/22 11:58 EKG time 10: 44 rate 76 normal sinus rhythm left ventricular hypertrophy abnormal T wave impression abnormal EKG - Radiology Data Radiology results: report reviewed, image reviewed Chest x-ray: Shows no acute cardiopulmonary disease: - Medical Decision Making Chief medical diagnosis: Non-STEMI Differential medical diagnosis: Chronic chest pain, arrhythmia I will get 3 sets of troponin but CBC BMP EKG chest x-ray and oral pain medicine and will reevaluate the patient Patient's laboratory findings are unremarkable he has multiple visits to the emergency department this year for chest pain we will discharged home with follow-up with cardiology. Critical care attestation.: If time is entered above; I have spent that time in minutes in the direct care of this critically ill patient, excluding procedure time. ED Disposition Clinical Impression: Chest pain Qualifiers: Chest pain type: unspecified Qualified Code(s): R07.9 - Chest pain, unspecified Disposition: 01 HOME / SELF CARE / HOMELESS Is pt being admited?: No Does the pt Need Aspirin: No Condition: Stable Instructions: Nonspecific Chest Pain, Adult Referrals: HORACE HYMAN MD [Primary Care Provider] - 3-5 Days LEYDA ENG MD [Staff Physician] - 3-5 Days
[2022-04-28 13:28] VITALS: BP 137/87
--- NOTE | 2022-04-30 09:08 | Electrocardiograph Report ---
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
== END 2022-04-28 13:29 | disposition home or self-care (01) ==
LOC: ED 02:40
DX: R07.9 Chest pain, unspecified (principal); I10 Essential (primary) hypertension; E11.9 Type 2 diabetes mellitus without complications; Z86.73 Personal history of transient ischemic attack (TIA), and cerebral infarction without residual deficits; Z88.1 Allergy status to other antibiotic agents; Z91.09 Other allergy status, other than to drugs and biological substances; Z79.899 Other long term (current) drug therapy
CPT/HCPCS: 36415; 71046; 80053; 82962; 84484; 85025; 93005; 99284

== ENCOUNTER 2022-05-02 19:20 | Emergency (ER) | payer SELFPAY ==
--- NOTE | 2022-05-03 01:22 | XRay Report ---
CHEST 2 VIEWS INDICATION / CLINICAL INFORMATION: cough and sob. sick. COMPARISON: Chest x-ray 04/27/2022 FINDINGS: SUPPORT DEVICES: None. HEART / MEDIASTINUM: Heart size and mediastinal contour appear within normal limits. LUNGS / PLEURA: No significant pulmonary or pleural abnormality. No pneumothorax. BONES: No significant osseous abnormality. ADDITIONAL FINDINGS: No significant additional findings. IMPRESSION: 1. No active cardiopulmonary disease. Signer Name: Sarwat Snider II, MD Signed: 05/03/2022 1:18 AM Workstation Name: [id number]
--- NOTE | 2022-05-03 01:45 | Emergency Department Report ---
- General Chief Complaint: Dyspnea/Respdistress Stated Complaint: SICK Time Seen by Provider: 05/03/22 00:27 Source: patient Mode of arrival: Ambulatory Limitations: No Limitations - History of Present Illness Initial Comments: 46-year-old [employer] male department complaining of having cold symptoms having cough congestion and coryza for the last 3 to 4 days. Also reports n oticing some tingling to his foot and ankles as well. Reports no known sick contacts, no diarrhea, no rashes no foreign travel MD Complaint: cough, rhinorrhea, nasal congestion -: Gradual, days(s) (3) Consistency: constant Improves With: nothing Worsens With: nothing Associated Symptoms: cough - Related Data Previous Rx's Medication Instructions Recorded Last Taken Type Ibuprofen [Motrin 800 MG tab] 800 mg PO Q8HR PRN #30 tablet 12/11/21 12/28/21 Rx metFORMIN [Glucophage] 500 mg PO BID 30 Days #60 tab 12/11/21 01/04/22 Rx carvediloL [Coreg] 3.125 mg PO BID #60 tablet 12/20/21 12/29/21 Rx lisinopriL [Zestril TAB] 5 mg PO QDAY #30 tablet 12/20/21 12/30/21 Rx Ondansetron [Zofran Odt] 4 mg PO Q8HR PRN #14 tab.rapdis 12/21/21 01/06/22 Rx traMADoL [Ultram 50 MG tab] 50 mg PO Q4HR PRN #14 tablet 12/21/21 01/04/22 Rx Prednisone [predniSONE 5 mg (6-Day 5 mg PO .TAPER #1 pack 12/29/21 12/31/21 Rx Pack, 21 Tabs)] guaiFENesin/CODEINE [Robitussin AC] 5 ml PO TID PRN #120 ml 12/29/21 12/29/21 Rx Aspirin EC [Halfprin EC] 81 mg PO QDAY 30 Days #30 tablet 01/09/22 Unknown Rx AtorvaSTATin [Lipitor] 40 mg PO QHS 30 Days #30 tablet 01/09/22 Unknown Rx Clopidogrel [Plavix] 75 mg PO QDAY #30 tablet 04/25/22 Unknown Rx Albuterol Mdi (or & Nicu Only) 1 puff IH Q4-6H PRN #1 inha 05/03/22 Unknown Rx [ProAir HFA Inhaler] Benzonatate [Tessalon Perles] 100 mg PO Q8HR #20 capsule 05/03/22 Unknown Rx Allergies Allergy/AdvReac Type Severity Reaction Status Date / Time ciprofloxacin Allergy Hives Verified 04/11/22 14:51 Sulfa (Sulfonamide Allergy Hives Verified 04/11/22 14:51 Antibiotics) ED Review of Systems ROS: Stated complaint: SICK Other details as noted in HPI Comment: All other systems reviewed and negative ED Past Medical Hx - Past Medical History Previous Medical History?: Yes Hx Hypertension: Yes (not taking meds) Hx CVA: Yes Hx Diabetes: Yes (not taking meds) Additional medical history: "heart problems" - Surgical History Past Surgical History?: Yes Additional Surgical History: R ear sx, 1982 - Social History Smoking Status: Current Every Day Smoker Substance Use Type: Alcohol - Medications Home Medications: Home Medications Medication Instructions Recorded Confirmed Last Taken Type Ibuprofen [Motrin 800 MG tab] 800 mg PO Q8HR PRN #30 tablet 12/11/21 01/08/22 12/28/21 Rx metFORMIN [Glucophage] 500 mg PO BID 30 Days #60 tab 12/11/21 01/08/22 01/04/22 Rx carvediloL [Coreg] 3.125 mg PO BID #60 tablet 12/20/21 01/08/22 12/29/21 Rx lisinopriL [Zestril TAB] 5 mg PO QDAY #30 tablet 12/20/21 01/08/22 12/30/21 Rx Ondansetron [Zofran Odt] 4 mg PO Q8HR PRN #14 tab.rapdis 12/21/21 01/08/22 01/06/22 Rx traMADoL [Ultram 50 MG tab] 50 mg PO Q4HR PRN #14 tablet 12/21/21 01/08/22 01/04/22 Rx Prednisone [predniSONE 5 mg (6-Day 5 mg PO .TAPER #1 pack 12/29/21 01/08/22 12/31/21 Rx Pack, 21 Tabs)] guaiFENesin/CODEINE [Robitussin AC] 5 ml PO TID PRN #120 ml 12/29/21 01/08/22 12/29/21 Rx Aspirin EC [Halfprin EC] 81 mg PO QDAY 30 Days #30 tablet 01/09/22 Unknown Rx AtorvaSTATin [Lipitor] 40 mg PO QHS 30 Days #30 tablet 01/09/22 Unknown Rx Clopidogrel [Plavix] 75 mg PO QDAY #30 tablet 04/25/22 Unknown Rx Albuterol Mdi (or & Nicu Only) 1 puff IH Q4-6H PRN #1 inha 05/03/22 Unknown Rx [ProAir HFA Inhaler] Benzonatate [Tessalon Perles] 100 mg PO Q8HR #20 capsule 05/03/22 Unknown Rx ED Physical Exam - General Limitations: No Limitations General appearance: alert, in no apparent distress - Head Head exam: Present: atraumatic, normocephalic - Eye Eye exam: Present: normal appearance, PERRL, EOMI Pupils: Present: normal accommodation - ENT ENT exam: Present: normal exam, mucous membranes moist - Neck Neck exam: Present: normal inspection, full ROM - Respiratory Respiratory exam: Present: rhonchi. Absent: respiratory distress, chest wall tenderness, accessory muscle use, decreased breath sounds - Cardiovascular Cardiovascular Exam: Present: regular rate, normal rhythm. Absent: systolic murmur, diastolic murmur, rubs, gallop - GI/Abdominal GI/Abdominal exam: Present: soft, normal bowel sounds - Rectal Rectal exam: Present: deferred - Extremities Exam Extremities exam: Present: normal inspection - Back Exam Back exam: Present: normal inspection - Neurological Exam Neurological exam: Present: alert, oriented X3 - Psychiatric Psychiatric exam: Present: normal affect, normal mood - Skin Skin exam: Present: warm, dry, intact, normal color. Absent: rash ED Course Vital Signs 05/02/22 05/03/22 19:21 00:42 Temperature 98.8 F 97.6 F Pulse Rate 75 60 Respiratory 18 20 Rate Blood Pressure 153/88 131/75 [Left] O2 Sat by Pulse 100 98 Oximetry ED Medical Decision Making - Radiology Data Radiology results: report reviewed [facility] [address] [place] [address] XRay Report Signed Patient: JUNO NICHOLSON MR#: [id number] : 1975 Acct:[id number] Age/Sex: 46 / M ADM Date: 05/02/22 Loc: ED Attending Dr: Ordering Physician: CORKY VELASQUEZ Date of Service: 05/03/22 Procedure(s): XR chest routine 2V Accession Number(s): [id number] cc: CORKY VELASQUEZ Fluoro Time In Minutes: CHEST 2 VIEWS INDICATION / CLINICAL INFORMATION: cough and sob. sick. COMPARISON: Chest x-ray 04/27/2022 FINDINGS: SUPPORT DEVICES: None. HEART / MEDIASTINUM: Heart size and mediastinal contour appear within normal limits. LUNGS / PLEURA: No significant pulmonary or pleural abnormality. No pneumothorax. BONES: No significant osseous abnormality. ADDITIONAL FINDINGS: No significant additional findings. IMPRESSION: 1. No active cardiopulmonary disease. Signer Name: Hima Snider II, MD Signed: 05/03/2022 1:18 AM Workstation Name: [id number] Transcribed By: JAMSHID Dictated By: HIMA SNIDER II, MD Electronically Authenticated By: HIMA SNIDER II, MD Signed Date/Time: 05/03/22117 DD/ 7 TD/TT: Print - Medical Decision Making This patient presents with acute cough, most consistent with bronchitis. Differential diagnosis includes colitis, asthma, pneumonia, hyperirritable disease, COVID-19, referred. Presentation not consistent with acute bacterial pneumonia, influenza, asthma, transient airway hyperresponsiveness. Presentation not consistent with chronic causes of cough (including GERD, asthma, postnasal discharge, medication side effect, CHF, lung cancer or mass). Plan: Normal CXR, supportive care, reassess Critical care attestation.: If time is entered above; I have spent that time in minutes in the direct care of this critically ill patient, excluding procedure time. ED Disposition Clinical Impression: Bronchitis Clinical Impression: (Ruled Out): Malingering Disposition: HOME / SELF CARE / HOMELESS Is pt being admited?: No Does the pt Need Aspirin: No Condition: Stable Instructions: Upper Respiratory Infection, Adult, Upper Respiratory Infection, Adult, [id number], How to Use a Dry Powder Inhaler, [id number], Chronic Bro nchitis (ED) Prescriptions: Albuterol Mdi (or & Nicu Only) [ProAir HFA Inhaler] 1 puff IH Q4-6H PRN #1 inha PRN Reason: Cough Benzonatate [Tessalon Perles] 100 mg PO Q8HR #20 capsule Referrals: [facility] [Provider Group] - 3-5 Days
[2022-05-03 02:16] VITALS: BP 134/65
== END 2022-05-03 02:39 | disposition home or self-care (01) ==
LOC: ED 19:20
DX: J40 Bronchitis, not specified as acute or chronic (principal); I10 Essential (primary) hypertension; Z86.73 Personal history of transient ischemic attack (TIA), and cerebral infarction without residual deficits; E11.9 Type 2 diabetes mellitus without complications; F17.200 Nicotine dependence, unspecified, uncomplicated; Z88.1 Allergy status to other antibiotic agents; Z91.09 Other allergy status, other than to drugs and biological substances; Z79.899 Other long term (current) drug therapy
CPT/HCPCS: 71046; 99283

== ENCOUNTER 2022-05-05 16:47 | Emergency (ER) | payer SELFPAY ==
[2022-05-05 17:11] VITALS: BP 128/87
--- NOTE | 2022-05-05 17:33 | XRay Report ---
CHEST 2 VIEWS INDICATION / CLINICAL INFORMATION: Chest Pain. COMPARISON: 05/03/2022 FINDINGS: SUPPORT DEVICES: None. HEART / MEDIASTINUM: No significant abnormality. LUNGS / PLEURA: No significant pulmonary or pleural abnormality. No pneumothorax. ADDITIONAL FINDINGS: No significant additional findings. IMPRESSION: 1. No acute findings. Signer Name: Kashif Ugalde MD Signed: 05/05/2022 5:29 PM Workstation Name: [id number]
[2022-05-05 18:47] LABS: Hematocrit 41.1 % (35.5-45.6); Hemoglobin 13.7 gm/dl (11.8-15.2); Mean Corpuscular HGB Conc 33 % (32-34); Mean Corpuscular Volume 99 fl (84-94); Red Blood Count 4.17 M/mm3 (3.65-5.03); Red Cell Distribution Width 14.4 % (13.2-15.2)
[2022-05-05 19:50] LABS: Platelet Count 113 K/mm3 (140-440)
[2022-05-05 20:58] LABS: Alanine Aminotransferase 15 units/L (7-56); BUN/Creatinine Ratio 11; Blood Urea Nitrogen 14 mg/dL (9-20); Calcium 8.8 mg/dL (8.4-10.2); Hemolysis Index 22
--- NOTE | 2022-05-07 13:37 | Electrocardiograph Report ---
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
== END 2022-05-05 19:00 | disposition left against medical advice (07) ==
LOC: ED 16:47
DX: R07.9 Chest pain, unspecified (principal); Z53.21 Procedure and treatment not carried out due to patient leaving prior to being seen by health care provider
CPT/HCPCS: 36415; 71046; 80053; 84484; 85025; 93005

== ENCOUNTER 2022-05-08 11:56 | Emergency (ER) | payer SELFPAY | END 2022-05-08 13:45 | disposition left against medical advice (07) | LOC: ED 11:56 | DX: R07.9 Chest pain, unspecified (principal); H92.09 Otalgia, unspecified ear; Z53.21 Procedure and treatment not carried out due to patient leaving prior to being seen by health care provider ==

== ENCOUNTER 2022-05-11 00:08 | Emergency (ER) | payer SELFPAY ==
--- NOTE | 2022-05-11 11:16 | Emergency Department Report ---
ED Chest Pain HPI - General Chief Complaint: Chest Pain Stated Complaint: CHEST PAIN AND RT EAR PAIN Source: patient Mode of arrival: Ambulatory Limitations: No Limitations - History of Present Illness Initial Comments: 46-year-old male with multiple medical history including diabetes, VT, heart attack, with ejection fraction of 15 to 20% presents with the emergency room with ear pain and chest pain. Patient reports has been experiencing chest pain x3 days, similar to his similar to his previous chest pain episodes, Pain is worsened by nothing and improves with not nothing. MD Complaint: chest pain, other (Ear pain) -: month(s) Pain Location: substernal Pain Radiation: none Severity: Unable to Determine Context: other (none) re: denies: nausea, vomting, diaphoresis, sense of impending doom Other Symptoms: denies: cough, fever, acid taste in mouth, leg swelling, palpitations, burping, other Treatments Prior to Arrival: none - Related Data Previous Rx's Medication Instructions Recorded Last Taken Type Ibuprofen [Motrin 800 MG tab] 800 mg PO Q8HR PRN #30 tablet 12/11/21 12/28/21 Rx metFORMIN [Glucophage] 500 mg PO BID 30 Days #60 tab 12/11/21 01/04/22 Rx carvediloL [Coreg] 3.125 mg PO BID #60 tablet 12/20/21 12/29/21 Rx lisinopriL [Zestril TAB] 5 mg PO QDAY #30 tablet 12/20/21 12/30/21 Rx Ondansetron [Zofran Odt] 4 mg PO Q8HR PRN #14 tab.rapdis 12/21/21 01/06/22 Rx traMADoL [Ultram 50 MG tab] 50 mg PO Q4HR PRN #14 tablet 12/21/21 01/04/22 Rx Prednisone [predniSONE 5 mg (6-Day 5 mg PO .TAPER #1 pack 12/29/21 12/31/21 Rx Pack, 21 Tabs)] guaiFENesin/CODEINE [Robitussin AC] 5 ml PO TID PRN #120 ml 12/29/21 12/29/21 Rx Aspirin EC [Halfprin EC] 81 mg PO QDAY 30 Days #30 tablet 01/09/22 Unknown Rx AtorvaSTATin [Lipitor] 40 mg PO QHS 30 Days #30 tablet 01/09/22 Unknown Rx Clopidogrel [Plavix] 75 mg PO QDAY #30 tablet 04/25/22 Unknown Rx Albuterol Mdi (or & Nicu Only) 1 puff IH Q4-6H PRN #1 inha 05/03/22 Unknown Rx [ProAir HFA Inhaler] Benzonatate [Tessalon Perles] 100 mg PO Q8HR #20 capsule 05/03/22 Unknown Rx Amoxicillin/K Clav Tab [Augmentin 1 tab PO Q12HR 10 Days #20 tab 05/11/22 Unknown Rx 875 mg] Neomy/Polymyx B/Hc (Otic) Soln 4 drops OTIC TID 5 Days bottle 05/11/22 Unknown Rx [Cortisporin (Otic) Soln] Allergies Allergy/AdvReac Type Severity Reaction Status Date / Time ciprofloxacin Allergy Hives Verified 05/05/22 17:06 Sulfa (Sulfonamide Allergy Hives Verified 05/05/22 17:06 Antibiotics) Heart Score - HEART Score History: Slightly suspicious EKG: Non-specific Age: 45-65 Risk factors: > 3 risk factors or hx of atherosclerotic disease Troponin: < normal limit HEART Score: 4 - EKG Read Time Time EKG Completed: 11:43 EKG Read Time: 11:49 (No STEMI ED attending ) ED Review of Systems ROS: Stated complaint: CHEST PAIN AND RT EAR PAIN Other details as noted in HPI Eyes: as per HPI ENT: ear pain Respiratory: shortness of breath. denies: cough, orthopnea Endocrine: denies: no symptoms reported Gastrointestinal: denies: abdominal pain, nausea, vomiting Genitourinary: denies: as per HPI Musculoskeletal: as per HPI Skin: as per HPI Neurological: denies: headache, weakness ED Past Medical Hx - Past Medical History Previous Medical History?: Yes Hx Hypertension: Yes (not taking meds) Hx CVA: Yes Hx Diabetes: Yes (not taking meds) Additional medical history: "heart problems" - Surgical History Past Surgical History?: Yes Additional Surgical History: R ear sx, 1982 - Social History Smoking Status: Current Every Day Smoker - Medications Home Medications: Home Medications Medication Instructions Recorded Confirmed Last Taken Type Ibuprofen [Motrin 800 MG tab] 800 mg PO Q8HR PRN #30 tablet 12/11/21 01/08/22 12/28/21 Rx metFORMIN [Glucophage] 500 mg PO BID 30 Days #60 tab 12/11/21 01/08/22 01/04/22 Rx carvediloL [Coreg] 3.125 mg PO BID #60 tablet 12/20/21 01/08/22 12/29/21 Rx lisinopriL [Zestril TAB] 5 mg PO QDAY #30 tablet 12/20/21 01/08/22 12/30/21 Rx Ondansetron [Zofran Odt] 4 mg PO Q8HR PRN #14 tab.rapdis 12/21/21 01/08/22 01/06/22 Rx traMADoL [Ultram 50 MG tab] 50 mg PO Q4HR PRN #14 tablet 12/21/21 01/08/22 01/04/22 Rx Prednisone [predniSONE 5 mg (6-Day 5 mg PO .TAPER #1 pack 12/29/21 01/08/22 12/31/21 Rx Pack, 21 Tabs)] guaiFENesin/CODEINE [Robitussin AC] 5 ml PO TID PRN #120 ml 12/29/21 01/08/22 12/29/21 Rx Aspirin EC [Halfprin EC] 81 mg PO QDAY 30 Days #30 tablet 01/09/22 Unknown Rx AtorvaSTATin [Lipitor] 40 mg PO QHS 30 Days #30 tablet 01/09/22 Unknown Rx Clopidogrel [Plavix] 75 mg PO QDAY #30 tablet 04/25/22 Unknown Rx Albuterol Mdi (or & Nicu Only) 1 puff IH Q4-6H PRN #1 inha 05/03/22 Unknown Rx [ProAir HFA Inhaler] Benzonatate [Tessalon Perles] 100 mg PO Q8HR #20 capsule 05/03/22 Unknown Rx Amoxicillin/K Clav Tab [Augmentin 1 tab PO Q12HR 10 Days #20 tab 05/11/22 Unknown Rx 875 mg] Neomy/Polymyx B/Hc (Otic) Soln 4 drops OTIC TID 5 Days bottle 05/11/22 Unknown Rx [Cortisporin (Otic) Soln] ED Physical Exam - General Limitations: No Limitations General appearance: alert, in no apparent distress - Eye Eye exam: Present: normal appearance - ENT ENT exam: Present: normal orophraynx. Absent: TM's normal bilaterally (Right ear purulent drainage, tender,) - Neck Neck exam: Present: normal inspection. Absent: lymphadenopathy - Respiratory Respiratory exam: Present: normal lung sounds bilaterally. Absent: respiratory distress, wheezes, chest wall tenderness - Cardiovascular Cardiovascular Exam: Present: regular rate, normal rhythm - GI/Abdominal GI/Abdominal exam: Present: soft. Absent: distended, tenderness, hyperactive bowel sounds - Rectal Rectal exam: Present: deferred - Extremities Exam Extremities exam: Present: normal inspection, full ROM, normal capillary refill. Absent: tenderness, joint swelling - Back Exam Back exam: Present: normal inspection, full ROM - Neurological Exam Neurological exam: Present: alert, oriented X3, CN II-XII intact, normal gait. Absent: motor sensory deficit - Psychiatric Psychiatric exam: Present: normal affect - Skin Skin exam: Present: warm, dry, intact, normal color ED Course Vital Signs 05/11/22 05/11/22 00:40 15:16 Temperature 98 F Pulse Rate 85 90 Respiratory 16 16 Rate Blood Pressure 148/88 141/81 [Right] O2 Sat by Pulse 98 99 Oximetry - Reevaluation(s) Reevaluation #1: 05/11/22 11:17 Patient has been quietly asleep in bed no sign of pain or discomfort. 05/11/22 12:22 awaiting trop and dispo,, ab tech called [id number]-no change from prior assessment patient has been asleep quietly no sign of pain or discomfort. Still awaiting troponin result prior to disposition for MASOUD score - Masoud Score Age > 65: (0) No Aspirin use within the Past 7 Days: (0) No 3 or more CAD Risk Factors: (1) Yes 2 or more Angina events in past 24 hrs: (1) Yes Known CAD with more than 50% Stenosis: (0) No Elevated Cardiac Markers: (0) No ST Deviation Greater than 0.5mm: (0) No MASOUD Score: 2 ED Medical Decision Making - EKG Data -: EKG Interpreted by Me EKG shows normal: sinus rhythm Rate: normal - EKG Data When compared to previous EKG there are: no significant change Interpretation: LVH, other (Inverted T waves in lead III aVF, V4, prolonged QT interval, similar to his prior EKGs) - Medical Decision Making 46-year-old male with multiple medical history, including VT, heart failure, with ejection fraction of 15 to 20% presenting with chest pain right ear pain. Chest pain is similar to his previous chest pain episodes which he always experiences, EKG T wave abnormality, with left ventricular hypertrophy, prolonged QT intervals, similar to his previous EKGs, patient also had a chest x-ray 2 days ago with did not show any acute effusions or cardiomegaly. No infiltrates. From previous ED record and cardiology note, it appears patient has been multiple work-up for this, noncompliant, and is yet to follow-up with outcomes specialist outpatient. His vital signs remained stable throughout ED course, sats have been above 95% on room air, no shortness of breath on exam, no dyspnea, no swelling of extremities. Otherwise discharge home with some antibiotics for his ear infection, strict instructions to make sure he is following up outpatient from his primary care doctor. At the time of discharge patient ambulates steadily out of his the emergency r oom with his bags Critical care attestation.: If time is entered above; I have spent that time in minutes in the direct care of this critically ill patient, excluding procedure time. ED Disposition Clinical Impression: Chest pain, Acute suppurative otitis media, Malingering, Hypertension, Medical non-compliance Disposition: HOME / SELF CARE / HOMELESS Is pt being admited?: No Does the pt Need Aspirin: No Condition: Stable Instructions: Otitis Media, Adult, [id number], Nonspecific Chest Pain, Adult, Hypertension (ED), Hypertension, Adult Prescriptions: Amoxicillin/K Clav Tab [Augmentin 875 mg] 1 tab PO Q12HR 10 Days #20 tab Neomy/Polymyx B/Hc (Otic) Soln [Cortisporin (Otic) Soln] 4 drops OTIC TID 5 Days bottle Referrals: HORACE HYMAN MD [Primary Care Provider] - 3-5 Days LEYDA ENG MD [Staff Physician] - 3-5 Days
[2022-05-11 15:17] VITALS: BP 141/81
--- NOTE | 2022-05-12 09:38 | Electrocardiograph Report ---
[facility] Test Date: 2022-05-11 Test Time: 11:43:52 Pat Name: JUNO NICHOLSON Department: Room: Gender: M Special Tester: NEGRO : 1975 Requested By: MARIA G FRANZ Order Number: [id number] Reading MD: Jacob Harley Measurements Intervals [place] Rate: 72 P: 49 SC: 140 QRS: -24 QRSD: 83 T: -67 QT: 505 QTc: 554 Interpretive Statements Sinus rhythm Left ventricular hypertrophy Abnormal T, consider ischemia, diffuse leads Prolonged QT interval Compared to ECG 05/05/2022 17:09:31 T-wave abnormality now present Prolonged QT interval now present Sinus arrhythmia no longer present Possible ischemia still present Electronically Signed On 05-12-2022 9:38:41 EDT by Jacob Harley
== END 2022-05-11 15:17 | disposition home or self-care (01) ==
LOC: ED 00:08
DX: R07.9 Chest pain, unspecified (principal); H92.01 Otalgia, right ear; I10 Essential (primary) hypertension; Z88.2 Allergy status to sulfonamides; F17.200 Nicotine dependence, unspecified, uncomplicated
CPT/HCPCS: 36415; 84484; 93005; 99283

== ENCOUNTER 2022-05-16 17:37 | Emergency (ER) | payer SELFPAY ==
[2022-05-16 18:39] VITALS: BP 151/85
--- NOTE | 2022-05-16 22:31 | Emergency Department Report ---
ED ENT HPI - General Chief complaint: Earache Stated complaint: RIGHT EAR PAIN Time Seen by Provider: 05/16/22 18:39 Source: patient Mode of arrival: Ambulatory Limitations: No Limitations - History of Present Illness Initial comments: 46-year-old male with multiple medical history including OR, diabetes, angina hypertension, CVA, chronic ear pain presents to the emergency department ear pain. Patient reports pain in his right ear, which has been going on for he states 3 days, and he is not feeling better. Seen here in the emergency department this week and the week before last with the same ear problem, prescribed antibiotics with a referral. He has since not followed up outpatient, is currently wearing a brace from another hospital in which he states "nothing was done for him". He denies fever, no cough cold congestion, no hearing loss, no other associating symptoms MD complaint: ear pain Location: R ear Quality: aching Consistency: constant Improves with: none Worsens with: none Associated Symptoms: denies: fever, cough, gum swelling, toothache, pain with swallowing - Related Data Previous Rx's Medication Instructions Recorded Last Taken Type Ibuprofen [Motrin 800 MG tab] 800 mg PO Q8HR PRN #30 tablet 12/11/21 12/28/21 Rx metFORMIN [Glucophage] 500 mg PO BID 30 Days #60 tab 12/11/21 01/04/22 Rx carvediloL [Coreg] 3.125 mg PO BID #60 tablet 12/20/21 12/29/21 Rx lisinopriL [Zestril TAB] 5 mg PO QDAY #30 tablet 12/20/21 12/30/21 Rx Ondansetron [Zofran Odt] 4 mg PO Q8HR PRN #14 tab.rapdis 12/21/21 01/06/22 Rx traMADoL [Ultram 50 MG tab] 50 mg PO Q4HR PRN #14 tablet 12/21/21 01/04/22 Rx Prednisone [predniSONE 5 mg (6-Day 5 mg PO .TAPER #1 pack 12/29/21 12/31/21 Rx Pack, 21 Tabs)] guaiFENesin/CODEINE [Robitussin AC] 5 ml PO TID PRN #120 ml 12/29/21 12/29/21 Rx Aspirin EC [Halfprin EC] 81 mg PO QDAY 30 Days #30 tablet 01/09/22 Unknown Rx AtorvaSTATin [Lipitor] 40 mg PO QHS 30 Days #30 tablet 01/09/22 Unknown Rx Clopidogrel [Plavix] 75 mg PO QDAY #30 tablet 04/25/22 Unknown Rx Albuterol Mdi (or & Nicu Only) 1 puff IH Q4-6H PRN #1 inha 05/03/22 Unknown Rx [ProAir HFA Inhaler] Benzonatate [Tessalon Perles] 100 mg PO Q8HR #20 capsule 05/03/22 Unknown Rx Amoxicillin/K Clav Tab [Augmentin 1 tab PO Q12HR 10 Days #20 tab 05/16/22 Unknown Rx 875MG TAB] Neomy/Polymyx B/Hc (Otic) Soln 4 drops OTIC TID 5 Days bottle 05/16/22 Unknown Rx [Cortisporin (Otic) Soln] Allergies Allergy/AdvReac Type Severity Reaction Status Date / Time ciprofloxacin Allergy Hives Verified 05/05/22 17:06 Sulfa (Sulfonamide Allergy Hives Verified 05/05/22 17:06 Antibiotics) ED Dental HPI - General Chief complaint: Earache Stated complaint: RIGHT EAR PAIN Time Seen by Provider: 05/16/22 18:39 Source: patient Mode of arrival: Ambulatory Limitations: No Limitations - Related Data Previous Rx's Medication Instructions Recorded Last Taken Type Ibuprofen [Motrin 800 MG tab] 800 mg PO Q8HR PRN #30 tablet 12/11/21 12/28/21 Rx metFORMIN [Glucophage] 500 mg PO BID 30 Days #60 tab 12/11/21 01/04/22 Rx carvediloL [Coreg] 3.125 mg PO BID #60 tablet 12/20/21 12/29/21 Rx lisinopriL [Zestril TAB] 5 mg PO QDAY #30 tablet 12/20/21 12/30/21 Rx Ondansetron [Zofran Odt] 4 mg PO Q8HR PRN #14 tab.rapdis 12/21/21 01/06/22 Rx traMADoL [Ultram 50 MG tab] 50 mg PO Q4HR PRN #14 tablet 12/21/21 01/04/22 Rx Prednisone [predniSONE 5 mg (6-Day 5 mg PO .TAPER #1 pack 12/29/21 12/31/21 Rx Pack, 21 Tabs)] guaiFENesin/CODEINE [Robitussin AC] 5 ml PO TID PRN #120 ml 12/29/21 12/29/21 Rx Aspirin EC [Halfprin EC] 81 mg PO QDAY 30 Days #30 tablet 01/09/22 Unknown Rx AtorvaSTATin [Lipitor] 40 mg PO QHS 30 Days #30 tablet 01/09/22 Unknown Rx Clopidogrel [Plavix] 75 mg PO QDAY #30 tablet 04/25/22 Unknown Rx Albuterol Mdi (or & Nicu Only) 1 puff IH Q4-6H PRN #1 inha 05/03/22 Unknown Rx [ProAir HFA Inhaler] Benzonatate [Tessalon Perles] 100 mg PO Q8HR #20 capsule 05/03/22 Unknown Rx Amoxicillin/K Clav Tab [Augmentin 1 tab PO Q12HR 10 Days #20 tab 05/16/22 Unknown Rx 875MG TAB] Neomy/Polymyx B/Hc (Otic) Soln 4 drops OTIC TID 5 Days bottle 05/16/22 Unknown Rx [Cortisporin (Otic) Soln] Allergies Allergy/AdvReac Type Severity Reaction Status Date / Time ciprofloxacin Allergy Hives Verified 05/05/22 17:06 Sulfa (Sulfonamide Allergy Hives Verified 05/05/22 17:06 Antibiotics) ED Review of Systems ROS: Stated complaint: RIGHT EAR PAIN Other details as noted in HPI Comment: All other systems reviewed and negative Constitutional: no symptoms reported Eyes: denies: eye discharge, vision change ENT: ear pain. denies: throat pain, congestion Respiratory: denies: cough, orthopnea Cardiovascular: denies: chest pain, palpitations Gastrointestinal: denies: abdominal pain, nausea, vomiting Neurological: denies: headache, weakness, numbness Psychiatric: denies: homicidal thoughts, suicidal thoughts ED Past Medical Hx - Past Medical History Previous Medical History?: Yes Hx Hypertension: Yes (not taking meds) Hx CVA: Yes Hx Diabetes: Yes (not taking meds) Additional medical history: "heart problems" - Surgical History Past Surgical History?: Yes Additional Surgical History: R ear sx, 1982 - Social History Smoking Status: Current Every Day Smoker - Medications Home Medications: Home Medications Medication Instructions Recorded Confirmed Last Taken Type Ibuprofen [Motrin 800 MG tab] 800 mg PO Q8HR PRN #30 tablet 12/11/21 01/08/22 12/28/21 Rx metFORMIN [Glucophage] 500 mg PO BID 30 Days #60 tab 12/11/21 01/08/22 01/04/22 Rx carvediloL [Coreg] 3.125 mg PO BID #60 tablet 12/20/21 01/08/22 12/29/21 Rx lisinopriL [Zestril TAB] 5 mg PO QDAY #30 tablet 12/20/21 01/08/22 12/30/21 Rx Ondansetron [Zofran Odt] 4 mg PO Q8HR PRN #14 tab.rapdis 12/21/21 01/08/22 01/06/22 Rx traMADoL [Ultram 50 MG tab] 50 mg PO Q4HR PRN #14 tablet 12/21/21 01/08/22 01/04/22 Rx Prednisone [predniSONE 5 mg (6-Day 5 mg PO .TAPER #1 pack 12/29/21 01/08/22 12/31/21 Rx Pack, 21 Tabs)] guaiFENesin/CODEINE [Robitussin AC] 5 ml PO TID PRN #120 ml 12/29/21 01/08/22 12/29/21 Rx Aspirin EC [Halfprin EC] 81 mg PO QDAY 30 Days #30 tablet 01/09/22 Unknown Rx AtorvaSTATin [Lipitor] 40 mg PO QHS 30 Days #30 tablet 01/09/22 Unknown Rx Clopidogrel [Plavix] 75 mg PO QDAY #30 tablet 04/25/22 Unknown Rx Albuterol Mdi (or & Nicu Only) 1 puff IH Q4-6H PRN #1 inha 05/03/22 Unknown Rx [ProAir HFA Inhaler] Benzonatate [Tessalon Perles] 100 mg PO Q8HR #20 capsule 05/03/22 Unknown Rx Amoxicillin/K Clav Tab [Augmentin 1 tab PO Q12HR 10 Days #20 tab 05/16/22 Unknown Rx 875MG TAB] Neomy/Polymyx B/Hc (Otic) Soln 4 drops OTIC TID 5 Days bottle 05/16/22 Unknown Rx [Cortisporin (Otic) Soln] ED Physical Exam - General Limitations: No Limitations General appearance: alert, in no apparent distress - Head Head exam: Present: atraumatic - Eye Eye exam: Present: normal appearance - ENT ENT exam: Present: normal orophraynx, normal external ear exam, other (Bilateral purulent discharge from his ear, right greater than left, difficulty evaluating the TM. Tender). Absent: TM's normal bilaterally - Neck Neck exam: Present: normal inspection. Absent: tenderness - Respiratory Respiratory exam: Present: normal lung sounds bilaterally. Absent: respiratory distress - Cardiovascular Cardiovascular Exam: Present: regular rate, normal rhythm - GI/Abdominal GI/Abdominal exam: Present: soft. Absent: distended, tenderness - Extremities Exam Extremities exam: Present: normal inspection, full ROM. Absent: tenderness - Back Exam Back exam: Present: normal inspection, full ROM. Absent: CVA tenderness (R) - Neurological Exam Neurological exam: Present: alert, oriented X3, CN II-XII intact, normal gait ED Course Vital Signs 05/16/22 18:36 Temperature 98.6 F Pulse Rate 96 H Respiratory 18 Rate Blood Pressure 151/85 O2 Sat by Pulse 99 Oximetry ED Medical Decision Making - Medical Decision Making 46-year-old male with multiple medical history including OR, diabetes, angina hypertension, CVA, chronic ear pain presents to the emergency department ear pain. Patient reports pain in his right ear, which has been going on for he states 3 days, and he is not feeling better. Seen here in the emergency department this week and the week before last with the same ear problem, prescribed antibiotics with a referral. He has since not followed up outpatient, is currently wearing a brace from another hospital in which he states "nothing was done for him". He denies fever, no cough cold congestion, no other associating symptoms . Patient is afebrile, urine is intact, symptoms similar to few days ago when I saw him, no change. He did not fill up the antibiotics which I prescribed for him that it did he get the drops filled up as well. I have reprinted his discharge and his medicines and encouraged him to use them also make sure he follows up outpatient. Critical care attestation.: If time is entered above; I have spent that time in minutes in the direct care of this critically ill patient, excluding procedure time. ED Disposition Clinical Impression: Chronic ear pain, Acute suppurative otitis media, Malingering Disposition: HOME / SELF CARE / HOMELESS Is pt being admited?: No Does the pt Need Aspirin: No Condition: Stable Instructions: Earache, Adult Referrals: HORACE HYMAN MD [Staff Physician] - 3-5 Days
== END 2022-05-17 04:54 | disposition home or self-care (01) ==
LOC: ED 17:37
DX: H66.001 Acute suppurative otitis media without spontaneous rupture of ear drum, right ear (principal); H92.01 Otalgia, right ear; Z76.5 Malingerer [conscious simulation]; I10 Essential (primary) hypertension; E11.9 Type 2 diabetes mellitus without complications; Z86.73 Personal history of transient ischemic attack (TIA), and cerebral infarction without residual deficits; F17.200 Nicotine dependence, unspecified, uncomplicated; Z88.1 Allergy status to other antibiotic agents; Z91.09 Other allergy status, other than to drugs and biological substances; Z79.899 Other long term (current) drug therapy
CPT/HCPCS: 99282

== ENCOUNTER 2022-05-19 14:39 | Emergency (ER) | payer SELFPAY ==
--- NOTE | 2022-05-19 15:24 | Emergency Department Report ---
ED ENT HPI - General Chief complaint: Earache Stated complaint: RT EAR PAIN Time Seen by Provider: 05/19/22 15:23 Source: patient Mode of arrival: Ambulatory Limitations: No Limitations - History of Present Illness Initial comments: 46 yo well known to us comes in with ear pain. He was seen here about 48 h ago for same. He states he is taking his amox. complaint: ear pain -: Gradual, days(s) Location: R ear Severity: mild Severity scale (0 -10): 2 Quality: aching Consistency: constant Improves with: none Worsens with: none - Related Data Previous Rx's Medication Instructions Recorded Last Taken Type metFORMIN [Glucophage] 500 mg PO BID 30 Days #60 tab 12/11/21 01/04/22 Rx carvediloL [Coreg] 3.125 mg PO BID #60 tablet 12/20/21 12/29/21 Rx lisinopriL [Zestril TAB] 5 mg PO QDAY #30 tablet 12/20/21 12/30/21 Rx Ondansetron [Zofran Odt] 4 mg PO Q8HR PRN #14 tab.rapdis 12/21/21 01/06/22 Rx traMADoL [Ultram 50 MG tab] 50 mg PO Q4HR PRN #14 tablet 12/21/21 01/04/22 Rx Prednisone [predniSONE 5 mg (6-Day 5 mg PO .TAPER #1 pack 12/29/21 12/31/21 Rx Pack, 21 Tabs)] Aspirin EC [Halfprin EC] 81 mg PO QDAY 30 Days #30 tablet 01/09/22 Unknown Rx AtorvaSTATin [Lipitor] 40 mg PO QHS 30 Days #30 tablet 01/09/22 Unknown Rx Clopidogrel [Plavix] 75 mg PO QDAY #30 tablet 04/25/22 Unknown Rx Albuterol Mdi (or & Nicu Only) 1 puff IH Q4-6H PRN #1 inha 05/03/22 Unknown Rx [ProAir HFA Inhaler] Amoxicillin/K Clav Tab [Augmentin 1 tab PO Q12HR 10 Days #20 tab 05/16/22 Unknown Rx 875MG TAB] Neomy/Polymyx B/Hc (Otic) Soln 4 drops OTIC TID 5 Days bottle 05/16/22 Unknown Rx [Cortisporin (Otic) Soln] Allergies Allergy/AdvReac Type Severity Reaction Status Date / Time ciprofloxacin Allergy Hives Verified 05/05/22 17:06 Sulfa (Sulfonamide Allergy Hives Verified 05/05/22 17:06 Antibiotics) ED Dental HPI - General Chief complaint: Earache Stated complaint: RT EAR PAIN Time Seen by Provider: 05/19/22 15:23 Source: patient Mode of arrival: Ambulatory Limitations: No Limitations - Related Data Previous Rx's Medication Instructions Recorded Last Taken Type metFORMIN [Glucophage] 500 mg PO BID 30 Days #60 tab 12/11/21 01/04/22 Rx carvediloL [Coreg] 3.125 mg PO BID #60 tablet 12/20/21 12/29/21 Rx lisinopriL [Zestril TAB] 5 mg PO QDAY #30 tablet 12/20/21 12/30/21 Rx Ondansetron [Zofran Odt] 4 mg PO Q8HR PRN #14 tab.rapdis 12/21/21 01/06/22 Rx traMADoL [Ultram 50 MG tab] 50 mg PO Q4HR PRN #14 tablet 12/21/21 01/04/22 Rx Prednisone [predniSONE 5 mg (6-Day 5 mg PO .TAPER #1 pack 12/29/21 12/31/21 Rx Pack, 21 Tabs)] Aspirin EC [Halfprin EC] 81 mg PO QDAY 30 Days #30 tablet 01/09/22 Unknown Rx AtorvaSTATin [Lipitor] 40 mg PO QHS 30 Days #30 tablet 01/09/22 Unknown Rx Clopidogrel [Plavix] 75 mg PO QDAY #30 tablet 04/25/22 Unknown Rx Albuterol Mdi (or & Nicu Only) 1 puff IH Q4-6H PRN #1 inha 05/03/22 Unknown Rx [ProAir HFA Inhaler] Amoxicillin/K Clav Tab [Augmentin 1 tab PO Q12HR 10 Days #20 tab 05/16/22 Unknown Rx 875MG TAB] Neomy/Polymyx B/Hc (Otic) Soln 4 drops OTIC TID 5 Days bottle 05/16/22 Unknown Rx [Cortisporin (Otic) Soln] Allergies Allergy/AdvReac Type Severity Reaction Status Date / Time ciprofloxacin Allergy Hives Verified 05/05/22 17:06 Sulfa (Sulfonamide Allergy Hives Verified 05/05/22 17:06 Antibiotics) ED Review of Systems ROS: Stated complaint: RT EAR PAIN Other details as noted in HPI Comment: All other systems reviewed and negative ED Past Medical Hx - Past Medical History Previous Medical History?: Yes Hx Hypertension: Yes (not taking meds) Hx CVA: Yes Hx Diabetes: Yes (not taking meds) Additional medical history: "heart problems" - Surgical History Past Surgical History?: Yes Additional Surgical History: R ear sx, 1982 - Family History Family history: no significant - Social History Smoking Status: Current Every Day Smoker Substance Use Type: None - Medications Home Medications: Home Medications Medication Instructions Recorded Confirmed Last Taken Type metFORMIN [Glucophage] 500 mg PO BID 30 Days #60 tab 12/11/21 01/08/22 01/04/22 Rx carvediloL [Coreg] 3.125 mg PO BID #60 tablet 12/20/21 01/08/22 12/29/21 Rx lisinopriL [Zestril TAB] 5 mg PO QDAY #30 tablet 12/20/21 01/08/22 12/30/21 Rx Ondansetron [Zofran Odt] 4 mg PO Q8HR PRN #14 tab.rapdis 12/21/21 01/08/22 01/06/22 Rx traMADoL [Ultram 50 MG tab] 50 mg PO Q4HR PRN #14 tablet 12/21/21 01/08/22 01/04/22 Rx Prednisone [predniSONE 5 mg (6-Day 5 mg PO .TAPER #1 pack 12/29/21 01/08/22 12/31/21 Rx Pack, 21 Tabs)] Aspirin EC [Halfprin EC] 81 mg PO QDAY 30 Days #30 tablet 01/09/22 Unknown Rx AtorvaSTATin [Lipitor] 40 mg PO QHS 30 Days #30 tablet 01/09/22 Unknown Rx Clopidogrel [Plavix] 75 mg PO QDAY #30 tablet 04/25/22 Unknown Rx Albuterol Mdi (or & Nicu Only) 1 puff IH Q4-6H PRN #1 inha 05/03/22 Unknown Rx [ProAir HFA Inhaler] Amoxicillin/K Clav Tab [Augmentin 1 tab PO Q12HR 10 Days #20 tab 05/16/22 Unknown Rx 875MG TAB] Neomy/Polymyx B/Hc (Otic) Soln 4 drops OTIC TID 5 Days bottle 05/16/22 Unknown Rx [Cortisporin (Otic) Soln] ED Physical Exam - General Limitations: No Limitations General appearance: alert, in no apparent distress - Head Head exam: Present: atraumatic, normocephalic - Eye Eye exam: Present: normal appearance - ENT ENT exam: Present: mucous membranes moist - Expanded ENT Exam Expanded Ear exam: Present: normal external inspection TM/Canal exam: Erythema: Right TM, Left TM, Effusion: Right TM, Left TM, Canal Tenderness: Right TM, Left TM Mouth exam: Present: normal external inspection Teeth exam: Present: normal inspection Throat exam: Positive: normal inspection - Neck Neck exam: Present: normal inspection - Respiratory Respiratory exam: Present: normal lung sounds bilaterally. Absent: respiratory distress - Cardiovascular Cardiovascular Exam: Present: regular rate, normal rhythm. Absent: systolic murmur, diastolic murmur, rubs, gallop - GI/Abdominal GI/Abdominal exam: Present: soft, normal bowel sounds - Rectal Rectal exam: Present: deferred - Extremities Exam Extremities exam: Present: normal inspection - Back Exam Back exam: Present: normal inspection - Neurological Exam Neurological exam: Present: alert, oriented X3 - Psychiatric Psychiatric exam: Present: normal affect, normal mood - Skin Skin exam: Present: warm, dry, intact, normal color. Absent: rash ED Course Vital Signs 05/19/22 15:19 Temperature 98.9 F Pulse Rate 103 H Respiratory 14 Rate Blood Pressure 132/93 [Right] O2 Sat by Pulse 98 Oximetry ED Medical Decision Making - Medical Decision Making OM on exam no fever taking po ambulatory to ER Vital Signs 05/19/22 15:19 Temperature 98.9 F Pulse Rate 103 H Respiratory 14 Rate Blood Pressure 132/93 [Right] O2 Sat by Pulse 98 Oximetry rocephin IM and motrin for pain dc home with dc plan of care including diet, meds, activity and follow up. He verbalizes understanding of plan of care - Differential Diagnosis om Critical care attestation.: If time is entered above; I have spent that time in minutes in the direct care of this critically ill patient, excluding procedure time. ED Disposition Clinical Impression: Acute suppurative otitis media Disposition: HOME / SELF CARE / HOMELESS Is pt being admited?: No Does the pt Need Aspirin: No Condition: Stable Instructions: Otitis Media, Adult, [id number] Additional Instructions: continue your amoxicillin until gone follow up with pcp in 48 hours referral below Referrals: HORACE HYMAN MD [Staff Physician] - 3-5 Days Time of Disposition: 15:36
[2022-05-19] MEDS ORDERED: LIDOCAINE-MPF (1%) 10 MG/1 ML VIAL 5 ML INFILTRATI ONE (15:26)
[2022-05-19] MEDS ORDERED: IBUPROFEN 800 MG TAB PO ONE (15:26)
[2022-05-19 16:42] VITALS: BP 108/64
== END 2022-05-19 16:41 | disposition home or self-care (01) ==
LOC: ED 14:39
DX: H66.001 Acute suppurative otitis media without spontaneous rupture of ear drum, right ear (principal); I10 Essential (primary) hypertension; E11.9 Type 2 diabetes mellitus without complications; F17.200 Nicotine dependence, unspecified, uncomplicated; Z88.1 Allergy status to other antibiotic agents; Z88.2 Allergy status to sulfonamides; Z79.899 Other long term (current) drug therapy; Z79.84 Long term (current) use of oral hypoglycemic drugs
CPT/HCPCS: 99282; J0696; J3490

== ENCOUNTER 2022-05-22 17:46 | Emergency (ER) | payer SELFPAY | END 2022-05-22 21:00 | disposition left against medical advice (07) | LOC: ED 17:46 | DX: M79.673 Pain in unspecified foot (principal); Z53.21 Procedure and treatment not carried out due to patient leaving prior to being seen by health care provider ==

== ENCOUNTER 2022-05-24 09:50 | Emergency (ER) | payer SELFPAY | END 2022-05-24 10:57 | disposition left against medical advice (07) | LOC: ED 09:50 | DX: M79.673 Pain in unspecified foot (principal); Z53.21 Procedure and treatment not carried out due to patient leaving prior to being seen by health care provider ==

== ENCOUNTER 2022-05-25 09:54 | Emergency (ER) | payer SELFPAY ==
[2022-05-25 10:31] VITALS: BP 149/87
[2022-05-25] MEDS ORDERED: ACETAMINOPHEN 325 MG/10.15 ML ORAL LIQD UNIT DOSE PO ONE (14:18)
--- NOTE | 2022-05-25 14:24 | Emergency Department Report ---
ED General Adult HPI - General Chief complaint: Extremity Problem,Nontraumatic Stated complaint: PAIN IN FOOT Time Seen by Provider: 05/25/22 10:40 Source: patient Mode of arrival: Ambulatory Limitations: No Limitations - History of Present Illness Initial comments: 46-year-old male reports to the ER with complaints of bilateral foot pain. Patient reports he has been having the foot pain for about 2 to 3 days now. Patient has checked into this ER over the last 2 to 3 days for reports of bilateral foot pain. But has eloped before being seen. Patient is homeless and reports he does a lot of walking. Patient reports no injury to his feet recently. Patient denies any wounds. Patient reports no other acute signs or symptoms at this time. - Related Data Previous Rx's Medication Instructions Recorded Last Taken Type metFORMIN [Glucophage] 500 mg PO BID 30 Days #60 tab 12/11/21 01/04/22 Rx carvediloL [Coreg] 3.125 mg PO BID #60 tablet 12/20/21 12/29/21 Rx lisinopriL [Zestril TAB] 5 mg PO QDAY #30 tablet 12/20/21 12/30/21 Rx Ondansetron [Zofran Odt] 4 mg PO Q8HR PRN #14 tab.rapdis 12/21/21 01/06/22 Rx traMADoL [Ultram 50 MG tab] 50 mg PO Q4HR PRN #14 tablet 12/21/21 01/04/22 Rx Prednisone [predniSONE 5 mg (6-Day 5 mg PO .TAPER #1 pack 12/29/21 12/31/21 Rx Pack, 21 Tabs)] Aspirin EC [Halfprin EC] 81 mg PO QDAY 30 Days #30 tablet 01/09/22 Unknown Rx AtorvaSTATin [Lipitor] 40 mg PO QHS 30 Days #30 tablet 01/09/22 Unknown Rx Clopidogrel [Plavix] 75 mg PO QDAY #30 tablet 04/25/22 Unknown Rx Albuterol Mdi (or & Nicu Only) 1 puff IH Q4-6H PRN #1 inha 05/03/22 Unknown Rx [ProAir HFA Inhaler] Amoxicillin/K Clav Tab [Augmentin 1 tab PO Q12HR 10 Days #20 tab 05/16/22 Unknown Rx 875MG TAB] Neomy/Polymyx B/Hc (Otic) Soln 4 drops OTIC TID 5 Days bottle 05/16/22 Unknown Rx [Cortisporin (Otic) Soln] Allergies Allergy/AdvReac Type Severity Reaction Status Date / Time ciprofloxacin Allergy Hives Verified 05/25/22 10:31 Sulfa (Sulfonamide Allergy Hives Verified 05/25/22 10:31 Antibiotics) ED Review of Systems ROS: Stated complaint: PAIN IN FOOT Other details as noted in HPI Comment: All other systems reviewed and negative Musculoskeletal: arthralgia, other (Bilateral foot pain.) ED Past Medical Hx - Past Medical History Previous Medical History?: Yes Hx Hypertension: Yes (not taking meds) Hx CVA: Yes Hx Diabetes: Yes (not taking meds) Additional medical history: "heart problems" - Surgical History Additional Surgical History: R ear sx, 1982 - Social History Smoking Status: Current Every Day Smoker Substance Use Type: None - Medications Home Medications: Home Medications Medication Instructions Recorded Confirmed Last Taken Type metFORMIN [Glucophage] 500 mg PO BID 30 Days #60 tab 12/11/21 01/08/22 01/04/22 Rx carvediloL [Coreg] 3.125 mg PO BID #60 tablet 12/20/21 01/08/22 12/29/21 Rx lisinopriL [Zestril TAB] 5 mg PO QDAY #30 tablet 12/20/21 01/08/22 12/30/21 Rx Ondansetron [Zofran Odt] 4 mg PO Q8HR PRN #14 tab.rapdis 12/21/21 01/08/22 01/06/22 Rx traMADoL [Ultram 50 MG tab] 50 mg PO Q4HR PRN #14 tablet 12/21/21 01/08/22 01/04/22 Rx Prednisone [predniSONE 5 mg (6-Day 5 mg PO .TAPER #1 pack 12/29/21 01/08/22 12/31/21 Rx Pack, 21 Tabs)] Aspirin EC [Halfprin EC] 81 mg PO QDAY 30 Days #30 tablet 01/09/22 Unknown Rx AtorvaSTATin [Lipitor] 40 mg PO QHS 30 Days #30 tablet 01/09/22 Unknown Rx Clopidogrel [Plavix] 75 mg PO QDAY #30 tablet 04/25/22 Unknown Rx Albuterol Mdi (or & Nicu Only) 1 puff IH Q4-6H PRN #1 inha 05/03/22 Unknown Rx [ProAir HFA Inhaler] Amoxicillin/K Clav Tab [Augmentin 1 tab PO Q12HR 10 Days #20 tab 05/16/22 Unkn own Rx 875MG TAB] Neomy/Polymyx B/Hc (Otic) Soln 4 drops OTIC TID 5 Days bottle 05/16/22 Unknown Rx [Cortisporin (Otic) Soln] ED Physical Exam - General Limitations: No Limitations General appearance: alert, in no apparent distress - Head Head exam: Present: atraumatic, normocephalic - Eye Eye exam: Present: normal appearance - ENT ENT exam: Present: mucous membranes moist - Neck Neck exam: Present: normal inspection - Respiratory Respiratory exam: Present: normal lung sounds bilaterally. Absent: respiratory distress - Cardiovascular Cardiovascular Exam: Present: regular rate, normal rhythm. Absent: systolic murmur, diastolic murmur, rubs, gallop - GI/Abdominal GI/Abdominal exam: Present: soft, normal bowel sounds - Rectal Rectal exam: Present: deferred - Extremities Exam Extremities exam: Present: normal inspection - Expanded Lower Extremity Exam Left Foot/Toe exam: Present: normal inspection, full ROM. Absent: tenderness, swelling, abrasion Right Foot/Toe exam: Present: normal inspection, full ROM. Absent: tenderness, swelling, abrasion - Back Exam Back exam: Present: normal inspection - Neurological Exam Neurological exam: Present: alert, oriented X3 - Psychiatric Psychiatric exam: Present: normal affect, normal mood - Skin Skin exam: Present: warm, dry, intact, normal color. Absent: rash ED Course Vital Signs 05/25/22 10:25 Temperature 98.2 F Pulse Rate 98 H Respiratory 20 Rate Blood Pressure 149/87 [Left] O2 Sat by Pulse 100 Oximetry ED Medical Decision Making - Medical Decision Making 46-year-old male with complaints of bilateral foot pain for 2 to 3 days due to walking a lot. As patient is homeless. Patient has checked into this ER 2-3 times over the last 2 to 3 days with complaints of bilateral foot pain but has eloped each time. Patient is also a high utilizer of the ER department. Patient denies any direct injury to his feet. Patient is able to ambulate with no assistance. On physical exam there are no open wounds, swelling, dislocation, lacerations or wounds to his bilateral feet. Patient is stable for discharge home. Vital Signs 05/25/22 10:25 Temperature 98.2 F Pulse Rate 98 H Respiratory 20 Rate Blood Pressure 149/87 [Left] O2 Sat by Pulse 100 Oximetry Critical care attestation.: If time is entered above; I have spent that time in minutes in the direct care of this critically ill patient, excluding procedure time. ED Disposition Clinical Impression: Bilateral foot pain Disposition: HOME / SELF CARE / HOMELESS Is pt being admited?: No Condition: Stable Instructions: Foot Pain Referrals: [facility] [place] [Outside] - 3-5 Days
== END 2022-05-25 15:08 | disposition home or self-care (01) ==
LOC: ED 09:54
DX: M79.671 Pain in right foot (principal); M79.672 Pain in left foot; I10 Essential (primary) hypertension; E11.9 Type 2 diabetes mellitus without complications; F17.200 Nicotine dependence, unspecified, uncomplicated; Z88.2 Allergy status to sulfonamides; Z88.8 Allergy status to other drugs, medicaments and biological substances; Z79.84 Long term (current) use of oral hypoglycemic drugs; Z79.899 Other long term (current) drug therapy
CPT/HCPCS: 99282

== ENCOUNTER 2022-05-29 17:42 | Emergency (ER) | payer SELFPAY ==
[2022-05-30] MEDS ORDERED: ACETAMINOPHEN 325 MG TAB PO ONE (08:50)
--- NOTE | 2022-05-30 08:51 | Emergency Department Report ---
ED General Adult HPI - General Chief complaint: Extremity Problem,Nontraumatic Stated complaint: FOOT PAIN Time Seen by Provider: 05/30/22 08:45 Source: patient Mode of arrival: Ambulatory Limitations: No Limitations - History of Present Illness Initial comments: 46-year-old male reports to the ER with complaints of bilateral foot pain. Patient is a frequent utilizer of the ER and has been reporting foot pain for the last few visits. Patient is homeless and reports that he walks a lot. Patient reports no other acute signs or symptoms at this time. There is no direct injury reported to the patient's feet. Patient in no acute distress at time of assessment. - Related Data Previous Rx's Medication Instructions Recorded Last Taken Type metFORMIN [Glucophage] 500 mg PO BID 30 Days #60 tab 12/11/21 01/04/22 Rx carvediloL [Coreg] 3.125 mg PO BID #60 tablet 12/20/21 12/29/21 Rx lisinopriL [Zestril TAB] 5 mg PO QDAY #30 tablet 12/20/21 12/30/21 Rx Ondansetron [Zofran Odt] 4 mg PO Q8HR PRN #14 tab.rapdis 12/21/21 01/06/22 Rx traMADoL [Ultram 50 MG tab] 50 mg PO Q4HR PRN #14 tablet 12/21/21 01/04/22 Rx Prednisone [predniSONE 5 mg (6-Day 5 mg PO .TAPER #1 pack 12/29/21 12/31/21 Rx Pack, 21 Tabs)] Aspirin EC [Halfprin EC] 81 mg PO QDAY 30 Days #30 tablet 01/09/22 Unknown Rx AtorvaSTATin [Lipitor] 40 mg PO QHS 30 Days #30 tablet 01/09/22 Unknown Rx Clopidogrel [Plavix] 75 mg PO QDAY #30 tablet 04/25/22 Unknown Rx Albuterol Mdi (or & Nicu Only) 1 puff IH Q4-6H PRN #1 inha 05/03/22 Unknown Rx [ProAir HFA Inhaler] Amoxicillin/K Clav Tab [Augmentin 1 tab PO Q12HR 10 Days #20 tab 05/16/22 Unknown Rx 875MG TAB] Neomy/Polymyx B/Hc (Otic) Soln 4 drops OTIC TID 5 Days bottle 05/16/22 Unknown Rx [Cortisporin (Otic) Soln] Allergies Allergy/AdvReac Type Severity Reaction Status Date / Time ciprofloxacin Allergy Hives Verified 05/25/22 10:31 Sulfa (Sulfonamide Allergy Hives Verified 05/25/22 10:31 Antibiotics) ED Review of Systems ROS: Stated complaint: FOOT PAIN Other details as noted in HPI Comment: All other systems reviewed and negative Musculoskeletal: arthralgia ED Past Medical Hx - Past Medical History Previous Medical History?: Yes Hx Hypertension: Yes (not taking meds) Hx CVA: Yes Hx Diabetes: Yes (not taking meds) Additional medical history: "heart problems" - Surgical History Additional Surgical History: R ear sx, 1982 - Social History Smoking Status: Current Every Day Smoker Substance Use Type: None - Medications Home Medications: Home Medications Medication Instructions Recorded Confirmed Last Taken Type metFORMIN [Glucophage] 500 mg PO BID 30 Days #60 tab 12/11/21 01/08/22 01/04/22 Rx carvediloL [Coreg] 3.125 mg PO BID #60 tablet 12/20/21 01/08/22 12/29/21 Rx lisinopriL [Zestril TAB] 5 mg PO QDAY #30 tablet 12/20/21 01/08/22 12/30/21 Rx Ondansetron [Zofran Odt] 4 mg PO Q8HR PRN #14 tab.rapdis 12/21/21 01/08/22 01/06/22 Rx traMADoL [Ultram 50 MG tab] 50 mg PO Q4HR PRN #14 tablet 12/21/21 01/08/22 01/04/22 Rx Prednisone [predniSONE 5 mg (6-Day 5 mg PO .TAPER #1 pack 12/29/21 01/08/22 12/31/21 Rx Pack, 21 Tabs)] Aspirin EC [Halfprin EC] 81 mg PO QDAY 30 Days #30 tablet 01/09/22 Unknown Rx AtorvaSTATin [Lipitor] 40 mg PO QHS 30 Days #30 tablet 01/09/22 Unknown Rx Clopidogrel [Plavix] 75 mg PO QDAY #30 tablet 04/25/22 Unknown Rx Albuterol Mdi (or & Nicu Only) 1 puff IH Q4-6H PRN #1 inha 05/03/22 Unknown Rx [ProAir HFA Inhaler] Amoxicillin/K Clav Tab [Augmentin 1 tab PO Q12HR 10 Days #20 tab 05/16/22 Unknown Rx 875MG TAB] Neomy/Polymyx B/Hc (Otic) Soln 4 drops OTIC TID 5 Days bottle 05/16/22 Unknown Rx [Cortisporin (Otic) Soln] ED Physical Exam - General Limitations: No Limitations General appearance: alert, in no apparent distress - Head Head exam: Present: atraumatic, normocephalic - Eye Eye exam: Present: normal appearance - ENT ENT exam: Present: mucous membranes moist - Neck Neck exam: Present: normal inspection - Respiratory Respiratory exam: Present: normal lung sounds bilaterally. Absent: respiratory distress - Cardiovascular Cardiovascular Exam: Present: regular rate, normal rhythm. Absent: systolic murmur, diastolic murmur, rubs, gallop - GI/Abdominal GI/Abdominal exam: Present: soft, normal bowel sounds - Rectal Rectal exam: Present: deferred - Extremities Exam Extremities exam: Present: normal inspection, other (Bilateral foot tenderness noted. Slight swelling. No concerns for infection. No pitting edema. Patient feet are unkept, dirty. No open sores or lacerations noted.) - Back Exam Back exam: Present: normal inspection - Neurological Exam Neurological exam: Present: alert, oriented X3 - Psychiatric Psychiatric exam: Present: normal affect, normal mood - Skin Skin exam: Present: warm, dry, intact, normal color. Absent: rash ED Course Vital Signs 05/29/22 05/30/22 20:00 09:32 Temperature 97.5 F L 98.7 F Pulse Rate 107 H 78 Respiratory 18 14 Rate Blood Pressure 158/97 Blood Pressure 124/76 [Left] O2 Sat by Pulse 100 100 Oximetry ED Medical Decision Making - Medical Decision Making 46-year-old male reports to the ER bilateral foot pain. Patient is a frequent flyer to the ER with reports of foot pain. Patient is homeless. On physical exam there is tenderness to patient's feet. No lesions no open wounds. No concerns for infection noted on physical exam. No deformity noted in bilateral feet. There is slight swelling but no edema present. Patient's feet are unkept and dirty. No imaging is needed at this time. No clinical indication for imaging. Patient given oral medication for pain here. Patient stable for discharge and given referrals to outpatient primary care clinics within the area. Patient agrees with plan of care and verbalized understanding. Vital Signs 05/29/22 05/30/22 20:00 09:32 Temperature 97.5 F L 98.7 F Pulse Rate 107 H 78 Respiratory 18 14 Rate Blood Pressure 158/97 Blood Pressure 124/76 [Left] O2 Sat by Pulse 100 100 Oximetry Critical care attestation.: If time is entered above; I have spent that time in minutes in the direct care of this critically ill patient, excluding procedure time. ED Disposition Clinical Impression: Bilateral foot pain, Malingering, Homeless Disposition: 01 HOME / SELF CARE / HOMELESS Is pt being admited?: No Condition: Stable Instructions: Foot Pain Referrals: [facility] [Outside] - 3-5 Days [facility] [Outside] - 3-5 Days [facility] [Outside] - 3-5 Days HORACE HYMAN MD [Primary Care Provider] - 3-5 Days
[2022-05-30 09:39] VITALS: BP 124/76
== END 2022-05-30 09:39 | disposition home or self-care (01) ==
LOC: ED 17:42
DX: M79.672 Pain in left foot (principal); M79.671 Pain in right foot; Z76.5 Malingerer [conscious simulation]; Z59.00 Homelessness unspecified; I10 Essential (primary) hypertension; Z86.73 Personal history of transient ischemic attack (TIA), and cerebral infarction without residual deficits; E11.9 Type 2 diabetes mellitus without complications; F17.200 Nicotine dependence, unspecified, uncomplicated; Z88.1 Allergy status to other antibiotic agents; Z91.09 Other allergy status, other than to drugs and biological substances; Z79.899 Other long term (current) drug therapy
CPT/HCPCS: 99282

== ENCOUNTER 2022-06-03 00:30 | Emergency (ER) | payer SELFPAY ==
[2022-06-03 01:40] VITALS: BP 138/81
== END 2022-06-03 08:59 | disposition left against medical advice (07) ==
LOC: ED 00:30
DX: R07.89 Other chest pain (principal); Z53.21 Procedure and treatment not carried out due to patient leaving prior to being seen by health care provider

== ENCOUNTER 2022-06-03 19:07 | Emergency (ER) | payer SELFPAY ==
[2022-06-03 19:39] VITALS: BP 142/91
== END 2022-06-04 03:45 | disposition left against medical advice (07) ==
LOC: ED 19:07
DX: M79.673 Pain in unspecified foot (principal); Z53.21 Procedure and treatment not carried out due to patient leaving prior to being seen by health care provider

== ENCOUNTER 2022-06-05 23:28 | Emergency (ER) | payer SELFPAY ==
[2022-06-05 23:50] VITALS: BP 148/93
== END 2022-06-06 11:53 | disposition left against medical advice (07) ==
LOC: ED 23:28
DX: R07.9 Chest pain, unspecified (principal); Z53.21 Procedure and treatment not carried out due to patient leaving prior to being seen by health care provider
CPT/HCPCS: 93005

== ENCOUNTER 2022-06-07 19:45 | Emergency (ER) | payer SELFPAY ==
[2022-06-08] MEDS ORDERED: AMOXICILLIN/K CLAV 875/125MG TAB PO ONE (04:18)
[2022-06-08] MEDS ORDERED: ACETAMINOPHEN 500 MG TAB PO ONE (04:18)
[2022-06-08] MEDS ORDERED: IBUPROFEN 600 MG TAB PO ONE (04:18)
[2022-06-08 04:57] LABS: Basophils % (Auto) 0.5 % (0.0-1.8); Eosinophils # (Auto) 0.1 K/mm3 (0.0-0.4); Eosinophils % (Auto) 2.4 % (0.0-4.3); Hematocrit 42.1 % (35.5-45.6); Hemoglobin 13.7 gm/dl (11.8-15.2); Lymphocytes # (Auto) 2.3 K/mm3 (1.2-5.4); Lymphocytes % (Auto) 41.1 % (13.4-35.0); Mean Corpuscular HGB Conc 33 % (32-34); Mean Corpuscular Volume 100 fl (84-94); Monocytes # (Auto) 0.5 K/mm3 (0.0-0.8); Monocytes % (Auto) 9.2 % (0.0-7.3); Platelet Count 183 K/mm3 (140-440); Red Blood Count 4.21 M/mm3 (3.65-5.03); Red Cell Distribution Width 14.7 % (13.2-15.2)
[2022-06-08 05:06] LABS: Alanine Aminotransferase 14 units/L (7-56); BUN/Creatinine Ratio 9; Blood Urea Nitrogen 13 mg/dL (9-20); Calcium 8.7 mg/dL (8.4-10.2); Hemolysis Index 6
--- NOTE | 2022-06-08 05:34 | XRay Report ---
CHEST 1 VIEW INDICATION / CLINICAL INFORMATION: CHEST PAIN. COMPARISON: Chest x-ray 05/05/2022 FINDINGS: SUPPORT DEVICES: None. HEART / MEDIASTINUM: Heart size is within normal limits. Mediastinal contour demonstrates no signific ant abnormality. LUNGS / PLEURA: Lungs are clear for degree of inspiration and technique utilized. BONES: No significant osseous abnormality. ADDITIONAL FINDINGS: No significant additional findings. IMPRESSION: 1. No active cardiopulmonary disease. Signer Name: Sarwat Snider II, MD Signed: 06/08/2022 5:30 AM Workstation Name: [id number]
--- NOTE | 2022-06-08 05:56 | Emergency Department Report ---
ED General Adult HPI - General Chief complaint: Extremity Injury, Lower Stated complaint: CHEST PAIN/FOOT SORES Source: patient Mode of arrival: Ambulatory Limitations: No Limitations - History of Present Illness Initial comments: Patient is a 46-year-old -Chinese male with a history of hypertension, CVA, cmb-mmmnawq-sosfwpmwd diabetes who presents to the ED with complaint of persistent right ear pain with purulent discharge, bilateral foot pain and diffuse chest wall pain for the last 2 months. Patient states the pain is constant and persistent especially with movement or heavy lifting. Patient denies dizziness, syncope, cough, sore throat, nausea and vomiting, change in vision, headache, traumatic injury, heavy lifting, numbness and tingling or weakness of upper and lower extremities bilaterally, fever and chills or headache. MD Complaint: Right ear pain; bilateral foot pain and chest pain -: Gradual, month(s) (2) Location: face (right ear), chest, lower extremity (Bilateral foot) Radiation: non-radiation Severity scale (0 -10): 7 Quality: aching, sharp Consistency: constant Improves with: none Worsens with: none Associated Symptoms: denies other symptoms, chest pain, cough. denies: diaphoresis, fever/chills, headaches, loss of appetite, malaise, nausea/vomiting, rash, seizure, shortness of breath, syncope, weakness Treatments Prior to Arrival: none - Related Data Previous Rx's Medication Instructions Recorded Last Taken Type metFORMIN [Glucophage] 500 mg PO BID 30 Days #60 tab 12/11/21 01/04/22 Rx carvediloL [Coreg] 3.125 mg PO BID #60 tablet 12/20/21 12/29/21 Rx lisinopriL [Zestril TAB] 5 mg PO QDAY #30 tablet 12/20/21 12/30/21 Rx Ondansetron [Zofran Odt] 4 mg PO Q8HR PRN #14 tab.rapdis 12/21/21 01/06/22 Rx traMADoL [Ultram 50 MG tab] 50 mg PO Q4HR PRN #14 tablet 12/21/21 01/04/22 Rx Prednisone [predniSONE 5 mg (6-Day 5 mg PO .TAPER #1 pack 12/29/21 12/31/21 Rx Pack, 21 Tabs)] Aspirin EC [Halfprin EC] 81 mg PO QDAY 30 Days #30 tablet 01/09/22 Unknown Rx AtorvaSTATin [Lipitor] 40 mg PO QHS 30 Days #30 tablet 01/09/22 Unknown Rx Clopidogrel [Plavix] 75 mg PO QDAY #30 tablet 04/25/22 Unknown Rx Albuterol Mdi (or & Nicu Only) 1 puff IH Q4-6H PRN #1 inha 05/03/22 Unknown Rx [ProAir HFA Inhaler] Amoxicillin/K Clav Tab [Augmentin 1 tab PO Q12HR 10 Days #20 tab 05/16/22 Unknown Rx 875MG TAB] Neomy/Polymyx B/Hc (Otic) Soln 4 drops OTIC TID 5 Days bottle 05/16/22 Unknown Rx [Cortisporin (Otic) Soln] Clindamycin [Clindamycin CAP] 300 mg PO Q6H #40 cap 06/08/22 Unknown Rx Ibuprofen [Motrin] 600 mg PO Q8H PRN #30 tablet 06/08/22 Unknown Rx Allergies Allergy/AdvReac Type Severity Reaction Status Date / Time ciprofloxacin Allergy Hives Verified 05/25/22 10:31 Sulfa (Sulfonamide Allergy Hives Verified 05/25/22 10:31 Antibiotics) ED Review of Systems ROS: Stated complaint: CHEST PAIN/FOOT SORES Other details as noted in HPI Constitutional: denies: chills, fever Eyes: denies: eye pain, eye discharge, vision change ENT: ear pain (Right ear pain). denies: throat pain Respiratory: cough. denies: shortness of breath, wheezing Cardiovascular: chest pain (Diffuse chest pain). denies: palpitations Endocrine: no symptoms reported Gastrointestinal: denies: abdominal pain, nausea, diarrhea Genitourinary: denies: urgency, dysuria Musculoskeletal: arthralgia (Bilateral foot pain). denies: back pain, joint swelling Skin: denies: rash, lesions Neurological: denies: headache, weakness, paresthesias Psychiatric: denies: anxiety, depression Hematological/Lymphatic: denies: easy bleeding, easy bruising ED Past Medical Hx - Past Medical History Hx Hypertension: Yes (not taking meds) Hx CVA: Yes Hx Diabetes: Yes (not taking meds) Additional medical history: "heart problems" - Surgical History Additional Surgical History: R ear sx, 1982 - Social History Smoking Status: Current Every Day Smoker Substance Use Type: None - Medications Home Medications: Home Medications Medication Instructions Recorded Confirmed Last Taken Type metFORMIN [Glucophage] 500 mg PO BID 30 Days #60 tab 12/11/21 01/08/22 01/04/22 Rx carvediloL [Coreg] 3.125 mg PO BID #60 tablet 12/20/21 01/08/22 12/29/21 Rx lisinopriL [Zestril TAB] 5 mg PO QDAY #30 tablet 12/20/21 01/08/22 12/30/21 Rx Ondansetron [Zofran Odt] 4 mg PO Q8HR PRN #14 tab.rapdis 12/21/21 01/08/22 Rx traMADoL [Ultram 50 MG tab] 50 mg PO Q4HR PRN #14 tablet 12/21/21 01/08/22 01/04/22 Rx Prednisone [predniSONE 5 mg (6-Day 5 mg PO .TAPER #1 pack 12/29/21 01/08/22 12/31/21 Rx Pack, 21 Tabs)] Aspirin EC [Halfprin EC] 81 mg PO QDAY 30 Days #30 tablet 01/09/22 Unknown Rx AtorvaSTATin [Lipitor] 40 mg PO QHS 30 Days #30 tablet 01/09/22 Unknown Rx Clopidogrel [Plavix] 75 mg PO QDAY #30 tablet 04/25/22 Unknown Rx Albuterol Mdi (or & Nicu Only) 1 puff IH Q4-6H PRN #1 inha 05/03/22 Unknown Rx [ProAir HFA Inhaler] Amoxicillin/K Clav Tab [Augmentin 1 tab PO Q12HR 10 Days #20 tab 05/16/22 Unknown Rx 875MG TAB] Neomy/Polymyx B/Hc (Otic) Soln 4 drops OTIC TID 5 Days bottle 05/16/22 Unknown Rx [Cortisporin (Otic) Soln] Clindamycin [Clindamycin CAP] 300 mg PO Q6H #40 cap 06/08/22 Unknown Rx Ibuprofen [Motrin] 600 mg PO Q8H PRN #30 tablet 06/08/22 Unknown Rx ED Physical Exam - General Limitations: No Limitations General appearance: alert, in no apparent distress - Head Head exam: Present: atraumatic, normocephalic, normal inspection - Eye Eye exam: Present: normal appearance, PERRL, EOMI Pupils: Present: normal accommodation - ENT ENT exam: Present: normal exam, normal orophraynx, mucous membranes moist, other (Mildly swollen right ear canal with thick purulent discharge) - Neck Neck exam: Present: normal inspection, full ROM. Absent: tenderness - Respiratory Respiratory exam: Present: normal lung sounds bilaterally, chest wall tenderness (Palpable reproducible diffuse chest wall tenderness). Absent: respiratory d istress, wheezes, rales, rhonchi, accessory muscle use, decreased breath sounds, prolonged expiratory - Cardiovascular Cardiovascular Exam: Present: regular rate, normal rhythm, normal heart sounds. Absent: systolic murmur, diastolic murmur, rubs, gallop - GI/Abdominal GI/Abdominal exam: Present: soft, normal bowel sounds. Absent: tenderness, guarding, rebound, hyperactive bowel sounds, hypoactive bowel sounds, organ omegaly - Extremities Exam Extremities exam: Present: normal inspection, full ROM, tenderness (Bilateral foot tenderness), normal capillary refill - Back Exam Back exam: Present: normal inspection, full ROM. Absent: tenderness, CVA tenderness (R), CVA tenderness (L), muscle spasm, paraspinal tenderness, vertebral tenderness - Neurological Exam Neurological exam: Present: alert, oriented X3, CN II-XII intact, normal gait, reflexes normal - Psychiatric Psychiatric exam: Present: normal affect, normal mood - Skin Skin exam: Present: warm, dry, intact, normal color. Absent: rash ED Course Vital Signs 06/07/22 06/08/22 20:45 06:29 Temperature 98.8 F Pulse Rate 96 H 87 Respiratory 18 14 Rate Blood Pressure 133/81 128/82 [Right] O2 Sat by Pulse 97 99 Oximetry ED Medical Decision Making - Lab Data Result diagrams: 06/08/22 04:26 06/08/22 04:26 - EKG Data 06/08/22 06:53 The EKG shows normal sinus rhythm with a ventricular rate of [address] or T wave abnormalities. - Radiology Data Radiology results: report reviewed, image reviewed [facility] [address] [place] [address] XRay Report Signed Patient: JUNO NICHOLSON MR#: [id number] : 1975 Acct:[id number] Age/Sex: 46 / M ADM Date: 06/07/22 Loc: ED Attending Dr: Ordering Physician: CORKY BAILEY Date of Service: 06/08/22 Procedure(s): XR chest 1V ap Accession Number(s): [id number] cc: CORKY BAILEY Fluoro Time In Minutes: CHEST 1 VIEW INDICATION / CLINICAL INFORMATION: CHEST PAIN. COMPARISON: Chest x-ray 05/05/2022 FINDINGS: SUPPORT DEVICES: None. HEART / MEDIASTINUM: Heart size is within normal limits. Mediastinal contour demonstrates no significant abnormality. LUNGS / PLEURA: Lungs are clear for degree of inspiration and technique utilized. BONES: No significant osseous abnormality. ADDITIONAL FINDINGS: No significant additional findings. IMPRESSION: 1. No active cardiopulmonary disease. Signer Name: Hima Ritchie II, MD Signed: 06/08/2022 5:30 AM Workstation Name: [id number] Transcribed By: JAMSHID Dictated By: HIMA RITCHIE II, MD Electronically Authenticated By: HIMA RITCHIE II, MD Signed Date/Time: 06/08/22529 DD/ 9 TD/TT: - Medical Decision Making This is a 46-year-old -Chinese male with a history of hypertension, CVA, swj-mipdnfr-chbwxteup diabetes who presents to the ED with complaint of persistent right ear pain with purulent discharge, bilateral foot pain and diffuse chest wall pain for the last 2 months. Patient states the pain is constant and persistent especially with movement or heavy lifting. In the ED, patient is alert and oriented x3 and is not in any distress. Chest x-ray showed no acute cardiopulmonary abnormalities or pneumonitis. The EKG shows normal sinus rhythm with a ventricular rate of [address] or T wave abnormalities. All lab test results were reviewed and are all nonactionable. Patient was treated for pain in the ED. Patient also received initial oral antibiotics in the ED for suspected suppurative otitis media. Patient was t herefore discharged home on medications and advised to follow-up with his primary care physician in 7 to 10 days for reevaluation. Patient was advised to return to the ED immediately if symptoms get worse. - Differential Diagnosis Pneumonia; otitis media; ACS; muscle strain; costochondritis; muscle strain Critical care attestation.: If time is entered above; I have spent that time in minutes in the direct care of this critically ill patient, excluding procedure time. ED Disposition Clinical Impression: Acute costochondritis, Nonspecific chest pain Suppurative otitis media of right ear Qualifiers: Chronicity: acute Recurrence: recurrent Spontaneous tympanic membrane rupture: without spontaneous rupture Qualified Code(s): H66.004 - Acute suppurative otitis media without spontaneous rupture of ear drum, recurrent, right ear Muscle strain of foot Qualifiers: Encounter type: initial encounter Laterality: unspecified laterality Qualified Code(s): S96.919A - Strain of unspecified muscle and tendon at ankle and foot level, unspecified foot, initial encounter Disposition: HOME / SELF CARE / HOMELESS Is pt being admited?: No Does the pt Need Aspirin: No Condition: Stable Instructions: Costochondritis, Tfdw-[id number], Ear Drops, Adult, Kzcr-bl-Oyho, Otitis Media, Adult, Enso-ow-Qbsk, Chest Wall Pain, Szxe-qj-Wrrc, Muscle Strain, Wsul-yl-Yxuy, Nonspecific Chest Pain, Adult, Qnda-cv-Gzxv Additional Instructions: All lab test results were reviewed and are all nonactionable. Chest x-ray showed no acute cardiopulmonary abnormalities or pneumonitis. Therefore take medication with food, drink plenty of fluids, follow-up with your primary care physician in 7 to 10 days for reevaluation. Return to the ED immediately if symptoms get worse. Prescriptions: Clindamycin [Clindamycin CAP] 300 mg PO Q6H #40 cap Ibuprofen [Motrin] 600 mg PO Q8H PRN #30 tablet PRN Reason: Pain Referrals: HORACE HYMAN MD [Primary Care Provider] - 3-5 Days Time of Disposition: 05:59 Print Language: [place]
[2022-06-08 06:30] VITALS: BP 128/82
--- NOTE | 2022-06-09 08:25 | Electrocardiograph Report ---
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
== END 2022-06-08 06:30 | disposition home or self-care (01) ==
LOC: ED 19:45
DX: S96.919A Strain of unspecified muscle and tendon at ankle and foot level, unspecified foot, initial encounter (principal); M94.0 Chondrocostal junction syndrome [Tietze]; R07.9 Chest pain, unspecified; F17.200 Nicotine dependence, unspecified, uncomplicated; H66.004 Acute suppurative otitis media without spontaneous rupture of ear drum, recurrent, right ear; I10 Essential (primary) hypertension; Z88.8 Allergy status to other drugs, medicaments and biological substances; X58.XXXA Exposure to other specified factors, initial encounter; Y93.89 Activity, other specified; Y92.89 Other specified places as the place of occurrence of the external cause; Y99.8 Other external cause status
CPT/HCPCS: 36415; 71045; 80053; 84484; 85025; 93005; 99284

== ENCOUNTER 2022-06-10 12:33 | Emergency (ER) | payer SELFPAY | END 2022-06-10 16:07 | disposition left against medical advice (07) | LOC: ED 12:33 | DX: R07.89 Other chest pain (principal); M79.671 Pain in right foot; M79.672 Pain in left foot; Z53.21 Procedure and treatment not carried out due to patient leaving prior to being seen by health care provider ==

== ENCOUNTER 2022-06-11 12:36 | Emergency (ER) | payer SELFPAY ==
--- NOTE | 2022-06-11 17:04 | XRay Report ---
CHEST 2 VIEWS INDICATION / CLINICAL INFORMATION: chest pain. COMPARISON: 06/08/2022 and 05/03/2022 FINDINGS: SUPPORT DEVICES: None. HEART / MEDIASTINUM: No significant abnormality. LUNGS / PLEURA: No significant pulmonary or pleural abnormality. No pneumothorax. ADDITIONAL FINDINGS: There are bilateral nipple shadows. IMPRESSION: 1. No acute findings. Signer Name: Paresh Blackman MD Signed: 06/11/2022 4:59 PM Workstation Name: [id number]
[2022-06-11 17:38] LABS: Hematocrit 42.4 % (35.5-45.6); Hemoglobin 14.4 gm/dl (11.8-15.2); Mean Corpuscular HGB Conc 34 % (32-34); Mean Corpuscular Volume 98 fl (84-94); Platelet Count 196 K/mm3 (140-440); Red Blood Count 4.34 M/mm3 (3.65-5.03); Red Cell Distribution Width 14.4 % (13.2-15.2)
[2022-06-11] MEDS ORDERED: carvediloL 3.125 MG TAB PO STA (18:25)
[2022-06-11] MEDS ORDERED: LISINOPRIL 5 MG TAB PO STA (18:25)
[2022-06-11] MEDS ORDERED: PANTOPRAZOLE 40 MG TAB PO ONE (18:26)
--- NOTE | 2022-06-11 18:27 | Emergency Department Report ---
ED General Adult HPI - General Chief complaint: Extremity Problem,Nontraumatic Stated complaint: CHEST/FOOT PAIN Time Seen by Provider: 06/11/22 18:16 Source: patient, RN notes reviewed, old records reviewed Mode of arrival: Ambulatory Limitations: No Limitations - History of Present Illness Initial comments: The patient was evaluated in the emergency department for symptoms described in the history of present illness. He/she was evaluated in the context of the global COVID-19 pandemic, which necessitated consideration that the patient might be at risk for infection with the virus that causes COVID-19. Institutional protocols and algorithms that pertain to the evaluation of patients at risk for COVID-19 are in a state of rapid change based on information released by regulatory bodies including the CDC and federal and state organizations. These policies and algorithms were followed during the patient's care in the emergency department. Please note that these policies, procedures and recommendations changed on a rapid basis. This is a 56-year-old gentleman. This patient has a history of nonischemic cardiomyopathy, and had a cardiac nuclear stress test at this hospital December 2021, which is negative for acute findings. The patient presents to the department today with a complaint of constant chest wall pain for the past 3 days. Pain does not radiate to the back, arms or neck. There is no vomiting, diaphoresis, or exertional shortness of breath. The patient denies travel surgery, immobilization, DVT and pulmonary embolism risk factors The patient is asking to eat. He also complains of bilateral plantar foot pain, and minimal lower extremity swelling. He is intermittently compliant with his medications. He is not homicidal or suicidal at this time. -: days(s) Location: chest, left, right Severity scale (0 -10): 9 Consistency: constant Improves with: none Worsens with: none - Related Data Previous Rx's Medication Instructions Recorded Last Taken Type Ondansetron [Zofran ODT TAB] 4 mg PO Q8HR PRN #14 tab.rapdis 12/21/21 01/06/22 Rx Clopidogrel [Plavix] 75 mg PO QDAY #30 tablet 04/25/22 Unknown Rx Albuterol Mdi (or & Nicu Only) 1 puff IH Q4-6H PRN #1 inha 05/03/22 Unknown Rx [ProAir HFA Inhaler] Aspirin EC [Halfprin EC] 81 mg PO QDAY 30 Days #30 tablet 06/11/22 Unknown Rx AtorvaSTATin [Lipitor] 40 mg PO QHS 30 Days #30 tablet 06/11/22 Unknown Rx carvediloL [Coreg] 3.125 mg PO BID #60 tablet 06/11/22 Unknown Rx lisinopriL [Zestril TAB] 5 mg PO QDAY #30 tablet 06/11/22 Unknown Rx metFORMIN [Glucophage] 500 mg PO BID 30 Days #60 tab 06/11/22 Unknown Rx Allergies Allergy/AdvReac Type Severity Reaction Status Date / Time ciprofloxacin Allergy Hives Verified 06/11/22 13:19 Sulfa (Sulfonamide Allergy Hives Verified 06/11/22 13:19 Antibiotics) ED Review of Systems ROS: Stated complaint: CHEST/FOOT PAIN Other details as noted in HPI Constitutional: denies: fever Eyes: denies: eye discharge ENT: denies: epistaxis Respiratory: denies: cough Cardiovascular: chest pain Gastrointestinal: abdominal pain. denies: nausea, vomiting, diarrhea Genitourinary: denies: dysuria Musculoskeletal: denies: back pain Neurological: denies: weakness Psychiatric: denies: homicidal thoughts, suicidal thoughts ED Past Medical Hx - Past Medical History Hx Hypertension: Yes (not taking meds) Hx CVA: Yes Hx Diabetes: Yes (not taking meds) Additional medical history: "heart problems" - Surgical History Additional Surgical History: R ear sx, 1982 - Social History Smoking Status: Current Every Day Smoker Substance Use Type: None - Medications Home Medications: Home Medications Medication Instructions Recorded Confirmed Last Taken Type Ondansetron [Zofran ODT TAB] 4 mg PO Q8HR PRN #14 tab.rapdis 12/21/21 01/08/22 01/06/22 Rx Clopidogrel [Plavix] 75 mg PO QDAY #30 tablet 04/25/22 Unknown Rx Albuterol Mdi (or & Nicu Only) 1 puff IH Q4-6H PRN #1 inha 05/03/22 Unknown Rx [ProAir HFA Inhaler] Aspirin EC [Halfprin EC] 81 mg PO QDAY 30 Days #30 tablet 06/11/22 Unknown Rx AtorvaSTATin [Lipitor] 40 mg PO QHS 30 Days #30 tablet 06/11/22 Unknown Rx carvediloL [Coreg] 3.125 mg PO BID #60 tablet 06/11/22 Unknown Rx lisinopriL [Zestril TAB] 5 mg PO QDAY #30 tablet 06/11/22 Unknown Rx metFORMIN [Glucophage] 500 mg PO BID 30 Days #60 tab 06/11/22 Unknown Rx ED Physical Exam - General Limitations: No Limitations General appearance: alert, in no apparent distress - Head Head exam: Present: atraumatic, normocephalic - Eye Eye exam: Present: normal appearance, EOMI. Absent: nystagmus - ENT ENT exam: Present: normal exam, normal orophraynx, mucous membranes moist, normal external ear exam - Neck Neck exam: Present: normal inspection, full ROM. Absent: tenderness, meningismus - Respiratory Respiratory exam: Present: normal lung sounds bilaterally, chest wall tenderness. Absent: respiratory distress, wheezes, rales, rhonchi, stridor, decreased breath sounds - Cardiovascular Cardiovascular Exam: Present: regular rate, normal rhythm, normal heart sounds. Absent: bradycardia, tachycardia, irregular rhythm, systolic murmur, diastolic murmur, rubs, gallop - GI/Abdominal GI/Abdominal exam: Present: soft. Absent: distended, tenderness, guarding, rebound, rigid, pulsatile mass - Rectal Rectal exam: Present: deferred - Extremities Exam Extremities exam: Present: normal inspection, full ROM, pedal edema (1+ edema in the bilateral lower extremities), other (2+ pulses noted in the bilateral upper and lower extremities. There is no palpable cord. negative Homans sign. Muscular compartments are soft. The pelvis is stable.). Absent: calf tenderness - Back Exam Back exam: Present: normal inspection. Absent: tenderness, CVA tenderness (R), CVA tenderness (L), paraspinal tenderness, vertebral tenderness - Neurological Exam Neurological exam: Present: alert, oriented X3, other (No facial droop. Tongue midline. Extraocular movements intact bilaterally. Facial sensation intact to light touch in V1, V2, V3 distribution bilaterally. 5 and a 5 strength in 4 extremities. Sensation intact to light touch in 4 extremities.). Absent: motor sensory deficit - Psychiatric Psychiatric exam: Present: flat affect. Absent: homicidal ideation, suicidal ideation - Skin Skin exam: Present: warm, dry, intact, normal color. Absent: rash ED Course Vital Signs 06/11/22 06/11/22 06/11/22 13:15 18:46 18:47 Temperature 97.7 F Pulse Rate 86 100 H 100 H Respiratory 20 Rate Blood Pressure 140/75 140/75 Blood Pressure 140/86 [Right] O2 Sat by Pulse 100 Oximetry - Reevaluation(s) Reevaluation #1: 06/11/22 19:16 Differential diagnosis, including but not limited to: GERD, gastritis, hiatal hernia, pneumonia, costochondritis, medication noncompliance, dependent edema Assessment and plan: 46-year-old gentleman, with resting heart rate currently of 69 bpm, who is not currently tachycardic, tachypneic or hypoxic, who denies DVT and pulmonary embolism risk factors, who is low risk by Wells criteria for pulmonary embolism, who had a negative cardiac nuclear stress test earlier on this year, with 3 days of nonspecific chest pain. Cardiovascular risk factor profile is reviewed and appreciated. Cardiology earlier on this year has diagnosed him with a presumed nonischemic cardiomyopathy. Troponin is negative x1, in the context of days of symptoms. EKG chronically abnormal, but appears to be unchanged from prior. His laboratory studies are nonactionable. He is resting comfortably in his stretcher, and in no acute distress. He does not meet criteria for 1013 hold or involuntary confinement. We will continue his current outpatient medications. He will be discharged with his outpatient medications. ED Medical Decision Making - Lab Data Result diagrams: 06/11/22 17:13 06/11/22 17:13 Vital Signs 06/11/22 06/11/22 06/11/22 13:15 18:46 18:47 Temperature 97.7 F Pulse Rate 86 100 H 100 H Respiratory 20 Rate Blood Pressure 140/75 140/75 Blood Pressure 140/86 [Right] O2 Sat by Pulse 100 Oximetry Lab Results 06/11/22 06/11/22 06/11/22 Range/Units 17:13 17:13 17:13 WBC 5.2 (4.5-11.0) K/mm3 RBC 4.34 (3.65-5.03) M/mm3 Hgb 14.4 (11.8-15.2) gm/dl Hct 42.4 (35.5-45.6) % MCV 98 H (84-94) fl MCH 33 H (28-32) pg MCHC 34 (32-34) % RDW 14.4 (13.2-15.2) % Plt Count 196 (140-440) K/mm3 Sodium 139 (137-145) mmol/L Potassium 4.3 (3.6-5.0) mmol/L Chloride 100.7 (98-107) mmol/L Carbon Dioxide 27 (22-30) mmol/L Anion Gap 16 mmol/L BUN 9 (9-20) mg/dL Creatinine 1.1 (0.8-1.3) mg/dL Estimated GFR > 60 ml/min BUN/Creatinine Ratio 8 % Glucose 219 H (75-100) mg/dL Calcium 9.2 (8.4-10.2) mg/dL Magnesium 1.80 (1.7-2.3) mg/dL Total Bilirubin 0.30 (0.1-1.2) mg/dL AST 12 (5-40) units/L ALT 15 (7-56) units/L Alkaline Phosphatase 86 (35-129) units/L Total Creatine Kinase 161 (55-170) units/L Troponin T < 0.010 (0.00-0.029) ng/mL NT-Pro-B Natriuret Pep 373.5 (0-450) pg/mL Total Protein 6.7 (6.3-8.2) g/dL Albumin 4.2 (3.9-5) g/dL Albumin/Globulin Ratio 1.7 % - EKG Data -: EKG Interpreted by In EKG shows normal: sinus rhythm Rate: normal - EKG Data 06/11/22 19:12 The EKG is interpreted at 17: 39 This is a sinus rhythm, with a rate of 62 bpm. There is a left axis deviation. There is left anterior fascicular block. Nonspecific T wave abnormalities, and biphasic T waves. T wave inversions in the inferior leads. This is an abnormal EKG. This is not a STEMI 06/11/22 19:13 This is very similar to prior EKG on January 07, 2022 - Radiology Data Radiology results: pending, report reviewed, image reviewed CHEST 2 VIEWS INDICATION / CLINICAL INFORMATION: chest pain. COMPARISON: 06/08/2022 and 05/03/2022 FINDINGS: SUPPORT DEVICES: None. HEART / MEDIASTINUM: No significant abnormality. LUNGS / PLEURA: No significant pulmonary or pleural abnormality. No pneumothorax. ADDITIONAL FINDINGS: There are bilateral nipple shadows. IMPRESSION: 1. No acute findings. Signer Name: Paresh Blackman MD Signed: 06/11/2022 3:59 PM Critical care attestation.: If time is entered above; I have spent that time in minutes in the direct care of this critically ill patient, excluding procedure time. ED Disposition Clinical Impression: Nonspecific chest pain, Medication refill, Foot pain Disposition: HOME / SELF CARE / HOMELESS Is pt being admited?: No Does the pt Need Aspirin: No Condition: Good Instructions: Nonspecific Chest Pain, Adult Additional Instructions: Avoid consumption of Motrin, ibuprofen, Naprosyn, Aleve, heavy spicy foods, a lcohol, tobacco and smoke products. Consume a low-salt diet. Take the medications as needed and directed. May take gloq-roy-hrnexpw Tylenol, Pepcid, Protonix as needed for physical pain. Medications are refilled for 1 month. Follow-up with an outpatient primary care doctor or vendor analyst within the next 3 to 5 days. Please return to the emergency room right away with new pain, worsened pain, migration of pain, projectile vomiting, change in mental status, confusion, inability tolerate liquid feeds, new, worsened or different symptoms not present on the initial emergency room evaluation Referrals: [facility] [Provider Group] - 3-5 Days [facility] [Provider Group] - 3-5 Days
[2022-06-11 18:42] LABS: Alanine Aminotransferase 15 units/L (7-56); Albumin 4.2 g/dL (3.9-5); BUN/Creatinine Ratio 8; Blood Urea Nitrogen 9 mg/dL (9-20); Calcium 9.2 mg/dL (8.4-10.2); Hemolysis Index 14
[2022-06-11 18:47] VITALS: BP 140/75
--- NOTE | 2022-06-12 10:38 | Electrocardiograph Report ---
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
== END 2022-06-11 20:53 | disposition home or self-care (01) ==
LOC: ED 12:36
DX: R07.9 Chest pain, unspecified (principal); Z76.0 Encounter for issue of repeat prescription; M79.672 Pain in left foot; M79.671 Pain in right foot; Z88.1 Allergy status to other antibiotic agents; Z91.09 Other allergy status, other than to drugs and biological substances; Z79.899 Other long term (current) drug therapy
CPT/HCPCS: 36415; 71046; 80053; 82550; 83735; 83880; 84484; 85027; 93005; 99284

== ENCOUNTER 2022-06-14 11:48 | Emergency (ER) | payer SELFPAY | END 2022-06-14 15:15 | disposition left against medical advice (07) | LOC: ED 11:48 | DX: R07.9 Chest pain, unspecified (principal); Z53.21 Procedure and treatment not carried out due to patient leaving prior to being seen by health care provider ==

== ENCOUNTER 2022-06-15 07:10 | Emergency (ER) | payer SELFPAY ==
--- NOTE | 2022-06-15 08:07 | XRay Report ---
CHEST 2 VIEWS INDICATION / CLINICAL INFORMATION: Chest Pain. COMPARISON: 06/11/2022 FINDINGS: SUPPORT DEVICES: None. HEART / MEDIASTINUM: No significant abnormality. LUNGS / PLEURA: No significant pulmonary or pleural abnormality. No pneumothorax. ADDITIONAL FINDINGS: No significant additional findings. IMPRESSION: 1. No acute findings. Signer Name: Horace Blandon Jr, MD Signed: 06/15/2022 8:03 AM Workstation Name: [id number]
--- NOTE | 2022-06-15 09:53 | Emergency Department Report ---
ED General Adult HPI - General Chief complaint: Chest Pain Stated complaint: CHEST PAIN Time Seen by Provider: 06/15/22 08:38 Source: patient Mode of arrival: Ambulatory Limitations: No Limitations - History of Present Illness Severity scale (0 -10): 2 - Related Data Previous Rx's Medication Instructions Recorded Last Taken Type Ondansetron [Zofran ODT TAB] 4 mg PO Q8HR PRN #14 tab.rapdis 12/21/21 01/06/22 Rx Clopidogrel [Plavix] 75 mg PO QDAY #30 tablet 04/25/22 Unknown Rx Albuterol Mdi (or & Nicu Only) 1 puff IH Q4-6H PRN #1 inha 05/03/22 Unknown Rx [ProAir HFA Inhaler] Aspirin EC [Halfprin EC] 81 mg PO QDAY 30 Days #30 tablet 06/11/22 Unknown Rx AtorvaSTATin [Lipitor] 40 mg PO QHS 30 Days #30 tablet 06/11/22 Unknown Rx carvediloL [Coreg] 3.125 mg PO BID #60 tablet 06/11/22 Unknown Rx lisinopriL [Zestril TAB] 5 mg PO QDAY #30 tablet 06/11/22 Unknown Rx metFORMIN [Glucophage] 500 mg PO BID 30 Days #60 tab 06/11/22 Unknown Rx Allergies Allergy/AdvReac Type Severity Reaction Status Date / Time ciprofloxacin Allergy Hives Verified 06/15/22 07:31 Sulfa (Sulfonamide Allergy Hives Verified 06/15/22 07:31 Antibiotics) ED Review of Systems ROS: Stated complaint: CHEST PAIN Other details as noted in HPI ED Past Medical Hx - Past Medical History Hx Hypertension: Yes (not taking meds) Hx CVA: Yes Hx Diabetes: Yes (not taking meds) Additional medical history: "heart problems" - Surgical History Additional Surgical History: R ear sx, 1982 - Social History Smoking Status: Current Every Day Smoker Substance Use Type: None - Medications Home Medications: Home Medications Medication Instructions Recorded Confirmed Last Taken Type Ondansetron [Zofran ODT TAB] 4 mg PO Q8HR PRN #14 tab.rapdis 12/21/21 01/08/22 01/06/22 Rx Clopidogrel [Plavix] 75 mg PO QDAY #30 tablet 04/25/22 Unknown Rx Albuterol Mdi (or & Nicu Only) 1 puff IH Q4-6H PRN #1 inha 05/03/22 Unknown Rx [ProAir HFA Inhaler] Aspirin EC [Halfprin EC] 81 mg PO QDAY 30 Days #30 tablet 06/11/22 Unknown Rx AtorvaSTATin [Lipitor] 40 mg PO QHS 30 Days #30 tablet 06/11/22 Unknown Rx carvediloL [Coreg] 3.125 mg PO BID #60 tablet 06/11/22 Unknown Rx lisinopriL [Zestril TAB] 5 mg PO QDAY #30 tablet 06/11/22 Unknown Rx metFORMIN [Glucophage] 500 mg PO BID 30 Days #60 tab 06/11/22 Unknown Rx ED Physical Exam - General Limitations: No Limitations ED Course Vital Signs 06/15/22 07:27 Temperature 98.3 F Pulse Rate 89 Respiratory 16 Rate Blood Pressure 145/86 [Right] O2 Sat by Pulse 96 Oximetry Critical care attestation.: If time is entered above; I have spent that time in minutes in the direct care of this critically ill patient, excluding procedure time. ED Disposition Clinical Impression: Malingering Chest pain Qualifiers: Chest pain type: unspecified Qualified Code(s): R07.9 - Chest pain, unspecified Disposition: 01 HOME / SELF CARE / HOMELESS Is pt being admited?: No Does the pt Need Aspirin: No Condition: Stable Instructions: Nonspecific Chest Pain, Adult Referrals: HORACE HYMAN MD [Staff Physician] - 3-5 Days Time of Disposition: 09:47
[2022-06-15 10:17] VITALS: BP 148/92
== END 2022-06-15 09:50 | disposition home or self-care (01) ==
LOC: ED 07:10
DX: Z76.5 Malingerer [conscious simulation] (principal); R07.89 Other chest pain; I10 Essential (primary) hypertension; F17.200 Nicotine dependence, unspecified, uncomplicated; Z79.899 Other long term (current) drug therapy; Z88.2 Allergy status to sulfonamides; Z88.1 Allergy status to other antibiotic agents
CPT/HCPCS: 71046; 99282

== ENCOUNTER 2022-06-19 14:26 | Emergency (ER) | payer SELFPAY ==
--- NOTE | 2022-06-19 16:43 | XRay Report ---
CHEST 2 VIEWS INDICATION / CLINICAL INFORMATION: chest pain. COMPARISON: 06/15/2022 FINDINGS: SUPPORT DEVICES: None. HEART / MEDIASTINUM: No significant abnormality. LUNGS / PLEURA: No significant pulmonary or pleural abnormality. No pneumothorax. ADDITIONAL FINDINGS: No significant additional findings. IMPRESSION: 1. No acute findings. Signer Name: Kashif Ugalde MD Signed: 06/19/2022 4:39 PM Workstation Name: [id number]
[2022-06-19 17:37] LABS: Alanine Aminotransferase 16 units/L (7-56); Albumin 4.1 g/dL (3.9-5); BUN/Creatinine Ratio 9; Blood Urea Nitrogen 12 mg/dL (9-20); Calcium 8.5 mg/dL (8.4-10.2); Hemolysis Index 50
[2022-06-19 17:47] LABS: Basophils # (Auto) 0.1 K/mm3 (0.0-0.1); Basophils % (Auto) 1.1 % (0.0-1.8); Eosinophils # (Auto) 0.1 K/mm3 (0.0-0.4); Eosinophils % (Auto) 2.1 % (0.0-4.3); Hematocrit 42.7 % (35.5-45.6); Hemoglobin 14.7 gm/dl (11.8-15.2); Lymphocytes # (Auto) 2.4 K/mm3 (1.2-5.4); Lymphocytes % (Auto) 46.7 % (13.4-35.0); Mean Corpuscular HGB Conc 35 % (32-34); Mean Corpuscular Volume 98 fl (84-94); Monocytes # (Auto) 0.5 K/mm3 (0.0-0.8); Monocytes % (Auto) 9.5 % (0.0-7.3); Platelet Count 183 K/mm3 (140-440); Red Blood Count 4.35 M/mm3 (3.65-5.03); Red Cell Distribution Width 14.7 % (13.2-15.2)
--- NOTE | 2022-06-20 04:39 | Emergency Department Report ---
ED Chest Pain HPI - General Chief Complaint: Chest Pain Stated Complaint: CHEST PAIN/EAR PAIN Time Seen by Provider: 06/20/22 00:26 Source: patient Mode of arrival: Ambulatory Limitations: No Limitations - History of Present Illness Initial Comments: Patient is a 46-year-old male presenting to ED with complaint of central chest pain beginning 4 days ago. He describes the pain as a sharp sensation with no modifying factors. Denies history of coronary artery disease. States he was told he had diabetes. Severity scale (0 -10): 4 - Related Data Previous Rx's Medication Instructions Recorded Last Taken Type Ondansetron [Zofran ODT TAB] 4 mg PO Q8HR PRN #14 tab.rapdis 12/21/21 01/06/22 Rx Clopidogrel [Plavix] 75 mg PO QDAY #30 tablet 04/25/22 Unknown Rx Albuterol Mdi (or & Nicu Only) 1 puff IH Q4-6H PRN #1 inha 05/03/22 Unknown Rx [ProAir HFA Inhaler] Aspirin EC [Halfprin EC] 81 mg PO QDAY 30 Days #30 tablet 06/11/22 Unknown Rx AtorvaSTATin [Lipitor] 40 mg PO QHS 30 Days #30 tablet 06/11/22 Unknown Rx carvediloL [Coreg] 3.125 mg PO BID #60 tablet 06/11/22 Unknown Rx lisinopriL [Zestril TAB] 5 mg PO QDAY #30 tablet 06/11/22 Unknown Rx metFORMIN [Glucophage] 500 mg PO BID 30 Days #60 tab 06/11/22 Unknown Rx Allergies Allergy/AdvReac Type Severity Reaction Status Date / Time ciprofloxacin Allergy Hives Verified 06/15/22 07:31 Sulfa (Sulfonamide Allergy Hives Verified 06/15/22 07:31 Antibiotics) Heart Score - HEART Score History: Slightly suspicious EKG: Non-specific Age: 45-65 Risk factors: No known risk factors Troponin: < normal limit HEART Score: 2 - EKG Read Time Time EKG Completed: 16:11 EKG Read Time: 16:15 - Critical Actions Critical Actions: 0-3 pts:0.9-1.7%risk of adverse cardiac event.Candidate for discharge ED Review of Systems ROS: Stated complaint: CHEST PAIN/EAR PAIN Other details as noted in HPI Constitutional: denies: chills, fever Respiratory: denies: cough, shortness of breath, wheezing Cardiovascular: chest pain Endocrine: no symptoms reported Gastrointestinal: denies: abdominal pain, nausea, diarrhea Genitourinary: denies: urgency, dysuria Musculoskeletal: denies: back pain, joint swelling, arthralgia Skin: denies: rash, lesions Neurological: denies: headache, weakness, paresthesias ED Past Medical Hx - Past Medical History Hx Hypertension: Yes (not taking meds) Hx CVA: Yes Hx Diabetes: Yes (not taking meds) Additional medical history: "heart problems" - Surgical History Additional Surgical History: R ear sx, 1982 - Social History Smoking Status: Current Every Day Smoker - Medications Home Medications: Home Medications Medication Instructions Recorded Confirmed Last Taken Type Ondansetron [Zofran ODT TAB] 4 mg PO Q8HR PRN #14 tab.rapdis 12/21/21 01/08/22 01/06/22 Rx Clopidogrel [Plavix] 75 mg PO QDAY #30 tablet 04/25/22 Unknown Rx Albuterol Mdi (or & Nicu Only) 1 puff IH Q4-6H PRN #1 inha 05/03/22 Unknown Rx [ProAir HFA Inhaler] Aspirin EC [Halfprin EC] 81 mg PO QDAY 30 Days #30 tablet 06/11/22 Unknown Rx AtorvaSTATin [Lipitor] 40 mg PO QHS 30 Days #30 tablet 06/11/22 Unknown Rx carvediloL [Coreg] 3.125 mg PO BID #60 tablet 06/11/22 Unknown Rx lisinopriL [Zestril TAB] 5 mg PO QDAY #30 tablet 06/11/22 Unknown Rx metFORMIN [Glucophage] 500 mg PO BID 30 Days #60 tab 06/11/22 Unknown Rx ED Physical Exam - General Limitations: No Limitations General appearance: alert, in no apparent distress - Head Head exam: Present: atraumatic, normocephalic - Respiratory Respiratory exam: Present: normal lung sounds bilaterally. Absent: respiratory distress - Cardiovascular Cardiovascular Exam: Present: regular rate, normal rhythm, normal heart sounds - GI/Abdominal GI/Abdominal exam: Present: soft. Absent: distended, tenderness - Rectal Rectal exam: Present: deferred - Neurological Exam Neurological exam: Present: alert, oriented X3 - Psychiatric Psychiatric exam: Present: normal affect, normal mood - Skin Skin exam: Present: warm, dry, intact, normal color ED Course Vital Signs 06/19/22 06/20/22 15:13 00:17 Temperature 98.2 F Pulse Rate 90 90 Respiratory 18 17 Rate Blood Pressure 153/81 138/77 [Left] O2 Sat by Pulse 100 98 Oximetry MASOUD score - Masoud Score Age > 65: (0) No Aspirin use within the Past 7 Days: (0) No 3 or more CAD Risk Factors: (1) Yes 2 or more Angina events in past 24 hrs: (1) Yes Known CAD with more than 50% Stenosis: (0) No Elevated Cardiac Markers: (0) No ST Deviation Greater than 0.5mm: (0) No MASOUD Score: 2 ED Medical Decision Making - Lab Data Result diagrams: 06/19/22 17:01 06/19/22 17:01 - EKG Data -: EKG Interpreted by Nm EKG shows normal: sinus rhythm, axis Rate: normal - EKG Data 06/20/22 04:37 T wave inversions in inferior leads. - Medical Decision Making Labs including 3 sets of troponins are unremarkable. Chest x-ray is normal. Physical exam is benign. Heart score is 2. On reassessment patient sleeping comfortably in bed. He is stable for discharge home with return precautions. Critical care attestation.: If time is entered above; I have spent that time in minutes in the direct care of this critically ill patient, excluding procedure time. ED Disposition Clinical Impression: Acute nonspecific chest pain with low risk of coronary artery disease Disposition: 01 HOME / SELF CARE / HOMELESS Is pt being admited?: No Condition: Stable Instructions: Chest Pain (ED), Nonspecific Chest Pain, Adult, [id number] Additional Instructions: Please follow-up with your regular doctor within 1 to 2 weeks. You may return if your symptoms worsen.
[2022-06-20 05:34] VITALS: BP 133/70
--- NOTE | 2022-06-22 16:41 | Electrocardiograph Report ---
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
== END 2022-06-20 05:31 | disposition home or self-care (01) ==
LOC: ED 14:26
DX: R07.9 Chest pain, unspecified (principal); F17.200 Nicotine dependence, unspecified, uncomplicated; Z88.8 Allergy status to other drugs, medicaments and biological substances; Z88.2 Allergy status to sulfonamides
CPT/HCPCS: 36415; 71046; 80053; 84484; 85025; 93005; 99283; 99284

== ENCOUNTER 2022-06-21 17:35 | Emergency (ER) | payer SELFPAY ==
[2022-06-22] MEDS ORDERED: IBUPROFEN 800 MG TAB PO ONE (10:40)
[2022-06-22] MEDS ORDERED: CYCLOBENZAPRINE 10 MG TAB PO ONE (10:40)
--- NOTE | 2022-06-22 11:20 | Emergency Department Report ---
ED Lower Extremity HPI - General Chief Complaint: Back Pain/Injury Stated Complaint: FOOT AND ARM PAIN Time Seen by Provider: 06/22/22 08:35 Source: patient Mode of arrival: Ambulatory Limitations: No Limitations - History of Present Illness Initial Comments: This is a 46-year-old male nontoxic, well nourished in appearance, no acute signs of distress presents to the ED with c/o of acute on chronic bilateral feet pain days. Patient stated has been walking a lot before symptoms occurred. Patient denies any injuries or trauma. Patient denies any numbness, tingling, fever, chills, nausea, vomiting, chest pain, shortness of breath, headache, stiff neck. Patient denies any joint swelling or joint redness. Patient denies decreased range of motion or abnormal gait. -: days(s) Injury: Toes: Right, Left Severity: mild Severity scale (0 -10): 3 Improves With: nothing Worsens With: nothing Associated Symptoms: ambulatory. denies: snap/pop sensation, swelling, numbnes s, tingling, unable to bear weight, able to partially bear weight - Related Data Previous Rx's Medication Instructions Recorded Last Taken Type Ondansetron [Zofran ODT TAB] 4 mg PO Q8HR PRN #14 tab.rapdis 12/21/21 01/06/22 Rx Clopidogrel [Plavix] 75 mg PO QDAY #30 tablet 04/25/22 Unknown Rx Albuterol Mdi (or & Nicu Only) 1 puff IH Q4-6H PRN #1 inha 05/03/22 Unknown Rx [ProAir HFA Inhaler] Aspirin EC [Halfprin EC] 81 mg PO QDAY 30 Days #30 tablet 06/11/22 Unknown Rx AtorvaSTATin [Lipitor] 40 mg PO QHS 30 Days #30 tablet 06/11/22 Unknown Rx carvediloL [Coreg] 3.125 mg PO BID #60 tablet 06/11/22 Unknown Rx lisinopriL [Zestril TAB] 5 mg PO QDAY #30 tablet 06/11/22 Unknown Rx metFORMIN [Glucophage] 500 mg PO BID 30 Days #60 tab 06/11/22 Unknown Rx Ibuprofen [Motrin] 600 mg PO Q12H PRN #12 tablet 06/22/22 Unknown Rx Allergies Allergy/AdvReac Type Severity Reaction Status Date / Time ciprofloxacin Allergy Hives Verified 06/15/22 07:31 Sulfa (Sulfonamide Allergy Hives Verified 06/15/22 07:31 Antibiotics) ED Review of Systems ROS: Stated complaint: FOOT AND ARM PAIN Other details as noted in HPI Comment: All other systems reviewed and negative Constitutional: denies: chills, fever Eyes: denies: eye pain, eye discharge, vision change ENT: denies: ear pain, throat pain Respiratory: denies: cough, shortness of breath, wheezing Cardiovascular: denies: chest pain, palpitations Endocrine: no symptoms reported Gastrointestinal: denies: abdominal pain, nausea, diarrhea Genitourinary: denies: urgency, dysuria Musculoskeletal: denies: back pain, joint swelling, arthralgia Skin: denies: rash, lesions Neurological: denies: headache, weakness, paresthesias Psychiatric: denies: anxiety, depression Hematological/Lymphatic: denies: easy bleeding, easy bruising ED Past Medical Hx - Past Medical History Previous Medical History?: Yes Hx Hypertension: Yes (not taking meds) Hx CVA: Yes Hx Diabetes: Yes (not taking meds) Additional medical history: "heart problems" - Surgical History Past Surgical History?: Yes Additional Surgical History: R ear sx, 1982 - Social History Smoking Status: Current Every Day Smoker - Medications Home Medications: Home Medications Medication Instructions Recorded Confirmed Last Taken Type Ondansetron [Zofran ODT TAB] 4 mg PO Q8HR PRN #14 tab.rapdis 12/21/21 01/08/22 01/06/22 Rx Clopidogrel [Plavix] 75 mg PO QDAY #30 tablet 04/25/22 Unknown Rx Albuterol Mdi (or & Nicu Only) 1 puff IH Q4-6H PRN #1 inha 05/03/22 Unknown Rx [ProAir HFA Inhaler] Aspirin EC [Halfprin EC] 81 mg PO QDAY 30 Days #30 tablet 06/11/22 Unknown Rx AtorvaSTATin [Lipitor] 40 mg PO QHS 30 Days #30 tablet 06/11/22 Unknown Rx carvediloL [Coreg] 3.125 mg PO BID #60 tablet 06/11/22 Unknown Rx lisinopriL [Zestril TAB] 5 mg PO QDAY #30 tablet 06/11/22 Unknown Rx metFORMIN [Glucophage] 500 mg PO BID 30 Days #60 tab 06/11/22 Unknown Rx Ibuprofen [Motrin] 600 mg PO Q12H PRN #12 tablet 06/22/22 Unknown Rx ED Physical Exam - General Limitations: No Limitations General appearance: alert, in no apparent distress - Head Head exam: Present: atraumatic, normocephalic - Eye Eye exam: Present: normal appearance - Neck Neck exam: Present: normal inspection, full ROM. Absent: lymphadenopathy - Respiratory Respiratory exam: Absent: respiratory distress - Cardiovascular Cardiovascular Exam: Present: regular rate - Extremities Exam Extremities exam: Present: normal inspection, full ROM, normal capillary refill. Absent: tenderness, pedal edema, joint swelling, calf tenderness - Expanded Lower Extremity Exam Left Hip exam: Present: normal inspection (bilateral exam), full ROM (bilateral exam). Absent: tenderness (bilateral exam), swelling (bilateral exam) Upper Leg exam: Present: normal inspection (bilateral exam), full ROM (bilateral exam). Absent: tenderness (bilateral exam), swelling (bilateral exam) Knee exam: Present: normal inspection (bilateral exam), full ROM (bilateral exam). Absent: tenderness (bilateral exam), swelling (bilateral exam) Lower Leg exam: Present: normal inspection (bilateral exam), full ROM (bilateral exam). Absent: tenderness (bilateral exam), swelling (bilateral exam), abrasion (bilateral exam), laceration (bilateral exam), ecchymosis (bilateral exam), deformity (bilateral exam), crepidus (bilateral exam), dislocation (bilateral exam), erythema (bilateral exam), palpable cord (bilateral exam), Rahat's sign (bilateral exam) Ankle exam: Present: normal inspection (bilateral exam), full ROM (bilateral ex am). Absent: tenderness (bilateral exam), swelling (bilateral exam), abrasion (bilateral exam), laceration (bilateral exam), ecchymosis (bilateral exam), deformity (bilateral exam), crepidus (bilateral exam), dislocation (bilateral exam), erythema (bilateral exam), anterior draw sign (bilateral exam) Foot/Toe exam: Present: normal inspection (bilateral exam), full ROM (bilateral exam). Absent: tenderness (bilateral exam), swelling (bilateral exam), abrasion (bilateral exam), laceration (bilateral exam), ecchymosis (bilateral exam), deformity (bilateral exam), dislocation (bilateral exam), erythema (bilateral exam), amputation (bilateral exam), puncture wound (bilateral exam), foreign body (bilateral exam), calcaneal tenderness (bilateral exam), tenderness at base of 5th metatarsal (bilateral exam), nail avulsion (bilateral exam) Neuro vascular tendon exam: Present: no vascular compromise (bilateral exam: Neurovascular within normal limits) Gait: Positive: observed and normal - Back Exam Back exam: Present: normal inspection, full ROM. Absent: tenderness, CVA tenderness (R), CVA tenderness (L), muscle spasm, paraspinal tenderness, vertebral tenderness, rash noted - Neurological Exam Neurological exam: Present: alert, oriented X3, normal gait - Psychiatric Psychiatric exam: Present: normal affect, normal mood - Skin Skin exam: Present: warm, dry, intact, normal color. Absent: rash ED Course Vital Signs 06/21/22 20:33 Temperature 97.5 F L Pulse Rate 76 Respiratory 18 Rate Blood Pressure 154/75 O2 Sat by Pulse 100 Oximetry - Reevaluation(s) Reevaluation #1: 06/22/22 11:19 Patient is speaking in full sentences with no signs of distress noted. ED Lower Extremity MDM - Medical Decision Making This is a 46-year-old male that presents with bilateral chronic feet pains. Patient is stable and was examined by me. I referred patient to an orthopedic doctor for further evaluation. Patient does have normal gait with no tenderness and no joint swelling. Physical exam is unremarkable. No ecchymosis. no joint redness or swelling. Not warm to touch. No signs of cellulites present. Patient was instructed to RICE therapy. Patient received Motrin for pain. At time of discharge, the patient does not seem toxic or ill in appearance. No acute signs of distress noted. Patient agrees to discharge treatment plan of care. No further questions noted by the patient. Critical care attestation.: If time is entered above; I have spent that time in minutes in the direct care of this critically ill patient, excluding procedure time. ED Disposition Clinical Impression: Chronic pain of both feet Disposition: 01 HOME / SELF CARE / HOMELESS Is pt being admited?: No Does the pt Need Aspirin: No Condition: Stable Additional Instructions: Follow-up with a orthopedic doctor in 3-5 days or if symptoms worsen and continue return to emergency room as soon as possible. Prescriptions: Ibuprofen [Motrin] 600 mg PO Q12H PRN #12 tablet PRN Reason: Pain Referrals: HORACE HYMAN MD [Primary Care Provider] - 3-5 Days PRIMARY CAREMD [Referring] - 3-5 Days RHODA GUERRERO MD [Staff Physician] - 3-5 Days Time of Disposition: 11:21
[2022-06-22 12:17] VITALS: BP 133/78
== END 2022-06-22 12:17 | disposition home or self-care (01) ==
LOC: ED 17:35
DX: M79.672 Pain in left foot (principal); M79.671 Pain in right foot; I10 Essential (primary) hypertension; E11.9 Type 2 diabetes mellitus without complications; Z86.73 Personal history of transient ischemic attack (TIA), and cerebral infarction without residual deficits; Z88.1 Allergy status to other antibiotic agents; Z91.09 Other allergy status, other than to drugs and biological substances; Z79.899 Other long term (current) drug therapy; F17.200 Nicotine dependence, unspecified, uncomplicated
CPT/HCPCS: 99282

== ENCOUNTER 2022-06-24 18:29 | Emergency (ER) | payer SELFPAY | END 2022-06-25 19:00 | disposition left against medical advice (07) | LOC: ED 18:29 | DX: M79.673 Pain in unspecified foot (principal); M79.643 Pain in unspecified hand; Z53.21 Procedure and treatment not carried out due to patient leaving prior to being seen by health care provider ==

== ENCOUNTER 2022-06-27 16:01 | Emergency (ER) | payer SELFPAY ==
[2022-06-27 17:54] VITALS: BP 140/87
== END 2022-06-27 18:00 ==
LOC: ED 16:01
DX: R07.89 Other chest pain (principal); Z53.21 Procedure and treatment not carried out due to patient leaving prior to being seen by health care provider

== ENCOUNTER 2022-06-29 16:12 | Emergency (ER) | payer SELFPAY ==
--- NOTE | 2022-06-30 06:56 | Emergency Department Report ---
ED ENT HPI - General Chief complaint: Extremity Injury, Lower Stated complaint: CHEST PAIN/RT EAR/RT FOOT Time Seen by Provider: 06/30/22 02:12 Source: patient Mode of arrival: Ambulatory Limitations: No Limitations - History of Present Illness Initial comments: 46-year-old male was admitted following complaining of having dull throbbing pain to the right ear with cyst with some discharge of unknown etiology. He reports no fever, chills, sweats. No hearing loss reported no pain no presyncope. Reports no chest pain or palpitations reports no hemoptysis no hematemesis no hematochezia did have elevated. Cough which has since resolved MD complaint: ear pain Location: R ear Severity: mild, moderate Quality: aching Consistency: constant Improves with: none Worsens with: none - Related Data Previous Rx's Medication Instructions Recorded Last Taken Type Ondansetron [Zofran ODT TAB] 4 mg PO Q8HR PRN #14 tab.rapdis 12/21/21 01/06/22 Rx Clopidogrel [Plavix] 75 mg PO QDAY #30 tablet 04/25/22 Unknown Rx Albuterol Mdi (or & Nicu Only) 1 puff IH Q4-6H PRN #1 inha 05/03/22 Unknown Rx [ProAir HFA Inhaler] Aspirin EC [Halfprin EC] 81 mg PO QDAY 30 Days #30 tablet 06/11/22 Unknown Rx AtorvaSTATin [Lipitor] 40 mg PO QHS 30 Days #30 tablet 06/11/22 Unknown Rx carvediloL [Coreg] 3.125 mg PO BID #60 tablet 06/11/22 Unknown Rx lisinopriL [Zestril TAB] 5 mg PO QDAY #30 tablet 06/11/22 Unknown Rx metFORMIN [Glucophage] 500 mg PO BID 30 Days #60 tab 06/11/22 Unknown Rx Ibuprofen [Motrin] 600 mg PO Q12H PRN #12 tablet 06/22/22 Unknown Rx Neomy/Polymyx B/Hc Otic Susp 4 drops AD TID #1 bottle 06/30/22 Unknown Rx [Cortisporin (Otic) Susp] Allergies Allergy/AdvReac Type Severity Reaction Status Date / Time ciprofloxacin Allergy Hives Verified 06/15/22 07:31 Sulfa (Sulfonamide Allergy Hives Verified 06/15/22 07:31 Antibiotics) ED Dental HPI - General Chief complaint: Extremity Injury, Lower Stated complaint: CHEST PAIN/RT EAR/RT FOOT Time Seen by Provider: 06/30/22 02:12 Source: patient Mode of arrival: Ambulatory Limitations: No Limitations - Related Data Previous Rx's Medication Instructions Recorded Last Taken Type Ondansetron [Zofran ODT TAB] 4 mg PO Q8HR PRN #14 tab.rapdis 12/21/21 01/06/22 Rx Clopidogrel [Plavix] 75 mg PO QDAY #30 tablet 04/25/22 Unknown Rx Albuterol Mdi (or & Nicu Only) 1 puff IH Q4-6H PRN #1 inha 05/03/22 Unknown Rx [ProAir HFA Inhaler] Aspirin EC [Halfprin EC] 81 mg PO QDAY 30 Days #30 tablet 06/11/22 Unknown Rx AtorvaSTATin [Lipitor] 40 mg PO QHS 30 Days #30 tablet 06/11/22 Unknown Rx carvediloL [Coreg] 3.125 mg PO BID #60 tablet 06/11/22 Unknown Rx lisinopriL [Zestril TAB] 5 mg PO QDAY #30 tablet 06/11/22 Unknown Rx metFORMIN [Glucophage] 500 mg PO BID 30 Days #60 tab 06/11/22 Unknown Rx Ibuprofen [Motrin] 600 mg PO Q12H PRN #12 tablet 06/22/22 Unknown Rx Neomy/Polymyx B/Hc Otic Susp 4 drops AD TID #1 bottle 06/30/22 Unknown Rx [Cortisporin (Otic) Susp] Allergies Allergy/AdvReac Type Severity Reaction Status Date / Time ciprofloxacin Allergy Hives Verified 06/15/22 07:31 Sulfa (Sulfonamide Allergy Hives Verified 06/15/22 07:31 Antibiotics) ED Review of Systems ROS: Stated complaint: CHEST PAIN/RT EAR/RT FOOT Other details as noted in HPI Comment: All other systems reviewed and negative ED Past Medical Hx - Past Medical History Hx Hypertension: Yes (not taking meds) Hx CVA: Yes Hx Diabetes: Yes (not taking meds) Additional medical history: "heart problems" - Surgical History Additional Surgical History: R ear sx, 1982 - Social History Smoking Status: Current Every Day Smoker - Medications Home Medications: Home Medications Medication Instructions Recorded Confirmed Last Taken Type Ondansetron [Zofran ODT TAB] 4 mg PO Q8HR PRN #14 tab.rapdis 12/21/21 01/08/22 01/06/22 Rx Clopidogrel [Plavix] 75 mg PO QDAY #30 tablet 04/25/22 Unknown Rx Albuterol Mdi (or & Nicu Only) 1 puff IH Q4-6H PRN #1 inha 05/03/22 Unknown Rx [ProAir HFA Inhaler] Aspirin EC [Halfprin EC] 81 mg PO QDAY 30 Days #30 tablet 06/11/22 Unknown Rx AtorvaSTATin [Lipitor] 40 mg PO QHS 30 Days #30 tablet 06/11/22 Unknown Rx carvediloL [Coreg] 3.125 mg PO BID #60 tablet 06/11/22 Unknown Rx lisinopriL [Zestril TAB] 5 mg PO QDAY #30 tablet 06/11/22 Unknown Rx metFORMIN [Glucophage] 500 mg PO BID 30 Days #60 tab 06/11/22 Unknown Rx Ibuprofen [Motrin] 600 mg PO Q12H PRN #12 tablet 06/22/22 Unknown Rx Neomy/Polymyx B/Hc Otic Susp 4 drops AD TID #1 bottle 06/30/22 Unknown Rx [Cortisporin (Otic) Susp] ED Physical Exam - General Limitations: No Limitations General appearance: alert, in no apparent distress - Head Head exam: Present: atraumatic, normocephalic - Eye Eye exam: Present: normal appearance - ENT ENT exam: Present: mucous membranes moist. Absent: TM's normal bilaterally, normal external ear exam (Right tragal tenderness is noted with some swelling to the canal and white discharge/exudate is noted. No perforation is present there is no bleeding. No mastoid tenderness or bruising is appreciated. No. Postauricular lymphadenopathy.) - Neck Neck exam: Present: normal inspection - Respiratory Respiratory exam: Present: normal lung sounds bilaterally. Absent: respiratory distress - Cardiovascular Cardiovascular Exam: Present: regular rate, normal rhythm. Absent: systolic murmur, diastolic murmur, rubs, gallop - GI/Abdominal GI/Abdominal exam: Present: soft, normal bowel sounds - Rectal Rectal exam: Present: deferred - Extremities Exam Extremities exam: Present: normal inspection - Back Exam Back exam: Present: normal inspection - Neurological Exam Neurological exam: Present: alert, oriented X3 - Psychiatric Psychiatric exam: Present: normal affect, normal mood - Skin Skin exam: Present: warm, dry, intact, normal color. Absent: rash ED Course Vital Signs 06/29/22 20:27 Temperature 98.8 F Pulse Rate 96 H Respiratory 19 Rate Blood Pressure 134/83 [Right] O2 Sat by Pulse 99 Oximetry Critical care attestation.: If time is entered above; I have spent that time in minutes in the direct care of this critically ill patient, excluding procedure time. ED Disposition Clinical Impression: Otitis externa Disposition: HOME / SELF CARE / HOMELESS Is pt being admited?: No Does the pt Need Aspirin: No Condition: Stable Instructions: Otitis Externa Prescriptions: Neomy/Polymyx B/Hc Otic Susp [Cortisporin (Otic) Susp] 4 drops AD TID #1 bottle Referrals: HORACE HYMAN MD [Primary Care Provider] - 3-5 Days
[2022-06-30 07:02] VITALS: BP 142/87
== END 2022-06-30 07:02 | disposition home or self-care (01) ==
LOC: ED 16:12
DX: H60.91 Unspecified otitis externa, right ear (principal); I10 Essential (primary) hypertension; E11.9 Type 2 diabetes mellitus without complications; Z86.73 Personal history of transient ischemic attack (TIA), and cerebral infarction without residual deficits; F17.200 Nicotine dependence, unspecified, uncomplicated; Z88.1 Allergy status to other antibiotic agents; Z91.09 Other allergy status, other than to drugs and biological substances
CPT/HCPCS: 99282

== ENCOUNTER 2022-07-05 20:12 | Emergency (ER) | payer SELFPAY | END 2022-07-05 22:58 | disposition left against medical advice (07) | LOC: ED 20:12 | DX: R07.89 Other chest pain (principal); Z53.21 Procedure and treatment not carried out due to patient leaving prior to being seen by health care provider ==

== ENCOUNTER 2022-07-06 05:00 | Emergency (ER) | payer SELFPAY ==
[2022-07-06 05:15] VITALS: BP 149/82
--- NOTE | 2022-07-06 06:28 | Emergency Department Report ---
ED Extremity Problem HPI - General Chief complaint: Extremity Problem,Nontraumatic Stated complaint: BILATERAL FOOT/EAR/CHEST PAIN Time Seen by Provider: 07/06/22 05:13 Source: patient Mode of arrival: Ambulatory Limitations: No Limitations - History of Present Illness Initial comments: 47-year-old black male with a past medical history of hypertension presents to the emergency department for evaluation of 6 to 7-day history of bilateral feet pain, midsternal chest pain, and right ear pain. He states that his ear has been hurting for 6 days also but he has had chest pain for a long time and chest pain has not been any different. He denies shortness of breath, nausea, vomiting, dizziness, and diaphoresis. Of note, patient was asleep when I ent ered the room for initial exam and fell asleep several times during exam. MD Complaint: extremity pain, other (Right ear pain, midsternal chest pain.) -: days(s) (6) Location: bilateral lower extremity (Feet) History of Same: Yes -: No myalgia, No arthralgia, No fever, No associated dyspnea, No associated chest pain Severity scale (0 -10): 10 Quality: aching Consistency: constant Worsens with: weight bearing Associated Symptoms: chest pain. denies: shortness of breath, fever, myalgias, arthralgias, rash - Related Data Previous Rx's Medication Instructions Recorded Last Taken Type Ondansetron [Zofran ODT TAB] 4 mg PO Q8HR PRN #14 tab.rapdis 12/21/21 01/06/22 Rx Clopidogrel [Plavix] 75 mg PO QDAY #30 tablet 04/25/22 Unknown Rx Albuterol Mdi (or & Nicu Only) 1 puff IH Q4-6H PRN #1 inha 05/03/22 Unknown Rx [ProAir HFA Inhaler] Aspirin EC [Halfprin EC] 81 mg PO QDAY 30 Days #30 tablet 06/11/22 Unknown Rx AtorvaSTATin [Lipitor] 40 mg PO QHS 30 Days #30 tablet 06/11/22 Unknown Rx carvediloL [Coreg] 3.125 mg PO BID #60 tablet 06/11/22 Unknown Rx lisinopriL [Zestril TAB] 5 mg PO QDAY #30 tablet 06/11/22 Unknown Rx metFORMIN [Glucophage] 500 mg PO BID 30 Days #60 tab 06/11/22 Unknown Rx Ibuprofen [Motrin] 600 mg PO Q12H PRN #12 tablet 06/22/22 Unknown Rx Neomy/Polymyx B/Hc Otic Susp 4 drops AD TID #1 bottle 06/30/22 Unknown Rx [Cortisporin (Otic) Susp] Allergies Allergy/AdvReac Type Severity Reaction Status Date / Time ciprofloxacin Allergy Hives Verified 06/15/22 07:31 Sulfa (Sulfonamide Allergy Hives Verified 06/15/22 07:31 Antibiotics) ED Review of Systems ROS: Stated complaint: BILATERAL FOOT/EAR/CHEST PAIN Other details as noted in HPI Comment: All other systems reviewed and negative Constitutional: denies: chills, fever Respiratory: denies: shortness of breath Cardiovascular: chest pain. denies: palpitations, dyspnea on exertion, orthopnea, edema, syncope, paroxysmal nocturnal dyspnea Gastrointestinal: denies: abdominal pain, nausea Genitourinary: denies: urgency, dysuria Musculoskeletal: denies: back pain Neurological: denies: headache, weakness ED Past Medical Hx - Past Medical History Previous Medical History?: Yes Hx Hypertension: Yes (not taking meds) Hx CVA: Yes Hx Diabetes: Yes (not taking meds) Additional medical history: "heart problems" - Surgical History Past Surgical History?: Yes Additional Surgical History: R ear sx, 1982 - Social History Smoking Status: Unknown if ever smoked - Medications Home Medications: Home Medications Medication Instructions Recorded Confirmed Last Taken Type Ondansetron [Zofran ODT TAB] 4 mg PO Q8HR PRN #14 tab.rapdis 12/21/21 01/08/22 01/06/22 Rx Clopidogrel [Plavix] 75 mg PO QDAY #30 tablet 04/25/22 Unknown Rx Albuterol Mdi (or & Nicu Only) 1 puff IH Q4-6H PRN #1 inha 05/03/22 Unknown Rx [ProAir HFA Inhaler] Aspirin EC [Halfprin EC] 81 mg PO QDAY 30 Days #30 tablet 06/11/22 Unknown Rx AtorvaSTATin [Lipitor] 40 mg PO QHS 30 Days #30 tablet 06/11/22 Unknown Rx carvediloL [Coreg] 3.125 mg PO BID #60 tablet 06/11/22 Unknown Rx lisinopriL [Zestril TAB] 5 mg PO QDAY #30 tablet 06/11/22 Unknown Rx metFORMIN [Glucophage] 500 mg PO BID 30 Days #60 tab 06/11/22 Unknown Rx Ibuprofen [Motrin] 600 mg PO Q12H PRN #12 tablet 06/22/22 Unknown Rx Neomy/Polymyx B/Hc Otic Susp 4 drops AD TID #1 bottle 06/30/22 Unknown Rx [Cortisporin (Otic) Susp] ED Physical Exam - General Limitations: No Limitations General appearance: alert, in no apparent distress - Head Head exam: Present: atraumatic, normocephalic - Eye Eye exam: Present: normal appearance. Absent: conjunctival injection - ENT ENT exam: Present: normal exam, TM's normal bilaterally, normal external ear exam - Neck Neck exam: Present: normal inspection, full ROM. Absent: tenderness, lymphadenopathy - Respiratory Respiratory exam: Present: normal lung sounds bilaterally, chest wall tenderness (Midsternal). Absent: respiratory distress, wheezes, rales, rhonchi, stridor - Cardiovascular Cardiovascular Exam: Present: regular rate, normal heart sounds - GI/Abdominal GI/Abdominal exam: Present: soft, normal bowel sounds. Absent: distended, tenderness, guarding, rebound, rigid - Extremities Exam Extremities exam: Present: normal inspection, full ROM, normal capillary refill. Absent: tenderness, pedal edema, joint swelling, calf tenderness - Expanded Lower Extremity Exam Left Foot/Toe exam: Present: normal inspection, tenderness. Absent: swelling Neuro vascular tendon exam: Present: no vascular compromise. Absent: pulse deficit, abnormal cap refill, motor deficit, extremity cold to touch, pallor Right Foot/Toe exam: Present: normal inspection, tenderness. Absent: swelling Neuro vascular tendon exam: Present: no vascular compromise. Absent: pulse deficit, abnormal cap refill, motor deficit, extremity cold to touch, pallor Gait: Positive: observed and normal - Back Exam Back exam: Present: normal inspection. Absent: CVA tenderness (R), CVA tenderness (L), vertebral tenderness - Neurological Exam Neurological exam: Present: alert, oriented X3, CN II-XII intact, normal gait - Psychiatric Psychiatric exam: Present: normal affect, normal mood - Skin Skin exam: Present: warm, dry, intact, normal color ED Course Vital Signs 07/06/22 05:07 Temperature 98.3 F Pulse Rate 93 H Respiratory 18 Rate Blood Pressure 149/82 O2 Sat by Pulse 98 Oximetry ED Medical Decision Making - EKG Data Interpretation: no acute changes - Medical Decision Making 47-year-old black male with a past medical history of hypertension presents to the emergency department for evaluation of 6 to 7-day history of bilateral feet pain, midsternal chest pain, and right ear pain. He states that his ear has been hurting for 6 days also but he has had chest pain for a long time and chest pain has not been any different. He denies shortness of breath, nausea, vomiting, dizziness, and diaphoresis. Of note, patient was asleep when I entered the room for initial exam and fell asleep several times during exam. Physical exam unremarkable and work-up unremarkable. Of note, patient has been in the emergency department several times over the last 2 to 3 days with the same complaint and is always found sleeping in the waiting room. Patient discharged home to follow-up with his primary care provider and advised to return to the emergency department as needed. He verbalizes understanding of and agreement with plan of care. Critical care attestation.: If time is entered above; I have spent that time in minutes in the direct care of this critically ill patient, excluding procedure time. ED Disposition Clinical Impression: Bilateral foot pain, Chest wall pain, Right ear pain Disposition: HOME / SELF CARE / HOMELESS Is pt being admited?: No Does the pt Need Aspirin: No Condition: Stable Instructions: Nonspecific Chest Pain, Adult, Chest Wall Pain, [id number], Foot Pain, Earache, Adult Additional Instructions: Follow-up with your primary care provider for further evaluation and management. Return to the emergency department as needed. Referrals: HORACE HYMAN MD [Staff Physician] - 3-5 Days Time of Disposition: 06:25
--- NOTE | 2022-07-07 09:29 | Electrocardiograph Report ---
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
== END 2022-07-06 07:00 | disposition home or self-care (01) ==
LOC: ED 05:00
DX: M79.671 Pain in right foot (principal); M79.672 Pain in left foot; R07.89 Other chest pain; H92.01 Otalgia, right ear; I10 Essential (primary) hypertension; Z88.1 Allergy status to other antibiotic agents; Z88.2 Allergy status to sulfonamides; Z79.899 Other long term (current) drug therapy; Z79.82 Long term (current) use of aspirin
CPT/HCPCS: 93005; 99282

== ENCOUNTER 2022-07-08 21:24 | Emergency (ER) | payer OTHER ==
[2022-07-09] MEDS ORDERED: IPRATROPIUM/ALBUTEROL SULFATE 3 ML AMPUL.NEB IH ONE (07:33)
[2022-07-09] MEDS ORDERED: BENZONATATE 100 MG CAP PO ONE (07:33)
[2022-07-09] MEDS ORDERED: methylPREDNISolone Sod Succinate 125 MG/2 ML INJ IM ONE (07:33)
[2022-07-09] MEDS ORDERED: ACETAMINOPHEN W/CODEINE 300-30 MG TAB PO ONE (07:33)
--- NOTE | 2022-07-09 09:08 | Emergency Department Report ---
ED ENT HPI - General Chief complaint: Chest Pain Stated complaint: CHEST PAIN/FOOT PAIN Time Seen by Provider: 07/09/22 07:12 Source: patient Mode of arrival: Ambulatory Limitations: No Limitations - History of Present Illness Initial comments: 47-year-old black male with a past medical history of diabetes, hypertension, and CHF presents to the emergency department for evaluation of 7-day history of chest pain, persistent cough, wheezing, and bilateral foot pain. He states that his chest pain is 9 on a 10 point scale and worse with palpation, movement, and cough. He states that he has had bilateral foot pain for months. He states did not take any medication for his symptoms. MD complaint: other (Cough, chest pain, bilateral feet pain) -: Gradual, week(s) (1) Location: other (Chest and bilateral feet) Severity: severe Severity scale (0 -10): 9 Quality: aching Consistency: constant Worsens with: movement, other (Palpation) Associated Symptoms: cough, rhinorrhea. denies: fever, gum swelling, toothache, pain with swallowing, sore throat, tinnitus, hearing loss, discharge from ear - Related Data Previous Rx's Medication Instructions Recorded Last Taken Type Ondansetron [Zofran ODT TAB] 4 mg PO Q8HR PRN #14 tab.rapdis 12/21/21 01/06/22 Rx Clopidogrel [Plavix] 75 mg PO QDAY #30 tablet 04/25/22 Unknown Rx Albuterol Mdi (or & Nicu Only) 1 puff IH Q4-6H PRN #1 inha 05/03/22 Unknown Rx [ProAir HFA Inhaler] Aspirin EC [Halfprin EC] 81 mg PO QDAY 30 Days #30 tablet 06/11/22 Unknown Rx AtorvaSTATin [Lipitor] 40 mg PO QHS 30 Days #30 tablet 06/11/22 Unknown Rx carvediloL [Coreg] 3.125 mg PO BID #60 tablet 06/11/22 Unknown Rx lisinopriL [Zestril TAB] 5 mg PO QDAY #30 tablet 06/11/22 Unknown Rx metFORMIN [Glucophage] 500 mg PO BID 30 Days #60 tab 06/11/22 Unknown Rx Ibuprofen [Motrin] 600 mg PO Q12H PRN #12 tablet 06/22/22 Unknown Rx Neomy/Polymyx B/Hc Otic Susp 4 drops AD TID #1 bottle 06/30/22 Unknown Rx [Cortisporin (Otic) Susp] Benzonatate [Tessalon Perles] 100 mg PO Q8HR PRN #30 cap 07/09/22 Unknown Rx guaiFENesin/CODEINE [Robitussin AC] 10 ml PO TID PRN #120 ml 07/09/22 Unknown Rx predniSONE [Deltasone] 50 mg PO QDAY 5 Days #5 tab 07/09/22 Unknown Rx Allergies Allergy/AdvReac Type Severity Reaction Status Date / Time ciprofloxacin Allergy Hives Verified 06/15/22 07:31 Sulfa (Sulfonamide Allergy Hives Verified 06/15/22 07:31 Antibiotics) ED Dental HPI - General Chief complaint: Chest Pain Stated complaint: CHEST PAIN/FOOT PAIN Time Seen by Provider: 07/09/22 07:12 Source: patient Mode of arrival: Ambulatory Limitations: No Limitations - Related Data Previous Rx's Medication Instructions Recorded Last Taken Type Ondansetron [Zofran ODT TAB] 4 mg PO Q8HR PRN #14 tab.rapdis 12/21/21 01/06/22 Rx Clopidogrel [Plavix] 75 mg PO QDAY #30 tablet 04/25/22 Unknown Rx Albuterol Mdi (or & Nicu Only) 1 puff IH Q4-6H PRN #1 inha 05/03/22 Unknown Rx [ProAir HFA Inhaler] Aspirin EC [Halfprin EC] 81 mg PO QDAY 30 Days #30 tablet 06/11/22 Unknown Rx AtorvaSTATin [Lipitor] 40 mg PO QHS 30 Days #30 tablet 06/11/22 Unknown Rx carvediloL [Coreg] 3.125 mg PO BID #60 tablet 06/11/22 Unknown Rx lisinopriL [Zestril TAB] 5 mg PO QDAY #30 tablet 06/11/22 Unknown Rx metFORMIN [Glucophage] 500 mg PO BID 30 Days #60 tab 06/11/22 Unknown Rx Ibuprofen [Motrin] 600 mg PO Q12H PRN #12 tablet 06/22/22 Unknown Rx Neomy/Polymyx B/Hc Otic Susp 4 drops AD TID #1 bottle 06/30/22 Unknown Rx [Cortisporin (Otic) Susp] Benzonatate [Tessalon Perles] 100 mg PO Q8HR PRN #30 cap 07/09/22 Unknown Rx guaiFENesin/CODEINE [Robitussin AC] 10 ml PO TID PRN #120 ml 07/09/22 Unknown Rx predniSONE [Deltasone] 50 mg PO QDAY 5 Days #5 tab 07/09/22 Unknown Rx Allergies Allergy/AdvReac Type Severity Reaction Status Date / Time ciprofloxacin Allergy Hives Verified 06/15/22 07:31 Sulfa (Sulfonamide Allergy Hives Verified 06/15/22 07:31 Antibiotics) ED Review of Systems ROS: Stated complaint: CHEST PAIN/FOOT PAIN Other details as noted in HPI Comment: All other systems reviewed and negative Constitutional: denies: chills, fever, malaise, weakness Eyes: denies: eye discharge ENT: congestion Respiratory: cough, shortness of breath, wheezing. denies: SOB with exertion, SOB at rest Cardiovascular: chest pain, edema. denies: palpitations, dyspnea on exertion, syncope, paroxysmal nocturnal dyspnea Gastrointestinal: denies: abdominal pain, nausea, vomiting, diarrhea, hematemesis, melena, hematochezia Genitourinary: denies: urgency, dysuria Musculoskeletal: denies: back pain Neurological: denies: headache, weakness ED Past Medical Hx - Past Medical History Previous Medical History?: Yes Hx Hypertension: Yes (not taking meds) Hx CVA: Yes Hx Diabetes: Yes (not taking meds) Additional medical history: "heart problems" - Surgical History Past Surgical History?: Yes Additional Surgical History: R ear sx, 1982 - Social History Smoking Status: Unknown if ever smoked - Medications Home Medications: Home Medications Medication Instructions Recorded Confirmed Last Taken Type Ondansetron [Zofran ODT TAB] 4 mg PO Q8HR PRN #14 tab.rapdis 12/21/21 01/08/22 01/06/22 Rx Clopidogrel [Plavix] 75 mg PO QDAY #30 tablet 04/25/22 Unknown Rx Albuterol Mdi (or & Nicu Only) 1 puff IH Q4-6H PRN #1 inha 05/03/22 Unknown Rx [ProAir HFA Inhaler] Aspirin EC [Halfprin EC] 81 mg PO QDAY 30 Days #30 tablet 06/11/22 Unknown Rx AtorvaSTATin [Lipitor] 40 mg PO QHS 30 Days #30 tablet 06/11/22 Unknown Rx carvediloL [Coreg] 3.125 mg PO BID #60 tablet 06/11/22 Unknown Rx lisinopriL [Zestril TAB] 5 mg PO QDAY #30 tablet 06/11/22 Unknown Rx metFORMIN [Glucophage] 500 mg PO BID 30 Days #60 tab 06/11/22 Unknown Rx Ibuprofen [Motrin] 600 mg PO Q12H PRN #12 tablet 06/22/22 Unknown Rx Neomy/Polymyx B/Hc Otic Susp 4 drops AD TID #1 bottle 06/30/22 Unknown Rx [Cortisporin (Otic) Susp] Benzonatate [Tessalon Perles] 100 mg PO Q8HR PRN #30 cap 07/09/22 Unknown Rx guaiFENesin/CODEINE [Robitussin AC] 10 ml PO TID PRN #120 ml 07/09/22 Unknown Rx predniSONE [Deltasone] 50 mg PO QDAY 5 Days #5 tab 07/09/22 Unknown Rx ED Physical Exam - General Limitations: No Limitations General appearance: alert, in no apparent distress - Head Head exam: Present: atraumatic, normocephalic - Eye Eye exam: Present: normal appearance. Absent: conjunctival injection, periorbital swelling, periorbital tenderness - ENT ENT exam: Absent: normal exam (Bilateral nasal mucosal edema noted), normal orophraynx (Erythema noted to posterior oropharynx) - Neck Neck exam: Present: normal inspection, full ROM. Absent: tenderness, lymphadenopathy - Respiratory Respiratory exam: Present: wheezes, chest wall tenderness. Absent: respiratory distress, rales, rhonchi, stridor - Cardiovascular Cardiovascular Exam: Present: regular rate, normal heart sounds - GI/Abdominal GI/Abdominal exam: Present: soft, normal bowel sounds. Absent: distended, tenderness, guarding, rebound, rigid - Extremities Exam Extremities exam: Present: normal inspection, pedal edema (Trace bilateral ankle). Absent: full ROM, tenderness, normal capillary refill, calf tenderness - Expanded Lower Extremity Exam Right Foot/Toe exam: Present: tenderness, swelling. Absent: abrasion, laceration, ecchymosis, deformity, crepidus, erythema, calcaneal tenderness, tenderness at base of 5th metatarsal, nail avulsion, subungual hematoma Neuro vascular tendon exam: Present: no vascular compromise. Absent: pulse deficit, abnormal cap refill, motor deficit, extremity cold to touch, pallor Gait: Positive: observed and limited by pain Left Foot/Toe exam: Present: tenderness, swelling. Absent: abrasion, laceration, ecchymosis, deformity, crepidus, dislocation, erythema, calcaneal tenderness, tenderness at base of 5th metatarsal, nail avulsion, subungual hematoma Neuro vascular tendon exam: Present: no vascular compromise. Absent: pulse deficit, abnormal cap refill, motor deficit, sensory deficit, extremity cold to touch, pallor Gait: Positive: observed and limited by pain - Back Exam Back exam: Present: normal inspection. Absent: CVA tenderness (R), CVA tenderness (L) - Neurological Exam Neurological exam: Present: alert, oriented X3, normal gait - Psychiatric Psychiatric exam: Present: normal affect, normal mood - Skin Skin exam: Present: warm, dry, intact, normal color ED Course Vital Signs 07/08/22 22:25 Temperature 98.6 F Pulse Rate 90 Respiratory 18 Rate Blood Pressure 152/83 O2 Sat by Pulse 100 Oximetry - Reevaluation(s) Reevaluation #1: 07/09/22 09:08 Shortness of breath, chest tightness, and wheezing mostly resolved after medications. Patient states that he feels much better. ED Medical Decision Making - EKG Data Interpretation: no acute changes - Medical Decision Making 47-year-old black male with a past medical history of diabetes, hypertension, and CHF presents to the emergency department for evaluation of 7-day history of chest pain, persistent cough, wheezing, and bilateral foot pain. He states that his chest pain is 9 on a 10 point scale and worse with palpation, movement, and cough. He states that he has had bilateral foot pain for months. He states did not take any medication for his symptoms. Wheezing improved after medication. Patient feels better. Symptoms consistent with URI with cough and congestion. Patient be discharged home with prednisone Dosepak, Tessalon Perles, and Robitussin-AC to use as directed. He is advised to follow-up with his primary care provider if no improvement or worsening symptoms. He is advised to return to the emergency department as needed. He verbalizes understanding of and agreement with plan of care. Critical care attestation.: If time is entered above; I have spent that time in minutes in the direct care of this critically ill patient, excluding procedure time. ED Disposition Clinical Impression: URI with cough and congestion, Bilateral foot pain Disposition: HOME / SELF CARE / HOMELESS Is pt being admited?: No Does the pt Need Aspirin: No Condition: Stable Instructions: Upper Respiratory Infection, Adult, [id number], Foot Pain, Cough, Adult, [id number] Additional Instructions: Take medications as prescribed. Follow-up with your primary care provider if no improvement or worsening symptoms. Return to the emergency department as needed. Prescriptions: predniSONE [Deltasone] 50 mg PO QDAY 5 Days #5 tab guaiFENesin/CODEINE [Robitussin AC] 10 ml PO TID PRN #120 ml PRN Reason: Cough Benzonatate [Tessalon Perles] 100 mg PO Q8HR PRN #30 cap PRN Reason: Cough Referrals: HORACE HYMAN MD [Staff Physician] - 3-5 Days Time of Disposition: 09:12
[2022-07-09 09:43] VITALS: BP 143/89
--- NOTE | 2022-07-09 11:47 | Electrocardiograph Report ---
[facility] Test Date: 2022-07-08 Test Time: 22:27:38 Pat Name: JUNO NICHOLSON Department: Room: Gender: M Aix Administrator: CLAUDIA : [id number] Requested By: MAR ROMERO Order Number: [id number] Reading MD: Jacob Harley Measurements Intervals [place] Rate: 72 P: 51 GA: 139 QRS: -19 QRSD: 83 T: -43 QT: 443 QTc: 485 Interpretive Statements Sinus arrhythmia Left ventricular hypertrophy Abnormal T, consider ischemia, diffuse leads Compared to ECG 07/06/2022 05:02:52 Possible ischemia now present Sinus rhythm no longer present T-wave abnormality still present Electronically Signed On 07-09-2022 11:47:16 EDT by Jacob Harley
== END 2022-07-09 09:27 | disposition home or self-care (01) ==
LOC: ED 21:24
DX: J06.9 Acute upper respiratory infection, unspecified (principal); R05.9 Cough, unspecified; R09.81 Nasal congestion; M79.672 Pain in left foot; M79.671 Pain in right foot; I10 Essential (primary) hypertension; E11.9 Type 2 diabetes mellitus without complications; Z86.73 Personal history of transient ischemic attack (TIA), and cerebral infarction without residual deficits; Z88.1 Allergy status to other antibiotic agents; Z91.09 Other allergy status, other than to drugs and biological substances
CPT/HCPCS: 93005; 94640; 96372; 99283; J2930; 99282